=== PATIENT | female | born 1955 | race Caucasian/White ===

== ENCOUNTER → 2017-07-27 09:48 | Outpatient (CLI) | payer MEDICARE, MEDICAID, SELFPAY ==
--- NOTE | 2017-07-27 09:52 | ECHOCS_ITS ---
Reason For Study: MVP Procedure This was a 2D Doppler, Color Flow transthoracic echocardiogram. Exam performed in department. Left Ventricle Normal LV size. Left ventricular systolic function is normal. The estimated ejection fraction is 60 %. Transmitral diastolic flow velocities suggest mild (stage 1) diastolic dysfunction (reversed pattern). No regional wall motion abnormalities noted. Tricuspid Valve Normal tricuspid valve. Mild (1+) tricuspid valve insufficiency. Pulmonary artery systolic pressure is 22 mmHg. Aortic Valve Normal aortic valve. Trisinus/trileaflet aortic valve. Pulmonic Valve Normal pulmonic valve. Great Vessels Normal aortic root. The pulmonary artery is normal size. Normal inferior vena cava. Pericardium/Pleural No pericardial effusion. Medication Definity0.2ml given slow IV push to enhance endocardial definition. MMode/2D Measurements & Calculations LVIDd: 3.7 cm IVSd: 0.87 cm Ao root diam: 2.8 cm LVIDs: 2.7 cm LVPWd: 0.90 cm LA dimension: 3.9 cm RVDd: 3.6 cm FS: 28.9 % LAV(MOD-bp): 28.8 ml LA A4 area: 10.7 cm2 RA A4 area: 9.4 cm2 LAV(MOD-bp) Indexed: 15.5 ml/m2 LAV(MOD-sp2): 31.3 ml LAV(MOD-sp4): 22.6 ml Doppler Measurements & Calculations MV E max william: 53.7 cm/sec Lat Peak E' William: 6.0 cm/sec Med Peak E' William: 3.9 cm/sec MV A max william: 85.9 cm/sec E/E' lat: 8.9 E/E' med: 13.6 MV E/A: 0.62 Ao V2 max: 113.9 cm/sec LV V1 max: 97.3 cm/sec PA V2 max: 116.9 cm/sec Ao max P.2 mmHg LV V1 max P.8 mmHg Ao V2 mean: 88.9 cm/sec Ao mean P.4 mmHg Ao V2 VTI: 22.1 cm TR max william: 208.0 cm/sec TR max P.3 mmHg Interpretation Summary Normal LV size. Left ventricular systolic function is normal. The estimated ejection fraction is 60 %. Transmitral diastolic flow velocities suggest mild (stage 1) diastolic dysfunction (reversed pattern). Mild (1+) tricuspid valve insufficiency. Contrast injection was performed. Ordering Physician: Cheyenne Diggs Referring Physician: Cheyenne Diggs Performed By: Vannessa Bill, JOSÉ MIGUEL, RVT
== END ==
PROVIDERS: Family Provider Internal Medicine; PCP Internal Medicine; Visit Provider Internal Medicine
DX: I34.1 Nonrheumatic mitral (valve) prolapse (principal)
CPT/HCPCS: 93306; Q9957; A4216; C8929

== ENCOUNTER 2017-08-11 07:38 | Inpatient (IN) | payer MEDICARE, MEDICAID, SELFPAY ==
[2017-08-04 13:18] VITALS: BP 133/85; PULSE 67; RESP 18; TEMP 36.7; O2SAT 95; BMI 37.5
--- NOTE | 2017-08-05 10:30 | CASEMGMT ---
PRE-OP Joint Call: Attempted, 08/05/17 at 1031. Left VMM with request for return call. JIMMIE CohenN, RN-BC, CCM
--- NOTE | 2017-08-05 10:48 | CASEMGMT ---
PRE-OP Joint Call: FENG LEUNG received call back from Ms. Friedman. Ms. Friedman lives at [facility]. She has an elevator and no stairs. She states she has the following DME: FWW, Shower Chair, Hand Held Shower, Cane, and her bed is in the living room. Mrs. Friedman is disabled and lives alone. She would like to go to TCU for rehab prior to transitioning back to home. Ms. Friedman is scheduled for inpatient surgery on 08/11/17. FENG LEUNG explained MCR A/B criteria for SNF coverage, including the 3 mdn requirement. Ms. Friedman verbalized understanding. Ms. Friedman also has [employer] as a secondary insurance. This FENG LEUNG called and left a VMM with Anusha asking for Ms. Friedman to be added to the TCU list. Disposition Plan: TCU pending acceptance and bed availability. SHERRY Cohen, RN-BC, CCM
[2017-08-11] VITALS (10 sets, daily range): BP systolic 95–146; BP diastolic 56–93; PULSE 67–77; RESP 16–18; TEMP 35.8–36.6; O2SAT 92–98; BMI 37.5
[2017-08-11] MEDS: oxyCODONE HCl Cr 10 MG Tablet PO ×2 (08:26→21:29)
[2017-08-11] MEDS: Scopolamine 1mg/72hr Patch 1 PATCH TD (09:15)
--- NOTE | 2017-08-11 09:40 | BIKNEE_PTH ---
PATIENT: PERLITA ETIENNE LOC: [facility] U#:[id number] AGE/SX: 62/F ROOM: [facility]315 RE08/11/[address]: Brett Terrell DO : 1955 BED: 1 DIS: 08/13/2017 SPEC #: [id number] RECD: 08/12/17 08:18 STATUS: KASANDRA JACK #: [id number] WARREN: 08/11/17 09:[address]: Brett Terrell DEPT: SURGICAL PATHOLOGY RECD BY: Alaina Nevarez ENTERED: 08/12/17 09:29 SP TYPE: TOTAL KNEE OTHR DR: Dr. Cheyenne Diggs DO Tissues: Knee, NOS Procedures: Decalcification bone/plaque Surgery Specimen Level IV HEADER OPERATION: Total knee replacement bilateral PRE-OP DIAGNOSIS: Bilateral knee pain TISSUE SUBMITTED: Bone from bilateral knees MICROSCOPIC DIAGNOSIS Right and left total knee replacements: Changes consistent with severe degenerative joint disease. AM:eugene 08/17/17 MICROSCOPIC DESCRIPTION Slides are reviewed. GROSS DESCRIPTION Received is one container designated bone from bilateral knees. The specimen consists of multiple fragments of lara-yellow bone measuring in aggregate 15 x 13 x 3.5 cm. Also in the specimen container are multiple fragments of yellow-white soft tissue measuring in aggregate 9 x 7 x 3 cm. A number of bony fragments contain articular surfaces consistent with tibial plateau and femoral condyle and displaying prominent osteophyte formation and bone erosion. Gift Basket Packer sections are submitted in four cassettes as follows: 1 & 2 - soft tissue, 3 & 4 - bone after decalcification. / SJ:eugene 08/12/17 TC:5 CPT: 12285, 12110
--- NOTE | 2017-08-11 10:09 | RAD_ITS ---
STUDY: X-RAY - LEFT KNEE REASON FOR EXAM: Female, 62 years old. Postop evaluation TECHNIQUE: 2 view(s) of the knee. COMPARISON: None. FINDINGS: Patient is status post total knee arthroplasty evidence of hardware failure or loosening. No acute fracture or dislocation. Expected postoperative soft tissue changes. RAD/Knee 1 or 2 Views IMPRESSION: Total left knee arthroplasty without complications Electronically Signed: Dheeraj Beebe DO at 18:11 EDT Tel , Service support ,
[2017-08-11] MEDS: Cefazolin 2 GM in 0.9% Normal Saline 100 ML IV (10:38)
[2017-08-11] MEDS: Cefazolin 1 GM/50 ML BAG IV ×2 (12:34→20:54)
--- NOTE | 2017-08-11 15:24 | PCM.IMDPSTOP ---
Immediate Post-Op Note Date of Procedure: 08/11/17 Primary Surgeon/Physician: Brett Terrell DO filter tank tender helper: Bjorn Hopper filter tank tender helper: Reid Tucker - Provided assistance for the right total knee Pre-Operative Diagnosis: Bilateral osteoarthritis of the knees Post-Operative Diagnosis: Same as above Surgery/Procedure Performed:: 1) left total knee arthroplasty-[place] triathlon press-fit. 2) right total knee arthroplasty-Elizabeth triathlon press-fit femur-cemented tibia with open reduction internal fixation of iatrogenic tibial plateau fracture Description of Surgical Findings:: See dictation Estimated Blood Loss: 150 Specimen's removed: Bone cuts Type of Anesthesia:: General ASA Class: ASA2 Mod Systematic Disease - Admit VTE Documentation VTE Present on Admission: No VTE Mechan Device Prophylaxis: SCD's, Knee High ЕКАТЕРИНА Hose VTE Pharm Prophylaxis ordered?: Yes
--- NOTE | 2017-08-11 15:42 | OP.PCM_ITS ---
Report of Operation Date of Procedure: 08/11/17 Pre-Operative Diagnosis: Bilateral osteoarthritis of the knees Post-Operative Diagnosis: Same as above Surgery/Procedure Performed:: 1) left total knee arthroplasty-Elizabeth triathlon press-fit. 2) right total knee arthroplasty-[place] triathlon press-fit femur- cemented tibia with open reduction internal fixation of iatrogenic tibial plateau fracture Description of Surgical Findings:: 62-year-old female with bilateral osteoarthritis of the knees. Patient failed conservative measures to include NSAIDs active modifications physical therapy and injections. Having failed conservative measures patient elected for operative intervention to include bilateral total knee arthroplasty. Patient was met in the holding area where the bilateral lower extremities were marked and identified by the orthopedic surgeon. Patient was taken to the operating room in satisfactory condition with somewhat to place to identify patient operative procedure and limb. Patient initially received 2 g of Ancef for the left knee, she was then redosed with 1 g of Ancef for the right knee and also received 1 g of TXA. Patient nurse went a successful general anesthesia she was then prepped and draped in the usual fashion. Patient had a well-placed tourniquet to the bilateral lower extremities. She was then prepped and draped in the usual fashion with preparation to perform the left total knee initially and then transition after to the right total knee. Left lower extremity was elevated Esmarch used for exsanguination and tourniquet was increased to 250 mmHg for roughly 60 minutes. Patient had a standard midline incision made 2 fingerbreadths above the patella down to the tibial tubercle. She then underwent a standard medial parapatellar approach. There was a large return of an effusion and obvious tricompartmental arthrosis. Patient underwent a standard anterior and superior synovectomies. Standard anterior medial release was undertaken. We then placed our intramedullary cookie into the femur to perform our standard 8 mm distal femoral resection with 6? valgus cut. Standard cut was performed. We then sized to a size 2 femur. Standard cutting jig was placed using 3? of external rotation through the trans- epicondylar axis. Standard cuts were performed. We then turned our attention to the tibia. Extra medullary guide was used. 3? slope was provided in anticipation of performing a CR tibial plateau. We took 2 mm off the medial resection using standard technique. The leg was brought to full extension and the excess remnants of the menisci were removed. PCL was preserved. Posterior lateral and anterior medial geniculate vessels were cauterized. 9 mm spacer was introduced and we had excellent mechanical alignment and no extension gap abnormalities. Patient was then flexed at 30 and 90? we showed no flexion extension gaps and the patient remained ligamentously stable in all planes. At that point time we turned our attention to the patella. It measured roughly 22 mm in overall thickness. We took off 10. The patient sized to a 29 asymmetric patella. Standard drill holes were placed for a cemented patella. We then placed our trial femoral component and tibial tray. 9 mm spacer was introduced. Appropriate rotation for the tibial tray was set and then fixed. Component was then removed and keel punch was then placed to the to include the secondary punch for a press-fit component. The patient had excellent bone quality. At that point time cement was pared to the back table for the patella component. We then impacted a #2 tibial tray press-fit [place] triathlon, impacted #2 femoral component [place] triathlon press-fit and then cemented a 29 patella button to the patella with standard technique. We re-trialed with an 11 mm Gloria but felt was over constrained the knee. At that point time the wound was copiously irrigated and any excess debris was removed. We then placed a 9 CS Gloria using standard technique. Patient had excellent range of motion full extension. With no patella maltracking. At that point time the knee was then closed in a layer technique with #1 Vicryl in the knee at 30? of knee flexion to the distal two thirds and the knee was in full extension for the proximal one third of the medial parapatellar approach. We then yes used 2- 0 Vicryl running subicular Monocryl and Dermabond for the final closure. Joint was it down after roughly 60 minutes. I was scrubbed and available time during our procedure. At that point time why the final closure was undertaken we turned our attention to the right knee. Right knee was elevated Esmarch used for exsanguination and tourniquet was increased to 250 mmHg for roughly 2 hours. Patient had initial incision made 2 fingerbreadths above the patella down to the tibial tubercle in a standard medial parapatellar approach. Anterior and superior synovectomies were undertaken in a standard posterior medial release performed. At that point time intramedullary guide was placed with the distal femoral cut again of 8 mm distal femoral resection with 6? valgus cut. This was done using standard technique. The patient resized to a size 2 femur in the standard cutting blocks was performed. We then turned our attention to the tibia we took off 2 mm off the medial tibial plateau as this was the most worn area. This was done using standard technique. Leg brought in full extension and the remnant menisci resected. Posterior lateral anterolateral geniculate vessels were cauterized. PCL was preserved. Patient sized to an 11 mm Gloria with excellent mechanical alignment at 0 30 and 90? of motion. We had no flexion extension gaps appreciated. #2 femur was then placed and impacted a #2 tibial tray was then placed in an rotation established. Trial component removed and during the keel punch removal identified the patient had propagation of fracture through the peak anteriorly of the keel punch and then followed a fracture line posterior posterior medial and direct medial off the keel line. Upon identification of this fracture abnormality modification of technique would be needed. I elected to call Dr. Elmer Tucker with the [facility] who was coming to the OR at that time anyway for procedure to ask for assistance with treating the proximal tibia fracture and subsequent tibial preparation. At that point time the incision was extended distally. A partial medial release was undertaken to identify the fracture extension anteriorly. Provisional K wires were then used to hold the fracture lines in near anatomic position. We confirmed positioning with an AP and lateral C arm. At that point time we placed lag screws just below the subchondral bone away from the keel from anterior to posterior capture anterior fragment and posterior fragment from lateral to medial to further compress the anterior fracture line and subsequently from medial to lateral to capture the posterior fragment. All screws were 3.5 mm cortical screws except for the posterior screw which was a 4.0 cannulated screw partially threaded. We then placed a 6 hole T plate anteromedially to act as a buttress to the anterior wedge fracture line. We fixed distally with 2 3.5 mm cortical screws using standard AO technique. Upon completion of the fixation and stabilization of the fracture lines we turned our attention back to the tibial prep. The proximal tibia was then presented # 2 sizing jig was placed and the keel was then reintroduced. We then elected to use a revision type stem of roughly 50 mm in overall length prepared the tibial canal using standard technique. Trial component was seated with excellent mechanical alignment and stability and elected to proceed with cementing of the tibia and press fitting of the femur. Prior to cement preparation we turned our attention to the patella. The patella on the right measured roughly 20 mm in overall thickness. We took off 8 in the patella sized to a 29 asymmetric equivalent to the contralateral side. Standard drill holes were placed in anticipation of a cemented patella component. We then prepared our cement on the back table using standard technique. Cement was placed into the intramedullary canal and across the tibial plateau and the universal baseplate then introduced again with a 50 mm stem and allow the cement in place. Appropriate rotation was maintained. Femoral component was then press-fit after the wound had been copiously irrigated. 9 mm spacer was introduced to allow for cement pressurization and we then cemented the patella component as well. We subsequent removed excess cement as the cement cured maintaining pressure effect across the patella and the tibial tray. Upon curing of the cement trial component was removed excess cement was removed from the posterior aspect of the components both medial laterally and the joint examined. Trial component was replaced we checked our patella alignment we show no maltracking. At that point time we trialed up to 11 CS Gloria felt to be a better extension flexion gaps and mechanical stability. At that point time we had copious irrigated one additional time and place stage [place] triathlon 11 mm CS Gloria using standard technique. Patient had excellent range of motion. Good stability. We then injected the knee with 50 cc of periarticular joint cocktail using standard technique. We then been her began our closure with with #2 Vicryl to the distal two thirds of the incision and 30? knee flexion, proximal one third and full extension using standard technique. The remaining portion of the wound was closed with 2-0 Vicryl and running subicular Monocryl. We then used Dermabond as a water seal. Please note the tourniquet was let down at roughly 2 hours and the final cementing and implant placement took place without tourniquet. No drains, intraoperative iatrogenic tibial plateau fracture identified and treated using standard AO technique. Implants included the Elizabeth triathlon press-fit femur cemented universal baseplate #2 femur #2 tibial plateau 11 mm CS Gloria. Standard AO screws included multiple 3.5 mm cortical screws, 1 4 mm partially threaded cancellus screw and a 6 hole T plate. Patient will be admitted for for 24 hours of IV antibiotics appropriate IV and p.o. pain medication. DVT prophylaxis to include SCDs teds early aggressive range of motion in 325 p.o. twice daily aspirin with GI prophylaxis. Patient will be weightbearing as tolerated to the left lower extremity and partial weightbearing to the right lower extremity. I was scrubbed and available time during our procedure. Please note Dr. Tucker was available during the right total knee arthroplasty to aid with treatment of the proximal tibial plateau fracture. Any major issues please contact me. supervisor agricultural education: Bjorn Hopper supervisor agricultural education: Reid Tucker - Provided assistance for the right total knee Type of Anesthesia:: General Specimen's removed: Bone cuts Estimated Blood Loss (mL): 150 Grafts/Implants Used: Striker triathlon press-fit, AO screws and T plate - Complications Proximal tibia plateau fracture-identified and treated intraoperatively. - Admit VTE Documentation VTE Present on Admission: No VTE Mechan Device Prophylaxis: SCD's, Knee High ЕКАТЕРИНА Hose VTE Pharm Prophylaxis ordered?: Yes
--- NOTE | 2017-08-11 16:00 | RAD_ITS ---
STUDY: X-RAY - RIGHT KNEE REASON FOR EXAM: Female, 62 years old. Postop TECHNIQUE: 2 view(s) of the knee. COMPARISON: September 03, 2016 right knee x-ray FINDINGS: There is a right knee arthroplasty. There is a side plate and cortical screws transfixing the proximal medial tibia. There is postoperative change. There are cortical screws transfixing the proximal aspect of the tibia. RAD/Knee 1 or 2 Views IMPRESSION: Status post right knee arthroplasty. Electronically Signed: Darlene Bennett MD at 16:28 EDT Tel , Service support ,
[2017-08-11 17:04] LABS: Anion Gap 11 (5-15); BUN 13 mg/dL (7-18); BUN/Creat Ratio 17.8 RATIO (10-20); Calcium,Total 7.7 mg/dL (8.5-10.1); Chloride 108 mmol/L (98-107); Creatinine, Serum 0.73 mg/dL (0.55-1.02); EST Glomerular Filtration Rate 86 mL/min (>60); Est Glom Filt Rate - Afr Amer 104 mL/min (>60); Estimated Creatinine Clearance 59.52 ml/min; Glucose 123 mg/dL (74-106); Potassium 4.3 mmol/L (3.5-5.1); Sodium Level 142 mmol/L (136-145)
[2017-08-11] MEDS: oxyCODONE 5 MG Tablet PO (19:26)
[2017-08-11] MEDS: 0.9% NaCl Peripheral Flush Adult/Peds IV (19:41)
[2017-08-11] MEDS: Ondansetron 4 MG/2 ML Vial IV (19:41)
[2017-08-11] MEDS: clonazePAM 1 MG Tablet PO (21:28)
[2017-08-11] MEDS: Lactated Ringers 1,000 ML 75 ML IV (21:28)
[2017-08-11] MEDS: Senna/Docusate Sodium 1 Tablet 2 TABLET PO (21:29)
[2017-08-11] MEDS: Acetaminophen 500 MG Tablet 1000 MG PO (21:30)
[2017-08-11] MEDS: Loratadine 10 MG Tablet PO (23:23)
[2017-08-12] MEDS: oxyCODONE 5 MG Tablet PO (01:23)
[2017-08-12 03:54] VITALS: BP 135/86; PULSE 70; RESP 18; TEMP 36.6; O2SAT 99
[2017-08-12] MEDS: Cefazolin 1 GM/50 ML BAG IV (04:01)
[2017-08-12] MEDS: Acetaminophen 500 MG Tablet 1000 MG PO ×3 (05:21→21:28)
[2017-08-12 06:09] LABS: Anion Gap 8 (5-15); BUN 10 mg/dL (7-18); Calcium,Total 8.1 mg/dL (8.5-10.1); Chloride 106 mmol/L (98-107); Creatinine, Serum 0.77 mg/dL (0.55-1.02); EST Glomerular Filtration Rate 81 mL/min (>60); Est Glom Filt Rate - Afr Amer 98 mL/min (>60); Estimated Creatinine Clearance 56.43 ml/min; Glucose 134 mg/dL (74-106); Potassium 4.1 mmol/L (3.5-5.1); Sodium Level 138 mmol/L (136-145)
[2017-08-12 06:10] LABS: Hematocrit 41.7 % (37-47); Hemoglobin 13.9 g/dl (12.0-15.0); Mean Corp Hgb Conc 33.3 g/gl (32-36); Mean Corpuscular Hgb 31.2 pg (27.0-32.0); Mean Corpuscular Volume 93.5 fL (81-99); Mean Platelet Vol. 9.4 fl (6.2-12.0); Platelet Count 227 K/mm3 (150-450); RBC Distribution Width CV 13.7 % (11.6-14.6); RBC Distribution Width SD 46.6 fl (35.1-43.9); Red Blood Count 4.46 M/mm3 (4.2-5.4); White Blood Count 13.6 K/mm3 (4.4-11.0)
[2017-08-12 06:26] LABS: Scan Indicated on CBC? Y/N NO
--- NOTE | 2017-08-12 07:47 | PN.ORTHO_ITS ---
Subjective: Postop day 1 status post bilateral total knee arthroplasties. No issues overnight. Patient reported some difficulty with sleep sleeping which may have been related to her restless leg really states that her pain is controlled at this point time. Patient denies any other fevers chills nausea vomiting chest pain or shortness of breath. Patient reports frequent urination which may be related to fluid overload during the initial procedure but otherwise doing well at this time. Patient currently sitting upright and eating. Patient was informed of the right sided tibial plateau fracture during implant placement and now she will be protected weightbearing on that side. - Physical Exam General: Alert, Oriented x3, Cooperative, No apparent distress Musculoskeletal: - - Patient remains distally neurovascular intact. No calf pain. Negative Homans. SCDs teds in place. EHL anterior gastrocsoleus peroneals quads hamstrings appear to be 5 out of 5. Lab values remain stable after review. Radiographs reviewed show hardware otherwise well seated well- placed left into the right knees at this time. Vital Signs Temp Pulse Resp BP Pulse Ox 98 F 70 18 135/86 H 99 08/12/17 03:54 08/12/17 03:54 08/12/17 03:54 08/12/17 03:54 08/12/17 03:54 Oxygen Flow Rate (L/min) 2 Oxygen Delivery Method Nasal Cannula Weight: 199 lb Body Mass Index (BMI) 37.5 Intake and Output for Last 24 Hours 08/10/17 08/11/17 08/12/17 23:59 23:59 23:59 Intake Total 3410 / 3410 476 / 476 Output Total 600 / 600 300 / 300 Balance 2810 / 2810 176 / 176 Laboratory Tests Past 24 Hrs 08/11/17 08/12/17 08/12/17 16:42 05:32 05:32 WBC 13.6 H RBC 4.46 Hgb 13.9 Hct 41.7 MCV 93.5 MCH 31.2 MCHC 33.3 RDW 13.7 RDW Differential 46.6 H Plt Count 227 MPV 9.4 Sodium 142 138 Potassium 4.3 4.1 Chloride 108 H 106 Carbon Dioxide 23.0 24.0 Anion Gap 11 8 BUN 13 10 Creatinine 0.73 0.77 Estim Creat Clear Calc 59.52 56.43 Est GFR (MDRD) Af Amer 104 98 Est GFR (MDRD) Non-Af 86 81 BUN/Creatinine Ratio 17.8 13.0 Glucose 123 H 134 H Calcium 7.7 L 8.1 L Medical Necessity - Tobacco Use Smoking Status: Current every day smoker Assessment/Plan Assessment: After orthopedics status post bilateral total knee arthroplasties doing well. Plan: At this point time patient is weightbearing as tolerated to left lower extremity and touchdown weightbearing to the right. However the patient can work on range of motion exercises and has been encouraged to be working on getting the knees to 90? throughout her rehab plan. Patient will most likely be touchdown weightbearing for anywhere from 4-6 weeks. Continue to encourage calf pumps and sitting upright in chair for pulmonary toileting. Anticipate discharge to the transitional care unit tomorrow if the patient remained stable otherwise on Thursday based on availability and approval.
[2017-08-12 08:08] VITALS: BP 132/73; PULSE 63; RESP 18; TEMP 36.8; O2SAT 95
[2017-08-12 08:14] VITALS: RESP 18; O2SAT 95
[2017-08-12] MEDS: Aspirin 325 MG Tablet PO ×2 (08:44→18:06)
[2017-08-12] MEDS: traMADol 50 MG Tablet PO (08:45)
--- NOTE | 2017-08-12 10:26 | CASEMGMT ---
Social Work Note ALEKS met with pt to discuss discharge planning. Pt was originally on the list for TCU but per Hyacinth in inpatient rehab pt would qualify for inpatient rehab due to her bilateral total knee. ALEKS informed pt on inpatient rehab and asked if she would be interested in inpatient rehab at discharge. ALEKS explained to pt that therapy would be around 3 hours a day for pt but that pt's stay would be shorter at inpatient rehab than going to TCU. Pt was receptive to this and states understanding. Pt states that she would like go to inpatient rehab at discharge. Pt also had concerns about the nurses on [facility]. She states that she will call for the the nurses to come when she has to go to the bathroom but that they take a lot of time to get to her and sometimes they act snippy. ALEKS utilized active listening skills and listened to pt concerns and offered support to pt and offered to give the patient the patient advocate number. Pt denied taking number for patient advocate number. Pt denied additional needs or concerns at this time. ALEKS placed call to Anusha in TCU who is covering for Hyacinth this morning to inform her that patient is interested in inpatient rehab. Plan: Discharge to inpatient rehab pending acceptance Li Julian MACHINE ATTENDANT, STUDENT DEAN
[2017-08-12] MEDS: Furosemide 20 MG Tablet PO (10:54)
[2017-08-12] MEDS: Venlafaxine XR 37.5 MG Capsule PO (10:54)
[2017-08-12] MEDS: amLODIPine 5 MG Tablet PO (10:55)
[2017-08-12] MEDS: oxyCODONE HCl Cr 10 MG Tablet PO ×2 (10:56→21:28)
[2017-08-12] MEDS: Atenolol 50 MG Tablet PO (10:57)
[2017-08-12] MEDS: Senna/Docusate Sodium 1 Tablet 2 TABLET PO ×2 (10:57→21:30)
[2017-08-12] MEDS: Famotidine 20 MG Tablet 40 MG PO (10:57)
[2017-08-12] MEDS: Lisinopril 20 MG Tablet PO (10:58)
[2017-08-12] MEDS: Tamoxifen 10 MG Tablet 20 MG PO (10:59)
--- NOTE | 2017-08-12 12:11 | CASEMGMT ---
Social Work Note SW received call from Anusha in TCU stating that she will inform [facility] that pt is interested in inpatient rehab (RU). Plan: Inpatient rehab (RU) at discharge Li MARCOS, ELECTRIC ARC WELDER
[2017-08-12 13:49] VITALS: BP 139/83; PULSE 72; RESP 18; TEMP 36.4; O2SAT 95
--- NOTE | 2017-08-12 14:40 | CASEMGMT ---
Social Work Note ALEKS received call from [facility] stating that they are able to accept pt when pt is ready for discharge. Per Dr. Brett Terrell's progress note, he is thinking pt should be ready for discharge either tomorrow or Thursday. ALEKS informed Hyacinth of this. Hyacinth states that pt can come to inpatient rehab when discharge is ready. Plan: Inpatient rehab Li Julian SERVICENOW ADMINISTRATOR, ICT HELP DESK OFFICER
[2017-08-12 21:24] VITALS: BP 148/71; PULSE 65; RESP 16; TEMP 36.8; O2SAT 94
[2017-08-12] MEDS: clonazePAM 1 MG Tablet PO (21:28)
[2017-08-13 03:23] VITALS: BP 135/70; PULSE 69; RESP 16; TEMP 36.5; O2SAT 94
[2017-08-13] MEDS: Acetaminophen 500 MG Tablet 1000 MG PO ×2 (05:48→14:15)
--- NOTE | 2017-08-13 05:54 | PCM.DC.TKR ---
Discharge Activity: Return to Normal Activity, May not drive while taking narcotic pain medications., May Shower, Use Walker, - - Weightbearing as tolerated to the left lower extremity, touchdown weightbearing to right lower extremity. Range of motion has no restrictions to either extremity. May shower in (days): 1 Ice area for (Minutes): 20 Weight Bearing Status: - - Weightbearing as tolerated to left lower extremity, touchdown weightbearing to right lower extremity. Range of motion has no restrictions to either extremity. Call your doctor if your incision/area has: Continuous Slow Oozing, Sudden Increased Bleeding, Increased Pain/ Swelling, Increased Redness, Foul Smelling Discharge, Swelling at the incision site Call your doctor if you observe: Fever of 101 or Higher, Coldness, Increased Pain, Numbness or Tingling, Change in Color, Inability to urinate, Inability to have a bowel movement, Using more than one pad per hour, Shortness of breath, Dizziness, Fainting spells, Swelling in the ankles, Chest pain, Prolonged hiccoughing, Increased palpitations (irregular heartbeat), Calf discomfort, Uncontrolled pain Suture Line Care: Avoid Pulling/Pushing, Avoid Pinching/Bending Change Dressing in (Days):: 5 Remove Dressing in (days):: 5 Cleanse incision/area with: Soap & Water Additional Dressing/Incision Instructions:: Remove dressing in 5 days. If the patient shows signs of blister formation around the edges due to traction and swelling, the dressing can be removed and apply bacitracin or equivalent to the blister sites. Allergies/Adverse Reactions: Allergies celecoxib [From Celebrex] Allergy (Verified 08/04/17 13:05) Hives diphenhydramine [From Aleve PM] Allergy (Verified 08/04/17 13:05) Hives gabapentin [From Neurontin] Allergy (Verified 08/04/17 13:05) Other hyaluronic acid [From Euflexxa] Allergy (Verified 08/04/17 13:05) Hives lidocaine Allergy (Verified 08/04/17 13:05) Rash naproxen [From Aleve PM] Allergy (Verified 08/04/17 13:05) Hives pregabalin [From Lyrica] Allergy (Verified 08/04/17 13:05) Hives quetiapine [From Seroquel] Allergy (Verified 08/04/17 13:05) Other ropinirole [From Requip] Allergy (Verified 08/04/17 13:05) Other benzoyl peroxide Adverse Reaction (Verified 08/04/17 13:05) Rash citalopram Adverse Reaction (Verified 08/04/17 13:05) Other etanercept [From Enbrel] Adverse Reaction (Verified 08/04/17 13:05) Other hydrochlorothiazide Adverse Reaction (Verified 08/04/17 13:05) Other NSAIDS (Non-Steroidal Anti-Inflamma Adverse Reaction (Verified 08/04/17 13:05) Rash prednisone Adverse Reaction (Verified 08/04/17 13:05) Other ANTIDEPRESENTS Adverse Reaction (Uncoded 04/10/16 08:23) Other Medications to take at Discharge Atenolol [Tenormin (beta jamal)] 50 mg PO DAILY 02/13/13 Furosemide [Lasix] 20 mg PO DAILY 02/13/13 Lisinopril [Zestril] 20 mg PO DAILY 02/13/13 Cholecalciferol (VIT D3) [Vitamin D3] 3,000 unit PO DAILY 02/10/15 Loratadine [Claritin] 10 mg PO DAILY PRN PRN 02/10/15 Sennosides/Docusate Sodium [Senna Plus Tablet] 3 each PO QHS 02/10/15 Clonazepam [Klonopin] 1 mg PO QHS 04/10/16 Calcipotriene [Dovonex] 120 gm TP DAILY 08/04/17 Tamoxifen Citrate 20 mg PO DAILY 08/04/17 Venlafaxine HCl [Effexor] 37.5 mg PO DAILY 08/04/17 Aspirin E.C. [Ecotrin] 325 mg PO BID #30 tab 08/13/17 Docusate Sodium [Colace] 100 mg PO BID PRN PRN #10 cap 08/13/17 Famotidine [Pepcid] 40 mg PO DAILY #30 tab 08/13/17 Oxycodone HCl/Acetaminophen [Percocet 5/325] 1 - 2 tab PO Q4H PRN PRN #60 tab 08/13/17 proMETHazine tablet [Phenergan] 25 mg PO Q4H PRN PRN #10 tab 08/13/17 The following prescriptions were given: Oxycodone HCl/Acetaminophen [Percocet 5/325] 1 - 2 tab PO Q4H PRN PRN #60 tab PRN Reason: Pain proMETHazine tablet [Phenergan] 25 mg PO Q4H PRN PRN #10 tab PRN Reason: Nausea Docusate Sodium [Colace] 100 mg PO BID PRN PRN #10 cap PRN Reason: Constipation Famotidine [Pepcid] 40 mg PO DAILY #30 tab Aspirin E.C. [Ecotrin] 325 mg PO BID #30 tab Primary Care Physician: Cheyenne Diggs DO [Primary Care Provider] - Please Follow Up With: Brett Terrell DO When: Call [facility] for an appointment for 2 weeks Proposed Discharge Date: 08/13/17
[2017-08-13 06:43] LABS: Hematocrit 40.8 % (37-47); Hemoglobin 13.3 g/dl (12.0-15.0); Mean Corp Hgb Conc 32.6 g/gl (32-36); Mean Corpuscular Hgb 30.5 pg (27.0-32.0); Mean Corpuscular Volume 93.6 fL (81-99); Mean Platelet Vol. 9.4 fl (6.2-12.0); Platelet Count 209 K/mm3 (150-450); RBC Distribution Width CV 13.6 % (11.6-14.6); RBC Distribution Width SD 46.8 fl (35.1-43.9); Red Blood Count 4.36 M/mm3 (4.2-5.4)
[2017-08-13 06:45] LABS: Scan Indicated on CBC? Y/N NO
[2017-08-13 06:54] LABS: Anion Gap 7 (5-15); BUN 12 mg/dL (7-18); BUN/Creat Ratio 18.4 RATIO (10-20); Calcium,Total 7.8 mg/dL (8.5-10.1); Chloride 104 mmol/L (98-107); Creatinine, Serum 0.65 mg/dL (0.55-1.02); EST Glomerular Filtration Rate 97 mL/min (>60); Est Glom Filt Rate - Afr Amer 118 mL/min (>60); Estimated Creatinine Clearance 66.85 ml/min; Glucose 113 mg/dL (74-106); Potassium 3.5 mmol/L (3.5-5.1); Sodium Level 138 mmol/L (136-145)
--- NOTE | 2017-08-13 07:31 | PCM.PN.ORT ---
Subjective: Postop day 2 status post bilateral total knee arthroplasties. No issues overnight. Patient said she slept through the night and actually feels very well today. Patient states she was up with PT and was sitting with a bent knee. Currently working on touchdown weightbearing to her right lower extremity but otherwise doing well. Patient informs me that she was evaluated for rehab placement at this point. Patient is pending discharge to our inpatient rehab facility with possible transition to the transitional care unit if needed. No other fevers chills nausea vomiting chest pain or shortness of breath. Pain is controlled p.o. pain medication. - Physical Exam General: Alert, Oriented x3, Cooperative, No apparent distress Musculoskeletal: - - Incisions clean dry and intact. No signs of redness or expanding hematoma. +2 pulses distally. No calf pain negative Homans. SCDs teds in place. Range of motion 0-70 at this early. Morning. Vital signs reviewed and remain stable. H&H stable Vital Signs Temp Pulse Resp BP Pulse Ox 97.7 F L 69 16 135/70 H 94 08/13/17 03:23 08/13/17 03:23 08/13/17 03:23 08/13/17 03:23 08/13/17 03:23 Oxygen Flow Rate (L/min) 2 Oxygen Delivery Method Nasal Cannula Weight: 199 lb 0.004 oz Body Mass Index (BMI) 37.5 Intake and Output for Last 24 Hours 08/11/17 08/12/17 08/13/17 23:59 23:59 23:59 Intake Total 3410 / 3410 776 / 776 700 / 700 Output Total 600 / 600 1050 / 1050 Balance 2810 / 2810 -274 / -274 700 / 700 Laboratory Tests Past 24 Hrs 08/13/17 08/13/17 05:56 05:56 WBC 10.0 RBC 4.36 Hgb 13.3 Hct 40.8 MCV 93.6 MCH 30.5 MCHC 32.6 RDW 13.6 RDW Differential 46.8 H Plt Count 209 MPV 9.4 Sodium 138 Potassium 3.5 Chloride 104 Carbon Dioxide 27.0 Anion Gap 7 BUN 12 Creatinine 0.65 Estim Creat Clear Calc 66.85 Est GFR (MDRD) Af Amer 118 Est GFR (MDRD) Non-Af 97 BUN/Creatinine Ratio 18.4 Glucose 113 H Calcium 7.8 L Medical Necessity - Tobacco Use Smoking Status: Current every day smoker Assessment/Plan Assessment: After orthopedics status post bilateral total knee arthroplasties doing well. Plan: This point time we will discharge the patient to inpatient rehab. Patient is weightbearing as tolerated to the left lower extremity and touchdown weightbearing to the right secondary to intraoperative tibial plateau fracture that was addressed with open reduction internal fixation. Patient is done well at this point in time. I will continue to follow the patient on the floor as long she is on inpatient rehab and/or transitional care unit. Medications are on the chart. Any issues please contact me. Patient may shower at this time. Do not submerge wound.
--- NOTE | 2017-08-13 07:33 | PCM.DC.BLA ---
Discharge Summary Date of Admission: 08/11/17 Date of Discharge: 08/13/17 Summary: 62-year-old female who was admitted to the floor status post bilateral total knee arthroplasties on date of admission. Patient had an intraoperative fracture to the right tibial plateau which was addressed with open reduction internal fixation and then completion of the total knee arthroplasty. Patient was made weightbearing as tolerated to the left lower extremity and touchdown weightbearing to the right lower extremity with no restrictions to range of motion. Patient at this point time as tolerated regular diet, has been ambulatory physical therapy and evaluated for inpatient rehab and will be discharged at this time. Patient has no incidence of fevers chills nausea vomiting chest pain or shortness of breath. Pain is controlled p.o. pain medication. Patient denies any calf pain. Vital signs and H&H have remained stable. Silverlon dressing in place. Assessment: Status post bilateral total knee arthroplasties-intraoperative fracture to the right lower extremity which was treated with open reduction internal fixation and completion of the arthroplasty as scheduled. Plan: Patient be discharged to inpatient rehab with possible transition to the transitional care unit if needed. Patient will continue with DVT prophylaxis to include SCDs teds and 325 p.o. twice daily of aspirin with GI prophylaxis. Patient may shower at this time. Do not submerge wound. Dressing will stay on for a total of 7 days from date of operation. If the patient were to develop blister formation around the edges of the Silverlon dressing, than the Silverlon dressing can be removed. Simple application of bacitracin or triple ointment to the blister sites until healed is appropriate. Continue to work on aggressive range of motion. Any major issues please contact me. I will continue to follow the patient on the floor as long as she is in the hospital either in the inpatient rehab or the transitional care unit.
[2017-08-13] MEDS: oxyCODONE 5 MG Tablet PO ×2 (08:51→13:37)
[2017-08-13 08:52] VITALS: BP 135/74; PULSE 78; RESP 18; TEMP 36.5; O2SAT 92
[2017-08-13] MEDS: Aspirin 325 MG Tablet PO (08:58)
[2017-08-13] MEDS: Senna/Docusate Sodium 1 Tablet 2 TABLET PO (09:00)
[2017-08-13] MEDS: Lisinopril 20 MG Tablet PO (09:00)
[2017-08-13] MEDS: Venlafaxine XR 37.5 MG Capsule PO (09:00)
[2017-08-13] MEDS: Famotidine 20 MG Tablet 40 MG PO (09:00)
[2017-08-13] MEDS: Atenolol 50 MG Tablet PO (09:00)
[2017-08-13] MEDS: Furosemide 20 MG Tablet PO (09:00)
[2017-08-13] MEDS: Tamoxifen 10 MG Tablet 20 MG PO (09:01)
[2017-08-13] MEDS: oxyCODONE HCl Cr 10 MG Tablet PO (10:26)
--- NOTE | 2017-08-13 12:11 | CASEMGMT ---
Social Work Note Per FENG Thompson pt has some concerns about going to inpatient rehab. SW met with pt to discuss these concerns. Pt states that she feels that the inpatient rehab may be too much therapy for pt and pt feels she might not able to do the amount of therapy that they want her to do. SW utilized active listening skills and listened to pt's concerns and offered feedback. SW explained to pt that the inpatient rehab will follow along with the pt and work with the pt to meet her where her needs are at. SW informed pt that the therapy is not all at once and that the inpatient rehab will progress along with the pt as she becomes stronger. SW informed pt that the inpatient rehab will provide her with the best care that she needs and will work to decrease the pain that she has in her knees. Pt was receptive to this and willing to give the inpatient rehab a try. Pt will discharge to inpatient rehab today. SW informed FENG Thompson of this and that pt is able to discharge when ready. Plan: Inpatient rehab unit today [facility] SALES ORDER CLERK, VINYL WELDER AND FABRICATOR
--- NOTE | 2017-08-13 12:28 | NURSING ---
called report to Rehab at this time.
[2017-08-13 13:44] VITALS: BP 102/75; PULSE 77; RESP 18; TEMP 36.5; O2SAT 92
--- NOTE | 2017-08-13 13:49 | NURSING ---
Went in pt's room to medicate her for pain since she had just finished with therapy. Assisted to BSC with therapy's help. Talking to pt about taking her over to inpatient rehab in wheelchair after she voids and she disagreed. She states she told social work she did not want to go to inpatient rehab but would like to go to TCU instead. Social work's notes reviewed stating pt agreed earlier this am to go to inpatient rehab. At this point Social work came to bedside and explained this morning's conversation. pt is agreeable to the amount of therapy at inpatient rehab but wishes to go to TCU instead. Social work to notify doctor and look for further options. Left patient comfortably in chair with call light.
--- NOTE | 2017-08-13 14:04 | CASEMGMT ---
Social Work Note ALEKS received call from FENG Thompson stating that pt wants to go to TCU and not inpatient rehab. ALEKS went to speak with pt. ALEKS explained inpatient rehab verse TCU and informed pt that going to TCU would depend on bed availability and this worker was unsure if they would have a bed. SW informed pt that this worker will call TCU to see about bed availability and let pt know. Pt was receptive to this. ALEKS placed call to Anusha in TCU and per Anusha she may or may not have a bed Thursday. LAEKS back in to talk to pt. ALEKS informed pt that TCU may or may not have a bed available Thursday but that the doctor is ready to discharge patient today. ALEKS states that at this point pt is looking at either inpatient rehab or SNF in the community. ALEKS explained TCU verse Inpatient Rehab and explained that the 3 hours for inpatient rehab will not be all at once and they will follow along with pt to determine pt's needs. ALEKS informed pt that inpatient rehab will listen to the pt and will take her concerns seriously and work with her the best that they can. ALEKS encouraged pt to try out inpatient rehab for a few days and if she doesn't like it a new case plan can be set up for pt. Pt was receptive to this and agreed to inpatient rehab. ALEKS placed call to Hyacinth and per Hyacinth she will come up to the floor and talk to pt as well about inpatient rehab. ALEKS updated FENG Thompson of this. Plan: Inpatient rehab today [facility] ORGANIC CHEMISTRY PROFESSOR, BANQUET CAPTAIN
--- NOTE | 2017-08-13 17:03 | CASEMGMT ---
Social Work Note Pt discharged to inpatient rehab unit today. SW placed call to Hyacinth to have her ask pt if she would like any family members or friends to be called to inform them that pt was discharged to inpatient rehab. Per, Hyacinth she will have someone ask pt this. Plan: Inpatient rehab [facility] PATIENT SERVICE REPRESENTATIVE, EQUIPMENT SPECIALIST
== END 2017-08-13 15:45 | DRG 462 ==
PROVIDERS: Specialist; Admitting Provider Orthopaedic Surgery; Family Provider Internal Medicine; PCP Internal Medicine; Visit Provider Orthopaedic Surgery
PROC: 0SRC0JZ Replacement of Right Knee Joint with Synthetic Substitute, Open Approach (ICD-10-PCS; CPT 27447; principal; 2017-08-11 09:15)
DX: M17.0 Bilateral primary osteoarthritis of knee (principal); S82.142A Displaced bicondylar fracture of left tibia, initial encounter for closed fracture; G25.81 Restless legs syndrome; I10 Essential (primary) hypertension; G47.30 Sleep apnea, unspecified; F17.200 Nicotine dependence, unspecified, uncomplicated; Z79.82 Long term (current) use of aspirin; Z85.3 Personal history of malignant neoplasm of breast
CPT/HCPCS: 36415; 73560; 76000; 80048; 85027; 87081; 88305; 88311; 97110; 97162; 97166; 97530; 97535; 97802; J7120; A4216; J2405

== ENCOUNTER 2017-08-13 15:50 | Inpatient (IN) | payer MEDICARE, MEDICAID, SELFPAY ==
[2017-08-13 16:24] VITALS: BP 141/72; PULSE 56; RESP 18; TEMP 36.4; O2SAT 93; BMI 38.9
--- NOTE | 2017-08-13 16:54 | PCM.PN.HOSP ---
Subjective: CC: status post bilateral total knee arthroplasties Objective: This is a 62-year-old female is admitted to the patient rehab after she underwent bilateral total knee arthroplasties . The Patient admitted to the inpatient rehab unit to undergo post acute care rehabilitation. We are seeing her for medical management. Vitals/I&O's: Vital Signs Temp Pulse Resp BP Pulse Ox 97.5 F L 56 L 18 141/72 H 93 08/13/17 16:24 08/13/17 16:24 08/13/17 16:24 08/13/17 16:24 08/13/17 16:24 Oxygen Delivery Method Room Air Weight: 93.4 kg Body Mass Index (BMI) 38.9 Current Medications Aspirin (Ecotrin) 325 mg PO BID EMMA Atenolol (Tenormin (Beta Lorraine)) 50 mg PO DAILY EMMA Bisacodyl (Dulcolax) 10 mg RECTAL .PRN X 1 PRN PRN Reason: Constipation Cholecalciferol (Vitamin D) 3,000 unit PO DAILY EMMA Clonazepam (Klonopin) 1 mg PO QHS EMMA Docusate Sodium (Colace) 100 mg PO BID PRN PRN PRN Reason: Constipation Furosemide (Lasix) 20 mg PO DAILY EMMA Lisinopril (Zestril) 20 mg PO DAILY EMMA Loratadine (Claritin) 10 mg PO DAILY PRN PRN PRN Reason: ALLERGIES Magnesium Hydroxide (Milk Of Magnesia) 30 ml PO .PRN X 1 PRN PRN Reason: Constipation Non-Formulary Medication (Calcipotriene [Dovonex]) 120 gm TP DAILY EMMA Non-Formulary Medication (Famotidine [Pepcid]) 40 mg PO DAILY EMMA Non-Formulary Medication (Oxycodone Hcl/Acetaminophen) 1 - 2 tab PO Q4H PRN PRN PRN Reason: PAIN Non-Formulary Medication (Tamoxifen Citrate [Tamoxifen Citrate]) 20 mg PO DAILY EMMA Non-Formulary Medication (Venlafaxine Hcl [Effexor]) 37.5 mg PO DAILY EMMA Promethazine HCl (Phenergan Tablet) 25 mg PO Q4H PRN PRN PRN Reason: NAUSEA Senna/Docusate Sodium (Senokot-S, Dinorah-Colace) tablet PO QHS [facility] Medical Necessity - Tobacco Use Smoking Status: Current every day smoker Assessment/Plan 1. status post bilateral total knee arthroplasties; PT/OT, pain control, DVT prophylaxis with mechanical and pharmacological modalities. 2. Essential hypertension; will continue on lisinopril and atenolol. 3. Depression; she is on Effexor. 4. Anxiety disorder; she is on as needed Klonopin. 5. DVT prophylaxis with SCDs and an anticoagulant is recommended.
--- NOTE | 2017-08-13 18:11 | NURSING ---
belongings taken to safe per pt request, belongings sheet placed on front of chart.
[2017-08-13] MEDS: Aspirin E.C. 325 MG Tablet PO (18:12)
[2017-08-13 20:22] VITALS: BP 141/79; PULSE 65; RESP 16; TEMP 36.4; O2SAT 93
[2017-08-13] MEDS: oxyCODONE 5 MG Tablet PO (21:06)
[2017-08-13] MEDS: clonazePAM 1 MG Tablet PO (21:07)
[2017-08-13] MEDS: Senna/Docusate Sodium 1 Tablet 3 TABLET PO (21:08)
[2017-08-14] MEDS: oxyCODONE 5 MG Tablet PO ×5 (02:05→18:58)
--- NOTE | 2017-08-14 02:08 | NURSING ---
Addendum entered by Sulema Phillips 08/14/17 07:03: Per previous shift report, Pt bladder scanned for over 700cc after toileting 150 output. At this time, Gifford was inserted d/t retention and per pt request, gifford was inserted. Original Note: bladder scanned pt d/t no urgency for urination. Bladder scan total 725cc in. Gifford placed with 16 Kyr[place] and leg stabilizer applied. Pt tolerated well.
[2017-08-14 07:35] VITALS: O2SAT 96
[2017-08-14 07:39] VITALS: BP 107/62; PULSE 91; RESP 18; TEMP 36.3; O2SAT 96
[2017-08-14] MEDS: Lisinopril 20 MG Tablet PO (07:40)
[2017-08-14] MEDS: Docusate Sodium 100 MG Capsule PO (07:40)
[2017-08-14] MEDS: Venlafaxine XR 37.5 MG Capsule PO (07:41)
[2017-08-14] MEDS: Furosemide 20 MG Tablet PO (07:41)
[2017-08-14] MEDS: Aspirin E.C. 325 MG Tablet PO ×2 (07:41→17:21)
[2017-08-14] MEDS: Tamoxifen 10 MG Tablet 20 MG PO (07:41)
[2017-08-14] MEDS: Atenolol 50 MG Tablet PO (07:41)
--- NOTE | 2017-08-14 08:48 | PCM.HP.COS ---
<Yeyo Carver - Last Filed: 08/14/17 11:12> History of Present Illness Patient interviewed and examined. Agree with nurse practitioner notes and plan. She is a 62-year-old female who has had ongoing knee pain and underwent an elective total total knee replacement performed by Dr. Terrell on 08/11/17. Her postoperative course was uncomplicated apparently she did have a right tibial fracture as well which was also treated with internal fixation at the time of her surgery. She is now admitted to the rehab unit with a goal of returning her to her previous level of functional independence. She has had some constipation and in the past with constipation she is also experienced urinary retention. She has seen Dr. Silva for this in the past. Her last bowel movement was the day of surgery. Her pain is controlled. She does have restless legs which she says is controlled with Klonopin. There is a question of obstructive sleep apnea and she is scheduled for an outpatient sleep study ordered by Dr. Diggs. Past Medical History Allergies celecoxib [From Celebrex] Allergy (Verified 08/04/17 13:05) Hives diphenhydramine [From Aleve PM] Allergy (Verified 08/04/17 13:05) Hives gabapentin [From Neurontin] Allergy (Verified 08/04/17 13:05) Other hyaluronic acid [From Euflexxa] Allergy (Verified 08/04/17 13:05) Hives lidocaine Allergy (Verified 08/04/17 13:05) Rash naproxen [From Aleve PM] Allergy (Verified 08/04/17 13:05) Hives pregabalin [From Lyrica] Allergy (Verified 08/04/17 13:05) Hives quetiapine [From Seroquel] Allergy (Verified 08/04/17 13:05) Other ropinirole [From Requip] Allergy (Verified 08/04/17 13:05) Other benzoyl peroxide Adverse Reaction (Verified 08/04/17 13:05) Rash citalopram Adverse Reaction (Verified 08/04/17 13:05) Other etanercept [From Enbrel] Adverse Reaction (Verified 08/04/17 13:05) Other hydrochlorothiazide Adverse Reaction (Verified 08/04/17 13:05) Other NSAIDS (Non-Steroidal Anti-Inflamma Adverse Reaction (Verified 08/04/17 13:05) Rash prednisone Adverse Reaction (Verified 08/04/17 13:05) Other ANTIDEPRESENTS Adverse Reaction (Uncoded 04/10/16 08:23) Other Home Medications: Ambulatory Orders Medication Instructions Recorded Atenolol [Tenormin (beta jamal)] 50 mg PO DAILY 02/13/13 Furosemide [Lasix] 20 mg PO DAILY 02/13/13 Lisinopril [Zestril] 20 mg PO DAILY 02/13/13 Cholecalciferol (VIT D3) [Vitamin 3,000 unit PO DAILY 02/10/15 D3] Loratadine [Claritin] 10 mg PO DAILY PRN PRN 02/10/15 Sennosides/Docusate Sodium [Senna 3 each PO QHS 02/10/15 Plus Tablet] Clonazepam [Klonopin] 1 mg PO QHS 04/10/16 Calcipotriene [Dovonex] 120 gm TP DAILY 08/04/17 Tamoxifen Citrate 20 mg PO DAILY 08/04/17 Venlafaxine HCl [Effexor] 37.5 mg PO DAILY 08/04/17 Aspirin E.C. [Ecotrin] 325 mg PO BID 08/13/17 Docusate Sodium [Colace] 100 mg PO BID PRN PRN #10 cap 08/13/17 Famotidine [Pepcid] 40 mg PO DAILY 08/13/17 Oxycodone HCl/Acetaminophen 1 - 2 tab PO Q4H PRN PRN #60 tab 08/13/17 [Percocet 5/325] proMETHazine tablet [Phenergan] 25 mg PO Q4H PRN PRN #10 tab 08/13/17 - Physical Exam Vital Signs Temp Pulse Resp BP Pulse Ox 36.3 C L 91 18 107/62 96 08/14/17 07:39 08/14/17 07:39 08/14/17 07:39 08/14/17 07:39 08/14/17 07:39 Oxygen Delivery Method Room Air Weight: 93.4 kg Body Mass Index (BMI) 38.9 Intake and Output for Last 24 Hours 08/12/17 08/13/17 08/14/17 23:59 23:59 23:59 Intake Total 360 / 360 440 / 440 Output Total 925 / 925 Balance 360 / 360 -485 / -485 <Ara Mireles - Last Filed: 08/14/17 16:55> History of Present Illness Date of Admission: 08/13/17 Chief Complaint: Bilateral Total knee replacement and Right tibial fracture The patient is a 62 year old Female, who was admitted to the rehab unit for rehabilitation after undergoing bilateral total knee arthroplasties, performed by Dr. Terrell on 08/11/17. During her surgery she did have a right tibial fracture that was repaired with an internal fixation at that time. Her postoperative course was uncomplicated. She has a pass medical history of Hypertension, HLD, RLS, and breast cancer. She is touch down weight bearing on the right and weight bearing as tolerated, on the left. She lives alone in a high rise apartment complex, that has individual and assisted living accommodations. She was previously completely functionally independent and is admitted to the rehab unit in order to restore her previous level of functional independence. Past Medical History Allergies celecoxib [From Celebrex] Allergy (Verified 08/04/17 13:05) Hives diphenhydramine [From Aleve PM] Allergy (Verified 08/04/17 13:05) Hives gabapentin [From Neurontin] Allergy (Verified 08/04/17 13:05) Other hyaluronic acid [From Euflexxa] Allergy (Verified 08/04/17 13:05) Hives lidocaine Allergy (Verified 08/04/17 13:05) Rash naproxen [From Aleve PM] Allergy (Verified 08/04/17 13:05) Hives pregabalin [From Lyrica] Allergy (Verified 08/04/17 13:05) Hives quetiapine [From Seroquel] Allergy (Verified 08/04/17 13:05) Other ropinirole [From Requip] Allergy (Verified 08/04/17 13:05) Other benzoyl peroxide Adverse Reaction (Verified 08/04/17 13:05) Rash citalopram Adverse Reaction (Verified 08/04/17 13:05) Other etanercept [From Enbrel] Adverse Reaction (Verified 08/04/17 13:05) Other hydrochlorothiazide Adverse Reaction (Verified 08/04/17 13:05) Other NSAIDS (Non-Steroidal Anti-Inflamma Adverse Reaction (Verified 08/04/17 13:05) Rash prednisone Adverse Reaction (Verified 08/04/17 13:05) Other ANTIDEPRESENTS Adverse Reaction (Uncoded 04/10/16 08:23) Other Surgical History: mastectomy Lives: Alone Smoking Status: Current every day smoker Tobacco Use: Cigarettes Alcohol: Occasional Drugs: None Review of Systems Constitutional: Denies: Chills, Fever, Weight Change HEENT: Denies: Head Aches, Sinus Congestion, Sinus Drainage Cardiovascular: Denies: Chest Pain, Palpitations Respiratory: Denies: Cough, Shortness of breath at rest, Sputum production Gastrointestinal: Denies: Abdominal Pain, Nausea, Vomiting Genitourinary: Denies: Dysuria Musculoskeletal: Denies: Joint Pain, Joint Tenderness Skin: Denies: Rash, Wounds Neurological: Denies: Numbness, Tingling, Focal weakness Psychiatric: Denies: Anxiety, Depression, Homicidal Ideations, Suicidal Ideations Hematologic/ Lymphatic: Denies: Easy Bruising, Easy Bleeding VTE Information - Inpt Only VTE Present on Admission: No VTE Mechan Device Prophylaxis: SCD's - left leg only, Knee High ЕКАТЕРИНА Hose VTE Pharm Prophylaxis ordered?: Yes - Physical Exam General: Alert, Oriented x3, Cooperative HEENT: Atraumatic, PERRLA, EOMI, Normocephalic Neck: Supple, No JVD, Negative Carotid Bruits Lungs: Clear to auscultation, Normal air movement Cardiovascular: Regular rate, No murmurs Abdomen: Bowel Sounds Present, Soft, Non Tender Extremities: No edema, Capillary Refill Less than 3 Seconds Skin: No rashes, No breakdown Musculoskeletal: No Tenderness to Palpation of Joints or Extremities Neurological: Cranial nerves II-XII grossly intact Psych/Mental Status: Normal Affect, Appropriate Vital Signs Temp Pulse Resp BP Pulse Ox 97.4 F L 91 18 107/62 96 08/14/17 07:39 08/14/17 07:39 08/14/17 07:39 08/14/17 07:39 08/14/17 07:39 Oxygen Delivery Method Room Air Weight: 93.4 kg Body Mass Index (BMI) 38.9 Intake and Output for Last 24 Hours 08/12/17 08/13/17 08/14/17 23:59 23:59 23:59 Intake Total 360 / 360 120 / 120 Output Total 925 / 925 Balance 360 / 360 -805 / -805 Assessment/Plan Debility status post bilateral total knee replacement surgery, and a Right tibial ORIF. Goal of rehab is adventism of prior level of functional independence. Plan: - Physical therapy for gait and balance - Occupational Therapy for ADLs - As needed analgesics - Bowel protocol - DVT prophylaxis: BID Aspirin therapy 325mg, per orthopedic surgeon, Екатерина Christy - HLD - continue home dose of statin - GERD - continue home dose of PPI - HTN - stable => continue home medications of lisinopril - B/L TKA, and Right tibial fx Incision site C/D/I, => healing nicely, steri strips are beginning to fall off, no redness or warmth noted around incision area. - Tobacco dependence counseled on cessation, unable to do a nicotine patch per Dr. Terrell's request, patient is doing well without one. - Obesity -> BMI is 38.9 => counseled on weight loss, and Caloric controlled - There is a question of possible obstructive sleep apnea and she is already scheduled for an outpatient sleep study
[2017-08-14] MEDS: Famotidine 20 MG Tablet 40 MG PO (09:27)
--- NOTE | 2017-08-14 11:11 | PCM.RU.PYE ---
Admission Information Status Changes from Prescreening?: No changes Identified Actual Problem List:: Pain, ALteration in Cmfrt, Bowel, Constipation, Mobility Impaired, Self Care Deficit, BP, Hypertension, Ineffect.D/C Plan r/t Psy Potential Problem List:: DVT, Bleeding, Infection, UTI, Aspiration, Falls, Skin Integrity, Depression Risk of Complications DVT: LMWH, ЕКАТЕРИНА Hose, Sequential Compression Device Bleeding: Monitor Lab Values, Nursing to Teach Precautions for anti-coagulation therapy., Wound, if applicable, to be assessed every shift., Stroke patients assessed for lethargy or change in status. Infection: Clinical Staff to Monitor for S/S of infection:, S/S of infection include fever, redness, warmth, etc. Urinary Tract Infection: Monitor for frequency, burning, discomfort, or incontinence., Nursing will obtain urine sample for urinalysis and C&S when ordered. Aspiration: Clinical staff will monitor for coughing, drooling, congestion., Speech will evaluate swallowing and dsyphasia., Nursing will monitor patient swallowing during meals. Falls: Patient will be evaluated for Fall Precautions, Patient will be placed on Fall Precautions as indicated per protocol. Skin Breakdown: Nursing will assess skin daily using assessment tool., Nursing will place on Skin Breakdown Precautions as indicated. Pain: Clinical staff will assess patient's pain level per protocol., Medications will be given, if needed, and the pain level reassessed., Other methods: Massage, distraction, decrease stimulus, etc. used PRN. Plan of Care Patient requires physician specializing in physical medicine and rehab oversight to provide close medical supervision of rehab issues including: Pain Management, Sleep Problems, Bowel and Bladder, Medical and co-morbidity Management, DVT prophylaxis, Rehabilitation Leadership, Coordination of treatment team Patient needs Physical Therapy: For a minimum of 1 hour, At least 5 out of 7 days Patient needs Physical Therapy to improve:: Mobility, Mobility, Mobility, Strengthening, Transfers, Stretching, ROM, Endurance, Stairs, Gait, Balance Patient needs Occupational Therapy: For a minimum of 1 hour, At least 5 out of 7 days Patient needs Occupational Therapy to improve ADL's incl.: Eating, Grooming, Bathing, Dressing, Toileting, Toilet transfers, Community Reintegration, Higher functioning activities, Household tasks, Adaptive Equipment, Splinting, Other activities as determined Patient requires 24/ Rehabilitation Nursing for: Pain Issues, Identifying and preventing risk factors, Monitoring and reporting current medical conditions, Assisting with ambulation, transfer, and all ADL's, Teaching patients about disease process and medications, Family teaching, Providing safe environment, Bowel and Bladder Issues, Skin integrity, Medication Management Patient needs Alodize Machine Operator/ Case Management for: Discharge Planning, Arranging Home Equipment or Services, Family Interventions Patient needs Dietary and Nutrition Services for: Adequate Nutrition, Nutritional Supplements, Nutritional Education Goals Patient will remain: free from falls, or injury at time of discharge. Patient will perform bed mobility at: MOD I level of assist. Patient will complete transfers from bed to chair at: MOD I level of assist. Patient will ambulate: 100 feet, with MOD I assist, with LRD Patient will complete upper body dressing at: MOD I level of assist. Patient will complete lower body dressing at: MOD I level of assist. Patient will complete toileting at: MOD I level of assist. Patient will perform bathing at: MOD I level of assist. Patient will complete grooming at: MOD I level of assist. Patient will complete home management skills at: MOD I level of assist. Patient will achieve: 12 stairs, at MOD I assist Patient will have pain level of: of 3 or less Patient's skin will: remain intact, free from infection. Patient will receive: adequate nutrition. Discharge Planning Pt Prognosis for Sig. Practical Improv. w/in Reasonable Time: Good Anticipated D/C Destination: Home with Outpt Therapy Was Preadmission Assessment Accurate?: Yes
[2017-08-14] MEDS: Polyethylene Glycol 3350 17 GM PACKET PO (14:45)
--- NOTE | 2017-08-14 16:10 | CASEMGMT ---
Social Work Presented information on advance directives. Per pt request, SW assisted in completing living will. Copy of HCPOA given to pt and she would like to speak with her daughter prior to filling out document. You have a choice booklet also given to pt. Copy of Living WIll placed on pt chart and original given to pt with instructions to give copies to PCP and dgt. Pt aware SW will assist with completing HC POA out while in the hospital. JIM Marina
[2017-08-14] MEDS: Bisacodyl 10 MG Suppository RECTAL (19:00)
[2017-08-14 19:34] VITALS: BP 121/76; PULSE 87; RESP 17; TEMP 36.4; O2SAT 95
[2017-08-14] MEDS: Senna/Docusate Sodium 1 Tablet 3 TABLET PO (19:51)
[2017-08-14] MEDS: clonazePAM 1 MG Tablet PO (19:51)
[2017-08-15] MEDS: oxyCODONE 5 MG Tablet PO ×6 (01:25→23:29)
[2017-08-15] MEDS: BACITRACIN 15 GM Tube 1 APPLIC TOPICAL ×2 (08:04→20:55)
[2017-08-15] MEDS: Aspirin E.C. 325 MG Tablet PO ×2 (08:05→16:35)
[2017-08-15] MEDS: Venlafaxine XR 37.5 MG Capsule PO (08:05)
[2017-08-15] MEDS: Polyethylene Glycol 3350 17 GM PACKET PO (08:05)
[2017-08-15] MEDS: Tamoxifen 10 MG Tablet 20 MG PO (08:05)
[2017-08-15] MEDS: Lisinopril 20 MG Tablet PO (08:17)
[2017-08-15] MEDS: Atenolol 50 MG Tablet PO (08:17)
[2017-08-15] MEDS: Famotidine 20 MG Tablet 40 MG PO (08:17)
[2017-08-15] MEDS: Furosemide 20 MG Tablet PO (08:17)
[2017-08-15 08:30] VITALS: O2SAT 93
[2017-08-15 08:39] VITALS: BP 119/70; PULSE 96; RESP 18; TEMP 36.6; O2SAT 94
[2017-08-15 20:34] VITALS: BP 132/68; PULSE 73; RESP 16; TEMP 36.6; O2SAT 93
[2017-08-15] MEDS: Senna/Docusate Sodium 1 Tablet 3 TABLET PO (20:55)
[2017-08-15] MEDS: clonazePAM 1 MG Tablet PO (20:55)
--- NOTE | 2017-08-15 22:51 | NURSING ---
PT STATES SHE IS UNABLE TO TOLERATE WEARING SCDS AND THAT SHE FEELS THEY WILL KEEP HER AWAKE ALL NIGHT. SCDS REMOVED PER REQUEST.
[2017-08-16] MEDS: oxyCODONE 5 MG Tablet PO ×5 (03:29→21:45)
[2017-08-16] MEDS: BACITRACIN 15 GM Tube 1 APPLIC TOPICAL ×2 (05:35→21:10)
[2017-08-16 07:39] VITALS: BP 129/70; PULSE 70; RESP 18; TEMP 36.8; O2SAT 96
[2017-08-16] MEDS: Aspirin E.C. 325 MG Tablet PO ×2 (07:49→16:52)
[2017-08-16] MEDS: Lisinopril 20 MG Tablet PO (07:49)
[2017-08-16] MEDS: Furosemide 20 MG Tablet PO (07:49)
[2017-08-16] MEDS: Atenolol 50 MG Tablet PO (07:49)
[2017-08-16] MEDS: Venlafaxine XR 37.5 MG Capsule PO (07:49)
[2017-08-16] MEDS: Famotidine 20 MG Tablet 40 MG PO (07:49)
[2017-08-16] MEDS: Polyethylene Glycol 3350 17 GM PACKET PO (07:50)
[2017-08-16] MEDS: Tamoxifen 10 MG Tablet 20 MG PO (07:50)
[2017-08-16] MEDS: Magnesium Hydroxide 30 ML UDC PO (12:08)
[2017-08-16] MEDS: fentaNYL 25 MCG Patch TRANSDERM. (15:36)
[2017-08-16 19:19] VITALS: BP 136/72; PULSE 74; RESP 18; TEMP 36.4; O2SAT 96
[2017-08-16] MEDS: Senna/Docusate Sodium 1 Tablet 3 TABLET PO (21:10)
[2017-08-16] MEDS: clonazePAM 1 MG Tablet PO (21:10)
[2017-08-17] MEDS: oxyCODONE 5 MG Tablet PO ×5 (02:39→19:11)
--- NOTE | 2017-08-17 02:40 | NURSING ---
PT C/O RESTLESS LEG TWITCHING TO R LEG DURING NIGHT.
[2017-08-17 06:03] LABS: Absolute Lymphocyte Count 1.35 X10^3/ul (0.83-4.51); Absolute Neutrophil Count 3.7 X10^3/uL (2.0-7.7); Basophil# 0.02 X10^3/uL; Basophil% 0.3 % (0-1); Eosinophil# 0.16 X10^3/uL; Eosinophils% 2.6 % (0-5); Hematocrit 34.5 % (37-47); Hemoglobin 11.5 g/dl (12.0-15.0); Lymphocyte # 1.35 X10^3/ul (4.0); Lymphocyte % 21.7 % (19-41); Mean Corp Hgb Conc 33.3 g/gl (32-36); Mean Corpuscular Hgb 31.5 pg (27.0-32.0); Mean Corpuscular Volume 94.5 fL (81-99); Mean Platelet Vol. 9.3 fl (6.2-12.0); Monocyte# 0.86 X10^3/uL; Monocyte% 13.8 % (0-10); Neutrophil # 3.73 X10^3/uL (2.7-7.7); Neutrophil % 60.2 % (47-70); Platelet Count 252 K/mm3 (150-450); RBC Distribution Width CV 13.3 % (11.6-14.6); Red Blood Count 3.65 M/mm3 (4.2-5.4); White Blood Count 6.2 K/mm3 (4.4-11.0)
[2017-08-17 06:11] LABS: ALB/GLOB Ratio 0.6 RATIO (0.9-2.4); AST(SGOT) 15 U/L (15-37); Alanine Aminotransfer ALT/SGPT 21 U/L (13-56); Albumin, Serum 2.1 g/dL (3.2-5.0); Alkaline Phosphatase 58 U/L (45-117); Anion Gap 7 (5-15); BUN 13 mg/dL (7-18); BUN/Creat Ratio 24.3 RATIO (10-20); Chloride 104 mmol/L (98-107); Creatinine, Serum 0.53 mg/dL (0.55-1.02); EST Glomerular Filtration Rate 123 mL/min (>60); Est Glom Filt Rate - Afr Amer 148 mL/min (>60); Estimated Creatinine Clearance 81.98 ml/min; Globulin 3.4 g/dL (2.2-4.2); Glucose 95 mg/dL (74-106); Potassium 4.3 mmol/L (3.5-5.1); Protein, Total 5.5 g/dL (6.4-8.2); Sodium Level 140 mmol/L (136-145)
[2017-08-17 06:20] LABS: POSITIVE COUNT NO; POSITIVE DIFFERENTIAL NO; POSITIVE MORPHOLOGY NO
[2017-08-17] MEDS: BACITRACIN 15 GM Tube 1 APPLIC TOPICAL ×2 (06:32→20:14)
[2017-08-17 07:02] VITALS: BP 128/77; PULSE 69; RESP 20; TEMP 36.6; O2SAT 93
[2017-08-17] MEDS: Venlafaxine XR 37.5 MG Capsule PO (07:55)
[2017-08-17] MEDS: Atenolol 50 MG Tablet PO (07:55)
[2017-08-17] MEDS: Polyethylene Glycol 3350 17 GM PACKET PO (07:55)
[2017-08-17] MEDS: Famotidine 20 MG Tablet 40 MG PO (07:56)
[2017-08-17] MEDS: Tamoxifen 10 MG Tablet 20 MG PO (07:56)
[2017-08-17] MEDS: Furosemide 20 MG Tablet PO (07:56)
[2017-08-17] MEDS: Aspirin E.C. 325 MG Tablet PO ×2 (07:58→16:44)
[2017-08-17] MEDS: Lisinopril 20 MG Tablet PO (07:58)
--- NOTE | 2017-08-17 09:27 | NURSING ---
patient refusing to wear teds and scds d/t rls. orders d/c. history of constipation and takes routine senekot and miralax at home, increase constipation senekot 2 tabs ordered for am in additiont ot he 3 tabs at hs she is currently on. gifford will be d/c today when patient has a bowel movement, new order for magnesium citrate 150 ml x1. duragesic patch increased to 50 mcg d/t increased pain during therapy.
--- NOTE | 2017-08-17 09:29 | NURSING ---
ben ordered d/t patient having muscle spasms to lower back with therapy.
[2017-08-17] MEDS: Senna/Docusate Sodium 1 Tablet 2 TABLET PO (09:33)
[2017-08-17] MEDS: Magnesium Citrate 300 ML 150 ML PO (09:53)
--- NOTE | 2017-08-17 09:54 | PCM.PN.NEU ---
Subjective: Staffed in team meeting. No family at bedside. Questions answered. With Physical therapy, She is moderate to max assist, with transfers, standing and pivoting. She is able to walk 5 - 15 feet using a walker with moderate assistance. With Occupational therapy, she is a one person assist with getting in /out of the shower and on and off the toilet. She is standby assist for her upper body, and min assist for lower body. With Nursing she is still very constipated, will add on Mag citrate 150ml and add an additional dose of Senokot in the morning. She also has a Avalos catheter for urinary retention 2/2 her constipation once that is resolved will remove her Avalos. Her pain is still not well controlled will increase her Fentanyl patch to 50mcq/24. Will re-team her again on Thursday of next week. - Physical Exam General: Alert, Oriented x3, Cooperative HEENT: Atraumatic, PERRLA, EOMI, Normocephalic Neck: Supple, No JVD, Negative Carotid Bruits Lungs: Clear to auscultation, Normal air movement Cardiovascular: Regular rate, No murmurs Abdomen: Bowel Sounds Present, Soft, Non Tender Extremities: No edema, Capillary Refill Less than 3 Seconds Skin: No rashes, No breakdown Musculoskeletal: No Tenderness to Palpation of Joints or Extremities Neurological: Cranial nerves II-XII grossly intact Psych/Mental Status: Normal Affect, Appropriate, Alert and oriented to time, place, person, mood and affect Vital Signs Temp Pulse Resp BP Pulse Ox 97.9 F 69 20 H 128/77 H 93 08/17/17 07:02 08/17/17 07:02 08/17/17 07:02 08/17/17 07:02 08/17/17 07:02 Oxygen Delivery Method Room Air Weight: 93.4 kg Body Mass Index (BMI) 38.9 Intake and Output for Last 24 Hours 08/15/17 08/16/17 08/17/17 23:59 23:59 23:59 Intake Total 1340 / 1340 240 / 240 240 / 240 Output Total 2150 / 2150 2100 / 2100 1550 / 1550 Balance -810 / -810 -1860 / -1860 -1310 / -1310 Laboratory Tests Past 24 Hrs 08/17/17 08/17/17 05:20 05:20 WBC 6.2 RBC 3.65 L Hgb 11.5 L Hct 34.5 L MCV 94.5 MCH 31.5 MCHC 33.3 RDW 13.3 RDW Differential 44.0 H Plt Count 252 MPV 9.3 Immature Gran % (Auto) 1.400 H Neut % (Auto) 60.2 Lymph % (Auto) 21.7 [place] % (Auto) 13.8 H Eos % (Auto) 2.6 Baso % (Auto) 0.3 Absolute Neuts (auto) 3.7 Absolute Lymphs (auto) 1.35 Total Counted Not Reportable Sodium 140 Potassium 4.3 Chloride 104 Carbon Dioxide 29.0 Anion Gap 7 BUN 13 Creatinine 0.53 L Estim Creat Clear Calc 81.98 Est GFR (MDRD) Af Amer 148 Est GFR (MDRD) Non-Af 123 BUN/Creatinine Ratio 24.3 H Glucose 95 Calcium 8.0 L Total Bilirubin 0.70 AST 15 ALT 21 Alkaline Phosphatase 58 Total Protein 5.5 L Albumin 2.1 L Globulin 3.4 Albumin/Globulin Ratio 0.6 L Active Medications Aspirin (Ecotrin) 325 mg PO BIDCM [facility] Last Admin: 08/17/17 07:58 Dose: 325 mg Atenolol (Tenormin (Beta Lorraine)) 50 mg PO DAILY [facility] Last Admin: 08/17/17 07:55 Dose: 50 mg Bacitracin (Bacitracin Ointment) 1 applic TOPICAL 0600,2200 [facility] PRN Reason: Protocol Last Admin: 08/17/17 06:32 Dose: 1 applicatio Bisacodyl (Dulcolax) 10 mg RECTAL .PRN X 1 PRN PRN Reason: Constipation Last Admin: 08/14/17 19:00 Dose: 10 mg Calcipotriene (Calcipotriene) 0 gm TP DAILY@0600 [facility] Last Admin: 08/17/17 06:31 Dose: 60 gm Cholecalciferol (Vitamin D) 3,000 unit PO DAILY [facility] Last Admin: 08/17/17 07:56 Dose: 3,000 unit Clonazepam (Klonopin) 1 mg PO QHS [facility] Last Admin: 08/16/17 21:10 Dose: 1 mg Docusate Sodium (Colace) 100 mg PO BID PRN PRN PRN Reason: Constipation Last Admin: 08/14/17 07:40 Dose: 100 mg Famotidine (Pepcid) 40 mg PO DAILY [facility] Last Admin: 08/17/17 07:56 Dose: 40 mg Fentanyl (Duragesic Patch) 50 mcg TRANSDERM. Q3D [facility] Last Admin: 08/17/17 09:33 Dose: 50 mcg Furosemide (Lasix) 20 mg PO DAILY [facility] Last Admin: 08/17/17 07:56 Dose: 20 mg Lisinopril (Zestril) 20 mg PO DAILY [facility] Last Admin: 08/17/17 07:58 Dose: 20 mg Loratadine (Claritin) 10 mg PO DAILY PRN PRN PRN Reason: ALLERGIES Magnesium Hydroxide (Milk Of Magnesia) 30 ml PO .PRN X 1 PRN PRN Reason: Constipation Last Admin: 08/16/17 12:08 Dose: 30 ml Oxycodone HCl (Oxyir) 5 - 10 mg PO Q4H PRN PRN PRN Reason: PAIN Last Admin: 08/17/17 06:49 Dose: 10 mg Polyethylene Glycol (Miralax) 17 gm PO DAILY [facility] Last Admin: 08/17/17 07:55 Dose: 17 gm Promethazine HCl (Phenergan Tablet) 25 mg PO Q4H PRN PRN PRN Reason: NAUSEA Senna/Docusate Sodium (Senokot-S, Dinorah-Colace) 3 tablet PO QHS [facility] Last Admin: 08/16/17 21:10 Dose: 3 tablet Senna/Docusate Sodium (Senokot-S, Dinorah-Colace) 2 tablet PO DAILY [facility] Last Admin: 08/17/17 09:33 Dose: 2 tablet Tamoxifen Citrate (Nolvadex) 20 mg PO DAILY [facility] Last Admin: 08/17/17 07:56 Dose: 20 mg Venlafaxine HCl (Effexor Xr) 37.5 mg PO DAILY [facility] Last Admin: 08/17/17 07:55 Dose: 37.5 mg Medical Necessity - Tobacco Use Smoking Status: Current every day smoker Tobacco Use: Cigarettes Assessment/Plan Debility status post bilateral total knee replacement surgery, and a Right tibial ORIF. Goal of rehab is uats[place] of prior level of functional independence. Plan: - Physical therapy for gait and balance - Occupational Therapy for ADLs - As needed analgesics - Bowel protocol - DVT prophylaxis: BID Aspirin therapy 325mg, per orthopedic surgeon, august d/c shania egan and SCD's 2/2 RLS - HLD - continue home dose of statin - GERD - continue home dose of PPI - HTN - stable => continue home medications of lisinopril - B/L TKA, and Right tibial fx Incision site C/D/I, => healing nicely, steri strips are beginning to fall off, no redness or warmth noted around incision area. - Tobacco dependence counseled on cessation, unable to do a nicotine patch per Dr. Terrell's request, patient is doing well without one. - Obesity -> BMI is 38.9 => counseled on weight loss, and Caloric controlled - There is a question of possible obstructive sleep apnea and she is already scheduled for an outpatient sleep study - Uncontrolled pain -> increase Fentanyl patch to 50mcq - Constipation -> Mag citrate 150ml, increase dose of Senokot to 2 pills in the morning and 3 pills at bedtime.
--- NOTE | 2017-08-17 10:05 | PN.NEURO_ITS ---
Subjective: Staffed in team meeting. No family at bedside. Questions answered. With Physical therapy, She is moderate to max assist, with transfers, standing and pivoting. She is able to walk 5 - 15 feet using a walker with moderate assistance. With Occupational therapy, she is a one person assist with getting in /out of the shower and on and off the toilet. She is standby assist for her upper body, and min assist for lower body. With Nursing she is still very constipated, will add on Mag citrate 150ml and add an additional dose of Senokot in the morning. She also has a Avalos catheter for urinary retention 2/2 her constipation once that is resolved will remove her Avalos. Her pain is still not well controlled will increase her Fentanyl patch to 50mcq/24. Will re-team her again on Thursday of next week. - Physical Exam General: Alert, Oriented x3, Cooperative HEENT: Atraumatic, PERRLA, EOMI, Normocephalic Neck: Supple, No JVD, Negative Carotid Bruits Lungs: Clear to auscultation, Normal air movement Cardiovascular: Regular rate, No murmurs Abdomen: Bowel Sounds Present, Soft, Non Tender Extremities: No edema, Capillary Refill Less than 3 Seconds Skin: No rashes, No breakdown Musculoskeletal: No Tenderness to Palpation of Joints or Extremities Neurological: Cranial nerves II-XII grossly intact Psych/Mental Status: Normal Affect, Appropriate, Alert and oriented to time, place, person, mood and affect Vital Signs Temp Pulse Resp BP Pulse Ox 97.9 F 69 20 H 128/77 H 93 08/17/17 07:02 08/17/17 07:02 08/17/17 07:02 08/17/17 07:02 08/17/17 07:02 Oxygen Delivery Method Room Air Weight: 93.4 kg Body Mass Index (BMI) 38.9 Intake and Output for Last 24 Hours 08/15/17 08/16/17 08/17/17 23:59 23:59 23:59 Intake Total 1340 / 1340 240 / 240 240 / 240 Output Total 2150 / 2150 2100 / 2100 1550 / 1550 Balance -810 / -810 -1860 / -1860 -1310 / -1310 Laboratory Tests Past 24 Hrs 08/17/17 08/17/17 05:20 05:20 WBC 6.2 RBC 3.65 L Hgb 11.5 L Hct 34.5 L MCV 94.5 MCH 31.5 MCHC 33.3 RDW 13.3 RDW Differential 44.0 H Plt Count 252 MPV 9.3 Immature Gran % (Auto) 1.400 H Neut % (Auto) 60.2 Lymph % (Auto) 21.7 [place] % (Auto) 13.8 H Eos % (Auto) 2.6 Baso % (Auto) 0.3 Absolute Neuts (auto) 3.7 Absolute Lymphs (auto) 1.35 Total Counted Not Reportable Sodium 140 Potassium 4.3 Chloride 104 Carbon Dioxide 29.0 Anion Gap 7 BUN 13 Creatinine 0.53 L Estim Creat Clear Calc 81.98 Est GFR (MDRD) Af Amer 148 Est GFR (MDRD) Non-Af 123 BUN/Creatinine Ratio 24.3 H Glucose 95 Calcium 8.0 L Total Bilirubin 0.70 AST 15 ALT 21 Alkaline Phosphatase 58 Total Protein 5.5 L Albumin 2.1 L Globulin 3.4 Albumin/Globulin Ratio 0.6 L Active Medications Aspirin (Ecotrin) 325 mg PO BIDCM [facility] Last Admin: 08/17/17 07:58 Dose: 325 mg Atenolol (Tenormin (Beta Lorraine)) 50 mg PO DAILY [facility] Last Admin: 08/17/17 07:55 Dose: 50 mg Bacitracin (Bacitracin Ointment) 1 applic TOPICAL 0600,2200 [facility] PRN Reason: Protocol Last Admin: 08/17/17 06:32 Dose: 1 applicatio Bisacodyl (Dulcolax) 10 mg RECTAL .PRN X 1 PRN PRN Reason: Constipation Last Admin: 08/14/17 19:00 Dose: 10 mg Calcipotriene (Calcipotriene) 0 gm TP DAILY@0600 [facility] Last Admin: 08/17/17 06:31 Dose: 60 gm Cholecalciferol (Vitamin D) 3,000 unit PO DAILY [facility] Last Admin: 08/17/17 07:56 Dose: 3,000 unit Clonazepam (Klonopin) 1 mg PO QHS [facility] Last Admin: 08/16/17 21:10 Dose: 1 mg Docusate Sodium (Colace) 100 mg PO BID PRN PRN PRN Reason: Constipation Last Admin: 08/14/17 07:40 Dose: 100 mg Famotidine (Pepcid) 40 mg PO DAILY [facility] Last Admin: 08/17/17 07:56 Dose: 40 mg Fentanyl (Duragesic Patch) 50 mcg TRANSDERM. Q3D [facility] Last Admin: 08/17/17 09:33 Dose: 50 mcg Furosemide (Lasix) 20 mg PO DAILY [facility] Last Admin: 08/17/17 07:56 Dose: 20 mg Lisinopril (Zestril) 20 mg PO DAILY [facility] Last Admin: 08/17/17 07:58 Dose: 20 mg Loratadine (Claritin) 10 mg PO DAILY PRN PRN PRN Reason: ALLERGIES Magnesium Hydroxide (Milk Of Magnesia) 30 ml PO .PRN X 1 PRN PRN Reason: Constipation Last Admin: 08/16/17 12:08 Dose: 30 ml Oxycodone HCl (Oxyir) 5 - 10 mg PO Q4H PRN PRN PRN Reason: PAIN Last Admin: 08/17/17 06:49 Dose: 10 mg Polyethylene Glycol (Miralax) 17 gm PO DAILY [facility] Last Admin: 08/17/17 07:55 Dose: 17 gm Promethazine HCl (Phenergan Tablet) 25 mg PO Q4H PRN PRN PRN Reason: NAUSEA Senna/Docusate Sodium (Senokot-S, Dinorah-Colace) 3 tablet PO QHS [facility] Last Admin: 08/16/17 21:10 Dose: 3 tablet Senna/Docusate Sodium (Senokot-S, Dinorah-Colace) 2 tablet PO DAILY [facility] Last Admin: 08/17/17 09:33 Dose: 2 tablet Tamoxifen Citrate (Nolvadex) 20 mg PO DAILY [facility] Last Admin: 08/17/17 07:56 Dose: 20 mg Venlafaxine HCl (Effexor Xr) 37.5 mg PO DAILY [facility] Last Admin: 08/17/17 07:55 Dose: 37.5 mg Medical Necessity - Tobacco Use Smoking Status: Current every day smoker Tobacco Use: Cigarettes Assessment/Plan Debility status post bilateral total knee replacement surgery, and a Right tibial ORIF. Goal of rehab is anglican of prior level of functional independence. Plan: - Physical therapy for gait and balance - Occupational Therapy for ADLs - As needed analgesics - Bowel protocol - DVT prophylaxis: BID Aspirin therapy 325mg, per orthopedic surgeon, august d/c shania egan and SCD's 2/2 RLS - HLD - continue home dose of statin - GERD - continue home dose of PPI - HTN - stable => continue home medications of lisinopril - B/L TKA, and Right tibial fx Incision site C/D/I, => healing nicely, steri strips are beginning to fall off, no redness or warmth noted around incision area. - Tobacco dependence counseled on cessation, unable to do a nicotine patch per Dr. Terrell's request, patient is doing well without one. - Obesity -> BMI is 38.9 => counseled on weight loss, and Caloric controlled - There is a question of possible obstructive sleep apnea and she is already scheduled for an outpatient sleep study - Uncontrolled pain -> increase Fentanyl patch to 50mcq - Constipation -> Mag citrate 150ml, increase dose of Senokot to 2 pills in the morning and 3 pills at bedtime.
--- NOTE | 2017-08-17 11:14 | CASEMGMT ---
Team meeting held. Patient present, no support person present. Patient plans to return to [facility] at time of discharge. Patient approved 14 Medicare days with a discharge on or by 08/27/17. Patient plans to continue with further care and treatment on the Inpatient Rehab Unit. Planning to re-team patient next Thursday. Telephone call to patient daughterGloria to communicate team information, voicemail left. Support given. Will continue to follow. Anne FERNANDEZ, AUTO FLEET MANAGER
--- NOTE | 2017-08-17 14:03 | NURSING ---
magnesium citrate effective, patient had 3 lg soft bowel movements.
--- NOTE | 2017-08-17 15:24 | NURSING ---
gifford d/c at this time.
--- NOTE | 2017-08-17 16:17 | PCM.PN.HOSP ---
Subjective: Patient was seen and examined. No acute events overnight except for uncontrolled pain with changes made to her medications. She also had multiple bowel movements or changes made to her bowel regimen. Denies any dizziness or chest pain no fever or chills. Vitals were reviewed and were stable. Vitals/I&O's: Vital Signs Temp Pulse Resp BP Pulse Ox 97.9 F 69 20 H 128/77 H 93 08/17/17 07:02 08/17/17 07:02 08/17/17 07:02 08/17/17 07:02 08/17/17 07:02 Oxygen Delivery Method Room Air Weight: 93.4 kg Body Mass Index (BMI) 38.9 Intake and Output for Last 24 Hours 08/15/17 08/16/17 08/17/17 23:59 23:59 23:59 Intake Total 1340 / 1340 240 / 240 480 / 480 Output Total 2150 / 2150 2100 / 2100 2300 / 2300 Balance -810 / -810 -1860 / -1860 -1820 / -1820 General: Alert, Oriented x3, Cooperative, No apparent distress HEENT: Atraumatic, PERRLA, EOMI, Normocephalic Oral: Moist Mucosa Neck: Supple Lungs: Clear to auscultation, Normal air movement Cardiovascular: Regular rate, Regular Rhythm, Normal S1, Normal S2, No murmurs Abdomen: Bowel Sounds Present, Soft, Non Tender, Non-Distended Extremities: No edema, - - Cooling mat over both knees, trace bilateral edema Skin: No rashes Musculoskeletal: No Tenderness to Palpation of Joints or Extremities Lymphatic: No Cervical, Supraclavicular, or Inguinal Adenopathy Neurological: Cranial nerves II-XII grossly intact Psych/Mental Status: Normal Affect, Appropriate Laboratory Results 08/17/17 05:20: WBC 6.2, RBC 3.65 L, Hgb 11.5 L, Hct 34.5 L, MCV 94.5, MCH 31.5, MCHC 33.3, RDW 13.3, RDW Differential 44.0 H, Plt Count 252, MPV 9.3, Immature Gran % (Auto) 1.400 H, Neut % (Auto) 60.2, Lymph % (Auto) 21.7, [place] % (Auto) 13.8 H, Eos % (Auto) 2.6, Baso % (Auto) 0.3, Absolute Neuts (auto) 3.7, Absolute Lymphs (auto) 1.35, Total Counted Not Reportable 08/17/17 05:20: Sodium 140, Potassium 4.3, Chloride 104, Carbon Dioxide 29.0, Anion Gap 7, BUN 13, Creatinine 0.53 L, Estim Creat Clear Calc 81.98, Est GFR (MDRD) Af Amer 148, Est GFR (MDRD) Non-Af 123, BUN/Creatinine Ratio 24.3 H, Glucose 95, Calcium 8.0 L, Total Bilirubin 0.70, AST 15, ALT 21, Alkaline Phosphatase 58, Total Protein 5.5 L, Albumin 2.1 L, Globulin 3.4, Albumin/Globulin Ratio 0.6 L Current Medications Aspirin (Ecotrin) 325 mg PO BIDCM [facility] Last Admin: 08/17/17 07:58 Dose: 325 mg Atenolol (Tenormin (Beta Lorraine)) 50 mg PO DAILY [facility] Last Admin: 08/17/17 07:55 Dose: 50 mg Bacitracin (Bacitracin Ointment) 1 applic TOPICAL 0600,2200 [facility] PRN Reason: Protocol Last Admin: 08/17/17 06:32 Dose: 1 applicatio Bisacodyl (Dulcolax) 10 mg RECTAL .PRN X 1 PRN PRN Reason: Constipation Last Admin: 08/14/17 19:00 Dose: 10 mg Calcipotriene (Calcipotriene) 0 gm TP DAILY@0600 [facility] Last Admin: 08/17/17 06:31 Dose: 60 gm Cholecalciferol (Vitamin D) 3,000 unit PO DAILY [facility] Last Admin: 08/17/17 07:56 Dose: 3,000 unit Clonazepam (Klonopin) 1 mg PO QHS [facility] Last Admin: 08/16/17 21:10 Dose: 1 mg Docusate Sodium (Colace) 100 mg PO BID PRN PRN PRN Reason: Constipation Last Admin: 08/14/17 07:40 Dose: 100 mg Famotidine (Pepcid) 40 mg PO DAILY [facility] Last Admin: 08/17/17 07:56 Dose: 40 mg Fentanyl (Duragesic Patch) 50 mcg TRANSDERM. Q3D [facility] Last Admin: 08/17/17 09:33 Dose: 50 mcg Furosemide (Lasix) 20 mg PO DAILY [facility] Last Admin: 08/17/17 07:56 Dose: 20 mg Lisinopril (Zestril) 20 mg PO DAILY [facility] Last Admin: 08/17/17 07:58 Dose: 20 mg Loratadine (Claritin) 10 mg PO DAILY PRN PRN PRN Reason: ALLERGIES Magnesium Hydroxide (Milk Of Magnesia) 30 ml PO .PRN X 1 PRN PRN Reason: Constipation Last Admin: 08/16/17 12:08 Dose: 30 ml Oxycodone HCl (Oxyir) 5 - 10 mg PO Q4H PRN PRN PRN Reason: PAIN Last Admin: 08/17/17 15:08 Dose: 10 mg Polyethylene Glycol (Miralax) 17 gm PO DAILY [facility] Last Admin: 08/17/17 07:55 Dose: 17 gm Promethazine HCl (Phenergan Tablet) 25 mg PO Q4H PRN PRN PRN Reason: NAUSEA Senna/Docusate Sodium (Senokot-S, Dinorah-Colace) 3 tablet PO QHS [facility] Last Admin: 08/16/17 21:10 Dose: 3 tablet Senna/Docusate Sodium (Senokot-S, Dinorah-Colace) 2 tablet PO DAILY [facility] Last Admin: 08/17/17 09:33 Dose: 2 tablet Tamoxifen Citrate (Nolvadex) 20 mg PO DAILY [facility] Last Admin: 08/17/17 07:56 Dose: 20 mg Venlafaxine HCl (Effexor Xr) 37.5 mg PO DAILY [facility] Last Admin: 08/17/17 07:55 Dose: 37.5 mg Medical Necessity - Tobacco Use Smoking Status: Current every day smoker Tobacco Use: Cigarettes Assessment/Plan 1. status post bilateral total knee arthroplasties, therapy is going well, pain uncontrolled. 2. Essential hypertension, controlled, on lisinopril and atenolol. 3. Depression, on Effexor. 4. Anxiety disorder, on prn Klonopin. 5. DVT prophylaxis - SCDs, aspirin BID Code Visit Inpatient E&M: 11829 Subs Hosp L2
--- NOTE | 2017-08-17 17:57 | NURSING ---
patient voided 300 cc and PVR 253 cc. denies discomfort or need to void.
[2017-08-17 19:58] VITALS: BP 140/98; PULSE 81; RESP 18; TEMP 36.6; O2SAT 94
[2017-08-17] MEDS: Senna/Docusate Sodium 1 Tablet 3 TABLET PO (20:16)
[2017-08-17] MEDS: clonazePAM 1 MG Tablet PO (21:27)
[2017-08-18] MEDS: oxyCODONE 5 MG Tablet PO ×5 (00:12→17:42)
--- NOTE | 2017-08-18 05:07 | NURSING ---
pt c/o pain at 5/10 in bilat/knees. Oxyir given x2 tabs for pain.
[2017-08-18] MEDS: BACITRACIN 15 GM Tube 1 APPLIC TOPICAL ×2 (05:10→21:40)
[2017-08-18 07:47] VITALS: BP 143/85; PULSE 83; RESP 18; TEMP 36.8; O2SAT 94
[2017-08-18] MEDS: Furosemide 20 MG Tablet PO (07:50)
[2017-08-18] MEDS: Atenolol 50 MG Tablet PO (07:50)
[2017-08-18] MEDS: Famotidine 20 MG Tablet 40 MG PO (07:50)
[2017-08-18] MEDS: Senna/Docusate Sodium 1 Tablet 2 TABLET PO (07:50)
[2017-08-18] MEDS: Venlafaxine XR 37.5 MG Capsule PO (07:50)
[2017-08-18] MEDS: Lisinopril 20 MG Tablet PO (07:50)
[2017-08-18] MEDS: Aspirin E.C. 325 MG Tablet PO ×2 (07:50→16:57)
[2017-08-18] MEDS: Tamoxifen 10 MG Tablet 20 MG PO (07:51)
--- NOTE | 2017-08-18 11:34 | PN.NEURO_ITS ---
Subjective: Patient seen and examined. No new complaints.Tolerating therapy. Denies any shortness of breath or chest. No issues with GI/. Pain well controlled on current medications. - Physical Exam General: Alert, Oriented x3, Cooperative HEENT: Atraumatic, PERRLA, EOMI, Normocephalic Neck: Supple, No JVD, Negative Carotid Bruits Lungs: Clear to auscultation, Normal air movement Cardiovascular: Regular rate, No murmurs Abdomen: Bowel Sounds Present, Soft, Non Tender Extremities: No edema, Capillary Refill Less than 3 Seconds Skin: No rashes, No breakdown Musculoskeletal: No Tenderness to Palpation of Joints or Extremities Neurological: Cranial nerves II-XII grossly intact Psych/Mental Status: Normal Affect, Appropriate, Alert and oriented to time, place, person, mood and affect Vital Signs Temp Pulse Resp BP Pulse Ox 98.2 F 83 18 143/85 H 94 08/18/17 07:47 08/18/17 07:47 08/18/17 07:47 08/18/17 07:47 08/18/17 07:47 Oxygen Delivery Method Room Air Weight: 93.4 kg Body Mass Index (BMI) 38.9 Intake and Output for Last 24 Hours 08/16/17 08/17/17 08/18/17 23:59 23:59 23:59 Intake Total 240 / 240 960 / 960 240 / 240 Output Total 2100 / 2100 3000 / 3000 Balance -1860 / -1860 -2040 / -2040 240 / 240 Active Medications Aspirin (Ecotrin) 325 mg PO BIDCM [facility] Last Admin: 08/18/17 07:50 Dose: 325 mg Atenolol (Tenormin (Beta Lorraine)) 50 mg PO DAILY [facility] Last Admin: 08/18/17 07:50 Dose: 50 mg Bacitracin (Bacitracin Ointment) 1 applic TOPICAL 0600,2200 [facility] PRN Reason: Protocol Last Admin: 08/18/17 05:10 Dose: 1 applicatio Bisacodyl (Dulcolax) 10 mg RECTAL .PRN X 1 PRN PRN Reason: Constipation Last Admin: 08/14/17 19:00 Dose: 10 mg Calcipotriene (Calcipotriene) 0 gm TP DAILY@0600 [facility] Last Admin: 08/18/17 06:44 Dose: 60 gm Cholecalciferol (Vitamin D) 3,000 unit PO DAILY [facility] Last Admin: 08/18/17 07:50 Dose: 3,000 unit Clonazepam (Klonopin) 1 mg PO QHS [facility] Last Admin: 08/17/17 21:27 Dose: 1 mg Docusate Sodium (Colace) 100 mg PO BID PRN PRN PRN Reason: Constipation Last Admin: 08/14/17 07:40 Dose: 100 mg Famotidine (Pepcid) 40 mg PO DAILY [facility] Last Admin: 08/18/17 07:50 Dose: 40 mg Fentanyl (Duragesic Patch) 50 mcg TRANSDERM. Q3D [facility] Last Admin: 08/17/17 09:33 Dose: 50 mcg Furosemide (Lasix) 20 mg PO DAILY [facility] Last Admin: 08/18/17 07:50 Dose: 20 mg Lisinopril (Zestril) 20 mg PO DAILY [facility] Last Admin: 08/18/17 07:50 Dose: 20 mg Loratadine (Claritin) 10 mg PO DAILY PRN PRN PRN Reason: ALLERGIES Magnesium Hydroxide (Milk Of Magnesia) 30 ml PO .PRN X 1 PRN PRN Reason: Constipation Last Admin: 08/16/17 12:08 Dose: 30 ml Oxycodone HCl (Oxyir) 5 - 10 mg PO Q4H PRN PRN PRN Reason: PAIN Last Admin: 08/18/17 09:15 Dose: 10 mg Polyethylene Glycol (Miralax) 17 gm PO DAILY [facility] Last Admin: 08/18/17 08:47 Dose: Not Given Promethazine HCl (Phenergan Tablet) 25 mg PO Q4H PRN PRN PRN Reason: NAUSEA Senna/Docusate Sodium (Senokot-S, Dinorah-Colace) 3 tablet PO QHS [facility] Last Admin: 08/17/17 20:16 Dose: 3 tablet Senna/Docusate Sodium (Senokot-S, Dinorah-Colace) 2 tablet PO DAILY [facility] Last Admin: 08/18/17 07:50 Dose: 2 tablet Tamoxifen Citrate (Nolvadex) 20 mg PO DAILY [facility] Last Admin: 08/18/17 07:51 Dose: 20 mg Venlafaxine HCl (Effexor Xr) 37.5 mg PO DAILY [facility] Last Admin: 08/18/17 07:50 Dose: 37.5 mg Medical Necessity - Tobacco Use Smoking Status: Current every day smoker Tobacco Use: Cigarettes Assessment/Plan Debility status post bilateral total knee replacement surgery, and a Right tibial ORIF. Goal of rehab is latter-day of prior level of functional independence. Plan: - Physical therapy for gait and balance - Occupational Therapy for ADLs - As needed analgesics - Bowel protocol - DVT prophylaxis: BID Aspirin therapy 325mg, per orthopedic surgeon, august d/c shania egan and SCD's 2/2 RLS - HLD - continue home dose of statin - GERD - continue home dose of PPI - HTN - stable => continue home medications of lisinopril - B/L TKA, and Right tibial fx Incision site C/D/I, => healing nicely, steri strips are beginning to fall off, no redness or warmth noted around incision area. - Tobacco dependence counseled on cessation, unable to do a nicotine patch per Dr. Terrell's request, patient is doing well without one. - Obesity -> BMI is 38.9 => counseled on weight loss, and Caloric controlled - There is a question of possible obstructive sleep apnea and she is already scheduled for an outpatient sleep study - Uncontrolled pain -> increase Fentanyl patch to 50mcq - Constipation -> Mag citrate 150ml, increase dose of Senokot to 2 pills in the morning and 3 pills at bedtime.
[2017-08-18 20:10] VITALS: BP 144/80; PULSE 63; RESP 18; TEMP 36.5; O2SAT 93
[2017-08-18] MEDS: clonazePAM 1 MG Tablet PO (21:40)
[2017-08-18] MEDS: Senna/Docusate Sodium 1 Tablet 3 TABLET PO (21:41)
[2017-08-18 22:00] VITALS: PULSE 63
[2017-08-19] MEDS: oxyCODONE 5 MG Tablet PO ×5 (03:56→21:26)
[2017-08-19] MEDS: BACITRACIN 15 GM Tube 1 APPLIC TOPICAL ×2 (06:07→21:27)
[2017-08-19 07:37] VITALS: BP 136/79; PULSE 74; RESP 16; TEMP 36.6; O2SAT 97
[2017-08-19] MEDS: Famotidine 20 MG Tablet 40 MG PO (07:38)
[2017-08-19] MEDS: Aspirin E.C. 325 MG Tablet PO ×2 (07:38→16:16)
[2017-08-19] MEDS: Polyethylene Glycol 3350 17 GM PACKET PO (07:38)
[2017-08-19] MEDS: Lisinopril 20 MG Tablet PO (07:39)
[2017-08-19] MEDS: Venlafaxine XR 37.5 MG Capsule PO (07:39)
[2017-08-19] MEDS: Tamoxifen 10 MG Tablet 20 MG PO (07:39)
[2017-08-19] MEDS: Furosemide 20 MG Tablet PO (07:39)
[2017-08-19] MEDS: Senna/Docusate Sodium 1 Tablet 2 TABLET PO (07:39)
[2017-08-19] MEDS: Atenolol 50 MG Tablet PO (07:42)
--- NOTE | 2017-08-19 09:46 | PCM.PN.HOSP ---
Subjective: Patient was seen and examined. States the pain is 4 out of 10. Undergoing therapy very well. No other acute events according to nurses. Denies any nausea or vomiting or diarrhea or fever or chills or shortness of breath.. Objective: Physical exam: General: Alert, Oriented x3, Cooperative, No apparent distress HEENT: Atraumatic, PERRLA, EOMI, Normocephalic Oral: Moist Mucosa Neck: Supple Lungs: Clear to auscultation, Normal air movement Cardiovascular: Regular rate, Regular Rhythm, Normal S1, Normal S2, No murmurs Abdomen: Bowel Sounds Present, Soft, Non Tender, Non-Distended Extremities: Bialateral +1-+2 pedal edema, incisions over both knees are clean and dry. Skin: No rashes Musculoskeletal: No Tenderness to Palpation of Joints or Extremities Lymphatic: No Cervical, Supraclavicular, or Inguinal Adenopathy Neurological: Cranial nerves II-XII grossly intact Psych/Mental Status: Normal Affect, Appropriate Vitals/I&O's: Vital Signs Temp Pulse Resp BP Pulse Ox 98 F 74 16 136/79 H 97 08/19/17 07:37 08/19/17 07:37 08/19/17 07:37 08/19/17 07:37 08/19/17 07:37 Oxygen Delivery Method Room Air Weight: 92.4 kg Body Mass Index (BMI) 38.9 Intake and Output for Last 24 Hours 08/17/17 08/18/17 08/19/17 23:59 23:59 23:59 Intake Total 1200 / 1200 480 / 480 320 / 320 Output Total 3000 / 3000 Balance -1800 / -1800 480 / 480 320 / 320 Current Medications Aspirin (Ecotrin) 325 mg PO BIDCM [facility] Last Admin: 08/19/17 07:38 Dose: 325 mg Atenolol (Tenormin (Beta Lorraine)) 50 mg PO DAILY [facility] Last Admin: 08/19/17 07:42 Dose: 50 mg Bacitracin (Bacitracin Ointment) 1 applic TOPICAL 0600,2200 [facility] PRN Reason: Protocol Last Admin: 08/19/17 06:07 Dose: 1 applicatio Bisacodyl (Dulcolax) 10 mg RECTAL .PRN X 1 PRN PRN Reason: Constipation Last Admin: 08/14/17 19:00 Dose: 10 mg Calcipotriene (Calcipotriene) 0 gm TP DAILY@0600 [facility] Last Admin: 08/19/17 06:07 Dose: Not Given Cholecalciferol (Vitamin D) 3,000 unit PO DAILY [facility] Last Admin: 08/19/17 07:39 Dose: 3,000 unit Clonazepam (Klonopin) 1 mg PO QHS [facility] Last Admin: 08/18/17 21:40 Dose: 1 mg Docusate Sodium (Colace) 100 mg PO BID PRN PRN PRN Reason: Constipation Last Admin: 08/14/17 07:40 Dose: 100 mg Famotidine (Pepcid) 40 mg PO DAILY [facility] Last Admin: 08/19/17 07:38 Dose: 40 mg Fentanyl (Duragesic Patch) 50 mcg TRANSDERM. Q3D [facility] Last Admin: 08/17/17 09:33 Dose: 50 mcg Furosemide (Lasix) 20 mg PO DAILY [facility] Last Admin: 08/19/17 07:39 Dose: 20 mg Lisinopril (Zestril) 20 mg PO DAILY [facility] Last Admin: 08/19/17 07:39 Dose: 20 mg Loratadine (Claritin) 10 mg PO DAILY PRN PRN PRN Reason: ALLERGIES Magnesium Hydroxide (Milk Of Magnesia) 30 ml PO .PRN X 1 PRN PRN Reason: Constipation Last Admin: 08/16/17 12:08 Dose: 30 ml Oxycodone HCl (Oxyir) 5 - 10 mg PO Q4H PRN PRN PRN Reason: PAIN Last Admin: 08/19/17 08:04 Dose: 10 mg Polyethylene Glycol (Miralax) 17 gm PO DAILY [facility] Last Admin: 08/19/17 07:38 Dose: 17 gm Promethazine HCl (Phenergan Tablet) 25 mg PO Q4H PRN PRN PRN Reason: NAUSEA Senna/Docusate Sodium (Senokot-S, Dinorah-Colace) 3 tablet PO QHS [facility] Last Admin: 08/18/17 21:41 Dose: 3 tablet Senna/Docusate Sodium (Senokot-S, Dinorah-Colace) 2 tablet PO DAILY [facility] Last Admin: 08/19/17 07:39 Dose: 2 tablet Tamoxifen Citrate (Nolvadex) 20 mg PO DAILY [facility] Last Admin: 08/19/17 07:39 Dose: 20 mg Venlafaxine HCl (Effexor Xr) 37.5 mg PO DAILY [facility] Last Admin: 08/19/17 07:39 Dose: 37.5 mg Medical Necessity - Tobacco Use Smoking Status: Current every day smoker Tobacco Use: Cigarettes Assessment/Plan 1. status post bilateral total knee arthroplasties, therapy is going well, pain uncontrolled. 2. Essential hypertension, controlled, on lisinopril and atenolol. 3. Depression, on Effexor. 4. Anxiety disorder, on prn Klonopin. 5. DVT prophylaxis - SCDs, aspirin BID Code Visit Inpatient E&M: 46511 Subs Hosp L2
--- NOTE | 2017-08-19 16:22 | PCM.PN.NEU ---
Subjective: Patient seen and examined. Increase in pain during the night and most of the morning, pain patch was increased on Thursday, will add Tylenol 650mg Q6 for break thru pain in additional to her Oxy IR. Tolerating therapy. Denies any shortness of breath or chest. No issues with GI/. - Physical Exam General: Alert, Oriented x3, Cooperative HEENT: Atraumatic, PERRLA, EOMI, Normocephalic Neck: Supple, No JVD, Negative Carotid Bruits Lungs: Clear to auscultation, Normal air movement Cardiovascular: Regular rate, No murmurs Abdomen: Bowel Sounds Present, Soft, Non Tender Extremities: No edema, Capillary Refill Less than 3 Seconds Skin: No rashes, No breakdown Musculoskeletal: No Tenderness to Palpation of Joints or Extremities Neurological: Cranial nerves II-XII grossly intact Psych/Mental Status: Normal Affect, Appropriate, Alert and oriented to time, place, person, mood and affect Vital Signs Temp Pulse Resp BP Pulse Ox 98 F 74 16 136/79 H 97 08/19/17 07:37 08/19/17 07:37 08/19/17 07:37 08/19/17 07:37 08/19/17 07:37 Oxygen Delivery Method Room Air Weight: 92.4 kg Body Mass Index (BMI) 38.9 Intake and Output for Last 24 Hours 08/17/17 08/18/17 08/19/17 23:59 23:59 23:59 Intake Total 1200 / 1200 480 / 480 580 / 580 Output Total 3000 / 3000 Balance -1800 / -1800 480 / 480 580 / 580 Active Medications Acetaminophen (Tylenol) 650 mg PO Q6H PRN PRN PRN Reason: BREAKTHROUGH PAIN (>4/10) Aspirin (Ecotrin) 325 mg PO BIDCM [facility] Last Admin: 08/19/17 16:16 Dose: 325 mg Atenolol (Tenormin (Beta Lorraine)) 50 mg PO DAILY [facility] Last Admin: 08/19/17 07:42 Dose: 50 mg Bacitracin (Bacitracin Ointment) 1 applic TOPICAL 0600,2200 [facility] PRN Reason: Protocol Last Admin: 08/19/17 06:07 Dose: 1 applicatio Bisacodyl (Dulcolax) 10 mg RECTAL .PRN X 1 PRN PRN Reason: Constipation Last Admin: 08/14/17 19:00 Dose: 10 mg Calcipotriene (Calcipotriene) 0 gm TP DAILY@0600 [facility] Last Admin: 08/19/17 06:07 Dose: Not Given Cholecalciferol (Vitamin D) 3,000 unit PO DAILY [facility] Last Admin: 08/19/17 07:39 Dose: 3,000 unit Clonazepam (Klonopin) 1 mg PO QHS [facility] Last Admin: 08/18/17 21:40 Dose: 1 mg Docusate Sodium (Colace) 100 mg PO BID PRN PRN PRN Reason: Constipation Last Admin: 08/14/17 07:40 Dose: 100 mg Famotidine (Pepcid) 40 mg PO DAILY [facility] Last Admin: 08/19/17 07:38 Dose: 40 mg Fentanyl (Duragesic Patch) 50 mcg TRANSDERM. Q3D [facility] Last Admin: 08/17/17 09:33 Dose: 50 mcg Furosemide (Lasix) 20 mg PO DAILY [facility] Last Admin: 08/19/17 07:39 Dose: 20 mg Lisinopril (Zestril) 20 mg PO DAILY [facility] Last Admin: 08/19/17 07:39 Dose: 20 mg Loratadine (Claritin) 10 mg PO DAILY PRN PRN PRN Reason: ALLERGIES Magnesium Hydroxide (Milk Of Magnesia) 30 ml PO .PRN X 1 PRN PRN Reason: Constipation Last Admin: 08/16/17 12:08 Dose: 30 ml Oxycodone HCl (Oxyir) 5 - 10 mg PO Q4H PRN PRN PRN Reason: PAIN Last Admin: 08/19/17 16:16 Dose: 10 mg Polyethylene Glycol (Miralax) 17 gm PO DAILY [facility] Last Admin: 08/19/17 07:38 Dose: 17 gm Promethazine HCl (Phenergan Tablet) 25 mg PO Q4H PRN PRN PRN Reason: NAUSEA Senna/Docusate Sodium (Senokot-S, Dinorah-Colace) 3 tablet PO QHS [facility] Last Admin: 08/18/17 21:41 Dose: 3 tablet Senna/Docusate Sodium (Senokot-S, Dinorah-Colace) 2 tablet PO DAILY [facility] Last Admin: 08/19/17 07:39 Dose: 2 tablet Tamoxifen Citrate (Nolvadex) 20 mg PO DAILY [facility] Last Admin: 08/19/17 07:39 Dose: 20 mg Venlafaxine HCl (Effexor Xr) 37.5 mg PO DAILY [facility] Last Admin: 08/19/17 07:39 Dose: 37.5 mg Medical Necessity - Tobacco Use Smoking Status: Current every day smoker Tobacco Use: Cigarettes Assessment/Plan Debility status post bilateral total knee replacement surgery, and a Right tibial ORIF. Goal of rehab is zoroastrian of prior level of functional independence. Plan: - Physical therapy for gait and balance - Occupational Therapy for ADLs - As needed analgesics - Bowel protocol - DVT prophylaxis: BID Aspirin therapy 325mg, per orthopedic surgeon, august d/c shania egan and SCD's / RLS - HLD - continue home dose of statin - GERD - continue home dose of PPI - HTN - stable => continue home medications of lisinopril - B/L TKA, and Right tibial fx Incision site C/D/I, => healing nicely, steri strips are beginning to fall off, no redness or warmth noted around incision area. - Tobacco dependence counseled on cessation, unable to do a nicotine patch per Dr. Terrell's request, patient is doing well without one. - Obesity -> BMI is 38.9 => counseled on weight loss, and Caloric controlled - There is a question of possible obstructive sleep apnea and she is already scheduled for an outpatient sleep study - Uncontrolled pain -> increase Fentanyl patch to 50mcq => today added on Tylenol 650mg Q6, PRN - Constipation -> Mag citrate 150ml, increase dose of Senokot to 2 pills in the morning and 3 pills at bedtime. => Constipations resolved
--- NOTE | 2017-08-19 16:43 | CHAPLAIN ---
Type of Pastoral Visit _x__ Initial Visit ___ Follow-up Visit ___ On-call Visit ___ General Patient Visit ___ Spiritual Assessment ___ Family Conference ___ Bereavement ___ Rapid Response ___ Code Blue ___ Other (describe below) Pastoral Care Referral From _x__ Patient ___ Family ___ Nurse ___ Physician ___ Spiral Weaver ___ Biomedical Equipment Technician ___ Other (describe below) Sacrament/Intervention _x__ Active listening ___ Anointing ___ Presybeterian ___ Bereavement ___ Communion ___ Mckenna exploration ___ _x__ Life review _x__ Prayer ___ Reconciliation ___ Sacrament of Sick ___ Supportive presence ___ Wedding ___ Other (describe below) Pastoral Comments
[2017-08-19 19:12] VITALS: BP 127/66; PULSE 73; RESP 16; TEMP 36.7; O2SAT 95
[2017-08-19] MEDS: Acetaminophen 325 MG Tablet 650 MG PO (19:16)
[2017-08-19] MEDS: clonazePAM 1 MG Tablet PO (21:27)
[2017-08-20] MEDS: oxyCODONE 5 MG Tablet PO ×5 (02:14→21:07)
[2017-08-20] MEDS: Acetaminophen 325 MG Tablet 650 MG PO (04:28)
[2017-08-20] MEDS: BACITRACIN 15 GM Tube 1 APPLIC TOPICAL ×2 (04:59→21:05)
[2017-08-20 08:16] VITALS: BP 128/68; PULSE 73; RESP 16; TEMP 36.4; O2SAT 95
[2017-08-20] MEDS: Polyethylene Glycol 3350 17 GM PACKET PO (10:09)
[2017-08-20] MEDS: Famotidine 20 MG Tablet 40 MG PO (10:10)
[2017-08-20] MEDS: Furosemide 20 MG Tablet PO (10:10)
[2017-08-20] MEDS: Lisinopril 20 MG Tablet PO (10:10)
[2017-08-20] MEDS: Venlafaxine XR 37.5 MG Capsule PO (10:10)
[2017-08-20] MEDS: Tamoxifen 10 MG Tablet 20 MG PO (10:10)
[2017-08-20] MEDS: Aspirin E.C. 325 MG Tablet PO ×2 (10:10→16:25)
[2017-08-20] MEDS: Senna/Docusate Sodium 1 Tablet 2 TABLET PO (10:11)
[2017-08-20] MEDS: Atenolol 50 MG Tablet PO (10:11)
--- NOTE | 2017-08-20 10:35 | PCM.PN.NEU ---
Subjective: Patient seen and examined during Physical therapy session. No new complaints, Tolerating therapy. Denies any shortness of breath, pain in her calf or chest pains. Incision site is C/D/I well approximated and healing nicely. She does have a blister site medial to the incision site from the drape used during surgery, placing Xenform over the blister and covering with abdominal pad change BID. No issues with GI/. - Physical Exam General: Alert, Oriented x3, Cooperative HEENT: Atraumatic, PERRLA, EOMI, Normocephalic Neck: Supple, No JVD, Negative Carotid Bruits Lungs: Clear to auscultation, Normal air movement Cardiovascular: Regular rate, No murmurs Abdomen: Bowel Sounds Present, Soft, Non Tender Extremities: No edema, Capillary Refill Less than 3 Seconds Skin: No rashes, No breakdown Musculoskeletal: No Tenderness to Palpation of Joints or Extremities Neurological: Cranial nerves II-XII grossly intact Psych/Mental Status: Normal Affect, Appropriate, Alert and oriented to time, place, person, mood and affect Vital Signs Temp Pulse Resp BP Pulse Ox 97.6 F L 73 16 128/68 H 95 08/20/17 08:16 08/20/17 08:16 08/20/17 08:16 08/20/17 08:16 08/20/17 08:16 Oxygen Delivery Method Room Air Weight: 92.4 kg Body Mass Index (BMI) 38.9 Intake and Output for Last 24 Hours 08/18/17 08/19/17 08/20/17 23:59 23:59 23:59 Intake Total 480 / 480 820 / 820 320 / 320 Balance 480 / 480 820 / 820 320 / 320 Active Medications Acetaminophen (Tylenol) 650 mg PO Q6H PRN PRN PRN Reason: BREAKTHROUGH PAIN (>4/10) Last Admin: 08/20/17 04:28 Dose: 650 mg Aspirin (Ecotrin) 325 mg PO BIDCM [facility] Last Admin: 08/20/17 10:10 Dose: 325 mg Atenolol (Tenormin (Beta Lorraine)) 50 mg PO DAILY [facility] Last Admin: 08/20/17 10:11 Dose: 50 mg Bacitracin (Bacitracin Ointment) 1 applic TOPICAL 0600,2200 [facility] PRN Reason: Protocol Last Admin: 08/20/17 04:59 Dose: 1 applicatio Bisacodyl (Dulcolax) 10 mg RECTAL .PRN X 1 PRN PRN Reason: Constipation Last Admin: 08/14/17 19:00 Dose: 10 mg Calcipotriene (Calcipotriene) 0 gm TP DAILY@0600 [facility] Last Admin: 08/20/17 05:00 Dose: 60 gm Cholecalciferol (Vitamin D) 3,000 unit PO DAILY [facility] Last Admin: 08/20/17 10:11 Dose: 3,000 unit Clonazepam (Klonopin) 1 mg PO QHS [facility] Last Admin: 08/19/17 21:27 Dose: 1 mg Docusate Sodium (Colace) 100 mg PO BID PRN PRN PRN Reason: Constipation Last Admin: 08/14/17 07:40 Dose: 100 mg Famotidine (Pepcid) 40 mg PO DAILY [facility] Last Admin: 08/20/17 10:10 Dose: 40 mg Fentanyl (Duragesic Patch) 50 mcg TRANSDERM. Q3D [facility] Last Admin: 08/20/17 10:13 Dose: 50 mcg Furosemide (Lasix) 20 mg PO DAILY [facility] Last Admin: 08/20/17 10:10 Dose: 20 mg Lisinopril (Zestril) 20 mg PO DAILY [facility] Last Admin: 08/20/17 10:10 Dose: 20 mg Loratadine (Claritin) 10 mg PO DAILY PRN PRN PRN Reason: ALLERGIES Magnesium Hydroxide (Milk Of Magnesia) 30 ml PO .PRN X 1 PRN PRN Reason: Constipation Last Admin: 08/16/17 12:08 Dose: 30 ml Oxycodone HCl (Oxyir) 5 - 10 mg PO Q4H PRN PRN PRN Reason: PAIN Last Admin: 08/20/17 07:26 Dose: 10 mg Polyethylene Glycol (Miralax) 17 gm PO DAILY [facility] Last Admin: 08/20/17 10:09 Dose: 17 gm Promethazine HCl (Phenergan Tablet) 25 mg PO Q4H PRN PRN PRN Reason: NAUSEA Senna/Docusate Sodium (Senokot-S, Dinorah-Colace) 3 tablet PO QHS [facility] Last Admin: 08/19/17 21:27 Dose: Not Given Senna/Docusate Sodium (Senokot-S, Dinorah-Colace) 2 tablet PO DAILY [facility] Last Admin: 08/20/17 10:11 Dose: 2 tablet Tamoxifen Citrate (Nolvadex) 20 mg PO DAILY [facility] Last Admin: 08/20/17 10:10 Dose: 20 mg Venlafaxine HCl (Effexor Xr) 37.5 mg PO DAILY [facility] Last Admin: 08/20/17 10:10 Dose: 37.5 mg Medical Necessity - Tobacco Use Smoking Status: Current every day smoker Tobacco Use: Cigarettes Assessment/Plan Debility status post bilateral total knee replacement surgery, and a Right tibial ORIF. Goal of rehab is faith of prior level of functional independence. Plan: - Physical therapy for gait and balance - Occupational Therapy for ADLs - As needed analgesics - Bowel protocol - DVT prophylaxis: BID Aspirin therapy 325mg, per orthopedic surgeon, august d/c shania egan and SCD's 2/2 RLS - HLD - continue home dose of statin - GERD - continue home dose of PPI - HTN - stable => continue home medications of lisinopril - B/L TKA, and Right tibial fx Incision site C/D/I, => healing nicely, steri strips are beginning to fall off, no redness or warmth noted around incision area. - Tobacco dependence counseled on cessation, unable to do a nicotine patch per Dr. Terrell's request, patient is doing well without one. - Obesity -> BMI is 38.9 => counseled on weight loss, and Caloric controlled - There is a question of possible obstructive sleep apnea and she is already scheduled for an outpatient sleep study - Uncontrolled pain -> increase Fentanyl patch to 50mcq => today added on Tylenol 650mg Q6, PRN - Constipation -> Mag citrate 150ml, increase dose of Senokot to 2 pills in the morning and 3 pills at bedtime. => Constipations resolved - Blister site medial to the knee incision site place Xenform over area and cover with an Abd pad change dressing BID.
--- NOTE | 2017-08-20 10:42 | PN.NEURO_ITS ---
Subjective: Patient seen and examined during Physical therapy session. No new complaints, Tolerating therapy. Denies any shortness of breath, pain in her calf or chest pains. Incision site is C/D/I well approximated and healing nicely. She does have a blister site medial to the incision site from the drape used during surgery, placing Xenform over the blister and covering with abdominal pad change BID. No issues with GI/. - Physical Exam General: Alert, Oriented x3, Cooperative HEENT: Atraumatic, PERRLA, EOMI, Normocephalic Neck: Supple, No JVD, Negative Carotid Bruits Lungs: Clear to auscultation, Normal air movement Cardiovascular: Regular rate, No murmurs Abdomen: Bowel Sounds Present, Soft, Non Tender Extremities: No edema, Capillary Refill Less than 3 Seconds Skin: No rashes, No breakdown Musculoskeletal: No Tenderness to Palpation of Joints or Extremities Neurological: Cranial nerves II-XII grossly intact Psych/Mental Status: Normal Affect, Appropriate, Alert and oriented to time, place, person, mood and affect Vital Signs Temp Pulse Resp BP Pulse Ox 97.6 F L 73 16 128/68 H 95 08/20/17 08:16 08/20/17 08:16 08/20/17 08:16 08/20/17 08:16 08/20/17 08:16 Oxygen Delivery Method Room Air Weight: 92.4 kg Body Mass Index (BMI) 38.9 Intake and Output for Last 24 Hours 08/18/17 08/19/17 08/20/17 23:59 23:59 23:59 Intake Total 480 / 480 820 / 820 320 / 320 Balance 480 / 480 820 / 820 320 / 320 Active Medications Acetaminophen (Tylenol) 650 mg PO Q6H PRN PRN PRN Reason: BREAKTHROUGH PAIN (>4/10) Last Admin: 08/20/17 04:28 Dose: 650 mg Aspirin (Ecotrin) 325 mg PO BIDCM [facility] Last Admin: 08/20/17 10:10 Dose: 325 mg Atenolol (Tenormin (Beta Lorraine)) 50 mg PO DAILY [facility] Last Admin: 08/20/17 10:11 Dose: 50 mg Bacitracin (Bacitracin Ointment) 1 applic TOPICAL 0600,2200 [facility] PRN Reason: Protocol Last Admin: 08/20/17 04:59 Dose: 1 applicatio Bisacodyl (Dulcolax) 10 mg RECTAL .PRN X 1 PRN PRN Reason: Constipation Last Admin: 08/14/17 19:00 Dose: 10 mg Calcipotriene (Calcipotriene) 0 gm TP DAILY@0600 [facility] Last Admin: 08/20/17 05:00 Dose: 60 gm Cholecalciferol (Vitamin D) 3,000 unit PO DAILY [facility] Last Admin: 08/20/17 10:11 Dose: 3,000 unit Clonazepam (Klonopin) 1 mg PO QHS [facility] Last Admin: 08/19/17 21:27 Dose: 1 mg Docusate Sodium (Colace) 100 mg PO BID PRN PRN PRN Reason: Constipation Last Admin: 08/14/17 07:40 Dose: 100 mg Famotidine (Pepcid) 40 mg PO DAILY [facility] Last Admin: 08/20/17 10:10 Dose: 40 mg Fentanyl (Duragesic Patch) 50 mcg TRANSDERM. Q3D [facility] Last Admin: 08/20/17 10:13 Dose: 50 mcg Furosemide (Lasix) 20 mg PO DAILY [facility] Last Admin: 08/20/17 10:10 Dose: 20 mg Lisinopril (Zestril) 20 mg PO DAILY [facility] Last Admin: 08/20/17 10:10 Dose: 20 mg Loratadine (Claritin) 10 mg PO DAILY PRN PRN PRN Reason: ALLERGIES Magnesium Hydroxide (Milk Of Magnesia) 30 ml PO .PRN X 1 PRN PRN Reason: Constipation Last Admin: 08/16/17 12:08 Dose: 30 ml Oxycodone HCl (Oxyir) 5 - 10 mg PO Q4H PRN PRN PRN Reason: PAIN Last Admin: 08/20/17 07:26 Dose: 10 mg Polyethylene Glycol (Miralax) 17 gm PO DAILY [facility] Last Admin: 08/20/17 10:09 Dose: 17 gm Promethazine HCl (Phenergan Tablet) 25 mg PO Q4H PRN PRN PRN Reason: NAUSEA Senna/Docusate Sodium (Senokot-S, Dinorah-Colace) 3 tablet PO QHS [facility] Last Admin: 08/19/17 21:27 Dose: Not Given Senna/Docusate Sodium (Senokot-S, Dinorah-Colace) 2 tablet PO DAILY [facility] Last Admin: 08/20/17 10:11 Dose: 2 tablet Tamoxifen Citrate (Nolvadex) 20 mg PO DAILY [facility] Last Admin: 08/20/17 10:10 Dose: 20 mg Venlafaxine HCl (Effexor Xr) 37.5 mg PO DAILY [facility] Last Admin: 08/20/17 10:10 Dose: 37.5 mg Medical Necessity - Tobacco Use Smoking Status: Current every day smoker Tobacco Use: Cigarettes Assessment/Plan Debility status post bilateral total knee replacement surgery, and a Right tibial ORIF. Goal of rehab is taoist of prior level of functional independence. Plan: - Physical therapy for gait and balance - Occupational Therapy for ADLs - As needed analgesics - Bowel protocol - DVT prophylaxis: BID Aspirin therapy 325mg, per orthopedic surgeon, august d/c shania egan and SCD's 2/2 RLS - HLD - continue home dose of statin - GERD - continue home dose of PPI - HTN - stable => continue home medications of lisinopril - B/L TKA, and Right tibial fx Incision site C/D/I, => healing nicely, steri strips are beginning to fall off, no redness or warmth noted around incision area. - Tobacco dependence counseled on cessation, unable to do a nicotine patch per Dr. Terrell's request, patient is doing well without one. - Obesity -> BMI is 38.9 => counseled on weight loss, and Caloric controlled - There is a question of possible obstructive sleep apnea and she is already scheduled for an outpatient sleep study - Uncontrolled pain -> increase Fentanyl patch to 50mcq => today added on Tylenol 650mg Q6, PRN - Constipation -> Mag citrate 150ml, increase dose of Senokot to 2 pills in the morning and 3 pills at bedtime. => Constipations resolved - Blister site medial to the knee incision site place Xenform over area and cover with an Abd pad change dressing BID.
[2017-08-20] MEDS: clonazePAM 1 MG Tablet PO (21:06)
[2017-08-20] MEDS: Senna/Docusate Sodium 1 Tablet 3 TABLET PO (21:07)
[2017-08-20 22:00] VITALS: BP 139/51; PULSE 68; RESP 16; TEMP 36.8; O2SAT 93
--- NOTE | 2017-08-20 23:58 | NURSING ---
Reviewed and agree with LPNs handoff
[2017-08-21] MEDS: Acetaminophen 325 MG Tablet 650 MG PO ×2 (00:14→07:50)
[2017-08-21] MEDS: BACITRACIN 15 GM Tube 1 APPLIC TOPICAL ×2 (04:58→20:58)
[2017-08-21] MEDS: oxyCODONE 5 MG Tablet PO ×5 (04:59→22:47)
[2017-08-21] MEDS: Senna/Docusate Sodium 1 Tablet 2 TABLET PO (07:48)
[2017-08-21] MEDS: Lisinopril 20 MG Tablet PO (07:48)
[2017-08-21] MEDS: Polyethylene Glycol 3350 17 GM PACKET PO (07:48)
[2017-08-21] MEDS: Aspirin E.C. 325 MG Tablet PO ×2 (07:48→17:46)
[2017-08-21] MEDS: Famotidine 20 MG Tablet 40 MG PO (07:49)
[2017-08-21] MEDS: Furosemide 20 MG Tablet PO (07:49)
[2017-08-21] MEDS: Atenolol 50 MG Tablet PO (07:50)
[2017-08-21] MEDS: Tamoxifen 10 MG Tablet 20 MG PO (07:50)
[2017-08-21] MEDS: Venlafaxine XR 37.5 MG Capsule PO (07:52)
[2017-08-21 07:54] VITALS: BP 128/71; PULSE 77; RESP 18; TEMP 36.5; O2SAT 93
--- NOTE | 2017-08-21 11:59 | PN.NEURO_ITS ---
Addendum entered and electronically signed by Lynsey Brandon MD 16:38: I have personally examined the patient at bedside. Please see HAND TWISTER Ara Mireles's note as below for further complete details. I have discussed the management plan for the patient in detail with HAND TWISTER Ara Mireles and please see the plan as noted below, tolerating therapies well, GI/DVT prophylaxis, fall precautions. Further medical management per hospitalist recommendations. Original Note: Subjective: Patient seen and examined. Having increased muscle spasms in her thigh muscles and around her knees. Will restart her Tizanidine 2mg. She is tolerating therapy. Denies any shortness of breath or chest pains. No issues with GI/. - Physical Exam General: Alert, Oriented x3, Cooperative HEENT: Atraumatic, PERRLA, EOMI, Normocephalic Neck: Supple, No JVD, Negative Carotid Bruits Lungs: Clear to auscultation, Normal air movement Cardiovascular: Regular rate, No murmurs Abdomen: Bowel Sounds Present, Soft, Non Tender Extremities: No edema, Capillary Refill Less than 3 Seconds Skin: No rashes, No breakdown Musculoskeletal: No Tenderness to Palpation of Joints or Extremities Neurological: Cranial nerves II-XII grossly intact Psych/Mental Status: Normal Affect, Appropriate, Alert and oriented to time, place, person, mood and affect Vital Signs Temp Pulse Resp BP Pulse Ox 97.7 F L 77 18 128/71 H 93 08/21/17 07:54 08/21/17 07:54 08/21/17 07:54 08/21/17 07:54 08/21/17 07:54 Oxygen Delivery Method Room Air Weight: 92.4 kg Body Mass Index (BMI) 38.9 Intake and Output for Last 24 Hours 08/19/17 08/20/17 08/21/17 23:59 23:59 23:59 Intake Total 820 / 820 920 / 920 Balance 820 / 820 920 / 920 Active Medications Acetaminophen (Tylenol) 650 mg PO Q6H PRN PRN PRN Reason: BREAKTHROUGH PAIN (>4/10) Last Admin: 08/21/17 07:50 Dose: 650 mg Aspirin (Ecotrin) 325 mg PO BIDCM [facility] Last Admin: 08/21/17 07:48 Dose: 325 mg Atenolol (Tenormin (Beta Lorraine)) 50 mg PO DAILY [facility] Last Admin: 08/21/17 07:50 Dose: 50 mg Bacitracin (Bacitracin Ointment) 1 applic TOPICAL 0600,2200 [facility] PRN Reason: Protocol Last Admin: 08/21/17 04:58 Dose: 1 applicatio Bisacodyl (Dulcolax) 10 mg RECTAL .PRN X 1 PRN PRN Reason: Constipation Last Admin: 08/14/17 19:00 Dose: 10 mg Calcipotriene (Calcipotriene) 0 gm TP DAILY@0600 [facility] Last Admin: 08/21/17 04:57 Dose: 60 gm Cholecalciferol (Vitamin D) 3,000 unit PO DAILY [facility] Last Admin: 08/21/17 07:49 Dose: 3,000 unit Clonazepam (Klonopin) 1 mg PO QHS [facility] Last Admin: 08/20/17 21:06 Dose: 1 mg Docusate Sodium (Colace) 100 mg PO BID PRN PRN PRN Reason: Constipation Last Admin: 08/14/17 07:40 Dose: 100 mg Famotidine (Pepcid) 40 mg PO DAILY [facility] Last Admin: 08/21/17 07:49 Dose: 40 mg Fentanyl (Duragesic Patch) 50 mcg TRANSDERM. Q3D [facility] Last Admin: 08/20/17 10:13 Dose: 50 mcg Furosemide (Lasix) 20 mg PO DAILY [facility] Last Admin: 08/21/17 07:49 Dose: 20 mg Lisinopril (Zestril) 20 mg PO DAILY [facility] Last Admin: 08/21/17 07:48 Dose: 20 mg Loratadine (Claritin) 10 mg PO DAILY PRN PRN PRN Reason: ALLERGIES Magnesium Hydroxide (Milk Of Magnesia) 30 ml PO .PRN X 1 PRN PRN Reason: Constipation Last Admin: 08/16/17 12:08 Dose: 30 ml Oxycodone HCl (Oxyir) 5 - 10 mg PO Q4H PRN PRN PRN Reason: PAIN Last Admin: 08/21/17 09:45 Dose: 10 mg Polyethylene Glycol (Miralax) 17 gm PO DAILY [facility] Last Admin: 08/21/17 07:48 Dose: 17 gm Promethazine HCl (Phenergan Tablet) 25 mg PO Q4H PRN PRN PRN Reason: NAUSEA Senna/Docusate Sodium (Senokot-S, Dinorah-Colace) 3 tablet PO QHS [facility] Last Admin: 08/20/17 21:07 Dose: 3 tablet Senna/Docusate Sodium (Senokot-S, Dinorah-Colace) 2 tablet PO DAILY [facility] Last Admin: 08/21/17 07:48 Dose: 2 tablet Tamoxifen Citrate (Nolvadex) 20 mg PO DAILY [facility] Last Admin: 08/21/17 07:50 Dose: 20 mg Tizanidine HCl (Zanaflex) 2 mg PO DAILY [facility] Venlafaxine HCl (Effexor Xr) 37.5 mg PO DAILY [facility] Last Admin: 08/21/17 07:52 Dose: 37.5 mg Medical Necessity - Tobacco Use Smoking Status: Current every day smoker Tobacco Use: Cigarettes Assessment/Plan Debility status post bilateral total knee replacement surgery, and a Right tibial ORIF. Goal of rehab is episcopalian of prior level of functional independence. Plan: - Physical therapy for gait and balance - Occupational Therapy for ADLs - As needed analgesics - Bowel protocol - DVT prophylaxis: BID Aspirin therapy 325mg, per orthopedic surgeon, august d/c shania egan and SCD's 2/2 RLS - HLD - continue home dose of statin - GERD - continue home dose of PPI - HTN - stable => continue home medications of lisinopril - B/L TKA, and Right tibial fx Incision site C/D/I, => healing nicely, steri strips are beginning to fall off, no redness or warmth noted around incision area. - Tobacco dependence counseled on cessation, unable to do a nicotine patch per Dr. Terrell's request, patient is doing well without one. - Obesity -> BMI is 38.9 => counseled on weight loss, and Caloric controlled - There is a question of possible obstructive sleep apnea and she is already scheduled for an outpatient sleep study - Uncontrolled pain -> increase Fentanyl patch to 50mcq => today added on Tylenol 650mg Q6, PRN - Constipation -> Mag citrate 150ml, increase dose of Senokot to 2 pills in the morning and 3 pills at bedtime. => Constipations resolved - Blister site medial to the knee incision site place Xenform over area and cover with an Abd pad change dressing BID. - Re-started her home dose of Tizanidine 2mg daily for muscle spasms
--- NOTE | 2017-08-21 15:49 | PCM.PN.HOSP ---
Subjective: Patient was seen and examined. Denies chest pain, dizziness, palpitations. Therapy is going very well Objective: Physical exam: General: Alert, Oriented x3, Cooperative, No apparent distress HEENT: Atraumatic, PERRLA, EOMI, Normocephalic Oral: Moist Mucosa Neck: Supple Lungs: Clear to auscultation, Normal air movement Cardiovascular: Regular rate, Regular Rhythm, Normal S1, Normal S2, No murmurs Abdomen: Bowel Sounds Present, Soft, Non Tender, Non-Distended Extremities: Bialateral +1-+2 pedal edema, incisions over both knees are clean and dry. Skin: No rashes Musculoskeletal: No Tenderness to Palpation of Joints or Extremities Lymphatic: No Cervical, Supraclavicular, or Inguinal Adenopathy Neurological: Cranial nerves II-XII grossly intact Psych/Mental Status: Normal Affect, Appropriate Vitals/I&O's: Vital Signs Temp Pulse Resp BP Pulse Ox 97.7 F L 77 18 128/71 H 93 08/21/17 07:54 08/21/17 07:54 08/21/17 07:54 08/21/17 07:54 08/21/17 07:54 Oxygen Delivery Method Room Air Weight: 92.4 kg Body Mass Index (BMI) 38.9 Intake and Output for Last 24 Hours 08/19/17 08/20/17 08/21/17 23:59 23:59 23:59 Intake Total 820 / 820 920 / 920 240 / 240 Balance 820 / 820 920 / 920 240 / 240 Current Medications Acetaminophen (Tylenol) 650 mg PO Q6H PRN PRN PRN Reason: BREAKTHROUGH PAIN (>4/10) Last Admin: 08/21/17 07:50 Dose: 650 mg Aspirin (Ecotrin) 325 mg PO BIDCM [facility] Last Admin: 08/21/17 07:48 Dose: 325 mg Atenolol (Tenormin (Beta Lorraine)) 50 mg PO DAILY [facility] Last Admin: 08/21/17 07:50 Dose: 50 mg Bacitracin (Bacitracin Ointment) 1 applic TOPICAL 0600,2200 [facility] PRN Reason: Protocol Last Admin: 08/21/17 04:58 Dose: 1 applicatio Bisacodyl (Dulcolax) 10 mg RECTAL .PRN X 1 PRN PRN Reason: Constipation Last Admin: 08/14/17 19:00 Dose: 10 mg Calcipotriene (Calcipotriene) 0 gm TP DAILY@0600 [facility] Last Admin: 08/21/17 04:57 Dose: 60 gm Cholecalciferol (Vitamin D) 3,000 unit PO DAILY [facility] Last Admin: 08/21/17 07:49 Dose: 3,000 unit Clonazepam (Klonopin) 1 mg PO QHS [facility] Last Admin: 08/20/17 21:06 Dose: 1 mg Docusate Sodium (Colace) 100 mg PO BID PRN PRN PRN Reason: Constipation Last Admin: 08/14/17 07:40 Dose: 100 mg Famotidine (Pepcid) 40 mg PO DAILY [facility] Last Admin: 08/21/17 07:49 Dose: 40 mg Fentanyl (Duragesic Patch) 50 mcg TRANSDERM. Q3D [facility] Last Admin: 08/20/17 10:13 Dose: 50 mcg Furosemide (Lasix) 20 mg PO DAILY [facility] Last Admin: 08/21/17 07:49 Dose: 20 mg Lisinopril (Zestril) 20 mg PO DAILY [facility] Last Admin: 08/21/17 07:48 Dose: 20 mg Loratadine (Claritin) 10 mg PO DAILY PRN PRN PRN Reason: ALLERGIES Magnesium Hydroxide (Milk Of Magnesia) 30 ml PO .PRN X 1 PRN PRN Reason: Constipation Last Admin: 08/16/17 12:08 Dose: 30 ml Oxycodone HCl (Oxyir) 5 - 10 mg PO Q4H PRN PRN PRN Reason: PAIN Last Admin: 08/21/17 14:44 Dose: 10 mg Polyethylene Glycol (Miralax) 17 gm PO DAILY [facility] Last Admin: 08/21/17 07:48 Dose: 17 gm Promethazine HCl (Phenergan Tablet) 25 mg PO Q4H PRN PRN PRN Reason: NAUSEA Senna/Docusate Sodium (Senokot-S, Dinorah-Colace) 3 tablet PO QHS [facility] Last Admin: 08/20/17 21:07 Dose: 3 tablet Senna/Docusate Sodium (Senokot-S, Dinorah-Colace) 2 tablet PO DAILY [facility] Last Admin: 08/21/17 07:48 Dose: 2 tablet Tamoxifen Citrate (Nolvadex) 20 mg PO DAILY [facility] Last Admin: 08/21/17 07:50 Dose: 20 mg Tizanidine HCl (Zanaflex) 2 mg PO DAILY [facility] Venlafaxine HCl (Effexor Xr) 37.5 mg PO DAILY [facility] Last Admin: 08/21/17 07:52 Dose: 37.5 mg Medical Necessity - Tobacco Use Smoking Status: Current every day smoker Tobacco Use: Cigarettes Assessment/Plan 1. status post bilateral total knee arthroplasties, therapy is going well, pain uncontrolled, adjustment s made to pain regimen with addition of tizanidine. 2. Essential hypertension, controlled, on lisinopril and atenolol. 3. Depression, on Effexor. 4. Anxiety disorder, on prn Klonopin. 5. DVT prophylaxis - SCDs, aspirin BID Code Visit Inpatient E&M: 63925 Subs Hosp L2
[2017-08-21] MEDS: tiZANidine HCl 2 MG Tablet PO (17:46)
[2017-08-21] MEDS: Senna/Docusate Sodium 1 Tablet 3 TABLET PO (20:59)
[2017-08-21 22:00] VITALS: BP 102/56; PULSE 66; RESP 18; TEMP 36.6; O2SAT 93
[2017-08-21] MEDS: clonazePAM 1 MG Tablet PO (22:47)
--- NOTE | 2017-08-22 02:44 | NURSING ---
Reviewed and agree with LPNs fims and handoff
[2017-08-22] MEDS: oxyCODONE 5 MG Tablet PO ×5 (02:46→20:10)
[2017-08-22] MEDS: BACITRACIN 15 GM Tube 1 APPLIC TOPICAL (06:42)
[2017-08-22 08:34] VITALS: BP 108/67; PULSE 83; RESP 18; TEMP 36.5; O2SAT 92
[2017-08-22] MEDS: Polyethylene Glycol 3350 17 GM PACKET PO (09:00)
[2017-08-22] MEDS: Famotidine 20 MG Tablet 40 MG PO (09:00)
[2017-08-22] MEDS: Tamoxifen 10 MG Tablet 20 MG PO (09:01)
[2017-08-22] MEDS: Atenolol 50 MG Tablet PO (09:01)
[2017-08-22] MEDS: Senna/Docusate Sodium 1 Tablet 2 TABLET PO (09:01)
[2017-08-22] MEDS: Venlafaxine XR 37.5 MG Capsule PO (09:01)
[2017-08-22] MEDS: Lisinopril 20 MG Tablet PO (09:02)
[2017-08-22] MEDS: Furosemide 20 MG Tablet PO (09:02)
[2017-08-22] MEDS: Aspirin E.C. 325 MG Tablet PO ×2 (09:02→17:20)
[2017-08-22] MEDS: Acetaminophen 325 MG Tablet 650 MG PO ×2 (09:10→17:19)
--- NOTE | 2017-08-22 15:09 | PCM.PN.HOSP ---
Subjective: Patient with no acute events overnight per self and per nursing report. She notes remarkable improvement in restless leg symptoms and muscle spasms since restarting low-dose muscle relaxant in the evening. She notes having slept through the evening with out severe pain upon awakening. She notes that she is tolerating physical and occupational therapy. Per discussion with nursing staff she does have continued discomfort and does require [id number] as needed items but subjectively notes improvement. Patient denies fevers, chills, nausea, emesis, abdominal pain, chest pain or dyspnea. Objective: Physical Examination: General: awake, alert, oriented x 3 and cooperative, seated upright in bed in no apparent distress. Skin: normal color, turgor, no icterus, cyanosis, s/p BL TKR, dressings/icing in place BL. HEENT: AT/NC, EOMI, PERRLA, MMM. Lungs: CTA bilaterally, moderate effort, mild decrease BL bases, no rales, ronchi or wheezing. Heart: Regular rate and rhythm; no gallop, rub audible. Abdomen: soft, obese, NTTP, ND, normal BS. Extremities: no cyanosis, clubbing, s/p BL TKR. Neurological: patient awake, alert, oriented x 3; cognitive function intact; pupils equally reactive to light and accomodation; cranial nerves II-XII grossly normal, moving all 4 extremities although moderate limitation BL LE, s/p BL TKR, dressings/icing in place BL, no focal deficits, strength moderately globally decreased. Psychiatric: affect appears normal, no acute evidence of depressive or anxiety feelings. Vitals/I&O's: Vital Signs Temp Pulse Resp BP Pulse Ox 97.7 F L 83 18 108/67 92 08/22/17 08:34 08/22/17 08:34 08/22/17 08:34 08/22/17 08:34 08/22/17 08:34 Oxygen Delivery Method Room Air Weight: 203 lb 11.314 oz Body Mass Index (BMI) 38.9 Intake and Output for Last 24 Hours 08/20/17 08/21/17 08/22/17 23:59 23:59 23:59 Intake Total 920 / 920 600 / 600 480 / 480 Balance 920 / 920 600 / 600 480 / 480 Current Medications Acetaminophen (Tylenol) 650 mg PO Q6H PRN PRN PRN Reason: BREAKTHROUGH PAIN (>4/10) Last Admin: 08/22/17 09:10 Dose: 650 [facility] Last Admin: 08/22/17 09:02 Dose: 325 mg Atenolol (Tenormin (Beta Lorraine)) 50 mg PO DAILY [facility] Last Admin: 08/22/17 09:01 Dose: 50 mg Bacitracin (Bacitracin Ointment) 1 applic TOPICAL 0600,2200 [facility] PRN Reason: Protocol Last Admin: 08/22/17 06:42 Dose: 1 applicatio Bisacodyl (Dulcolax) 10 mg RECTAL .PRN X 1 PRN PRN Reason: Constipation Last Admin: 08/14/17 19:00 Dose: 10 mg Calcipotriene (Calcipotriene) 0 gm TP DAILY@0600 [facility] Last Admin: 08/22/17 06:43 Dose: 60 gm Cholecalciferol (Vitamin D) 3,000 unit PO DAILY [facility] Last Admin: 08/22/17 09:00 Dose: 3,000 unit Clonazepam (Klonopin) 1 mg PO QHS [facility] Last Admin: 08/21/17 22:47 Dose: 1 mg Docusate Sodium (Colace) 100 mg PO BID PRN PRN PRN Reason: Constipation Last Admin: 08/14/17 07:40 Dose: 100 mg Famotidine (Pepcid) 40 mg PO DAILY [facility] Last Admin: 08/22/17 09:00 Dose: 40 mg Fentanyl (Duragesic Patch) 50 mcg TRANSDERM. Q3D [facility] Last Admin: 08/20/17 10:13 Dose: 50 mcg Furosemide (Lasix) 20 mg PO DAILY [facility] Last Admin: 08/22/17 09:02 Dose: 20 mg Lisinopril (Zestril) 20 mg PO DAILY [facility] Last Admin: 08/22/17 09:02 Dose: 20 mg Loratadine (Claritin) 10 mg PO DAILY PRN PRN PRN Reason: ALLERGIES Magnesium Hydroxide (Milk Of Magnesia) 30 ml PO .PRN X 1 PRN PRN Reason: Constipation Last Admin: 08/16/17 12:08 Dose: 30 ml Oxycodone HCl (Oxyir) 5 - 10 mg PO Q4H PRN PRN PRN Reason: PAIN Last Admin: 08/22/17 10:50 Dose: 10 mg Polyethylene Glycol (Miralax) 17 gm PO DAILY [facility] Last Admin: 08/22/17 09:00 Dose: 17 gm Promethazine HCl (Phenergan Tablet) 25 mg PO Q4H PRN PRN PRN Reason: NAUSEA Senna/Docusate Sodium (Senokot-S, Dinorah-Colace) 3 tablet PO QHS [facility] Last Admin: 08/21/17 20:59 Dose: 3 tablet Senna/Docusate Sodium (Senokot-S, Dinorah-Colace) 2 tablet PO DAILY [facility] Last Admin: 08/22/17 09:01 Dose: 2 tablet Tamoxifen Citrate (Nolvadex) 20 mg PO DAILY [facility] Last Admin: 08/22/17 09:01 Dose: 20 mg Tizanidine HCl (Zanaflex) 2 mg PO DAILY@1600 [facility] Venlafaxine HCl (Effexor Xr) 37.5 mg PO DAILY [facility] Last Admin: 08/22/17 09:01 Dose: 37.5 mg Medical Necessity - Tobacco Use Smoking Status: Current every day smoker Tobacco Use: Cigarettes Assessment/Plan The patient is a 62 y/o F w/ PMHx: HTN, HLD, Anxiety and Depression, History of Breast CA in Remission, RLS, Obesity, GERD who presents to the [facility] on 08/13/17 s/p BL TKR per Dr. Terrell secondary to severe OA w/ incidentally noted right tibial fracture w/ R ORIF for further therapies. (1) Severe Osteoarthritis, s/p Elective BL LTKR and Incidentally noted R tibial fracture s/p R ORIF: Failed conservative therapies and treatments, OR 08/11/17 s/p BL TKR and performed additionally R ORIF at that time secondary to incidentally noted R tibial fracture, maintained on pain regimen, recent 08/21/17 re-addition of muscle relaxant, encourage dosing in the evening as assists w/ muscle spasms and also RLS symptoms allowing for better rest and less nighttime pain onset, continue bowel regimen, DVT Prophylaxis 325 mg BID per Orthopedic preference, continued PT/OT. (2) Urinary Retention: Resolved, did have post-operative urinary retention. If recurrent issue may be associated w/ narcotics, may consider addition of flomax if recurrent issue. (3) Hypertension: Continue home regimen including atenolol, lisinopril, Lasix, PRN hydralazine. (4) Tobacco Abuse: Encouraged cessation, inpatient consultation per RT, NR if desired. (5) Obesity: Weight loss and lifestyle changes encouraged. (6) History of Breast CA: Remission status, maintained on tamoxifen. (7) Anxiety and Depression: Maintain on home regimen of Effexor and Klonopin. (8) GERD: Famotidine. (9) RLS: Continue restarted muscle relaxant low dose in the evening as allergy to several agents including requip, assists in symptoms. (10) DVT Prophylaxis: SCDs/ЕКАТЕРИНА, ASA [address] Xander tolentino. Code Visit Inpatient E&M: 49472 Subs Hosp L2
--- NOTE | 2017-08-22 15:20 | PN_ITS ---
Subjective: Patient with no acute events overnight per self and per nursing report. She notes remarkable improvement in restless leg symptoms and muscle spasms since restarting low-dose muscle relaxant in the evening. She notes having slept through the evening with out severe pain upon awakening. She notes that she is tolerating physical and occupational therapy. Per discussion with nursing staff she does have continued discomfort and does require [id number] as needed items but subjectively notes improvement. Patient denies fevers, chills , nausea, emesis, abdominal pain, chest pain or dyspnea. Objective: Physical Examination: General: awake, alert, oriented x 3 and cooperative, seated upright in bed in no apparent distress. Skin: normal color, turgor, no icterus, cyanosis, s/p BL TKR, dressings/icing in place BL. HEENT: AT/NC, EOMI, PERRLA, MMM. Lungs: CTA bilaterally, moderate effort, mild decrease BL bases, no rales, ronchi or wheezing. Heart: Regular rate and rhythm; no gallop, rub audible. Abdomen: soft, obese, NTTP, ND, normal BS. Extremities: no cyanosis, clubbing, s/p BL TKR. Neurological: patient awake, alert, oriented x 3; cognitive function intact; pupils equally reactive to light and accomodation; cranial nerves II-XII grossly normal, moving all 4 extremities although moderate limitation BL LE, s/ p BL TKR, dressings/icing in place BL, no focal deficits, strength moderately globally decreased. Psychiatric: affect appears normal, no acute evidence of depressive or anxiety feelings. Vitals/I&O's: Vital Signs Temp Pulse Resp BP Pulse Ox 97.7 F L 83 18 108/67 92 08/22/17 08:34 08/22/17 08:34 08/22/17 08:34 08/22/17 08:34 08/22/17 08:34 Oxygen Delivery Method Room Air Weight: 203 lb 11.314 oz Body Mass Index (BMI) 38.9 Intake and Output for Last 24 Hours 08/20/17 08/21/17 08/22/17 23:59 23:59 23:59 Intake Total 920 / 920 600 / 600 480 / 480 Balance 920 / 920 600 / 600 480 / 480 Current Medications Acetaminophen (Tylenol) 650 mg PO Q6H PRN PRN PRN Reason: BREAKTHROUGH PAIN (>4/10) Last Admin: 08/22/17 09:10 Dose: 650 mg [facility]in (Ecotrin) [facility] Last Admin: 08/22/17 09:02 Dose: 325 mg Atenolol (Tenormin (Beta Lorraine)) 50 mg PO DAILY [facility] Last Admin: 08/22/17 09:01 Dose: 50 mg Bacitracin (Bacitracin Ointment) 1 applic TOPICAL 0600,2200 [facility] PRN Reason: Protocol Last Admin: 08/22/17 06:42 Dose: 1 applicatio Bisacodyl (Dulcolax) 10 mg RECTAL .PRN X 1 PRN PRN Reason: Constipation Last Admin: 08/14/17 19:00 Dose: 10 mg Calcipotriene (Calcipotriene) 0 gm TP DAILY@0600 [facility] Last Admin: 08/22/17 06:43 Dose: 60 gm Cholecalciferol (Vitamin D) 3,000 unit PO DAILY [facility] Last Admin: 08/22/17 09:00 Dose: 3,000 unit Clonazepam (Klonopin) 1 mg PO QHS [facility] Last Admin: 08/21/17 22:47 Dose: 1 mg Docusate Sodium (Colace) 100 mg PO BID PRN PRN PRN Reason: Constipation Last Admin: 08/14/17 07:40 Dose: 100 mg Famotidine (Pepcid) 40 mg PO DAILY [facility] Last Admin: 08/22/17 09:00 Dose: 40 mg Fentanyl (Duragesic Patch) 50 mcg TRANSDERM. Q3D [facility] Last Admin: 08/20/17 10:13 Dose: 50 mcg Furosemide (Lasix) 20 mg PO DAILY [facility] Last Admin: 08/22/17 09:02 Dose: 20 mg Lisinopril (Zestril) 20 mg PO DAILY [facility] Last Admin: 08/22/17 09:02 Dose: 20 mg Loratadine (Claritin) 10 mg PO DAILY PRN PRN PRN Reason: ALLERGIES Magnesium Hydroxide (Milk Of Magnesia) 30 ml PO .PRN X 1 PRN PRN Reason: Constipation Last Admin: 08/16/17 12:08 Dose: 30 ml Oxycodone HCl (Oxyir) 5 - 10 mg PO Q4H PRN PRN PRN Reason: PAIN Last Admin: 08/22/17 10:50 Dose: 10 mg Polyethylene Glycol (Miralax) 17 gm PO DAILY [facility] Last Admin: 08/22/17 09:00 Dose: 17 gm Promethazine HCl (Phenergan Tablet) 25 mg PO Q4H PRN PRN PRN Reason: NAUSEA Senna/Docusate Sodium (Senokot-S, Dinorah-Colace) 3 tablet PO QHS [facility] Last Admin: 08/21/17 20:59 Dose: 3 tablet Senna/Docusate Sodium (Senokot-S, Dinorah-Colace) 2 tablet PO DAILY [facility] Last Admin: 08/22/17 09:01 Dose: 2 tablet Tamoxifen Citrate (Nolvadex) 20 mg PO DAILY [facility] Last Admin: 08/22/17 09:01 Dose: 20 mg Tizanidine HCl (Zanaflex) 2 mg PO DAILY@1600 EMMA Venlafaxine HCl (Effexor Xr) 37.5 mg PO DAILY [facility] Last Admin: 08/22/17 09:01 Dose: 37.5 mg Medical Necessity - Tobacco Use Smoking Status: Current every day smoker Tobacco Use: Cigarettes Assessment/Plan The patient is a 62 y/o F w/ PMHx: HTN, HLD, Anxiety and Depression, History of Breast CA in Remission, RLS, Obesity, GERD who presents to the [facility] on 08/13/17 s/p BL TKR per Dr. Terrell secondary to severe OA w/ incidentally noted right tibial fracture w/ R ORIF for further therapies. (1) Severe Osteoarthritis, s/p Elective BL LTKR and Incidentally noted R tibial fracture s/p R ORIF: Failed conservative therapies and treatments, OR 08/11/17 s/ p BL TKR and performed additionally R ORIF at that time secondary to incidentally noted R tibial fracture, maintained on pain regimen, recent re-addition of muscle relaxant, encourage dosing in the evening as assists w / muscle spasms and also RLS symptoms allowing for better rest and less nighttime pain onset, continue bowel regimen, DVT Prophylaxis 325 mg BID per Orthopedic preference, continued PT/OT. (2) Urinary Retention: Resolved, did have post-operative urinary retention. If recurrent issue may be associated w/ narcotics, may consider addition of flomax if recurrent issue. (3) Hypertension: Continue home regimen including atenolol, lisinopril, Lasix, PRN hydralazine. (4) Tobacco Abuse: Encouraged cessation, inpatient consultation per RT, NR if desired. (5) Obesity: Weight loss and lifestyle changes encouraged. (6) History of Breast CA: Remission status, maintained on tamoxifen. (7) Anxiety and Depression: Maintain on home regimen of Effexor and Klonopin. (8) GERD: Famotidine. (9) RLS: Continue restarted muscle relaxant low dose in the evening as allergy to several agents including requip, assists in symptoms. (10) DVT Prophylaxis: SCDs/ЕКАТЕРИНА, ASA [address] Xander tolentino. Code Visit Inpatient E&M: 03846 Subs Hosp L2
[2017-08-22] MEDS: tiZANidine HCl 2 MG Tablet PO (17:20)
[2017-08-22 18:36] VITALS: BP 133/75; PULSE 72; RESP 18; TEMP 36.5; O2SAT 95
[2017-08-22 20:10] VITALS: PULSE 72; RESP 18; O2SAT 95
[2017-08-22] MEDS: Senna/Docusate Sodium 1 Tablet 3 TABLET PO (20:10)
[2017-08-22] MEDS: clonazePAM 1 MG Tablet PO (20:10)
[2017-08-23] MEDS: oxyCODONE 5 MG Tablet PO ×5 (01:35→21:55)
--- NOTE | 2017-08-23 03:18 | NURSING ---
Reviewed and agree with APPLICATIONS TRAINER documentation and FIMS charting.
[2017-08-23] MEDS: BACITRACIN 15 GM Tube 1 APPLIC TOPICAL ×2 (05:37→21:57)
[2017-08-23 07:31] VITALS: BP 159/69; PULSE 68; RESP 16; TEMP 36.8; O2SAT 93
[2017-08-23] MEDS: Tamoxifen 10 MG Tablet 20 MG PO (07:42)
[2017-08-23] MEDS: Venlafaxine XR 37.5 MG Capsule PO (07:43)
[2017-08-23] MEDS: Aspirin E.C. 325 MG Tablet PO ×2 (07:43→17:15)
[2017-08-23] MEDS: Lisinopril 20 MG Tablet PO (07:43)
[2017-08-23] MEDS: Senna/Docusate Sodium 1 Tablet 2 TABLET PO (07:43)
[2017-08-23] MEDS: Furosemide 20 MG Tablet PO (07:43)
[2017-08-23] MEDS: Atenolol 50 MG Tablet PO (07:44)
[2017-08-23] MEDS: Polyethylene Glycol 3350 17 GM PACKET PO (07:44)
[2017-08-23] MEDS: Famotidine 20 MG Tablet 40 MG PO (07:44)
[2017-08-23] MEDS: Acetaminophen 325 MG Tablet 650 MG PO (12:38)
[2017-08-23] MEDS: tiZANidine HCl 2 MG Tablet PO (17:15)
[2017-08-23] MEDS: Senna/Docusate Sodium 1 Tablet 3 TABLET PO (21:56)
[2017-08-23] MEDS: clonazePAM 1 MG Tablet PO (21:56)
[2017-08-23 22:00] VITALS: BP 142/73; PULSE 74; RESP 18; TEMP 36.9; O2SAT 96
[2017-08-24] MEDS: oxyCODONE 5 MG Tablet PO ×3 (02:24→16:56)
--- NOTE | 2017-08-24 02:44 | NURSING ---
Reviewed and agree with FITNESS CONSULTANT documentation and FIMS charting.
[2017-08-24 07:01] VITALS: BP 139/83; PULSE 64; RESP 18; TEMP 36.6; O2SAT 95
[2017-08-24] MEDS: Famotidine 20 MG Tablet 40 MG PO (07:29)
[2017-08-24] MEDS: Atenolol 50 MG Tablet PO (07:29)
[2017-08-24] MEDS: Venlafaxine XR 37.5 MG Capsule PO (07:29)
[2017-08-24] MEDS: Senna/Docusate Sodium 1 Tablet 2 TABLET PO (07:29)
[2017-08-24] MEDS: Polyethylene Glycol 3350 17 GM PACKET PO (07:29)
[2017-08-24] MEDS: Furosemide 20 MG Tablet PO (07:29)
[2017-08-24] MEDS: Aspirin E.C. 325 MG Tablet PO ×2 (07:29→16:56)
[2017-08-24] MEDS: Tamoxifen 10 MG Tablet 20 MG PO (07:29)
[2017-08-24] MEDS: Lisinopril 20 MG Tablet PO (07:30)
--- NOTE | 2017-08-24 07:57 | RAD_ITS ---
STUDY: X-RAY - LEFT KNEE REASON FOR EXAM: Female, 62 years old. Pain, history of replacement surgery TECHNIQUE: 3 view(s) of the knee. COMPARISON: 08/11/2017 FINDINGS: Patient is status post left knee replacement surgery. Components demonstrate anatomic alignment. No plain film evidence of hardware complication. Previously noted soft tissue swelling and subcutaneous emphysema has resolved. RAD/Knee 3 Views IMPRESSION: Replaced left knee joint demonstrates anatomic alignment. No plain film evidence of hardware complication. Previously noted soft tissue swelling and subcutaneous emphysema has resolved Electronically Signed: Hosea Riggs MD at 8:53 EDT , Service support ,
--- NOTE | 2017-08-24 08:26 | RAD_ITS ---
STUDY: X-RAY - RIGHT KNEE REASON FOR EXAM: Female, 62 years old. Postop follow-up TECHNIQUE: 3 view(s) of the knee. COMPARISON: 08/11/2017 FINDINGS: Stable appearance of a replaced right knee joint. Components demonstrate anatomic alignment. No plain film evidence of postoperative complication or hardware failure. Soft tissue swelling and subcutaneous emphysema have resolved. RAD/Knee 3 Views IMPRESSION: Replaced right knee joint demonstrates anatomic alignment. No plain film evidence of postoperative complication Electronically Signed: Hosea Riggs MD at 9:11 EDT , Service support ,
[2017-08-24] MEDS: Acetaminophen 325 MG Tablet 650 MG PO (08:45)
--- NOTE | 2017-08-24 09:46 | PN.NEURO_ITS ---
Subjective: Staffed in team meeting. No family at bedside. Questions answered. With Physical therapy, She is stand by assist for bed mobility, and transfers, standing and pivoting. She is able to walk 100 to 150 feet using a walker at stand by assist. Will continue to work on increasing her ROM and her strength. With Occupational therapy, she is stand by assist with getting in /out of the shower and on and off the toilet. She is standby assist for her upper body, and min assist to stand by for lower body. With Nursing no issues. Will start to decrease her pain medications in preparation for discharge home. She will be discharged on Saturday 08/26 with outpatient Physical therapy. - Physical Exam General: Alert, Oriented x3, Cooperative HEENT: Atraumatic, PERRLA, EOMI, Normocephalic Neck: Supple, No JVD, Negative Carotid Bruits Lungs: Clear to auscultation, Normal air movement Cardiovascular: Regular rate, No murmurs Abdomen: Bowel Sounds Present, Soft, Non Tender Extremities: No edema, Capillary Refill Less than 3 Seconds Skin: No rashes, No breakdown Musculoskeletal: No Tenderness to Palpation of Joints or Extremities Neurological: Cranial nerves II-XII grossly intact Psych/Mental Status: Normal Affect, Appropriate, Alert and oriented to time, place, person, mood and affect Vital Signs Temp Pulse Resp BP Pulse Ox 97.9 F 64 18 139/83 H 95 08/24/17 07:01 08/24/17 07:01 08/24/17 07:01 08/24/17 07:01 08/24/17 07:01 Oxygen Delivery Method Room Air Weight: 92.4 kg Body Mass Index (BMI) 38.9 Intake and Output for Last 24 Hours 08/22/17 08/23/17 08/24/17 23:59 23:59 23:59 Intake Total 480 / 480 480 / 480 260 / 260 Balance 480 / 480 480 / 480 260 / 260 Active Medications Acetaminophen (Tylenol) 1,000 mg PO Q8 COUNTS INCLUDE 234 BEDS AT THE [facility] Aspirin (Ecotrin) 325 mg PO BIDCM COUNTS INCLUDE 234 BEDS AT THE [facility] Last Admin: 08/24/17 07:29 Dose: 325 mg Atenolol (Tenormin (Beta Lorraine)) 50 mg PO DAILY COUNTS [facility]CLUDE 234 BEDS AT THE [facility] Last Admin: 08/24/17 07:29 Dose: 50 mg Bacitracin (Bacitracin Ointment) 1 applic TOPICAL 0600,2200 COUNTS [facility]CLUDE 234 BEDS AT THE [facility] PRN Reason: Protocol Last Admin: 08/24/17 06:06 Dose: Not Given Bisacodyl (Dulcolax) 10 mg RECTAL .PRN X 1 PRN PRN Reason: Constipation Last Admin: 08/14/17 19:00 Dose: 10 mg Calcipotriene (Calcipotriene) 0 gm TP DAILY@0600 COUNTS [facility]CLUDE 234 BEDS AT THE [facility] Last Admin: 08/24/17 06:06 Dose: Not Given Cholecalciferol (Vitamin D) 3,000 unit PO DAILY COUNTS [facility]CLUDE 234 BEDS AT THE [facility] Last Admin: 08/24/17 07:29 Dose: 3,000 unit Clonazepam (Klonopin) 1 mg PO QHS COUNTS INCLUDE 234 BEDS AT THE [facility] Last Admin: 08/23/17 21:56 Dose: 1 mg Docusate Sodium (Colace) 100 mg PO BID PRN PRN PRN Reason: Constipation Last Admin: 08/14/17 07:40 Dose: 100 mg Famotidine (Pepcid) 40 mg PO DAILY COUNTS INCLUDE 234 BEDS AT THE [facility] Last Admin: 08/24/17 07:29 Dose: 40 mg Fentanyl (Duragesic Patch) 50 mcg TRANSDERM. Q3D COUNTS INCLUDE 234 BEDS AT THE [facility] Last Admin: 08/23/17 07:42 Dose: 50 mcg Furosemide (Lasix) 20 mg PO DAILY COUNTS INCLUDE 234 BEDS AT THE [facility] Last Admin: 08/24/17 07:29 Dose: 20 mg Lisinopril (Zestril) 20 mg PO DAILY COUNTS INCLUDE 234 BEDS AT THE [facility] Last Admin: 08/24/17 07:30 Dose: 20 mg Loratadine (Claritin) 10 mg PO DAILY PRN PRN PRN Reason: ALLERGIES Magnesium Hydroxide (Milk Of Magnesia) 30 ml PO .PRN X 1 PRN PRN Reason: Constipation Last Admin: 08/16/17 12:08 Dose: 30 ml Oxycodone HCl (Oxyir) 5 mg PO Q6H PRN PRN PRN Reason: PAIN Polyethylene Glycol (Miralax) 17 gm PO DAILY COUNTS INCLUDE 234 BEDS AT THE [facility] Last Admin: 08/24/17 07:29 Dose: 17 gm Promethazine HCl (Phenergan Tablet) 25 mg PO Q4H PRN PRN PRN Reason: NAUSEA Senna/Docusate Sodium (Senokot-S, Dinorah-Colace) 3 tablet PO QHS COUNTS INCLUDE 234 BEDS AT THE [facility] Last Admin: 08/23/17 21:56 Dose: 3 tablet Senna/Docusate Sodium (Senokot-S, Dinorah-Colace) 2 tablet PO DAILY COUNTS INCLUDE 234 BEDS AT THE [facility] Last Admin: 08/24/17 07:29 Dose: 2 tablet Tamoxifen Citrate (Nolvadex) 20 mg PO DAILY COUNTS INCLUDE 234 BEDS AT THE [facility] Last Admin: 08/24/17 07:29 Dose: 20 mg Tizanidine HCl (Zanaflex) 2 mg PO DAILY@1800 COUNTS INCLUDE 234 BEDS AT THE [facility] Last Admin: 08/23/17 17:15 Dose: 2 mg Venlafaxine HCl (Effexor Xr) 37.5 mg PO DAILY COUNTS INCLUDE 234 BEDS AT THE [facility] Last Admin: 08/24/17 07:29 Dose: 37.5 mg Medical Necessity - Tobacco Use Smoking Status: Current every day smoker Tobacco Use: Cigarettes Assessment/Plan Debility status post bilateral total knee replacement surgery, and a Right tibial ORIF. Goal of rehab is voodoo of prior level of functional independence. Plan: - Physical therapy for gait and balance - Occupational Therapy for ADLs - As needed analgesics - Bowel protocol - DVT prophylaxis: BID Aspirin therapy 325mg, per orthopedic surgeon, august d/c shania egan and SCD's 2/2 RLS - HLD - continue home dose of statin - GERD - continue home dose of PPI - HTN - stable => continue home medications of lisinopril - B/L TKA, and Right tibial fx Incision site C/D/I, => healing nicely, steri strips are beginning to fall off, no redness or warmth noted around incision area. - Tobacco dependence counseled on cessation, unable to do a nicotine patch per Dr. Terrell's request, patient is doing well without one. - Obesity -> BMI is 38.9 => counseled on weight loss, and Caloric controlled - There is a question of possible obstructive sleep apnea and she is already scheduled for an outpatient sleep study - Uncontrolled pain -> increase Fentanyl patch to 50mcq => today added on Tylenol 650mg Q6, PRN - Constipation -> Mag citrate 150ml, increase dose of Senokot to 2 pills in the morning and 3 pills at bedtime. => Constipations resolved - Blister site medial to the knee incision site place Xenform over area and cover with an Abd pad change dressing BID. - Re-started her home dose of Tizanidine 2mg daily for muscle spasms - Discharge home on Saturday 08/26 with outpatient Physical therapy - Will continue touch down weight bearing status for an additional [address] Terrell.
[2017-08-24 10:30] LABS: Bedside Glucose 90 mg/dL (70-110)
[2017-08-24] MEDS: Acetaminophen 500 MG Tablet 1000 MG PO ×2 (13:00→21:46)
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
--- NOTE | 2017-08-24 16:13 | NURSING ---
dr zaidi here to see patient, will see patient as outpatient in 4 weeks.
--- NOTE | 2017-08-24 16:16 | PN.ORTHO_ITS ---
Subjective: 2 weeks status post bilateral total knee arthroplasties. Patient doing well at this time and states that she is going to be discharged home [facility]. Patient had done well with inpatient rehab at this time. No major issues or events. Patient did undergo open reduction internal fixation for an intraoperative proximal tibial plateau fracture at the time of implantation of her tibial tray. Patient at this point time has been touchdown weightbearing to partial weightbearing to that side. No issues at this point. - Physical Exam General: Alert, Oriented x3, Cooperative, No apparent distress Musculoskeletal: - - Incisions are clean dry and intact. No signs of erythema. Minimal effusion. No calf pain negative Homans. Range of motion on the right is 0-95. On the left 0-100. X-rays: Evaluated by myself with the patient -left total knee shows hardware otherwise well seated well-placed with no signs of any loosening. Patellas well centered. Right total knee shows a hardware otherwise to be well seated. We have no signs of very loosening or change mechanical alignment. Again patella well centered. Vital Signs Temp Pulse Resp BP Pulse Ox 97.9 F 64 18 139/83 H 95 08/24/17 07:01 08/24/17 07:01 08/24/17 07:01 08/24/17 07:01 08/24/17 07:01 Oxygen Delivery Method Room Air Weight: 203 lb 11.314 oz Body Mass Index (BMI) 38.9 Intake and Output for Last 24 Hours 08/22/17 08/23/17 08/24/17 23:59 23:59 23:59 Intake Total 480 / 480 480 / 480 260 / 260 Balance 480 / 480 480 / 480 260 / 260 POC Glucose 08/24/17 10:25 POC Glucose 90 Medical Necessity - Tobacco Use Smoking Status: Current every day smoker Tobacco Use: Cigarettes Assessment/Plan Assessment: Aftercare orthopedics status post right upper bilateral total knee arthroplasties-patient is doing well. Plan: At this point time patient will start [facility]. I encouraged the patient to continue to work on gaining full range of motion to the knees and work on gaining full extension. Patient will be continued touchdown to partial weightbearing to the right lower extremity for an additional 4 weeks. Patient will see me in 4 weeks at which point time will get repeat radiographs of the right knee only. Any major issues please contact me. Continue with appropriate DVT prophylaxis and pain control as needed.
[2017-08-24] MEDS: tiZANidine HCl 2 MG Tablet PO (16:56)
[2017-08-24 20:07] VITALS: BP 122/74; PULSE 75; RESP 16; TEMP 36.4; O2SAT 96
[2017-08-24] MEDS: clonazePAM 1 MG Tablet PO (21:46)
[2017-08-24] MEDS: Senna/Docusate Sodium 1 Tablet 3 TABLET PO (21:46)
--- NOTE | 2017-08-25 01:49 | NURSING ---
REviewed and agree with SANDFILL OPERATOR SURFACE Documentation and FIMS charting
[2017-08-25] MEDS: Acetaminophen 500 MG Tablet 1000 MG PO ×3 (05:22→22:10)
[2017-08-25] MEDS: Famotidine 20 MG Tablet 40 MG PO (07:52)
[2017-08-25] MEDS: Polyethylene Glycol 3350 17 GM PACKET PO (07:52)
[2017-08-25] MEDS: Furosemide 20 MG Tablet PO (07:53)
[2017-08-25] MEDS: Atenolol 50 MG Tablet PO (07:53)
[2017-08-25] MEDS: Venlafaxine XR 37.5 MG Capsule PO (07:53)
[2017-08-25] MEDS: Lisinopril 20 MG Tablet PO (07:53)
[2017-08-25] MEDS: Aspirin E.C. 325 MG Tablet PO ×2 (07:54→17:37)
[2017-08-25] MEDS: Senna/Docusate Sodium 1 Tablet 2 TABLET PO (07:54)
[2017-08-25] MEDS: oxyCODONE 5 MG Tablet PO ×3 (07:54→20:47)
[2017-08-25] MEDS: Tamoxifen 10 MG Tablet 20 MG PO (07:55)
[2017-08-25 07:58] VITALS: BP 151/78; PULSE 75; RESP 16; TEMP 36.6; O2SAT 96
[2017-08-25] MEDS: tiZANidine HCl 2 MG Tablet PO (17:37)
[2017-08-25 20:35] VITALS: BP 124/68; PULSE 71; RESP 16; TEMP 36.4; O2SAT 97
[2017-08-25] MEDS: clonazePAM 1 MG Tablet PO (22:11)
--- NOTE | 2017-08-26 01:03 | NURSING ---
REVIEWED AND AGREE WITH TOBACCO FEEDER CATCHER'S FIM AND HANDOFF CHARTING.
[2017-08-26] MEDS: oxyCODONE 5 MG Tablet PO ×2 (04:43→11:51)
[2017-08-26] MEDS: Acetaminophen 500 MG Tablet 1000 MG PO ×2 (06:18→13:23)
[2017-08-26 07:47] VITALS: BP 136/81; PULSE 81; RESP 18; TEMP 36.7; O2SAT 93
--- NOTE | 2017-08-26 09:03 | PCM.RU.DC ---
Rehab Discharge Summary DATE OF ADMISSION: 08/13/17 DATE OF DISCHARGE: 08/26/17 - Rehab Diagnosis Bilateral Total Knee Replacement Discharge Diet: No Restrictions Discharge Activity: May Not Drive - until cleared by Dr. Terrell, May not drive while taking narcotic pain medications., May Shower - Do not rub incision sites Pat dry when finished with shower, Use Walker, - - Do not soak in a Tub Bath until cleared by Dr. Terrlel Weight Bearing Status: Weight bearing as tolerated Call your doctor if your incision/area has: Increased Pain/ Swelling, Increased Redness, Foul Smelling Discharge, Swelling at the incision site Call your doctor if you observe: Fever of 101 or Higher, Coldness, Increased Pain, Numbness or Tingling, Change in Color, Inability to urinate, Inability to have a bowel movement, Using more than one pad per hour, Shortness of breath, Dizziness, Fainting spells, Swelling in the ankles, Chest pain, Prolonged hiccoughing, Increased palpitations (irregular heartbeat), Calf discomfort, Uncontrolled pain Cleanse incision/area with: Soap & Water - DO NOT RUB THE INCISION SITES PAT DRY Home Medications: Medications to take at Discharge Atenolol [Tenormin (beta jamal)] 50 mg PO DAILY 02/13/13 Furosemide [Lasix] 20 mg PO DAILY 02/13/13 Lisinopril [Zestril] 20 mg PO DAILY 02/13/13 Cholecalciferol (VIT D3) [Vitamin D3] 3,000 unit PO DAILY 02/10/15 Loratadine [Claritin] 10 mg PO DAILY PRN PRN 02/10/15 Clonazepam [Klonopin] 1 mg PO QHS 04/10/16 Calcipotriene [Dovonex] 120 gm TP DAILY 08/04/17 Tamoxifen Citrate 20 mg PO DAILY 08/04/17 Venlafaxine HCl [Effexor] 37.5 mg PO DAILY 08/04/17 Aspirin E.C. [Ecotrin] 325 mg PO BID 08/13/17 Docusate Sodium [Colace] 100 mg PO BID PRN PRN #10 cap 08/13/17 Famotidine [Pepcid] 40 mg PO DAILY 08/13/17 proMETHazine tablet [Phenergan tablet] 25 mg PO Q4H PRN PRN #10 tab 08/13/17 Acetaminophen [Tylenol] 1,000 mg PO Q8 tablet 08/25/17 Bacitracin Ointment 1 applic TOPICAL 0600,2200 tube 08/25/17 Oxycodone [Oxyir] 5 mg PO Q6H PRN PRN #42 tab 08/25/17 Polyethylene Glycol 3350 [Miralax] 17 gm PO DAILY #30 packet 08/25/17 Tizanidine HCl [Zanaflex] 2 mg PO DAILY@1800 tablet 08/25/17 Following Prescrptions Were Given to Patient: Oxycodone [Oxyir] 5 mg PO Q6H PRN PRN #42 tab PRN Reason: Pain Polyethylene Glycol 3350 [Miralax] 17 gm PO DAILY #30 packet Primary Care Physician: Cheyenne Diggs DO [Primary Care Provider] - Please Follow Up With: Dr. Diggs When: 09/10/17 @ 13:30 Please Follow Up With: Dr. Terrell When: 09/28/17 @ 08:45 Disposition: Home - With Outpatient Physical therapy Minutes spent on discharge:: 40 Patient Condition:: Good Rehab Course The patient is a 62 year old Female, who was admitted to the rehab unit for rehabilitation after undergoing bilateral total knee arthroplasties, performed by Dr. Terrell on 08/11/17. During her surgery she did have a right tibial fracture that was repaired with an internal fixation at that time. Her postoperative course was uncomplicated. She has a pass medical history of Hypertension, HLD, RLS, and breast cancer. She is touch down weight bearing on the right and weight bearing as tolerated, on the left. She lives alone in a high rise apartment complex, that has individual and assisted living accommodations. She was previously completely functionally independent and is admitted to the rehab unit in order to restore her previous level of functional independence. With Physical therapy, She is stand by assist for bed mobility, and transfers, standing and pivoting. She is able to walk 250 feet to 300 feet using a walker at stand by assist. She has been off the floor in the community, walking over various terrains, at stand by assist. Will continue to work on increasing her ROM and her strength. With Occupational therapy, she is stand by assist with getting in /out of the shower and on and off the toilet. She is standby assist for her upper body, and min assist to stand by for lower body. Patient was seen by Dr. Terrell on 08/24 she was instructed to continue touchdown to partial weightbearing to the right lower extremity for an additional 4 weeks. She will follow up with Dr. Terrell in 4 week at which point in time he will get repeat radiographs of the right knee. She will be discharged with outpatient Physical therapy orders and prescriptions for pain medication. Meaningful Use Info Meaningful Use Diagnoses (Choose all that apply): None applicable
[2017-08-26] MEDS: Venlafaxine XR 37.5 MG Capsule PO (09:11)
[2017-08-26] MEDS: Aspirin E.C. 325 MG Tablet PO (09:11)
[2017-08-26] MEDS: Lisinopril 20 MG Tablet PO (09:11)
[2017-08-26] MEDS: Furosemide 20 MG Tablet PO (09:11)
[2017-08-26] MEDS: Famotidine 20 MG Tablet 40 MG PO (09:11)
--- NOTE | 2017-08-26 09:11 | PCM.DC ---
- Discharge Diagnoses Reason(s) for Visit for Discharge Instructions: Bilateral Total Knee Replacement You will use the following diet at home:: Regular Your food should be the consistency of: Regular Your liquids should be the consistency of: Regular/Thin Discharge Activity: May Not Drive - until cleared by Dr. Terrell, May not drive while taking narcotic pain medications., May Shower - Do not rub incision sites Pat dry when finished with shower, Use Walker, - - Do not soak in a Tub Bath until cleared by Dr. Terrell Weight Bearing Status: Weight bearing as tolerated Call your doctor if your incision/area has: Increased Pain/ Swelling, Increased Redness, Foul Smelling Discharge, Swelling at the incision site Call your doctor if you observe: Fever of 101 or Higher, Coldness, Increased Pain, Numbness or Tingling, Change in Color, Inability to urinate, Inability to have a bowel movement, Using more than one pad per hour, Shortness of breath, Dizziness, Fainting spells, Swelling in the ankles, Chest pain, Prolonged hiccoughing, Increased palpitations (irregular heartbeat), Calf discomfort, Uncontrolled pain Cleanse incision/area with: Soap & Water - DO NOT RUB THE INCISION SITES PAT DRY Allergies/Adverse Reactions: Allergies celecoxib [From Celebrex] Allergy (Verified 08/04/17 13:05) Hives diphenhydramine [From Aleve PM] Allergy (Verified 08/04/17 13:05) Hives gabapentin [From Neurontin] Allergy (Verified 08/04/17 13:05) Other hyaluronic acid [From Euflexxa] Allergy (Verified 08/04/17 13:05) Hives lidocaine Allergy (Verified 08/04/17 13:05) Rash naproxen [From Aleve PM] Allergy (Verified 08/04/17 13:05) Hives pregabalin [From Lyrica] Allergy (Verified 08/04/17 13:05) Hives quetiapine [From Seroquel] Allergy (Verified 08/04/17 13:05) Other ropinirole [From Requip] Allergy (Verified 08/04/17 13:05) Other benzoyl peroxide Adverse Reaction (Verified 08/04/17 13:05) Rash citalopram Adverse Reaction (Verified 08/04/17 13:05) Other etanercept [From Enbrel] Adverse Reaction (Verified 08/04/17 13:05) Other hydrochlorothiazide Adverse Reaction (Verified 08/04/17 13:05) Other NSAIDS (Non-Steroidal Anti-Inflamma Adverse Reaction (Verified 08/04/17 13:05) Rash prednisone Adverse Reaction (Verified 08/04/17 13:05) Other ANTIDEPRESENTS Adverse Reaction (Uncoded 04/10/16 08:23) Other Medications to take at Discharge Atenolol [Tenormin (beta jamal)] 50 mg PO DAILY 02/13/13 Furosemide [Lasix] 20 mg PO DAILY 02/13/13 Lisinopril [Zestril] 20 mg PO DAILY 02/13/13 Cholecalciferol (VIT D3) [Vitamin D3] 3,000 unit PO DAILY 02/10/15 Loratadine [Claritin] 10 mg PO DAILY PRN PRN 02/10/15 Clonazepam [Klonopin] 1 mg PO QHS 04/10/16 Calcipotriene [Dovonex] 120 gm TP DAILY 08/04/17 Tamoxifen Citrate 20 mg PO DAILY 08/04/17 Venlafaxine HCl [Effexor] 37.5 mg PO DAILY 08/04/17 Aspirin E.C. [Ecotrin] 325 mg PO BID 08/13/17 Docusate Sodium [Colace] 100 mg PO BID PRN PRN #10 cap 08/13/17 Famotidine [Pepcid] 40 mg PO DAILY 08/13/17 proMETHazine tablet [Phenergan tablet] 25 mg PO Q4H PRN PRN #10 tab 08/13/17 Acetaminophen [Tylenol] 1,000 mg PO Q8 tablet 08/25/17 Bacitracin Ointment 1 applic TOPICAL 0600,2200 tube 08/25/17 Oxycodone [Oxyir] 5 mg PO Q6H PRN PRN #42 tab 08/25/17 Polyethylene Glycol 3350 [Miralax] 17 gm PO DAILY #30 packet 08/25/17 Tizanidine HCl [Zanaflex] 2 mg PO DAILY@1800 tablet 08/25/17 The following prescriptions were given: Oxycodone [Oxyir] 5 mg PO Q6H PRN PRN #42 tab PRN Reason: Pain Polyethylene Glycol 3350 [Miralax] 17 gm PO DAILY #30 packet Primary Care Physician: Cheyenne Diggs DO [Primary Care Provider] - Please Follow Up With: Dr. Diggs When: 09/10/17 @ 13:30 Please Follow Up With: Dr. Terrell When: 09/28/17 @ 08:45 Proposed Discharge Date: 08/26/17
[2017-08-26] MEDS: Tamoxifen 10 MG Tablet 20 MG PO (09:12)
[2017-08-26] MEDS: Atenolol 50 MG Tablet PO (09:12)
--- NOTE | 2017-08-26 10:27 | CASEMGMT ---
Social Work Telephone call to [facility], Jacqueline. 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 Patient agreeable to appointment time and date. Proposed discharge date: 08/26/17 PLAN: Discharge home alone with outpatient physical therapy. Anne FERNANDEZ, LIBRARIAN HEAD
[2017-08-26 14:22] VITALS: BP 136/81; PULSE 81; RESP 18; TEMP 36.7; O2SAT 93
--- NOTE | 2017-08-26 14:24 | NURSING ---
Patient given discharge instructions and verbalized understanding.
--- NOTE | 2017-08-26 19:18 | NURSING ---
RN Coty and this nurse wasted duragesic patch at this time at shift change after this nurse dc'd patch at 0930 this morning due to patient not going home with pain patch and order was to be dc'd and done so. Flushed in toilet.
== END 2017-08-26 14:27 | disposition home or self-care (01) | DRG 561 ==
PROVIDERS: Family Medicine; Nurse Practitioner Acute Care; Admitting Provider Psychiatry & Neurology Neurology; Family Provider Internal Medicine; PCP Internal Medicine; Visit Provider Internal Medicine
DX: Z47.1 Aftercare following joint replacement surgery (principal); Z96.653 Presence of artificial knee joint, bilateral; F32.9 Major depressive disorder, single episode, unspecified; F41.9 Anxiety disorder, unspecified; I10 Essential (primary) hypertension; S82.201D Unspecified fracture of shaft of right tibia, subsequent encounter for closed fracture with routine healing; X58.XXXD Exposure to other specified factors, subsequent encounter; G25.81 Restless legs syndrome; K59.00 Constipation, unspecified; R33.9 Retention of urine, unspecified; E78.5 Hyperlipidemia, unspecified; Z85.3 Personal history of malignant neoplasm of breast; F17.210 Nicotine dependence, cigarettes, uncomplicated; E66.9 Obesity, unspecified; Z68.38 Body mass index [BMI] 38.0-38.9, adult; Z71.3 Dietary counseling and surveillance; K21.9 Gastro-esophageal reflux disease without esophagitis; M62.838 Other muscle spasm
CPT/HCPCS: 36415; 73562; 80053; 82962; 85025; 97110; 97116; 97162; 97165; 97530; 97535

== ENCOUNTER → 2017-10-14 14:06 | Outpatient (CLI) | payer MEDICARE, MEDICAID, SELFPAY ==
--- NOTE | 2017-10-14 14:08 | RAD_ITS ---
STUDY: X-RAY - LEFT KNEE REASON FOR EXAM: Female, 62 years old. Status post total knee replacement. TECHNIQUE: 4 view(s) of the knee. COMPARISON: Comparison is made with prior study dated August 24, 2017. FINDINGS: Normal visualized distal femur. Normal visualized proximal tibia and fibula. Normal proximal tibiofibular articulation. The patient is status post total knee replacement. There is good alignment. Persistent soft tissue swelling and small joint effusion. RAD/Knee 4 or More Views IMPRESSION: Status post total knee replacement. There is good alignment. Persistent soft tissue swelling and small joint effusion. Electronically Signed: Philip Drummond MD at 14:57 EDT Tel [phone], Service support ,
--- NOTE | 2017-10-14 14:08 | RAD_ITS ---
STUDY: X-RAY - RIGHT KNEE REASON FOR EXAM: Female, 62 years old. Follow-up for total knee replacement. TECHNIQUE: 4 view(s) of the knee. COMPARISON: Comparison is made with prior study dated August 24, 2018. FINDINGS: Normal visualized distal femur. The patient is status post open reduction and internal fixation of the proximal tibia using screw and sideplate fixation device. Normal proximal tibiofibular articulation. The patient is status post total knee replacement. There is good alignment. Soft tissue swelling. RAD/Knee 4 or More Views IMPRESSION: Status post total knee replacement. There is good alignment. Soft tissue swelling. Electronically Signed: Philip Drummond MD at 14:58 EDT Tel [phone], Service support ,
== END ==
PROVIDERS: Family Provider Internal Medicine; PCP Internal Medicine; Visit Provider Orthopaedic Surgery
DX: M25.561 Pain in right knee (principal); M25.562 Pain in left knee
CPT/HCPCS: 73564

== ENCOUNTER 2017-10-16 14:00 | Outpatient (RCR) | payer MEDICARE, MEDICAID, SELFPAY ==
--- NOTE | 2017-09-14 08:13 | HP.PTEVAL ---
Patient's Visit Information PERLITA ETIENNE is a 62 year old F referred to Physical Therapy by Yeyo Carver MD with a diagnosis of B knee arthroplasty, R tibial plateau fracture. Date of Evaluation: 09/07/17 Physical Therapist: Neville Mccoy - Visit Plan Frequency: 2x /Week Duration: 6 Weeks Plan: Pt. is TTWBing on her RLE. Progress ROM, into musculature activation. Add in gait progressions improving as WBing restrictions improve. HS stretching. - Subjective Subjective: Pt. is here today for her initial evaluation with diagnosis of B knee replacement with R tibial fracture. DOS: 08/11/17. During implantation she did have a tibial plateau fracture. Pt. is doing well, continues to use her walker. Pt. is to maintain being TTWB on her R currently. Pt. denies N/T in either LE. Pt. did have a stay on [facility] at [facility] without issues. Pt. is now home and is able to complete all activities, but limited secondary to walker use. Pt. is hopeful to improve her mobility and ROM in order to get back to all recreational walking activities without limitations. - Pain R knee Pain Intensity (Out of 10): 3 Pain Intensity Range: 0, 4 L knee Pain Intensity (Out of 10): 2 Pain Intensity Range: 0, 4 - Objective POSTURE: PT. is able to stand with proper WBing on her RLE. PT. has proper stability with walker. PALPATION: Pt. has normal well healing incisions. Pt. has negatige ry's. Pt. has marked effusion in BLE, R worse than L, but non pitting. Pt. does have distal pitting edema. Pt. reports she is unable to wear compression stocking due to restless leg syndrome, but does attempt to ice and elevate frequently. NEUROLOGICAL: Pt. has normal sensation to light and sharp touch of bilateral LEs. Pt. has 2+ achilles DTR. Pt. is able to point heels and toes against pressure, TTWB on RLE. ROM: L knee- 0-2-100deg, R knee 0-5-95deg. Pt. has tight HS bilaterally. Normal hip ROM bilaterally. MMT: LLE- ankle 5/5 throughout; knee 4/5 throughout; hip- flexion 4/5, abd 4/5 ext 4/5. RLE- ankle 5/5 throughout; knee- ext 4/5, flexion 4/5; hip- flexion 4/5, abd 4/5, ext 4/5. Core strength- poor. GAIT: Pt. is able to ambulate with proper WBing on RLE with use of FWW. Pt. ambulated 115deg. REBECCA without LOB. Pt. reports fatigue as limiting factor with ambulation. STAIRS- not addressed due to patient declining. - Goals Goal 1:: Pt. to be I with HEP. Goal Time Frame: 4-6 Weeks Goal 2:: Pt. to have increased ROM of B knees to 0-0-120deg allowing for increased ability to complete all functional mobility. Goal Time Frame: 4-6 Weeks Goal 3:: Pt. to have increased BLE strength increased by 1/2 grade of all effected musculature allowing increased tolerance to all functional mobility. Goal Time Frame: 4-6 Weeks Goal 4:: Pt. to ambulate with least restrictive device unlimited distances with 0-2/10 pain. Goal Time Frame: 4-6 Weeks Goal 5:: Pt. to negotiate steps with 2 HR with reciprocal pattern with 0-2/10 pain allowing for increased ability to negotiate home. Goal Time Frame: 4-6 Weeks - Rehabilitation Potential Physical Therapy Diagnosis: Pt. has signs and symptoms consistent with B knee arthroplasty with R tibial plateau fracture. Pt. has hypomobility of bilateral knees, BLE weakness, gait difficulty, increased pain and decreased functional mobility. Pt. would benefit from PT to increase ROM, strength, gait progress as tolerated. Rehabilitation Potential: Excellent - Anticipated Interventions Patient/Client Instruction: Educate patient on: Condition, Plan of Care, Risk Factors, Benefits of Fitness Program For the Purpose of:: To foster healthy habits, To improve decision making, To facilitate caregiver knowledge, To improve self management, To prevent re-injury, To improve ability to perform tasks related to life management, To improve tolerance to ADL's Therapeutic Exercise to Include: Strength training, Power training, Endurance training, Balance training, Postural training, Flexibilty training, Gait and locomotor training, Passive ROM, Active ROM, Dynamic Lumbar Stabilization For the Purpose of:: To decrease pain, To increase ROM, To improve nutrient delivery to tissue, To increase oxygenation perfusion, To improve muscle performance and motor function, To improve ability to perform ADL's, To increase tolerance to activity/condition/position, To improve performance and independence with ADL's, To improve gait and locomotor functions, To improve health of tissue, To decrease soft tissue restriction, To increase flexibility/ROM, To improve endurance, To improve balance, To improve safety with gait Manual Therapy Techniques to Include: Mobilization, Passive ROM, Soft tissue mobilization For the Purpose of:: To decrease pain, To decrease swelling/inflammation, To increase ROM, To improve nutrient delivery to tissue Cryotherapy (ice pack, ice massage): Yes For the Purpose of:: To decrease pain, To decrease swelling/inflammation, To increase ROM Thank you for the opportunity to evaluate your patient. For Medicare and Medicare HMO plans, please review the plan of care and approve it. It will need to be FAXED BACK to us at [phone] for Medicare purposes. Please let me know if there are questions or concerns regarding this plan of care. Physician Signature: Date:
--- NOTE | 2018-02-02 11:22 | HP.PTDCNRP_ITS ---
HP - Discharge Summary (1) - Patient Information PERLITA ETIENNE was seen in my office for initial evaluation on 09/07/17. The following Plan of Care was established for this patient: Initial Frequency: 2x /Week Initial Duration: 6 Weeks - Anticipated Interventions Patient/Client Instruction: Educate patient on: Condition, Plan of Care, Risk Factors, Benefits of Fitness Program For the Purpose of:: To foster healthy habits, To improve decision making, To facilitate caregiver knowledge, To improve self management, To prevent re- injury, To improve ability to perform tasks related to life management, To improve tolerance to ADL's Therapeutic Exercise to Include: Strength training, Power training, Endurance training, Balance training, Postural training, Flexibilty training, Gait and lo comotor training, Passive ROM, Active ROM, Dynamic Lumbar Stabilization For the Purpose of:: To decrease pain, To increase ROM, To improve nutrient delivery to tissue, To increase oxygenation perfusion, To improve muscle performance and motor function, To improve ability to perform ADL's, To increase tolerance to activity/condition/position, To improve performance and inde pendence with ADL's, To improve gait and locomotor functions, To improve health of tissue, To decrease soft tissue restriction, To increase flexibility/ROM, To improve endurance, To improve balance, To improve safety with gait Manual Therapy Techniques to Include: Mobilization, Passive ROM, Soft tissue mobilization For the Purpose of:: To decrease pain, To decrease swelling/inflammation, To increase ROM, To improve nutrient delivery to tissue Cryotherapy (ice pack, ice massage): Yes For the Purpose of:: To decrease pain, To decrease swelling/inflammation, To increase ROM This patient was last seen in our office 10/16/17. Pertinent comments regarding their Physical therapy will appear below: Pt. was seen for her PT after B total knee arthorplasty. Pt. at her last visit reports having too much pain to complete PT, and desired to complete PT on her own. Pt. has not been seen in ~5 months and will be DC from PT at this point in time. At this point I will be discontinuing this patient from physical therapy. I would be happy to see this patient again in the future if found appropriate by the physician. Thank you! Neville Mccoy
== END 2017-10-16 19:00 | disposition home or self-care (01) ==
LOC: PT 14:00
PROVIDERS: Family Provider Internal Medicine; PCP Internal Medicine; Visit Provider Psychiatry & Neurology Neurology
DX: Z96.653 Presence of artificial knee joint, bilateral (principal); S82.201D Unspecified fracture of shaft of right tibia, subsequent encounter for closed fracture with routine healing
CPT/HCPCS: 97110; 97162

== ENCOUNTER 2017-10-21 20:02 | Emergency (ER) | payer MEDICARE, MEDICAID, SELFPAY ==
[2017-10-21 20:03] VITALS: BP 170/101; PULSE 96; RESP 20; TEMP 36.7; O2SAT 96; BMI 36.6
[2017-10-21 20:48] LABS: Absolute Lymphocyte Count 0.95 X10^3/ul (0.83-4.51); Absolute Neutrophil Count 4.8 X10^3/uL (2.0-7.7); Basophil# 0.02 X10^3/uL; Basophil% 0.3 % (0-1); Eosinophil# 0.09 X10^3/uL; Eosinophils% 1.4 % (0-5); Hematocrit 41.4 % (37-47); Hemoglobin 13.6 g/dl (12.0-15.0); Lymphocyte # 0.95 X10^3/ul (4.0); Lymphocyte % 14.9 % (19-41); Mean Corp Hgb Conc 32.9 g/gl (32-36); Mean Corpuscular Hgb 29.5 pg (27.0-32.0); Mean Corpuscular Volume 89.8 fL (81-99); Mean Platelet Vol. 8.9 fl (6.2-12.0); Monocyte# 0.54 X10^3/uL; Monocyte% 8.5 % (0-10); Neutrophil # 4.77 X10^3/uL (2.7-7.7); Neutrophil % 74.9 % (47-70); Platelet Count 269 K/mm3 (150-450); RBC Distribution Width CV 13.9 % (11.6-14.6); RBC Distribution Width SD 45.9 fl (35.1-43.9); Red Blood Count 4.61 M/mm3 (4.2-5.4); White Blood Count 6.4 K/mm3 (4.4-11.0)
[2017-10-21 20:49] LABS: POSITIVE COUNT NO; POSITIVE DIFFERENTIAL NO; POSITIVE MORPHOLOGY NO
[2017-10-21 20:49] LABS: Mucous, Urine 0 SEEN /hpf (<or=2+)
[2017-10-21] MEDS: Acetaminophen 325 MG Tablet 650 MG PO (20:50)
[2017-10-21 20:51] LABS: AST(SGOT) 13 U/L (15-37); Alanine Aminotransfer ALT/SGPT 20 U/L (13-56); Albumin, Serum 3.5 g/dL (3.2-5.0); Alkaline Phosphatase 88 U/L (45-117); Anion Gap 9 (5-15); BUN 12 mg/dL (7-18); BUN/Creat Ratio 18.1 RATIO (10-20); Calcium,Total 8.7 mg/dL (8.5-10.1); Chloride 106 mmol/L (98-107); Creatinine, Serum 0.66 mg/dL (0.55-1.02); EST Glomerular Filtration Rate 96 mL/min (>60); Est Glom Filt Rate - Afr Amer 116 mL/min (>60); Globulin 3.4 g/dL (2.2-4.2); Glucose 85 mg/dL (74-106); Potassium 3.4 mmol/L (3.5-5.1); Protein, Total 6.9 g/dL (6.4-8.2); Sodium Level 141 mmol/L (136-145)
[2017-10-21 20:52] VITALS: BP 148/85
[2017-10-21 20:54] LABS: Color, Urine Yellow (Yellow); Glucose, Dipstick Normal (Normal); Ketone-Dipstick Negative (Negative); Leukocyte Esterase-Dipstick Negative /ul (Negative); Nitrite-Dipstick Negative (Negative); Occult Blood-Urine 50 /ul (Negative); Protein-Dipstick Negative (Negative); Specific Gravity, Urine 1.015 (1.002-1.030); Urine Bilirubin Dipstick Negative (Negative); Urine Clarity Cloudy (Clear); Urine Urobilinogen Normal (Normal)
[2017-10-21 21:01] LABS: Hyaline Cast 0-5 SEEN /lpf (0-5); Squamous Epithelial Cells - UA 0-5 SEEN /hpf (5-10); Transitional Epithelial - Ur 0 SEEN /hpf (0-5)
[2017-10-21 21:02] LABS: Bacteria 1+ /hpf (None Seen); Red Blood Cells-Urine 0-5 SEEN /hpf (0-5); White Blood Cells 0-5 SEEN /hpf (0-5)
--- NOTE | 2017-10-21 21:25 | ED.DCSUM_ITS ---
- ER Visit Summary Date of Service: 10/21/17 Chief Complaint: Bilateral leg and feet pain status post total knee arthroplasty July [address] Terrell. She also had a fracture of her femur. History of Present Illness: The patient is a 62 F patient states she is been elevating her feet. When asked to clarify what she means by elevation it was determined that she is not elevating her legs. She is sitting a lot. She denies any chest pain, palpitations, dyspnea, dyspnea on exertion. She denies orthopnea or PND. She has no history of congestive heart failure. She denies any paresthesia, anesthesia or motor weakness. She denies any burning in her feet. Physical Examination: Vital signs are remarkable for an elevated blood pressure 148/85. Lower extremity exam is remarkable for 3-4+ pitting edema of both right left leg and feet. Unable to palpate pulses because of the amount of swelling. The skin is discolored and slightly erythematous. There is no induration, warmth, lymphangitis or popliteal/inguinal lymphadenopathy. The redness decreases in intensity with elevation. Test Results: UA is remarkable for bacteria without pyuria. Dip was negative for leukoesterase and nitrates. However, she reports going frequently and having incontinence which is abnormal for her. We will treat with a 3 day course of Macrobid. CBC is unremarkable. Electro panels unremarkable and specifically BUN and creatinine. Albumin is normal. Emergency Department Course and Treatment: To evaluate patient's frequency a UA was obtained. To evaluate her lymphedema urine was obtained to assess for proteinuria CMP to evaluate BUN and creatinine and albumin. Treatment Plan: 3 day course of Macrobid and elevation Disposition: Discharged to home Impression: 1. Bilateral leg edema, dependent 2. Bacteria This note was generated with [employer] dictation software. It may contain incorrect words, spelling, and punctuation that were not noted in review of the chart prior to signing ED Disposition - Plan for ED Patient: Disposition: Home or Assisted Living Chief Complaint: Lower Extremity Injury Instructions: ED UTI Cystitis Female, ED Lymphedema Prescriptions: Nitrofurantoin Macrocrystals [Macrobid] 100 mg PO Q12 #6 cap Referrals: Cheyenne Diggs DO [Primary Care Provider] - Additional Instructions: Take antibiotic until gone. Must elevate toes above nose to help decrease swelling otherwise may need a referral to wound clinic/lymphedema clinic.
[2017-10-21 21:42] VITALS: BP 148/79; PULSE 76; RESP 18
[2017-10-21] MEDS: Nitrofurantoin Macrocrystals 100 MG Capsule PO (21:44)
== END 2017-10-21 21:47 | disposition home or self-care (01) ==
PROVIDERS: Emergency Provider Emergency Medicine; Family Provider Internal Medicine; PCP Internal Medicine
DX: R60.0 Localized edema (principal); R35.0 Frequency of micturition; I10 Essential (primary) hypertension; Z72.0 Tobacco use; Z96.659 Presence of unspecified artificial knee joint
CPT/HCPCS: 80053; 81001; 85025; 99283

== ENCOUNTER → 2017-12-24 13:10 | Outpatient (CLI) | payer MEDICARE, MEDICAID, SELFPAY | PROVIDERS: Family Provider Internal Medicine; PCP Internal Medicine; Visit Provider Physician Assistant | DX: M25.561 Pain in right knee (principal); M25.562 Pain in left knee | CPT/HCPCS: 73564 ==

== ENCOUNTER → 2018-05-11 12:50 | Outpatient (CLI) | payer MEDICARE, SELFPAY ==
--- NOTE | 2018-05-11 12:56 | US_ITS ---
STUDY: THYROID ULTRASOUND REASON FOR EXAM: Female, 63 years old. GOITER NODULES TECHNIQUE: Ultrasound evaluation of the thyroid was performed with real-time and static funk-scale imaging. COMPARISON: June 13, 2015 FINDINGS: RIGHT LOBE: The right lobe of the thyroid gland measures 5.5 x 2 x 2.1 cm. There is a homogeneous echotexture. 3 nodules, one measuring 0.4 x 0.4 x 0.3 in the midpole and the other measuring 0.3 x 0.3 x 0.2 in the lower pole and another measuring 0.3 x 0.3 x 0.2 in the lateral midpole LEFT LOBE: The left lobe of the thyroid gland measures 4.9 x 1.4 x 2 cm. There is a homogeneous echotexture. There is a nodule measuring 0.4 x 0.4 x 0.3 in the lower pole. 2 hypoechoic nodules are seen in the midpole age measuring approximately 0.3 cm in diameter and a third lesion is seen in the anterior mid to upper pole measuring approximately 0.4 x 0.3 x 0.2 cm. ISTHMUS: The isthmus measures 3 mm . The regional lymph nodes are normal. US/Thyroid IMPRESSION: Thyroid measurements as described. There are multiple small thyroid nodules likely to be benign. No worrisome interval change. Electronically Signed: Becka Still MD at 9:41 EST , Service support ,
--- NOTE | 2018-05-11 13:50 | BD_ITS ---
STUDY: DUAL ENERGY X-RAY ABSORPTIOMETRY / DXA REASON FOR EXAM: Female, 63 years old. Early menopause. Loss of height. TECHNIQUE: Bone Mineral Density (BMD) measurements of lumbar spine and bilateral hips were obtained. COMPARISON: Comparison is made with prior study dated January 07, 2001. FINDINGS: Lumbar Spine (L1-L4): g/cm2 (1.179) / T-score (0.0) / Z-score (1.5) Findings are suggestive of normal bone density with a low fracture risk. Left Femur Total: g/cm2 (1.171) / T-score (1.3) / Z-score (2.4) Left Femoral Neck: g/cm2 (1.051) / T-score (0.1) / Z-score (1.5) Right Femur Total: g/cm2 (1.167) / T-score (1.3) / Z-score (2.4) Right Femoral Neck: g/cm2 (1.112) / T-score (0.5) / Z-score (2.0) The T-Scores on the most recent prior examination were: Lumbar Spine (L1-L4): There has been worsening of bone density since the previous examination. Left Femur Total: which represents a worsening of 13.9%. BD/Dexa Bone Density Study IMPRESSION: The patient is considered normal as outlined below according to World Moises Organization (WHO) criteria with a low fracture risk. There has been worsening of bone density since the previous examination. Reference Information: The T-score is the number of standard deviations above or below the standard which is normal for young adults at their peak bone mineral density. The World Health Organization (WHO) interprets the T-scores as follows: Above -1 Normal bone density Between -1 and -2.5 Osteopenia Equal to / or below -2.5 Osteoporosis As a practical clinical guideline, osteopenia may be graded as follows: Mild -1 through -1.5 Moderate -1.6 through -2.0 Severe -2.1 through -2.4 The Z-score is the number of standard deviations above or below age-matched controls. A Z-score of less than -1.5 would be considered abnormal. References: 1. NIH Osteoporosis and Related Bone Diseases http://www.osteo.org 2. International Society for Clinical Densitometry http://www.iscd.org 3. National Osteoporosis Foundation http://www.nof.org Electronically Signed: Philip Drummond MD at 11:01 EST Tel [phone], Service support ,
== END ==
PROVIDERS: Family Provider Internal Medicine; PCP Internal Medicine; Referring Provider Internal Medicine; Visit Provider Internal Medicine
DX: Z78.0 Asymptomatic menopausal state (principal); E04.9 Nontoxic goiter, unspecified
CPT/HCPCS: 76536; 77080

== ENCOUNTER → 2018-09-17 20:00 | Outpatient (CLI) | payer MEDICARE, SELFPAY ==
[2018-06-06 09:56] VITALS: BMI 37.5
== END ==
PROVIDERS: Family Provider Internal Medicine; PCP Internal Medicine
DX: G47.33 Obstructive sleep apnea (adult) (pediatric) (principal)
CPT/HCPCS: 95810

== ENCOUNTER 2019-10-02 18:54 | Emergency (ER) | payer MEDICARE, MEDICAID, SELFPAY ==
[2018-06-06 09:56] VITALS: BMI 37.5
[2019-10-02 18:56] VITALS: BP 158/84; PULSE 101; RESP 18; TEMP 36.9; O2SAT 97; BMI 38.0
--- NOTE | 2019-10-02 19:07 | CT_ITS ---
STUDY: CT ABDOMEN AND PELVIS WITHOUT CONTRAST REASON FOR EXAM: Female, 64 years old. Low abdomen and pelvic pain since this am. HTN-rx controlled. Hx of lt breast cancer 2016-treated with radiation and Tamoxifen RADIATION DOSAGE (If Supplied By Facility): CTDIvol = ( 19.78 ) mGy, DLP = ( 983.46 ) mGycm TECHNIQUE: Transaxial images were obtained from the dome of the diaphragm to the symphysis pubis without oral contrast, and without intravenous contrast. Sagittal and coronal images were reconstructed. Individualized dose optimization techniques were used for this CT. COMPARISON: None. FINDINGS: The study is technically limited, being performed without oral and intravenous contrast. There is a noncalcified 3 mm nodule of the left lower lobe image 22 series 2. There are minimal streaky fibrotic or atelectatic changes of the lung bases. The visualized portions of the heart are within normal limits. There is geographic hepatic steatosis. Normal gallbladder and extrahepatic biliary system. Normal spleen. Normal pancreas. Normal bilateral adrenal glands. Normal right kidney. Normal left kidney. There is a small hiatal hernia. Normal small intestine. There is colonic diverticulosis primarily involving the sigmoid. Perisigmoid fatty stranding is present. The appendix is visualized and appears normal. There are calcified plaques of the abdominal aorta. Normal inferior vena cava. Normal retroperitoneum. Normal urinary bladder. There is a uterine calcification consistent with a pedunculated degenerative fibroid. Normal abdominal wall. There are diffuse degenerative changes of the visualized thoracolumbar spine. CT/Abdomen/Pelvis without Cont IMPRESSION: 1. Colonic diverticulosis predominantly involving the sigmoid. Perisigmoidal fatty stranding is noted consistent with diverticulitis. There is no evidence of extraluminal gas or abnormal fluid collection in the region. 2. Geographic hepatic steatosis. 3. Small hiatal hernia. 4. Calcified pedunculated uterine fibroid. Electronically Signed: Kelby Cavanaugh MD at 20:14 EDT , Service support ,
[2019-10-02] MEDS: 0.9% Normal Saline 1,000 ML 125 ML IV (19:33)
[2019-10-02 19:42] LABS: Bacteria 0 SEEN /hpf (None Seen); Mucous, Urine 0 SEEN /hpf (<or=2+)
[2019-10-02 19:48] LABS: Absolute Neutrophil Count 7.4 X10^3/uL (2.0-7.7); Basophil# 0.05 X10^3/uL; Basophil% 0.5 % (0-1); Eosinophil# 0.09 X10^3/uL; Eosinophils% 0.9 % (0-5); Hematocrit 44.1 % (37-47); Hemoglobin 14.7 g/dL (12.0-15.0); Lymphocyte % 17.6 % (19-41); Mean Corp Hgb Conc 33.3 g/dL (32-36); Mean Corpuscular Hgb 30.1 pg (27.0-32.0); Mean Corpuscular Volume 90.4 fL (81-99); Mean Platelet Vol. 9.7 fl (6.2-12.0); Monocyte# 0.86 X10^3/uL; Monocyte% 8.4 % (0-10); NRBC Flagged by Analyzer 0 % (0-5); Neutrophil # 7.39 X10^3/uL (2.7-7.7); Neutrophil % 72.3 % (47-70); Platelet Count 232 K/mm3 (150-450); RBC Distribution Width SD 43.1 fl (35.1-43.9); Red Blood Count 4.88 M/mm3 (4.2-5.4); White Blood Count 10.2 K/mm3 (4.4-11.0)
--- NOTE | 2019-10-02 19:49 | ED.VISSUMM ---
- ER Visit Summary Date of Service: 10/02/19 Chief Complaint: [Abdominal pain] History of Present Illness: The patient is a 64 F [presents to the emergency department with complaint of abdominal pain that started this morning when she woke up. Patient states that in the past when she has had pain like this it was related to a UTI because she normally does not get the dysuria associated with UTIs. She denies any fever. She said no nausea or vomiting. She denies any diarrhea. She denies any blood in her stool or black tarry stools. She denies dysuria, urgency, or frequency. Patient has not had any abdominal surgeries.] Physical Examination: [HEENT-PERRLA, EOMI. Cranial nerves II through XII grossly intact. TMs clear. Mucous membranes moist. No adenopathy. Cardiovascular-regular rate and rhythm without murmur or ectopy Lungs-clear to auscultation, chest wall stable without crepitus or subcu emphysema Abdomen-normoactive bowel sounds, soft. Patient has diffuse tenderness over the right lower quadrant as well as suprapubic area and left lower quadrant. She has mild guarding. There is no rebound, rigidity, or cranial signs. No masses palpated. Extremities-intact ?4, normal range of motion, normal pulses, atraumatic] Test Results: [CBC with differential obtained showing a 10.2, hemoglobin 14.7, hematocrit 44, placed 232. Chemistries unremarkable. LFTs were normal. Urinalysis unremarkable. CT flank showed acute diverticulitis of the sigmoid colon. No evidence of perforation or abscess.] Emergency Department Course and Treatment: [Patient did not anything for pain initially as she needed to drive and she is allergic to NSAIDs. She was given Cipro and Flagyl p.o.] Treatment Plan: [She will be treated with Cipro and Flagyl. Patient will be given a prescription for [place] for pain. She is advised to follow-up with primary care physician or her surgeon Dr. Christos Lockhart or Dr. Aggie Orr who last performed her colonoscopy 6 months ago.] Patient advised to return if worsening pain, fever, bloody stools, or condition should worsen anyway. Disposition: [Discharged home in stable condition] Impression: [Abdominal pain Acute diverticulitis] This note was generated with [employer] software. It may contain incorrect words, spelling, and punctuation that were not noted in review of the chart prior to signing ED Disposition - Plan for ED Patient: Referrals: Cheyenne Diggs DO [Primary Care Provider] -
[2019-10-02 20:02] LABS: Color, Urine Yellow (Yellow); Glucose, Dipstick Normal (Normal); Ketone-Dipstick Negative (Negative); Leukocyte Esterase-Dipstick 25 /ul (Negative); Nitrite-Dipstick Negative (Negative); Occult Blood-Urine 50 /ul (Negative); Protein-Dipstick Negative (Negative); Urine Bilirubin Dipstick Negative (Negative); Urine Clarity Cloudy (Clear); Urine Urobilinogen Normal (Normal)
[2019-10-02 20:04] LABS: AST(SGOT) 28 U/L (15-37); Alanine Aminotransfer ALT/SGPT 35 U/L (13-56); Albumin, Serum 3.5 g/dL (3.2-5.0); Alkaline Phosphatase 66 U/L (45-117); Anion Gap 9 (5-15); BUN 13 mg/dL (7-18); BUN/Creat Ratio 19.4 RATIO (10-20); Calcium,Total 8.7 mg/dL (8.5-10.1); Chloride 106 mmol/L (98-107); Creatinine, Serum 0.67 mg/dL (0.55-1.02); EST Glomerular Filtration Rate 94 mL/min (>60); Est Glom Filt Rate - Afr Amer 114 mL/min (>60); Estimated Creatinine Clearance 63.17 ml/min; Globulin 3.4 g/dL (2.2-4.2); Glucose 102 mg/dL (74-106); Potassium 3.7 mmol/L (3.5-5.1); Protein, Total 6.9 g/dL (6.4-8.2); Sodium Level 140 mmol/L (136-145)
[2019-10-02 20:09] LABS: Red Blood Cells-Urine 0-5 SEEN /hpf (0-5); Squamous Epithelial Cells - UA 5-10 SEEN /hpf (5-10)
[2019-10-02 20:10] LABS: White Blood Cells 5-10 SEEN /hpf (0-5); Yeast-Urine RARE /hpf (None Seen)
--- NOTE | 2019-10-02 20:24 | ED.DEP ---
ED Disposition - Plan for ED Patient: Instructions: ED Diverticulitis Prescriptions: Ciprofloxacin [Cipro] 500 mg PO BID #14 tab Prescription Printed metroNIDAZOLE [Flagyl] 500 mg PO Q8H #21 tab Prescription Printed Hydrocodone Bitart/Apap 5-325 [Alburtis 5MG-325MG] 1 tab PO Q4H PRN PRN 2 Days #10 tab PRN Reason: Pain Prescription Printed Referrals: Cheyenne Diggs DO [Primary Care Provider] - Aggie Orr MD [STAFF PHYSICIAN] - 3-5 Days
[2019-10-02 20:34] VITALS: BP 166/91; PULSE 88; O2SAT 97
[2019-10-02] MEDS: metroNIDAZOLE 500 MG Tablet PO (20:34)
[2019-10-02] MEDS: Ciprofloxacin 500 MG Tablet PO (20:34)
== END 2019-10-02 20:40 | disposition home or self-care (01) ==
LOC: ED 20:08
PROVIDERS: Emergency Provider Emergency Medicine; PCP Internal Medicine
DX: K57.32 Diverticulitis of large intestine without perforation or abscess without bleeding (principal); I10 Essential (primary) hypertension; Z72.0 Tobacco use; Z79.899 Other long term (current) drug therapy
CPT/HCPCS: 74176; 80053; 81001; 85025; 96360; 99284; A4216

== ENCOUNTER 2020-03-16 07:38 | Emergency (ER) | payer MEDICARE, MEDICAID, SELFPAY ==
[2020-03-16 07:40] VITALS: BP 158/124; PULSE 91; RESP 17; TEMP 36.1; O2SAT 95; BMI 40.6
--- NOTE | 2020-03-16 07:47 | ED.RN ---
Per Dr. Lynn isolation is not required.
--- NOTE | 2020-03-16 08:00 | ED.DCSUM_ITS ---
History of Present Illness Chief Complaint: General Illness Informant: Patient Narrative: 65-year-old female presents to the emergency department with a variety of constitutional complaints. She tells me that she recently went to see her neurologist and saw the nurse practitioner. She is typically prescribed Klonopin for restless leg syndrome. They did a urine drug screen and stated that her benzodiazepines were not in her system. Therefore they put her on a tapering program and were going to switch her medications. She began the tapering dose from 1.5 mg on Thursday. Since then she has been experiencing anxiety headache nausea body aches hypertension chills and generally feeling po patricia. She states she sent them a message states she was not to take her new medication (Neupro). She has not heard back. She is concerned about what she is going to do for her restless leg and her Klonopin. She would like me to talk with her primary care doctor to see if they would prescribe it for her. Past Medical History - Allergies and Home Meds Allergies/Adverse Reactions: Allergies celecoxib [From Celebrex] Allergy (Verified 03/16/20 07:39) Hives diphenhydramine [From Aleve PM] Allergy (Verified 03/16/20 07:39) Hives gabapentin [From Neurontin] Allergy (Verified 03/16/20 07:39) Other hyaluronic acid [From Euflexxa] Allergy (Verified 03/16/20 07:39) Hives lidocaine Allergy (Verified 03/16/20 07:39) Rash naproxen [From Aleve PM] Allergy (Verified 03/16/20 07:39) Hives pregabalin [From Lyrica] Allergy (Verified 03/16/20 07:39) Hives quetiapine [From Seroquel] Allergy (Verified 03/16/20 07:39) Other ropinirole [From Requip] Allergy (Verified 03/16/20 07:39) Other benzoyl peroxide Adverse Reaction (Verified 03/16/20 07:39) Rash citalopram Adverse Reaction (Verified 03/16/20 07:39) Other etanercept [From Enbrel] Adverse Reaction (Verified 03/16/20 07:39) Other hydrochlorothiazide Adverse Reaction (Verified 03/16/20 07:39) Other NSAIDS (Non-Steroidal Anti-Inflamma Adverse Reaction (Verified 03/16/20 07:39) Rash prednisone Adverse Reaction (Verified 03/16/20 07:39) Other ANTIDEPRESENTS Adverse Reaction (Uncoded 03/16/20 07:39) Other Primary Care Physician: Cheyenne Diggs DO [Primary Care Provider] - (call to arrange follow up) Surgical History: mastectomy Smoking Status: Never smoker Review of Systems General: Reports: Chills, Malaise. Denies: Fever, Sweats Eyes: Denies: Visual changes - bilaterally, Diplopia ENT: Denies: Rhinorrhea, Sore throat Cardiovascular: Denies: Chest pain, Palpitations Respiratory: Denies: Dyspnea, Cough, Dyspnea on exertion Gastrointestinal: Reports: Nausea. Denies: Abdominal pain, Vomiting, Diarrhea, Melena, Hematochezia Genitourinary: Denies: Dysuria, Hematuria, Frequency Musculoskeletal: Reports: Myalgias. Denies: Back pain, Extremity Pain Skin: Denies: Rash, Wounds Neurological: Reports: Headache. Denies: Weakness, Numbness Psych: Reports: Anxiety. Denies: Suicidal thoughts, Suicidal ideations Physical Exam Vital Signs/Narrative: Vital Signs Temp Pulse Resp BP Pulse Ox 03/16/20 07:40 97.0 F L 91 17 158/124 H 95 Inital Vital Signs reviewed: Yes General: Well nourished, Well developed, Obese, No Acute Distress, - - And appears fidgety and scratching her skin. Head: Normocephalic, Atraumatic Eyes: Perrl, EOMI ENT: Moist mucous membranes, No rhinorrhea Neck: Supple, Nontender Cardiovascular: Regular rate, Regular rhythm, No murmurs Respiratory: No distress, CTA bilaterally, Chest nontender Abdomen: Soft, Nontender, Nondistended, Normal bowel sounds Back: Nontender, Normal Inspection Extremities: Nontender, No edema Skin: Normal color, No rash Neurological: Alert, Oriented x3, Cranial nerves II-XII grossly intact, Normal Strength, Normal Sensation Psychological: Normal affect, Normal Mood Diagnostic/Tx/Re-eval - Medical Decision Making I believe the patient is most likely having some benzodiazepine withdrawal. I reached out to Dr. Diggs and spoke with her medical insurance clerk. They will discuss with her and reach out to the patient later today. In the interim we will give her a regular dose of her Klonopin. Patient is comfortable with this plan. ED Disposition - Plan for ED Patient: Disposition: Home or Assisted Living Diagnosis: Benzodiazepine withdrawal Instructions: ED Withdrawal Benzodiazepine Referrals: Cheyenne Diggs DO [Primary Care Provider] - (Dr. Diggs's office will reach out to you today.)
[2020-03-16 08:05] VITALS: BP 142/83
[2020-03-16] MEDS: clonazePAM 1 MG Tablet 1.5 MG PO (08:46)
[2020-03-16 08:48] VITALS: BP 142/83; RESP 17; O2SAT 99
== END 2020-03-16 08:51 | disposition home or self-care (01) ==
PROVIDERS: Emergency Provider Emergency Medicine; PCP Internal Medicine
DX: F13.239 Sedative, hypnotic or anxiolytic dependence with withdrawal, unspecified (principal); E66.9 Obesity, unspecified; I10 Essential (primary) hypertension
CPT/HCPCS: 99282

== ENCOUNTER 2020-03-16 22:52 | Emergency (ER) | payer MEDICARE, MEDICAID, SELFPAY ==
--- NOTE | 2020-03-16 01:00 | RAD_ITS ---
STUDY: X-RAY CHEST REASON FOR EXAM: Female, 65 years old. HYPERTENSION TECHNIQUE: Single AP portable view of the chest. COMPARISON: February 10, 2015 chest x-ray FINDINGS: The lungs are clear and expanded. There is no demonstrated pleural abnormality. There is mild cardiac enlargement. Normal mediastinum and gerald. Normal visualized pulmonary arteries. Normal visualized aortic arch and descending thoracic aorta. There are diffuse degenerative changes of the visualized thoracic spine. Normal visualized ribs, clavicles, and shoulders. Postoperative changes overlying the left chest/breast. RAD/Chest 1 View (Portable) IMPRESSION: Degenerative changes, as described above. No demonstrated acute cardiopulmonary process. Electronically Signed: Darlene Bennett MD at 1:14 EST Tel , Service support ,
[2020-03-16 07:40] VITALS: BMI 40.6
[2020-03-16 22:54] VITALS: BP 160/113; PULSE 101; RESP 18; TEMP 36.4; O2SAT 95; BMI 40.6
--- NOTE | 2020-03-16 23:08 | EKG12_ITS ---
Test Reason : HYPERTENSION Blood Pressure : / mmHG Vent. Rate : 095 BPM Atrial Rate : 095 BPM P-R Int : 150 ms QRS Dur : 082 ms QT Int : 370 ms P-R-T Axes : 026 007 008 degrees QTc Int : 464 ms Normal sinus rhythm Possible Inferior infarct , age undetermined Abnormal ECG Confirmed by PENNY HEREDIA, TATIANA ([id number]), editor in chief newspaper MARYCHUY TATE ([id number]) on 03/19/2020 9:51:27 AM Referred By: AMBROSIO Confirmed By:TATIANA FRANCIS MD
--- NOTE | 2020-03-16 23:08 | ED.VIS.GEN ---
History of Present Illness Chief Complaint: Hypertension Informant: Patient Narrative: Patient presents with headache and elevated blood pressure. She states that she has a history of blood pressure but her blood pressure is higher than usual. She does not have dizziness. She does not have cough or shortness of breath. She has no nausea or vomiting. She is walking with a stable gait. Patient denies chest pain or palpitations. Past Medical History - Allergies and Home Meds Allergies/Adverse Reactions: Allergies celecoxib [From Celebrex] Allergy (Verified 03/16/20 07:39) Hives diphenhydramine [From Aleve PM] Allergy (Verified 03/16/20 07:39) Hives gabapentin [From Neurontin] Allergy (Verified 03/16/20 07:39) Other hyaluronic acid [From Euflexxa] Allergy (Verified 03/16/20 07:39) Hives lidocaine Allergy (Verified 03/16/20 22:56) Rash naproxen [From Aleve PM] Allergy (Verified 03/16/20 22:56) Hives pregabalin [From Lyrica] Allergy (Verified 03/16/20 22:56) Hives quetiapine [From Seroquel] Allergy (Verified 03/16/20 22:56) Other ropinirole [From Requip] Allergy (Verified 03/16/20 22:56) Other benzoyl peroxide Adverse Reaction (Verified 03/16/20 22:56) Rash citalopram Adverse Reaction (Verified 03/16/20 22:56) Other etanercept [From Enbrel] Adverse Reaction (Verified 03/16/20 22:56) Other hydrochlorothiazide Adverse Reaction (Verified 03/16/20 22:56) Other NSAIDS (Non-Steroidal Anti-Inflamma Adverse Reaction (Verified 03/16/20 22:56) Rash prednisone Adverse Reaction (Verified 03/16/20 22:56) Other ANTIDEPRESENTS Adverse Reaction (Uncoded 03/16/20 22:56) Other Primary Care Physician: Cheyenne Diggs DO [Primary Care Provider] - Prior records reviewed: Yes Past Medical History: - - Hypertension, insomnia, restless leg syndrome Surgical History: noncontributory, mastectomy Lives: Alone Smoking Status: Former smoker Alcohol: None Drugs: None Review of Systems General: Denies: Chills, Fever, Sweats Eyes: Denies: Visual changes - bilaterally, Diplopia ENT: Denies: Rhinorrhea, Sore throat Cardiovascular: Denies: Chest pain, Palpitations Respiratory: Denies: Dyspnea, Cough, Dyspnea on exertion Gastrointestinal: Denies: Abdominal pain, Nausea, Vomiting, Diarrhea, Melena, Hematochezia Genitourinary: Denies: Dysuria, Hematuria, Frequency Musculoskeletal: Denies: Back pain, Extremity Pain Skin: Denies: Rash, Wounds Neurological: Reports: Headache. Denies: Parasthesia, Numbness Psych: Denies: Depression, Anxiety, Suicidal thoughts, Suicidal ideations, -, - Physical Exam Vital Signs/Narrative: Vital Signs Temp Pulse Resp BP Pulse Ox 03/16/20 22:54 97.6 F L 101 H 18 160/113 H 95 Inital Vital Signs reviewed: Yes General: Well nourished, No Acute Distress Head: Normocephalic, Atraumatic Eyes: Perrl, EOMI. Negative for: Pale conjunctiva ENT: Moist mucous membranes, No rhinorrhea Cardiovascular: Regular rate, Regular rhythm Respiratory: No distress, CTA bilaterally Abdomen: Soft, Nontender Extremities: Nontender, No edema Skin: Normal color, No rash. Negative for: Cyanosis, Diaphoresis Neurological: Alert, Oriented x3 Psychological: Normal affect, Normal Mood Diagnostic/Tx/Re-eval Clinical Impression(s) from Imaging Studies Chest X-Ray 03/16/20 01:00 IMPRESSION: Degenerative changes, as described above. No demonstrated acute cardiopulmonary process. Electronically Signed: Darlene Bennett MD at 1:14 EST Tel , Service support , Brain CT 03/17/20 23:08 IMPRESSION: Atrophy no evidence of acute hemorrhage infarct or edema. Electronically Signed: Darlene Bennett MD at 1:12 EST Tel , Service support , Laboratory Data 03/16/20 03/16/20 23:49 23:49 WBC 3.6 L RBC 5.22 Hgb 15.7 H Hct 47.2 H MCV 90.4 MCH 30.1 MCHC 33.3 RDW Std Deviation 44.3 H RDW Coeff of Geeta 13.2 Plt Count 194 MPV 9.3 Immature Gran % (Auto) 0.500 Neut % (Auto) 49.6 Lymph % (Auto) 25.5 [place] % (Auto) 22.5 H Eos % (Auto) 1.1 Baso % (Auto) 0.8 Absolute Neuts (auto) 1.8 L Absolute Lymphs (auto) 0.93 Nucleated RBC % 0 Sodium 139 Potassium 3.7 Chloride 108 H Carbon Dioxide 25.0 Anion Gap 6 BUN 13 Creatinine 0.74 Estim Creat Clear Calc 41.76 Est GFR (MDRD) Af Amer 101 Est GFR (MDRD) Non-Af 84 BUN/Creatinine Ratio 17.6 Glucose 115 H Calcium 8.8 Total Bilirubin 0.50 AST 76 H ALT 83 H Alkaline Phosphatase 73 Troponin I < 0.015 Total Protein 7.3 Albumin 3.7 Globulin 3.6 Albumin/Globulin Ratio 1.0 - Rhythm Strip Rhythm Strip: Sinus Rhythm Rate: 95 - EKG Initial EKG Interpretation: Sinus Rhythm, No Acute Injury Pattern - Medical Decision Making Patient presents with headache and hypertension. She states is making her feel awful. I did check lab work and her troponin is negative. Her lab work shows that she is leukopenic and lymphopenic. I walked back to her room to see how her blood pressure was after being medicated with labetalol and she was just coming back from [place] and states she felt like she was having body aches and feels like she was hit by a [place] truck. Given this and her lab work I did have concern for Covid?19 therefore I did test her. Her vital signs are stable at this point. She is not hypoxic or tachypneic. I rechecked her temperature and it was 99.7. Patient had her prescriptions filled in the hospital so that she can quarantine. I wrote her for Tylenol, ibuprofen, Zofran. I spoke with Dr. Licea to ensure close follow-up. Since they were trying to taper her Klonopin she recommended just leaving it be for now as tapering could cause her to have withdrawal symptoms. I did discuss with her that she removed the Neupro patches off of herself because that also causes hypertension. She is to keep a diary at home. She states that she will order a home pulse ox to monitor. Worsening symptoms of Covid?19 as well as elevated blood pressure were discussed at length with her. She felt comfortable being discharged home to quarantine. She is given strict return precautions. Patient is discharged home in stable condition. Impression: 1. Hypertension established [id number] 2. Viral syndrome ED Disposition - Plan for ED Patient: Disposition: Home or Assisted Living Instructions: ED High Blood Pressure Established Out of Control, ED Viral Syndrome Prescriptions: Ibuprofen 600 mg PO Q8H PRN #30 tab PRN Reason: pain or fever Prescription Printed Acetaminophen [Tylenol Extra Strength] 500 mg PO Q8H PRN PRN #30 tab PRN Reason: pain or fever Prescription Printed Acetaminophen [Tylenol 8 Hour] 650 mg PO Q8H PRN PRN #30 tablet.er PRN Reason: pain or fever Transmission Status: Received by [facility] [place] - [id number] Acetaminophen [Tylenol 8 Hour] 650 mg PO Q8H PRN PRN #30 tablet.er PRN Reason: pain or fever Prescription Printed Ondansetron [Zofran Odt] 4 mg PO Q8H PRN PRN #14 tab PRN Reason: Nausea Prescription Printed Referrals: Cheyenne Diggs DO [Primary Care Provider] - Additional Instructions: Dr. Licea says that if your blood pressure goes over 170 systolic or over 100 diastolic you should take a second dose of lisinopril 20 mg She also wants you to monitor your blood pressure and your pulse ox.
[2020-03-16] MEDS: Labetalol (Prefilled) 20 MG/4 ML IV (23:54)
[2020-03-16 23:55] VITALS: BP 166/110; PULSE 98; RESP 11; O2SAT 96
[2020-03-16 23:55] LABS: Absolute Lymphocyte Count 0.93 X10^3/uL (0.83-4.51); Absolute Neutrophil Count 1.8 X10^3/uL (2.0-7.7); Basophil# 0.03 X10^3/uL; Basophil% 0.8 % (0-1); Eosinophil# 0.04 X10^3/uL; Eosinophils% 1.1 % (0-5); Hematocrit 47.2 % (37-47); Hemoglobin 15.7 g/dL (12.0-15.0); Lymphocyte # 0.93 X10^3/ul (4.0); Lymphocyte % 25.5 % (19-41); Mean Corp Hgb Conc 33.3 g/dL (32-36); Mean Corpuscular Hgb 30.1 pg (27.0-32.0); Mean Corpuscular Volume 90.4 fL (81-99); Mean Platelet Vol. 9.3 fl (6.2-12.0); Monocyte# 0.82 X10^3/uL; Monocyte% 22.5 % (0-10); NRBC Flagged by Analyzer 0 % (0-5); Neutrophil % 49.6 % (47-70); Platelet Count 194 K/mm3 (150-450); RBC Distribution Width CV 13.2 % (11.6-14.6); RBC Distribution Width SD 44.3 fl (35.1-43.9); Red Blood Count 5.22 M/mm3 (4.2-5.4); White Blood Count 3.6 K/mm3 (4.4-11.0)
[2020-03-17 00:14] LABS: AST(SGOT) 76 U/L (15-37); Alanine Aminotransfer ALT/SGPT 83 U/L (13-56); Albumin, Serum 3.7 g/dL (3.2-5.0); Alkaline Phosphatase 73 U/L (45-117); Anion Gap 6 (5-15); BUN 13 mg/dL (7-18); BUN/Creat Ratio 17.6 RATIO (10-20); Calcium,Total 8.8 mg/dL (8.5-10.1); Chloride 108 mmol/L (98-107); Creatinine, Serum 0.74 mg/dL (0.55-1.02); EST Glomerular Filtration Rate 84 mL/min (>60); Est Glom Filt Rate - Afr Amer 101 mL/min (>60); Estimated Creatinine Clearance 41.76 ml/min; Globulin 3.6 g/dL (2.2-4.2); Glucose 115 mg/dL (74-106); Potassium 3.7 mmol/L (3.5-5.1); Protein, Total 7.3 g/dL (6.4-8.2); Sodium Level 139 mmol/L (136-145)
[2020-03-17 00:35] VITALS: BP 149/100; PULSE 103; RESP 19; O2SAT 94
[2020-03-17 02:34] VITALS: BP 142/96; PULSE 102; RESP 21; O2SAT 94
[2020-03-17 12:31] LABS: Probe Check PASS; Specimen Processing Control PASS
--- NOTE | 2020-03-17 23:08 | CT_ITS ---
STUDY: CT BRAIN WITHOUT CONTRAST REASON FOR EXAM: Female, 65 years old. ELEVATED BP, C/O MARTINEZ, HX HTN, HEP A, BREAST CA RADIATION DOSAGE (If Supplied By Facility): CTDIvol = ( 44.99 ) mGy, DLP = ( 796.11 ) mGycm TECHNIQUE: Transaxial CT imaging of the brain was performed without administration of intravenous contrast material. Individualized dose optimization techniques were used for this CT. COMPARISON: September 28, 2010 CT head FINDINGS: Normal soft tissue structures. Normal calvarium. There is mild cerebral atrophy with widening of the extra-axial spaces and ventricular dilatation. Normal white matter tracts of the cerebral hemispheres. Normal basal ganglia and thalami. Normal brainstem. Normal cerebellum. There is no intracranial hemorrhage. There are no findings of an acute ischemic infarction. Normal visualized paranasal sinuses. There are degenerative mastoid air cells. There are bilateral nasal kassy bullosa. CT/Brain/Head without Contrast IMPRESSION: Atrophy no evidence of acute hemorrhage infarct or edema. Electronically Signed: Darlene Bennett MD at 1:12 EST Tel , Service support ,
== END 2020-03-17 02:35 | disposition home or self-care (01) ==
PROVIDERS: Emergency Provider Student in an Organized Health Care Education/Training Program; PCP Internal Medicine
DX: I10 Essential (primary) hypertension (principal); B34.9 Viral infection, unspecified; Z87.891 Personal history of nicotine dependence; F13.239 Sedative, hypnotic or anxiolytic dependence with withdrawal, unspecified; E66.9 Obesity, unspecified
CPT/HCPCS: 70450; 71045; 80053; 84484; 85025; 87635; 93005; 96374; 99282; 99283; J7030; A4216; U0002; U0003

== ENCOUNTER 2020-07-05 08:33 | Outpatient (RCR) | payer MEDICARE, SELFPAY ==
[2020-07-05] MEDS: COVID-19 VACC, MRNA(PFIZER)/PF 30 MCG/0.3 ML SYRINGE IM (12:57)
[2020-07-26] MEDS: COVID-19 VACC, MRNA(PFIZER)/PF 30 MCG/0.3 ML SYRINGE IM (12:53)
== END 2020-10-02 23:59 ==
LOC: IMMUN 08:33
PROVIDERS: PCP Internal Medicine; Visit Provider Family Medicine
DX: Z23 Encounter for immunization (principal)
CPT/HCPCS: 0001A; 0002A; 91300

== ENCOUNTER → 2020-07-31 12:51 | Outpatient (CLI) | payer MEDICARE, MEDICAID, SELFPAY ==
[2020-07-23 12:49] VITALS: BMI 40.6
--- NOTE | 2020-07-31 12:54 | CT_ITS ---
STUDY: LOW DOSE CT LUNG CANCER SCREENING REASON FOR EXAM: Female, 65 years old. Smoker and gt; 30 pack years quit 2017 RADIATION DOSAGE (If Supplied By Facility): CTDIvol = ( 2.39 ) mGy, DLP = ( 72.06 ) mGycm TECHNIQUE: No contrast was administered. Low dose technique was utilized (average mAS-38 and kVp 120). 1.25 mm axial source images with a slice interval of 1.25-mm were reconstructed in lung windows. 2.5 mm axial source images with a slice interval of 2.5-mm were reconstructed in lung windows. 5.0 mm axial source images with a slice interval of 5.0-mm were reconstructed in soft tissue windows. Nodule measured using lung windows on PACS and/or independent workstation with automated measurement of minimum and maximum diameter. Nodule measurement reported as average diameter rounded to the nearest whole number. Growth is defined as an increase ins size of greater than 1.5 mm. COMPARISON: Previous plain films NODULES: Lung windows show the lungs to be normally expanded. Chronic interstitial changes noted in both lung murray with bibasilar atelectasis. There is no organized infiltrate, suspicious noncalcified mass or nodule. There is likely chronic elevation of right hemidiaphragm. There are scattered subcentimeter in short axis dimension axillary and mediastinal lymph nodes. Thyroid gland is normal. Peripheral calcifications noted in the thoracic aorta without aneurysm. Bony structures show degenerative change CT/Low Dose CT Lung Screening IMPRESSION: Lung-RADS category 2 - Continue annual screening with LDCT in 12 months. IMPORTANT NOTES FOR USE: ACR Lung-RADS Version 1.1 Assessment Categories Release Date: 2018 Category: Coded 0-4 bases on nodule(s) with highest degree of suspicion. Negative screen is defined as categories 1 and 2; a positive screen is defined as categories 3 and 4. Category 3 and 4A nodules that are unchanged on interval CT should be coded as category 2, and individuals returned to screening in 12 months. Category 4X: Category 3 or 4 nodules with additional imaging findings that increase the suspicion of lung cancer, such as spiculation, GGN that doubles in size in 1 year, enlarged lymph notes, etc. Category Modifiers: S (significant finding unrelated to lung cancer) Electronically Signed: Hosea Riggs MD at 13:28 EDT , Service support ,
== END ==
PROVIDERS: PCP Internal Medicine; Referring Provider Nurse Practitioner Acute Care; Visit Provider Nurse Practitioner Acute Care
DX: F17.210 Nicotine dependence, cigarettes, uncomplicated (principal); Z12.2 Encounter for screening for malignant neoplasm of respiratory organs
CPT/HCPCS: 71271

== ENCOUNTER → 2020-10-18 13:54 | Outpatient (CLI) | payer MEDICARE, MEDICAID, SELFPAY ==
[2020-08-13 13:07] VITALS: BMI 40.6
--- NOTE | 2020-10-18 14:00 | BD_ITS ---
STUDY: DUAL ENERGY X-RAY ABSORPTIOMETRY / DXA REASON FOR EXAM: Female, 65 years old. [id number]. Patient is postmenopausal. Loss of height. TECHNIQUE: Bone Mineral Density (BMD) measurements of lumbar spine and bilateral hips were obtained. COMPARISON: Comparison is made with prior examination dated 05/11/2018. FINDINGS: Lumbar Spine (L1-L4): g/cm2 (1.101) / T-score (-0.5) / Z-score (1.1) Findings are suggestive of normal bone density with a low fracture risk. Left Femur Total: g/cm2 (1.229) / T-score (1.8) / Z-score (3.0) Left Femoral Neck: g/cm2 (1.044) / T-score (0.0) / Z-score (1.6) Right Femur Total: g/cm2 (1.217) / T-score (1.7) / Z-score (2.9) Right Femoral Neck: g/cm2 (1.019) / T-score (-0.1) / Z-score (1.4) The T-Scores on the most recent prior examination were: Lumbar Spine (L1-L4): There has been worsening of bone density since the previous examination. Left Femur Total: which represents an improvement of 5%. Right Femur Total: which represents an improvement of 4.3%. BD/Dexa Bone Density Study IMPRESSION: The patient is considered normal as outlined below according to World Moises Organization (WHO) criteria with a low fracture risk. There has been improvement of bone density since the previous examination. Reference Information: The T-score is the number of standard deviations above or below the standard which is normal for young adults at their peak bone mineral density. The World Health Organization (WHO) interprets the T-scores as follows: Above -1 Normal bone density Between -1 and -2.5 Osteopenia Equal to / or below -2.5 Osteoporosis As a practical clinical guideline, osteopenia may be graded as follows: Mild -1 through -1.5 Moderate -1.6 through -2.0 Severe -2.1 through -2.4 The Z-score is the number of standard deviations above or below age-matched controls. A Z-score of less than -1.5 would be considered abnormal. References: 1. NIH Osteoporosis and Related Bone Diseases www osteo.org 2. International Society for Clinical Densitometry www iscd.org 3. National Osteoporosis Foundation www nof.org Electronically Signed: Philip Drummond MD at 8:20 EDT , Service support ,
== END ==
PROVIDERS: PCP Internal Medicine; Visit Provider Internal Medicine
DX: Z78.0 Asymptomatic menopausal state (principal)
CPT/HCPCS: 77080

== ENCOUNTER 2021-02-07 05:20 | Emergency (ER) | payer MEDICARE, MEDICAID, SELFPAY ==
[2021-02-07 05:21] VITALS: BP 177/96; PULSE 95; RESP 18; TEMP 36.8; BMI 40.6
[2021-02-07 05:30] VITALS: BP 142/80
[2021-02-07 05:44] VITALS: BP 150/74
[2021-02-07 05:45] VITALS: BP 129/70
--- NOTE | 2021-02-07 05:51 | EKG12_ITS ---
Test Reason : HYPERTENSION Blood Pressure : / mmHG Vent. Rate : 083 BPM Atrial Rate : 083 BPM P-R Int : 128 ms QRS Dur : 076 ms QT Int : 410 ms P-R-T Axes : 022 004 002 degrees QTc Int : 481 ms Normal sinus rhythm Inferior infarct , age undetermined Abnormal ECG Confirmed by PENNY HEREDIA, TATIANA ([id number]), film editor supervisor MARYCHUY TATE ([id number]) on 02/12/2021 6:43:54 AM Referred By: JOE Confirmed By:TATIANA FRANCIS MD
--- NOTE | 2021-02-07 06:00 | RAD_ITS ---
STUDY: X-RAY CHEST REASON FOR EXAM: Female, 66 years old. Hypertension TECHNIQUE: Single AP portable view of the chest. COMPARISON: March 17, 2020 chest x-ray FINDINGS: The lungs are clear and expanded. There is no demonstrated pleural abnormality. There is mild cardiac enlargement. Normal mediastinum and gerald. Normal visualized pulmonary arteries. Normal visualized aortic arch and descending thoracic aorta. Postoperative change overlying the left chest or breast tissue. There are diffuse degenerative changes of the visualized thoracic spine. Normal visualized ribs, clavicles, and shoulders. There is no demonstrated abnormality of the visualized soft tissue structures of the upper abdomen. RAD/Chest 1 View (Portable) IMPRESSION: Mild cardiomegaly. Degenerative change of the thoracic spine. Electronically Signed: Darlene Bennett MD at 6:31 EDT Tel , Service support ,
[2021-02-07 06:04] LABS: Absolute Lymphocyte Count 1.79 X10^3/uL (0.83-4.51); Absolute Neutrophil Count 2.9 X10^3/uL (2.0-7.7); Basophil# 0.04 X10^3/uL; Basophil% 0.7 % (0-1); Eosinophil# 0.13 X10^3/uL; Eosinophils% 2.4 % (0-5); Hematocrit 40.8 % (37-47); Hemoglobin 13.8 g/dL (12.0-15.0); Lymphocyte # 1.79 X10^3/ul (0.83-4.51); Lymphocyte % 33.2 % (19-41); Mean Corp Hgb Conc 33.8 g/dL (32-36); Mean Corpuscular Hgb 30.4 pg (27.0-32.0); Mean Corpuscular Volume 89.9 fL (81-99); Mean Platelet Vol. 9.5 fl (6.2-12.0); Monocyte# 0.54 X10^3/uL; NRBC Flagged by Analyzer 0 % (0-5); Neutrophil # 2.86 X10^3/uL (2.7-7.7); Neutrophil % 53.1 % (47-70); Platelet Count 207 K/mm3 (150-450); RBC Distribution Width CV 13.3 % (11.6-14.6); Red Blood Count 4.54 M/mm3 (4.2-5.4); White Blood Count 5.4 K/mm3 (4.4-11.0)
[2021-02-07 06:15] VITALS: BP 130/75
[2021-02-07 06:20] LABS: Anion Gap 10 (5-15); BUN 14 mg/dL (7-18); BUN/Creat Ratio 20.9 RATIO (10-20); Calcium,Total 8.8 mg/dL (8.5-10.1); Chloride 109 mmol/L (98-107); Creatinine, Serum 0.67 mg/dL (0.55-1.02); EST Glomerular Filtration Rate 93 mL/min (>60); Est Glom Filt Rate - Afr Amer 113 mL/min (>60); Estimated Creatinine Clearance 41.19 ml/min; Glucose 114 mg/dL (74-106); Potassium 3.7 mmol/L (3.5-5.1); Sodium Level 142 mmol/L (136-145); Troponin-I HS 11 pg/mL (3.0-54.0)
--- NOTE | 2021-02-07 06:21 | EDS_ITS ---
HPI History of Present Illness Chief Complaint: Hypertension Informant: patient Narrative Narrative: 66-year-old female states that she was not feeling well yesterday and attributed to elevated blood pressure. This morning her symptoms of headache seem to be worse so she checked her blood pressure on her wrist cuff and it was elevated so she came to the emergency room. Patient states that she takes multiple medications for her hypertension. She has an appointment on Thursday to have blood drawn her doctor's office was going to have them check her blood pressure. No chest pain no shortness of breath. She notes that she is having anxiety. [facility] Medical History Depression Diverticulitis Hypertension LUCIA (obstructive sleep apnea) Rheumatoid arthritis Thyroid disorder Home Medications atenolol 50 mg PO DAILY 02/13/13 [History Last Taken 08/11/17] furosemide 20 mg PO DAILY 02/13/13 [History Last Taken 06/02/13] lisinopril 20 mg PO DAILY 02/13/13 [History Last Taken 04/14/16 07:00] cholecalciferol (vitamin D3) 3,000 unit PO DAILY 02/10/15 [History Last Taken Unknown] tamoxifen 20 mg PO QHS 08/04/17 [History Last Taken Unknown] venlafaxine 37.5 mg PO DAILY 08/04/17 [History Last Taken Unknown] acetaminophen 500 mg PO Q8H PRN PRN #30 tab 03/17/20 [Rx Last Taken Unknown] acetaminophen 650 mg PO Q8H PRN PRN #30 tablet.er 03/17/20 [Rx Last Taken Unknown] acetaminophen 650 mg PO Q8H PRN PRN #30 tablet.er 03/17/20 [Rx Last Taken Unknown] ibuprofen 600 mg PO Q8H PRN #30 tab 03/17/20 [Rx Last Taken Unknown] ondansetron 4 mg PO Q8H PRN PRN #14 tab 03/17/20 [Rx Last Taken Unknown] tizanidine 2 mg PO QHS 03/17/20 [History Last Taken Unknown] aspirin 25 mg-dipyridamole 200 mg capsule,ext.release 12 hr multiphase 1 cap PO QHS 07/16/20 [History Last Taken Unknown] Allergy/AdvReac Type Severity Reaction Status Date / Time celecoxib [From Celebrex] Allergy Hives Verified 08/13/20 13:08 diphenhydramine Allergy Hives Verified 08/13/20 13:08 [From Aleve PM] gabapentin [From Neurontin] Allergy Other Verified 08/13/20 13:08 hyaluronic acid Allergy Hives Verified 08/13/20 13:08 [From Euflexxa] lidocaine Allergy Rash Verified 08/13/20 13:08 naproxen [From Aleve PM] Allergy Hives Verified 08/13/20 13:08 pregabalin [From Lyrica] Allergy Hives Verified 08/13/20 13:08 quetiapine [From Seroquel] Allergy Other Verified 08/13/20 13:08 ropinirole [From Requip] Allergy Other Verified 08/13/20 13:08 benzoyl peroxide AdvReac Rash Verified 08/13/20 13:08 citalopram AdvReac Other Verified 08/13/20 13:08 etanercept [From Enbrel] AdvReac Other Verified 08/13/20 13:08 hydrochlorothiazide AdvReac Other Verified 08/13/20 13:08 NSAIDS (Non-Steroidal AdvReac Rash Verified 08/13/20 13:08 Anti-Inflamma prednisone AdvReac Other Verified 08/13/20 13:08 rotigotine [From Neupro] AdvReac Other Verified 02/07/21 05:25 ANTIDEPRESENTS AdvReac Other Uncoded 08/13/20 13:08 Family History Mother Heart disease Hypertension Diabetes Sister Heart disease Father Hypertension Surgical History h/o breast cancer History of bilateral knee replacement History of elbow replacement History of lumpectomy Social History Smoking Status: Former smoker quit date: 04/27/17 Tobacco: How many years used: 44 alcohol intake: current alcohol intake frequency: holidays/special occasions only Alcohol type: beer ROS ROS ED Constitutional Constitutional ED: Denies chills or weight loss Eyes Eyes: Denies change in vision or diplopia ENT ENT ED: Denies ear pain, rhinorrhea or sore throat Cardiovascular Cardiovascular: Denies chest pain, orthopnea, palpitations or racing heartbeat Respiratory/Chest Respiratory/Chest: Denies cough, dyspnea or orthopnea Gastrointestinal Gastrointestinal: Denies abdominal pain, diarrhea, nausea or vomiting Genitourinary Genitourinary ED: Denies dysuria, hematuria or urinary frequency Musculoskeletal Musculoskeletal: Denies arthralgias or myalgias Integumentary Denies abscess or rash Neurologic Neurologic: Reports headache(s); Denies weakness Psychiatric Psychiatric: Denies anxiety, depression, suicidal ideation or suicidal thoughts Endocrine Endocrinology: Denies polydipsia, polyphagia or polyuria Allergic/Immunologic Allergic/Immunologic ED: Denies mouth swelling, tongue swelling or urticaria EXAM Physical Exam Const Vital Signs: 02/07/21 05:21 02/07/21 05:30 02/07/21 05:44 Temperature 98.2 F Temperature Source Oral Pulse Rate 95 Respiratory Rate 18 Blood Pressure 177/96 H 142/80 H 150/74 H Blood Pressure Mean 123 100 99 Positive well nourished and well developed General Appearance ED: well developed HEENT Reports normocephalic, head/scalp atraumatic and moist mucous membranes Eyes PERRL and EOMs intact bilaterally Neck no lymphadenopathy, supple and no JVD Resp normal respiratory effort and clear to auscultation bilaterally Cardio regular rate, regular rhythm and no murmurs GI normal to inspection, nondistended, normoactive bowel sounds and non-tender Palpation: soft Back/Spine no CVA tenderness and normal ROM Extremity normal to inspection General Extremety ED: Negative for edema General Extremity: Negative for edema Neuro oriented x3 and CN's II-XII intact bilaterally Sensorium / Orientation: alert Motor Exam: strength 5/5 throughout Psych mental status grossly normal Mood & Affect: Negative for depressed or tearful Skin no rashes or lesions noted and no wounds MDM MDM MDM Narrative Medical decision making narrative: My interpretation of the chest x-ray is no acute process. Patient has had no events on the monitor. White count 5.4 with a hemoglobin of 13.8. Creatinine 0.67 troponin high-sensitivity 11. Blood glucose 114. Without given her any medications her blood pressure is down to 130/75. I encouraged the patient to get a good cough and record the readings several times per day and take them to her doctor to see if they should alter her med ications. At this point I do not see an emergent reason to change her medications. Lab Data Attestation: I reviewed the patient's lab results. Labs: Laboratory Results - last 24 hr 02/07/21 02/07/21 05:42 05:42 WBC 5.4 RBC 4.54 Hgb 13.8 Hct 40.8 MCV 89.9 MCH 30.4 MCHC 33.8 RDW Std Deviation 44.0 H RDW Coeff of Geeta 13.3 Plt Count 207 MPV 9.5 Immature Gran % (Auto) 0.600 Neut % (Auto) 53.1 Lymph % (Auto) 33.2 Garza % (Auto) 10.0 Eos % (Auto) 2.4 Baso % (Auto) 0.7 Absolute Neuts (auto) 2.9 Absolute Lymphs (auto) 1.79 Nucleated RBC % 0 Sodium 142 Potassium 3.7 Chloride 109 H Carbon Dioxide 23.0 Anion Gap 10 BUN 14 Creatinine 0.67 Estim Creat Clear Calc 41.19 Est GFR (MDRD) Af Amer 113 Est GFR (MDRD) Non-Af 93 BUN/Creatinine Ratio 20.9 H Glucose 114 H Calcium 8.8 Troponin I High Sens 11 EKG Initial EKG: Attestation: I personally reviewed and interpreted this EKG as follows: Comments: EKG demonstrates a normal sinus rhythm with a ventricular rate of 83 bpm. Discharge Plan Triage Chief Complaint: Hypertension ED Provider: Hema Lynn Dx/Rx/DC Orders Clinical Impression: Hypertensive urgency Instructions: ED High Blood Pressure Hypertension Prescriptions: No Action aspirin-dipyridamole 25-200 mg capsule, ER multiphase 12 hr 1 cap PO QHS RF: 0 atenolol 50 MG tablet 50 mg PO DAILY RF: 0 furosemide 20 MG tablet 20 mg PO DAILY RF: 0 lisinopril 10 MG tablet 20 mg PO DAILY RF: 0 cholecalciferol (vitamin D3) 1,000 UNIT tablet 3,000 unit PO DAILY RF: 0 venlafaxine 37.5 MG tablet 37.5 mg PO DAILY RF: 0 tamoxifen 20 MG tablet 20 mg PO QHS RF: 0 tizanidine 2 MG tablet 2 mg PO QHS RF: 0 acetaminophen 650 MG tablet extended release 650 mg PO Q8H PRN PRN (Reason: pain or fever) Qty: 30 RF: 0 ondansetron 4 MG tablet 4 mg PO Q8H PRN PRN (Reason: Nausea) Qty: 14 RF: 0 acetaminophen 650 MG tablet extended release 650 mg PO Q8H PRN PRN (Reason: pain or fever) Qty: 30 RF: 0 ibuprofen 600 MG tablet 600 mg PO Q8H PRN (Reason: pain or fever) Qty: 30 RF: 0 acetaminophen 500 MG tablet 500 mg PO Q8H PRN PRN (Reason: pain or fever) Qty: 30 RF: 0 Primary Care Provider: Cheyenne Diggs Referrals: Cheyenne Diggs DO [Primary Care Provider] - 1 Week Activity Restrictions/Additional Instructions: Please schedule appointment to see your doctor in 1 week. While waiting for your appointment please obtain a good blood pressure cuff and record your blood pressure readings sitting in the same place using the same arm several times a day and record them. Disposition Disposition: Home, Self Care
--- NOTE | 2021-02-07 06:36 | ED.RN ---
Patient requested something for anxiety. The physician asked if she was driving before ordering. The patient verified she was driving and would just deal with it. I told her I would request a x for home to help her. The physician agreed.
[2021-02-07 06:39] LABS: Bacteria 0 SEEN /hpf (None Seen); Color, Urine Yellow (Yellow); Glucose, Dipstick Normal (Normal); Ketone-Dipstick Negative (Negative); Leukocyte Esterase-Dipstick Negative /ul (Negative); Mucous, Urine 0 SEEN /hpf (<or=2+); Nitrite-Dipstick Negative (Negative); Occult Blood-Urine 50 /ul (Negative); Protein-Dipstick Negative (Negative); Red Blood Cells-Urine 0 SEEN /hpf (0-5); Urine Bilirubin Dipstick Negative (Negative); Urine Clarity Clear (Clear); Urine Urobilinogen Normal (Normal); White Blood Cells 0 SEEN /hpf (0-5)
[2021-02-07 06:45] LABS: Squamous Epithelial Cells - UA 0-5 SEEN /hpf (5-10)
[2021-02-07 07:08] VITALS: BP 141/79
== END 2021-02-07 07:16 | disposition home or self-care (01) ==
PROVIDERS: Emergency Provider Emergency Medicine; PCP Internal Medicine
DX: I16.0 Hypertensive urgency (principal); F32.A Depression, unspecified; M06.9 Rheumatoid arthritis, unspecified; Z79.899 Other long term (current) drug therapy; Z87.891 Personal history of nicotine dependence
CPT/HCPCS: 71045; 80048; 81001; 84484; 85025; 93005; 99284; A4216

== ENCOUNTER 2021-06-25 20:55 | Emergency (ER) | payer MEDICARE, MEDICAID, SELFPAY ==
[2021-06-25 20:55] VITALS: BP 142/114; PULSE 103; RESP 16; TEMP 36.2; O2SAT 97; BMI 41.5
--- NOTE | 2021-06-25 21:05 | CT_ITS ---
STUDY: CT ABDOMEN AND PELVIS WITH CONTRAST REASON FOR EXAM: Female, 66 years old. Abdominal pain. Lower abdominal pain beginning this morning. History of prolapsed uterus and urinary retention. History of hypertension and breast cancer RADIATION DOSAGE (If Supplied By Facility): CTDIvol = ( 17.04 ) mGy, DLP = ( 1203.61 ) mGycm TECHNIQUE: Transaxial images were obtained from the dome of the diaphragm to the symphysis pubis with oral contrast. IV 100mL Isovue-370 was administered. Sagittal and coronal images were reconstructed. Individualized dose optimization techniques were used for this CT. COMPARISON: 11/01/2019. FINDINGS: The visualized lung bases are unremarkable. The visualized portions of the heart are within normal limits. The liver is enlarged and demonstrates geographic fatty infiltration. There is no focal mass. Normal gallbladder and extrahepatic biliary system. Normal spleen. Normal pancreas. Normal bilateral adrenal glands. Normal right kidney. Normal left kidney. Normal bilateral ureters. Small hiatal hernia. Normal small intestine. Descending and sigmoid diverticulosis. There is evidence of stranding about the junction of the descending and sigmoid colon with thickening of the lateral conal and anterior pararenal fascial planes consistent with diverticulitis. There is no perforation or abscess. Proximal colon is unremarkable. The appendix is visualized and appears normal. There is diffuse atherosclerotic calcification of the abdominal aorta, without a demonstrated aneurysm. Normal inferior vena cava. Normal retroperitoneum. Normal urinary bladder. Normal uterus and adnexa. No pelvic lymphadenopathy. No free air or free fluid is seen within the peritoneal cavity Normal abdominal wall. There are diffuse degenerative changes of the visualized lumbar spine. CT/Abdomen/Pelvis WITH Contrast IMPRESSION: 1. Left colonic diverticulitis without perforation or abscess. The sigmoid diverticulitis seen on the previous study has resolved. 2. Enlarged fatty infiltrated liver unchanged from the prior study. 3. Small hiatal hernia. 4. No other major interval change. Electronically Signed: Jeison Resendiz DO at 23:04 EST Reading Location ID and State: [facility] / [place] Tel [phone], Service support ,
--- NOTE | 2021-06-25 21:06 | EX.ED.DYSGE1 ---
HPI History of Present Illness Chief Complaint: Abd Pain Informant: patient Onset/Context/Timing Onset: Today Context: Gradual Onset Current Severity: Moderate Maximum Severity: Moderate Narrative Narrative: Patient presents secondary to lower abdominal pain. Pain started this morning has been progressively worsening throughout the day. She denies urinary symptoms or change in bowel habits. She denies fever or chills. It does feel somewhat similar to prior diverticulitis flares. She also does report increased acid reflux today. [facility] Medical History Depression Diverticulitis Hypertension LUCIA (obstructive sleep apnea) Rheumatoid arthritis Thyroid disorder Home Medications atenolol 50 mg PO DAILY 02/13/13 [History Last Taken 08/11/17] furosemide 20 mg PO DAILY 02/13/13 [History Last Taken 06/02/13] lisinopril 20 mg PO DAILY 02/13/13 [History Last Taken 04/14/16 07:00] cholecalciferol (vitamin D3) 3,000 unit PO DAILY 02/10/15 [History Last Taken Unknown] tamoxifen 20 mg PO QHS 08/04/17 [History Last Taken Unknown] venlafaxine 37.5 mg PO DAILY 08/04/17 [History Last Taken Unknown] acetaminophen 500 mg PO Q8H PRN PRN #30 tab 03/17/20 [Rx Last Taken Unknown] acetaminophen 650 mg PO Q8H PRN PRN #30 tablet.er 03/17/20 [Rx Last Taken Unknown] acetaminophen 650 mg PO Q8H PRN PRN #30 tablet.er 03/17/20 [Rx Last Taken Unknown] ibuprofen 600 mg PO Q8H PRN #30 tab 03/17/20 [Rx Last Taken Unknown] ondansetron 4 mg PO Q8H PRN PRN #14 tab 03/17/20 [Rx Last Taken Unknown] tizanidine 2 mg PO QHS 03/17/20 [History Last Taken Unknown] aspirin 25 mg-dipyridamole 200 mg capsule,ext.release 12 hr multiphase 1 cap PO QHS 07/16/20 [History Last Taken Unknown] alprazolam [Xanax] 0.5 mg PO TID PRN #10 tab 02/07/21 [Rx Last Taken Unknown] ciprofloxacin HCl [Cipro] 500 mg PO BID #20 tab 06/25/21 [Rx Last Taken Unknown] hydrocodone-acetaminophen 1 tab PO Q6H PRN 3 Days #10 tab 06/25/21 [Rx Last Taken Unknown] metronidazole 500 mg PO Q8H 10 Days #30 tab 06/25/21 [Rx Last Taken Unknown] Allergy/AdvReac Type Severity Reaction Status Date / Time celecoxib [From Celebrex] Allergy Hives Verified 06/25/21 20:57 diphenhydramine Allergy Hives Verified 06/25/21 20:57 [From Aleve PM] gabapentin [From Neurontin] Allergy Other Verified 06/25/21 20:57 hyaluronic acid Allergy Hives Verified 06/25/21 20:57 [From Euflexxa] lidocaine Allergy Rash Verified 06/25/21 20:57 naproxen [From Aleve PM] Allergy Hives Verified 06/25/21 20:57 pregabalin [From Lyrica] Allergy Hives Verified 06/25/21 20:57 quetiapine [From Seroquel] Allergy Other Verified 06/25/21 20:57 ropinirole [From Requip] Allergy Other Verified 06/25/21 20:57 benzoyl peroxide AdvReac Rash Verified 06/25/21 20:57 citalopram AdvReac Other Verified 06/25/21 20:57 etanercept [From Enbrel] AdvReac Other Verified 06/25/21 20:57 hydrochlorothiazide AdvReac Other Verified 06/25/21 20:57 NSAIDS (Non-Steroidal AdvReac Rash Verified 06/25/21 20:57 Anti-Inflamma prednisone AdvReac Other Verified 06/25/21 20:57 rotigotine [From Neupro] AdvReac Other Verified 06/25/21 20:57 ANTIDEPRESENTS AdvReac Other Uncoded 06/25/21 20:57 Family History Mother Heart disease Hypertension Diabetes Sister Heart disease Father Hypertension Surgical History h/o breast cancer History of bilateral knee replacement History of elbow replacement History of lumpectomy Social History Smoking Status: Former smoker quit date: 04/27/17 Tobacco: How many years used: 44 alcohol intake: current alcohol intake frequency: holidays/special occasions only Alcohol type: beer ROS ROS ED Constitutional Constitutional ED: Denies chills or fever(s) Eyes Eyes: Denies blurry vision ENT ENT ED: Denies ear pain or rhinorrhea Cardiovascular Cardiovascular: Denies chest pain or palpitations Respiratory/Chest Respiratory/Chest: Denies cough or dyspnea Gastrointestinal Gastrointestinal: Reports abdominal pain; Denies constipation, diarrhea or vomiting Genitourinary Genitourinary ED: Denies dysuria or hematuria Musculoskeletal Musculoskeletal: Denies back pain or neck pain Integumentary Denies rash Neurologic Neurologic: Denies headache(s) Endocrine Endocrinology: Denies polydipsia or polyuria Allergic/Immunologic Allergic/Immunologic ED: Denies urticaria EXAM Physical Exam Const Vital Signs: 06/25/21 20:55 06/25/21 21:07 06/25/21 21:35 Temperature 97.2 F L Temperature Source Temporal Pulse Rate 103 H 94 88 Respiratory Rate 16 25 H 19 H Blood Pressure 142/114 H 175/96 H 186/94 H Blood Pressure Mean 123 122 124 Pulse Ox 97 95 95 Oxygen Delivery Method Room Air Room Air Room Air 06/25/21 23:01 Temperature Temperature Source Pulse Rate 94 Respiratory Rate 20 H Blood Pressure 171/101 H Blood Pressure Mean 124 Pulse Ox 96 Oxygen Delivery Method Room Air Positive well nourished and well developed General Appearance ED: well developed HEENT Reports moist mucous membranes Eyes PERRL Neck supple Chest Wall inspection of chest normal and palpation of chest normal Resp normal respiratory effort and clear to auscultation bilaterally Cardio regular rate and regular rhythm GI Auscultation: hypoactive bowel sounds Palpation: soft and tender LLQ; Negative for guarding or rebound tenderness present Extremity normal to inspection Neuro oriented x3 Sensorium / Orientation: alert Psych mental status grossly normal Skin no rashes or lesions noted MDM MDM MDM Narrative Medical decision making narrative: Patient was given morphine and Zofran for pain. Due to elevated blood pressure she was given a dose of labetalol. Lab work, urinalysis, CT abdomen and pelvis with contrast obtained. Lab Data Attestation: I reviewed the patient's lab results. Labs: Laboratory Results - last 24 hr 06/25/21 06/25/21 06/25/21 21:12 21:12 21:45 WBC 10.7 RBC 5.01 Hgb 15.4 H Hct 44.6 MCV 89.0 MCH 30.7 MCHC 34.5 RDW Std Deviation 43.8 RDW Coeff of Geeta 13.3 Plt Count 238 MPV 9.1 Immature Gran % (Auto) 0.300 Neut % (Auto) 70.4 H Lymph % (Auto) 18.4 L [place] % (Auto) 9.0 Eos % (Auto) 1.5 Baso % (Auto) 0.4 Absolute Neuts (auto) 7.5 Absolute Lymphs (auto) 1.96 Nucleated RBC % 0 Sodium 139 Potassium 3.6 Chloride 108 H Carbon Dioxide 23.0 Anion Gap 8 BUN 16 Creatinine 0.75 Estim Creat Clear Calc 41.19 Est GFR (MDRD) Af Amer 98 Est GFR (MDRD) Non-Af 81 BUN/Creatinine Ratio 21.2 H Glucose 112 H Calcium 9.3 Total Bilirubin 0.60 Direct Bilirubin 0.17 AST 25 ALT 34 Alkaline Phosphatase 57 Total Protein 7.1 Albumin 3.5 Globulin 3.6 Lipase 70 L Urine Color Yellow Urine Clarity Sl Cldy Urine pH 5.0 Ur Specific [place] 1.020 Urine Protein Negative Urine Glucose (UA) Normal Urine Ketones Negative Urine Occult Blood 150 H Urine Nitrite Negative Urine Bilirubin Negative Urine Urobilinogen Normal Ur Leukocyte Esterase Negative Urine RBC 5-10 SEEN Urine WBC 0 SEEN Ur Squamous Epith Cells 0-5 SEEN Amorphous Sediment 1+ URATE Urine Bacteria 0 SEEN Urine Mucus 0 SEEN Radiography Diagnostic Testing: Clinical Impression(s) from Imaging Studies Abdomen/Pelvis CT 06/25/21 21:05 IMPRESSION: 1. Left colonic diverticulitis without perforation or abscess. The sigmoid diverticulitis seen on the previous study has resolved. 2. Enlarged fatty infiltrated liver unchanged from the prior study. 3. Small hiatal hernia. 4. No other major interval change. Electronically Signed: Jeison Resendiz DO at 23:04 EST Reading Location ID and State: [address] [place] [address] Tel [phone], Service support , Treatment and Re-Evaluation Comments:: Repeat evaluation patient resting comfortably. Test results discussed with her. She will be treated with a course of Cipro and Flagyl, first dose is given here. She will be written for [place] to help control pain which she has done well with in the past. Return instructions provided. Discharge Plan Triage Chief Complaint: Abd Pain ED Provider: Madalyn Jones Dx/Rx/DC Orders Clinical Impression: Diverticulitis Instructions: ED Diverticulitis Prescriptions: New ciprofloxacin HCl [Cipro] 500 mg tablet 500 mg PO BID Qty: 20 RF: 0 metronidazole 500 mg tablet 500 mg PO Q8H 10 Days Qty: 30 RF: 0 hydrocodone-acetaminophen 5-325 mg tablet 1 tab PO Q6H PRN (Reason: pain) 3 Days Qty: 10 RF: 0 No Action aspirin-dipyridamole 25-200 mg capsule, ER multiphase 12 hr 1 cap PO QHS RF: 0 atenolol 50 MG tablet 50 mg PO DAILY RF: 0 furosemide 20 MG tablet 20 mg PO DAILY RF: 0 lisinopril 10 MG tablet 20 mg PO DAILY RF: 0 cholecalciferol (vitamin D3) 1,000 UNIT tablet 3,000 unit PO DAILY RF: 0 venlafaxine 37.5 MG tablet 37.5 mg PO DAILY RF: 0 tamoxifen 20 MG tablet 20 mg PO QHS RF: 0 tizanidine 2 MG tablet 2 mg PO QHS RF: 0 acetaminophen 650 MG tablet extended release 650 mg PO Q8H PRN PRN (Reason: pain or fever) Qty: 30 RF: 0 ondansetron 4 MG tablet 4 mg PO Q8H PRN PRN (Reason: Nausea) Qty: 14 RF: 0 acetaminophen 650 MG tablet extended release 650 mg PO Q8H PRN PRN (Reason: pain or fever) Qty: 30 RF: 0 ibuprofen 600 MG tablet 600 mg PO Q8H PRN (Reason: pain or fever) Qty: 30 RF: 0 acetaminophen 500 MG tablet 500 mg PO Q8H PRN PRN (Reason: pain or fever) Qty: 30 RF: 0 alprazolam [Xanax] 0.5 mg tablet 0.5 mg PO TID PRN (Reason: anxiety) Qty: 10 RF: 0 Primary Care Provider: Cheyenne Diggs Referrals: Cheyenne Diggs DO [Primary Care Provider] - 1-2 Weeks Disposition Disposition: Home, Self Care
[2021-06-25 21:07] VITALS: BP 175/96; PULSE 94; RESP 25; O2SAT 95
[2021-06-25] MEDS: 0.9% Normal Saline 1,000 ML 150 ML IV (21:16)
[2021-06-25 21:18] LABS: Absolute Lymphocyte Count 1.96 X10^3/uL (0.83-4.51); Absolute Neutrophil Count 7.5 X10^3/uL (2.0-7.7); Basophil# 0.04 X10^3/uL; Basophil% 0.4 % (0-1); Eosinophil# 0.16 X10^3/uL; Eosinophils% 1.5 % (0-5); Hematocrit 44.6 % (37-47); Hemoglobin 15.4 g/dL (12.0-15.0); Lymphocyte # 1.96 X10^3/ul (0.83-4.51); Lymphocyte % 18.4 % (19-41); Mean Corp Hgb Conc 34.5 g/dL (32-36); Mean Corpuscular Hgb 30.7 pg (27.0-32.0); Mean Platelet Vol. 9.1 fl (6.2-12.0); Monocyte# 0.96 X10^3/uL; NRBC Flagged by Analyzer 0 % (0-5); Neutrophil % 70.4 % (47-70); Platelet Count 238 K/mm3 (150-450); RBC Distribution Width CV 13.3 % (11.6-14.6); RBC Distribution Width SD 43.8 fl (35.1-43.9); Red Blood Count 5.01 M/mm3 (4.2-5.4); White Blood Count 10.7 K/mm3 (4.4-11.0)
[2021-06-25 21:33] LABS: AST(SGOT) 25 U/L (15-37); Alanine Aminotransfer ALT/SGPT 34 U/L (13-56); Albumin, Serum 3.5 g/dL (3.2-5.0); Alkaline Phosphatase 57 U/L (45-117); Anion Gap 8 (5-15); BUN 16 mg/dL (7-18); BUN/Creat Ratio 21.2 RATIO (10-20); Bilirubin, Direct 0.17 mg/dL (0.00-0.30); Calcium,Total 9.3 mg/dL (8.5-10.1); Chloride 108 mmol/L (98-107); Creatinine, Serum 0.75 mg/dL (0.55-1.02); EST Glomerular Filtration Rate 81 mL/min (>60); Est Glom Filt Rate - Afr Amer 98 mL/min (>60); Estimated Creatinine Clearance 41.19 ml/min; Globulin 3.6 g/dL (2.2-4.2); Glucose 112 mg/dL (74-106); Lipase 70 U/L (73-393); Potassium 3.6 mmol/L (3.5-5.1); Protein, Total 7.1 g/dL (6.4-8.2); Sodium Level 139 mmol/L (136-145)
[2021-06-25 21:35] VITALS: BP 186/94; PULSE 88; RESP 19; O2SAT 95
[2021-06-25 21:49] LABS: Bacteria 0 SEEN /hpf (None Seen); Mucous, Urine 0 SEEN /hpf (<or=2+); White Blood Cells 0 SEEN /hpf (0-5)
[2021-06-25] MEDS: Morphine 4 MG/ML Syringe IV (22:03)
[2021-06-25] MEDS: Ondansetron 4 MG/2 ML Vial IV (22:03)
[2021-06-25 22:10] LABS: Color, Urine Yellow (Yellow); Glucose, Dipstick Normal (Normal); Ketone-Dipstick Negative (Negative); Leukocyte Esterase-Dipstick Negative /ul (Negative); Nitrite-Dipstick Negative (Negative); Occult Blood-Urine 150 /ul (Negative); Protein-Dipstick Negative (Negative); Urine Bilirubin Dipstick Negative (Negative); Urine Urobilinogen Normal (Normal)
[2021-06-25 22:13] LABS: Urine Clarity Sl Cldy (Clear)
[2021-06-25 22:16] LABS: Amorphous Sediment 1+ URATE; Red Blood Cells-Urine 5-10 SEEN /hpf (0-5); Squamous Epithelial Cells - UA 0-5 SEEN /hpf (5-10)
[2021-06-25] MEDS: Labetalol (Prefilled) 20 MG/4 ML 10 MG IV (22:59)
[2021-06-25 23:01] VITALS: BP 171/101; PULSE 94; RESP 20; O2SAT 96
[2021-06-25] MEDS: Ciprofloxacin 500 MG Tablet PO (23:34)
[2021-06-25] MEDS: metroNIDAZOLE 500 MG Tablet PO (23:34)
[2021-06-25 23:35] VITALS: PULSE 105; RESP 16; O2SAT 96
== END 2021-06-25 23:36 | disposition home or self-care (01) ==
PROVIDERS: Emergency Provider Emergency Medicine; PCP Internal Medicine; Visit Provider Emergency Medicine
DX: K57.32 Diverticulitis of large intestine without perforation or abscess without bleeding (principal); I10 Essential (primary) hypertension; G47.33 Obstructive sleep apnea (adult) (pediatric); E07.9 Disorder of thyroid, unspecified; Z79.899 Other long term (current) drug therapy; Z87.891 Personal history of nicotine dependence; Z79.82 Long term (current) use of aspirin; F32.A Depression, unspecified
CPT/HCPCS: 74177; 80048; 80076; 81001; 83690; 85025; 96361; 96374; 96375; 99284; J7030; Q9967; A4216; J2405

== ENCOUNTER 2022-03-07 09:16 | Emergency (ER) | payer MEDICARE, MEDICAID, SELFPAY ==
[2022-03-07 09:17] VITALS: BP 162/83; PULSE 71; RESP 23; TEMP 37.2; O2SAT 94; BMI 46.1
--- NOTE | 2022-03-07 09:45 | EKG12_ITS ---
Test Reason : HIGH BP Blood Pressure : / mmHG Vent. Rate : 068 BPM Atrial Rate : 068 BPM P-R Int : 178 ms QRS Dur : 084 ms QT Int : 424 ms P-R-T Axes : 029 035 018 degrees QTc Int : 450 ms Normal sinus rhythm Normal ECG Confirmed by PENNY HEREDIA, TATIANA ([id number]), supervising film or videotape editor MARYCHUY TATE ([id number]) on 03/11/2022 11:32:43 AM Referred By: Confirmed By:TATIANA FRANCIS MD
[2022-03-07 10:07] VITALS: BP 149/69; PULSE 69; RESP 18; O2SAT 93
[2022-03-07 10:08] LABS: Absolute Lymphocyte Count 0.96 X10^3/uL (0.83-4.51); Absolute Neutrophil Count 7.5 X10^3/uL (2.0-7.7); Basophil# 0.05 X10^3/uL; Basophil% 0.5 % (0-1); Eosinophil# 0.11 X10^3/uL; Eosinophils% 1.2 % (0-5); Hematocrit 44.8 % (37-47); Hemoglobin 15.7 g/dL (12.0-15.0); Lymphocyte # 0.96 X10^3/ul (0.83-4.51); Lymphocyte % 10.1 % (19-41); Mean Corpuscular Hgb 31.1 pg (27.0-32.0); Mean Corpuscular Volume 88.7 fL (81-99); Mean Platelet Vol. 9.7 fl (6.2-12.0); Monocyte# 0.83 X10^3/uL; Monocyte% 8.7 % (0-10); NRBC Flagged by Analyzer 0 % (0-5); Neutrophil # 7.51 X10^3/uL (2.7-7.7); Neutrophil % 79.1 % (47-70); Platelet Count 228 K/mm3 (150-450); RBC Distribution Width CV 13.4 % (11.6-14.6); RBC Distribution Width SD 43.8 fl (35.1-43.9); Red Blood Count 5.05 M/mm3 (4.2-5.4); White Blood Count 9.5 K/mm3 (4.4-11.0)
--- NOTE | 2022-03-07 10:14 | RAD_ITS ---
STUDY: X-RAY CHEST REASON FOR EXAM: Female, 67 years old. Hypertension TECHNIQUE: PA and lateral views of the chest. COMPARISON: Comparison is made with prior examination dated 02/07/2021. FINDINGS: EKG electrodes are seen. Stable mild increased right infrahilar markings suggestive of scarring. There is no demonstrated pleural abnormality. There is borderline cardiomegaly. Normal mediastinum and gerald. Normal visualized pulmonary arteries. There is atherosclerotic calcification of the aortic arch with tortuosity. There are diffuse degenerative changes of the visualized thoracic spine. Normal visualized ribs, clavicles, and shoulders. There is no demonstrated abnormality of the visualized soft tissue structures of the upper abdomen. RAD/Chest PA and Lateral IMPRESSION: Stable mild increased markings in the right infrahilar region suggestive of scarring. Electronically Signed: Philip Drummond MD at 10:53 EST ,
[2022-03-07 10:30] LABS: Anion Gap 8 (5-15); BUN 11 mg/dL (7-18); BUN/Creat Ratio 15.9 RATIO (10-20); Calcium,Total 9.6 mg/dL (8.5-10.1); Chloride 107 mmol/L (98-107); Creatinine, Serum 0.69 mg/dL (0.55-1.02); EST Glomerular Filtration Rate 90 mL/min (>60); Est Glom Filt Rate - Afr Amer 108 mL/min (>60); Estimated Creatinine Clearance 40.63 ml/min; Glucose 158 mg/dL (74-106); Potassium 3.6 mmol/L (3.5-5.1); Sodium Level 140 mmol/L (136-145); Troponin-I HS 10 pg/mL (3.0-54.0)
[2022-03-07] MEDS: FLU VACC QS2022-23(65YR UP)/PF 240 MCG/0.7 ML SYRINGE IM (10:47)
--- NOTE | 2022-03-07 11:09 | CM.ED ---
Addendum entered by Colette De Leon 03/07/22 18:25: [facility] was unable to provide hospice information in patient's discharge packet prior to her discharge. Colette GODOY Original Note: [facility] Note SW was advised by RN that patient appears anxious and reports a recent of her sister, 3 weeks ago. SW met with patient and patient said I don't need a manager social media. Patient voiced 2x that she does not want a manager social media. [facility] update RN. SW included hospice bereavement services information with patient's discharge paperwork. Colette GODOY
[2022-03-07 11:52] VITALS: BP 135/86; PULSE 67; RESP 20; O2SAT 93
[2022-03-07] MEDS: hydrOXYzine PAM 25 MG Capsule PO (11:52)
--- NOTE | 2022-03-07 11:56 | EX.ED.DYSGE1 ---
HPI History of Present Illness Chief Complaint: Hypertension Informant: patient Onset/Context/Timing Onset: Today Context: Sudden Onset Timing: Waxes and wanes Quality: Heat Location: Chest Worsened by: Nothing Relieved by: Relaxing Narrative Narrative: Patient presents with elevated blood pressures that began today. Patient states she went to her primary care physician's office today to get a flu shot. Patient states that when she got there her blood pressure was elevated. Patient states that it feels like there is a heat in her chest. Patient states it has been waxing and waning. Patient states she has a history of anxiety and states it may be related to that as well. Patient states that her symptoms are better whenever she is able to relax. Patient states nothing makes them worse. Patient denies any nausea or vomiting. PFSH [facility] Medical History Depression Diverticulitis Hypertension LUCIA (obstructive sleep apnea) Rheumatoid arthritis Thyroid disorder Home Medications atenolol 50 mg tablet 50 mg PO DAILY BP 02/13/13 [History Last Taken 08/11/17] furosemide 20 mg tablet 20 mg PO DAILY WATER PILL 02/13/13 [History Last Taken 06/02/13] lisinopril 10 mg tablet 20 mg PO BID BP 02/13/13 [History Last Taken 04/14/16 07:00] cholecalciferol (vitamin D3) 25 mcg (1,000 unit) tablet 3,000 unit PO DAILY SUPPLEMENT 02/10/15 [History Last Taken Unknown] venlafaxine 37.5 mg tablet 37.5 mg PO DAILY ANTIDEPRESSANT 08/04/17 [History Last Taken Unknown] acetaminophen 650 mg tablet,extended release 650 mg PO Q8H PRN PRN pain or fever ##30 03/17/20 [Rx Last Taken Unknown] hydrocodone-acetaminophen 5-325mg 5mg-325mg 1 tab PO Q6H PRN pain 3 days #10 tabs 06/25/21 [Rx Last Taken Unknown] amlodipine 5 mg tablet 5 mg PO DAILY 03/07/22 [History Last Taken Unknown] aspirin 81 mg tablet 81 mg PO DAILY 03/07/22 [History Last Taken Unknown] fluticasone propionate 50 mcg/actuation nasal spray,suspension (Flonase Allergy Relief) 2 spray intranasal DAILY 03/07/22 [History Last Taken Unknown] loratadine 10 mg tablet 10 mg PO DAILY PRN allergies 03/07/22 [History Last Taken Unknown] melatonin 3 mg tablet 3 mg PO QHS 03/07/22 [History Last Taken Unknown] rosuvastatin 20 mg tablet 20 mg PO DAILY 03/07/22 [History Last Taken Unknown] tirzepatide 2.5 mg/0.5 mL subcutaneous pen injector (Mounjaro) 2.5 mg subcut QWEEK 03/07/22 [History Last Taken Unknown] trazodone 100 mg tablet 100 mg PO QHS 03/07/22 [History Last Taken Unknown] Allergy/AdvReac Type Severity Reaction Status Date / Time celecoxib [From Celebrex] Allergy Hives Verified 03/07/22 09:21 diphenhydramine Allergy Hives Verified 03/07/22 09:21 [From Aleve PM] gabapentin [From Neurontin] Allergy Other Verified 03/07/22 09:21 hyaluronic acid Allergy Hives Verified 03/07/22 09:21 [From Euflexxa] lidocaine Allergy Rash Verified 03/07/22 09:21 naproxen [From Aleve PM] Allergy Hives Verified 03/07/22 09:21 pregabalin [From Lyrica] Allergy Hives Verified 03/07/22 09:21 quetiapine [From Seroquel] Allergy Other Verified 03/07/22 09:21 ropinirole [From Requip] Allergy Other Verified 03/07/22 09:21 benzoyl peroxide AdvReac Rash Verified 03/07/22 09:21 citalopram AdvReac Other Verified 03/07/22 09:21 etanercept [From Enbrel] AdvReac Other Verified 03/07/22 09:21 hydrochlorothiazide AdvReac Other Verified 03/07/22 09:21 NSAIDS (Non-Steroidal AdvReac Rash Verified 03/07/22 09:21 Anti-Inflamma prednisone AdvReac Other Verified 03/07/22 09:21 rotigotine [From Neupro] AdvReac Other Verified 03/07/22 09:21 ANTIDEPRESENTS AdvReac Other Uncoded 03/07/22 09:21 Family History Mother Heart disease Hypertension Diabetes Sister Heart disease Father Hypertension Surgical History h/o breast cancer History of bilateral knee replacement History of elbow replacement History of lumpectomy Social History Smoking Status: Light Smoker (<10/day) Tobacco: How many years used: 44 alcohol intake: current alcohol intake frequency: holidays/special occasions only Alcohol type: beer ROS ROS ED Constitutional Constitutional ED: Denies chills or fever(s) Eyes Eyes: Denies blurry vision or change in vision ENT ENT ED: Denies rhinorrhea or sore throat Cardiovascular Cardiovascular: Denies chest pain or palpitations Respiratory/Chest Respiratory/Chest: Reports dyspnea; Denies cough Gastrointestinal Gastrointestinal: Denies nausea or vomiting Genitourinary Genitourinary ED: Denies dysuria or hematuria Musculoskeletal Musculoskeletal: Denies back pain or neck pain Integumentary Reports rash; Denies abscess Neurologic Neurologic: Denies headache(s) or weakness Psychiatric Psychiatric: Reports anxiety; Denies depression, suicidal ideation or suicidal thoughts Allergic/Immunologic Allergic/Immunologic ED: Denies mouth swelling or urticaria EXAM Physical Exam Const Vital Signs: 03/07/22 09:17 03/07/22 09:27 03/07/22 10:07 Temperature 99.0 F Temperature Source Temporal Pulse Rate 71 69 Respiratory Rate 23 H 18 Respiratory Pattern Normal Blood Pressure 162/83 H 149/69 H Blood Pressure Mean 109 95 Pulse Ox 94 93 Oxygen Delivery Method Room Air Room Air 03/07/22 11:52 Temperature Temperature Source Pulse Rate 67 Respiratory Rate 20 H Respiratory Pattern Blood Pressure 135/86 H Blood Pressure Mean 102 Pulse Ox 93 Oxygen Delivery Method Room Air Positive well nourished and well developed General Appearance ED: well developed and NAD HEENT Reports moist mucous membranes Neck supple and no JVD Resp normal respiratory effort and clear to auscultation bilaterally Cardio regular rate, regular rhythm and no murmurs GI normal to inspection, nondistended, normoactive bowel sounds and non-tender Palpation: soft Extremity normal to inspection General Extremety ED: Negative for edema or tenderness General Extremity: Negative for edema Neuro oriented x3, CN's II-XII intact bilaterally and no sensory deficits noted Sensorium / Orientation: alert Motor Exam: strength 5/5 throughout Psych mental status grossly normal Skin no rashes or lesions noted MDM MDM MDM Narrative Medical decision making narrative: EKG was obtained. On my interpretation, it showed a normal sinus rhythm with a rate of 68. CO interval, QRS interval, and QTc intervals were all normal. [place] was normal. There are no acute ST or T wave changes. PA and lateral chest x-ray was obtained. There are 2 views. On my interpretation, lung murray are clear. There is normal cardiac silhouette. Bony thorax is normal. There is no acute process noted. Radiologist also interpreted the x-ray and agrees. CBC was within normal limits. Basic metabolic profile was within normal limits. High-sensitivity troponin was normal. Patient was starting to feel anxious. Patient was given a dose of hydroxyzine here. Patient also requested to have her flu shot given. This was ordered. Patient was advised of her findings. Patient was instructed to follow-up with her primary care physician in 5 to 7 days. Patient understood and was agreeable with the plan. All questions were answered. Lab Data Attestation: I reviewed the patient's lab results. Labs: Laboratory Results - last 24 hr 03/07/22 03/07/22 09:20 09:20 WBC 9.5 RBC 5.05 Hgb 15.7 H Hct 44.8 MCV 88.7 MCH 31.1 MCHC 35.0 RDW Std Deviation 43.8 RDW Coeff of Geeta 13.4 Plt Count 228 MPV 9.7 Immature Gran % (Auto) 0.400 Neut % (Auto) 79.1 H Lymph % (Auto) 10.1 L Perkins % (Auto) 8.7 Eos % (Auto) 1.2 Baso % (Auto) 0.5 Absolute Neuts (auto) 7.5 Absolute Lymphs (auto) 0.96 Nucleated RBC % 0 Sodium 140 Potassium 3.6 Chloride 107 Carbon Dioxide 25.0 Anion Gap 8 BUN 11 Creatinine 0.69 Estim Creat Clear Calc 40.63 Est GFR (MDRD) Af Amer 108 Est GFR (MDRD) Non-Af 90 BUN/Creatinine Ratio 15.9 Glucose 158 H Calcium 9.6 Troponin I High Sens 10 Radiography Chest X-Ray - ED: 2 View, Read by ED Physician, Read by Radiologist and No Acute Disease Diagnostic Testing: Clinical Impression(s) from Imaging Studies Chest X-Ray 03/07/22 10:14 IMPRESSION: Stable mild increased markings in the right infrahilar region suggestive of scarring. Electronically Signed: Philip Drummond MD at 10:53 EST , EKG Initial EKG: Attestation: I personally reviewed and interpreted this EKG as follows: Interpretation: Sinus Rhythm (68) and No Acute Injury Pattern Prior EKG tracings: available for review Prior: Unchanged (02/07/2021) Discharge Plan Triage Chief Complaint: Hypertension ED Provider: Alan Benton Dx/Rx/DC Orders Clinical Impression: Transient elevated blood pressure, Anxiety Instructions: ED Hypertension, To Be Confirmed Prescriptions: No Action atenolol 50 MG tablet 50 mg PO DAILY furosemide 20 MG tablet 20 mg PO DAILY lisinopril 10 MG tablet 20 mg PO BID cholecalciferol (vitamin D3) 1,000 UNIT tablet 3,000 unit PO DAILY venlafaxine 37.5 MG tablet 37.5 mg PO DAILY acetaminophen 650 MG tablet extended release 650 mg PO Q8H PRN PRN (Reason: pain or fever) Qty: 30 0RF hydrocodone-acetaminophen 5-325 mg tablet 1 tab PO Q6H PRN (Reason: pain) 3 Days Qty: 10 0RF aspirin 81 mg Tablet 81 mg PO DAILY melatonin 3 mg Tablet 3 mg PO QHS amlodipine 5 mg Tablet 5 mg PO DAILY trazodone 100 mg Tablet 100 mg PO QHS fluticasone propionate [Flonase Allergy Relief] 50 mcg/actuation [place],Suspension 2 spray INTRANASAL DAILY Rx Instructions: administer into each nostril loratadine 10 mg Tablet 10 mg PO DAILY PRN (Reason: allergies) rosuvastatin 20 mg Tablet 20 mg PO DAILY Mounjaro 2.5 mg/0.5 mL Pen Injector 2.5 mg SUBCUT QWEEK Primary Care Provider: Cheyenne Diggs Referrals: Cheyenne Diggs DO [Primary Care Provider] - 5-7 Days Disposition Disposition: Home, Self Care
[2022-03-07 12:48] VITALS: BP 168/79; PULSE 64; RESP 16; O2SAT 94
== END 2022-03-07 12:49 | disposition home or self-care (01) ==
PROVIDERS: Emergency Provider Emergency Medicine; PCP Internal Medicine; Visit Provider Emergency Medicine
DX: I10 Essential (primary) hypertension (principal); F41.9 Anxiety disorder, unspecified; R06.00 Dyspnea, unspecified; F17.200 Nicotine dependence, unspecified, uncomplicated; Z23 Encounter for immunization
CPT/HCPCS: 71046; 80048; 84484; 85025; 93005; 96372; 99285; 90662; A4216

== ENCOUNTER 2022-09-03 09:20 | Emergency (ER) | payer MEDICARE, MEDICAID, SELFPAY ==
[2022-09-03 09:21] VITALS: BP 205/100; PULSE 94; RESP 16; TEMP 36.3; O2SAT 99; BMI 39.6
--- NOTE | 2022-09-03 09:35 | EX.ED.DYSGE1 ---
HPI History of Present Illness Chief Complaint: Hypertension Informant: patient Onset/Context/Timing Onset: Days Context: Gradual Onset Timing: Intermittent Narrative Narrative: 67-year-old female history of chronic pain, restless leg, prior breast cancer and chronic hypertension for which she is treated with lisinopril, atenolol, Lasix and amlodipine. States she started on sleeping medication. Quviviq, several days ago and has noticed her blood pressures been running high. She denies any headache, chest pain or shortness of breath. She has not been ill. She denies other complaints. Prior similar symptoms: Yes Recent Illness/Hospitalization: No PFSH [facility] Medical History Depression Diverticulitis Hypertension LUCIA (obstructive sleep apnea) Rheumatoid arthritis Thyroid disorder Home Medications atenolol 50 mg tablet 50 mg PO DAILY BP 02/13/13 [History Last Taken 08/11/17] furosemide 20 mg tablet 20 mg PO DAILY WATER PILL 02/13/13 [History Last Taken 06/02/13] lisinopril 10 mg tablet 20 mg PO BID BP 02/13/13 [History Last Taken 04/14/16 07:00] cholecalciferol (vitamin D3) 25 mcg (1,000 unit) tablet 3,000 unit PO DAILY SUPPLEMENT 02/10/15 [History Last Taken Unknown] venlafaxine 37.5 mg tablet 37.5 mg PO DAILY ANTIDEPRESSANT 08/04/17 [History Last Taken Unknown] acetaminophen 650 mg tablet,extended release 650 mg PO Q8H PRN PRN pain or fever ##30 03/17/20 [Rx Last Taken Unknown] hydrocodone-acetaminophen 5-325mg 5mg-325mg 1 tab PO Q6H PRN pain 3 days #10 tabs 06/25/21 [Rx Last Taken Unknown] amlodipine 5 mg tablet 5 mg PO DAILY 03/07/22 [History Last Taken Unknown] aspirin 81 mg tablet 81 mg PO DAILY 03/07/22 [History Last Taken Unknown] fluticasone propionate 50 mcg/actuation nasal spray,suspension (Flonase Allergy Relief) 2 spray intranasal DAILY 03/07/22 [History Last Taken Unknown] loratadine 10 mg tablet 10 mg PO DAILY PRN allergies 03/07/22 [History Last Taken Unknown] melatonin 3 mg tablet 3 mg PO QHS 03/07/22 [History Last Taken Unknown] rosuvastatin 20 mg tablet 20 mg PO DAILY 03/07/22 [History Last Taken Unknown] tirzepatide 2.5 mg/0.5 mL subcutaneous pen injector (Mounjaro) 2.5 mg subcut QWEEK 03/07/22 [History Last Taken Unknown] trazodone 100 mg tablet 100 mg PO QHS 03/07/22 [History Last Taken Unknown] Allergy/AdvReac Type Severity Reaction Status Date / Time celecoxib [From Celebrex] Allergy Hives Verified 09/03/22 09:23 diphenhydramine Allergy Hives Verified 09/03/22 09:23 [From Aleve PM] gabapentin [From Neurontin] Allergy Other Verified 09/03/22 09:23 hyaluronic acid Allergy Hives Verified 09/03/22 09:23 [From Euflexxa] lidocaine Allergy Rash Verified 09/03/22 09:23 naproxen [From Aleve PM] Allergy Hives Verified 09/03/22 09:23 pregabalin [From Lyrica] Allergy Hives Verified 09/03/22 09:23 quetiapine [From Seroquel] Allergy Other Verified 09/03/22 09:23 ropinirole [From Requip] Allergy Other Verified 09/03/22 09:23 benzoyl peroxide AdvReac Rash Verified 09/03/22 09:23 citalopram AdvReac Other Verified 09/03/22 09:23 etanercept [From Enbrel] AdvReac Other Verified 09/03/22 09:23 hydrochlorothiazide AdvReac Other Verified 09/03/22 09:23 NSAIDS (Non-Steroidal AdvReac Rash Verified 09/03/22 09:23 Anti-Inflamma Phenylpiperazine AdvReac NEEDS Verified 09/03/22 09:23 Antidepressant FOLLOW-UP prednisone AdvReac Other Verified 09/03/22 09:23 rotigotine [From Neupro] AdvReac Other Verified 09/03/22 09:23 Tetracyclic Antidepressants AdvReac NEEDS Verified 09/03/22 09:23 FOLLOW-UP Tricyclic Antidepressants AdvReac NEEDS Verified 09/03/22 09:23 and Tricy FOLLOW-UP Family History Mother Heart disease Hypertension Diabetes Sister Heart disease Father Hypertension Surgical History h/o breast cancer History of bilateral knee replacement History of elbow replacement History of lumpectomy Social History Smoking Status: Former smoker quit date: 04/27/17 Tobacco: How many years used: 44 alcohol intake: current alcohol intake frequency: holidays/special occasions only Alcohol type: beer ROS ROS ED ROS Narrative Denies recent illness. Review of Systems ROS Unobtainable: Denies due to encephalopathy Constitutional Constitutional ED: Denies chills or fever(s) Eyes Eyes: Denies blurry vision ENT ENT ED: Denies ear pain Cardiovascular Cardiovascular: Denies chest pain Respiratory/Chest Respiratory/Chest: Denies cough or dyspnea Gastrointestinal Gastrointestinal: Denies abdominal pain Genitourinary Genitourinary ED: Denies dysuria Musculoskeletal Musculoskeletal: Denies arthralgias Integumentary Denies abscess Neurologic Neurologic: Denies headache(s) Psychiatric Psychiatric: Denies anxiety Endocrine Endocrinology: Denies cold intolerance Hematologic/Lymphatic Hematologic/Lymphatic: Reports none Allergic/Immunologic Allergic/Immunologic ED: Denies mouth swelling or tongue swelling EXAM Physical Exam Narrative Exam Narrative: Well-appearing 67-year-old female. Vital signs are stable initial blood pressure was 205/100. She does not look septic toxic she is in no distress. She has no complaints. Appears comfortable. H EENT exam pupils round reactive to light. Her left eye chronically deviates medially. No facial droop. Normal speech. Lungs are clear. Heart regular rhythm rate about 90 no murmur. Chest wall nontender. Abdomen soft nontender. Moving all 4 extremities. Calves are nontender without edema. Neurologically she is awake and alert with no focal motor deficits. Const Vital Signs: 09/03/22 09:21 09/03/22 09:34 Temperature 97.3 F L Temperature Source Temporal Pulse Rate 94 Respiratory Rate 16 Respiratory Effort Normal Non-Labored Respiratory Pattern Normal Blood Pressure 205/100 H Blood Pressure Mean 135 Pulse Ox 99 Oxygen Delivery Method Room Air Positive well nourished and well developed; Negative for cachectic, contractures or unkempt General Appearance ED: well developed and NAD; Negative for unkempt, cachectic, contractures, cyanotic, diaphoretic or pallor Nutritional Appearance: Negative for cachectic HEENT Reports moist mucous membranes; Denies dry mucous membranes Negative for trauma or tenderness Mouth ED: No dry mucous membranes Mouth: No dry mucous membranes Eyes PERRL and EOMs intact bilaterally General Eye ED: Negative for pale conjunctiva or scleral icterus Neck no lymphadenopathy, supple and no JVD General: Negative for tenderness Lymph Lymphatic: Negative for other Chest Wall inspection of chest normal and palpation of chest normal Chest: Negative for other Resp normal respiratory effort and clear to auscultation bilaterally Effort and Inspection: Negative for retractions Auscultation: Negative for rales, rhonchi or wheezes Cardio regular rate, regular rhythm, S1 normal heart sound, S2 normal heart sound and no murmurs GI normal to inspection, nondistended, normoactive bowel sounds, non-tender, non-distended and no masses Inspection: Negative for abdominal distention Auscultation: normoactive bowel sounds Palpation: soft; Negative for tender or guarding Back/Spine no CVA tenderness General Back: Negative for CVA tenderness Cervical Spine: Negative for cervical spine tenderness Thoracic Spine / Upper Back: Negative for thoracic spinal tenderness Lumbar Spine / Lower Back: Negative for lumbar spinal tenderness Extremity normal to inspection General Extremety ED: Negative for edema or tenderness General Extremity: Negative for edema Neuro oriented x3 Neuro Narrative: Left eye deviated medially. Chronic. Sensorium / Orientation: alert; Negative for orientation impaired, lethargic or stuporous Motor Exam: strength 5/5 throughout Psych mental status grossly normal Appearance: Negative for unkempt Attitude: No agitated Mood & Affect: Negative for depressed, anxious or tearful Skin no rashes or lesions noted, no wounds and skin turgor normal General Skin Exam: elasticity normal; Negative for jaundice or pallor Lesions: No lesion noted Rashes: No rashes noted Trauma: Negative for abrasion Wounds: Negative for wounds noted MDM MDM MDM Narrative Medical decision making narrative: 67-year-old female recently started a new sleeping medication and has noticed her chronic hypertension has been elevated. She has no complaints. She will be given her afternoon dose of Lasix early. And will reevaluate her blood pressure. Her exam is normal. She had labs about 5 months ago and her kidney function at that time was normal. Repeat exam patient doing well at 10:45 AM. No complaints. Current blood pressure is 158/82. Exam unchanged. She is comfortable being discharged home. History & Record Review Discussion w/independent historian: Patient Discharge Plan Triage Chief Complaint: Hypertension ED Provider: Bjorn Owens Dx/Rx/DC Orders Clinical Impression: Chronic hypertension, Elevated blood pressure reading Instructions: ED Hypertension, Established Prescriptions: No Action atenolol 50 MG tablet 50 mg PO DAILY furosemide 20 MG tablet 20 mg PO DAILY lisinopril 10 MG tablet 20 mg PO BID cholecalciferol (vitamin D3) 1,000 UNIT tablet 3,000 unit PO DAILY venlafaxine 37.5 MG tablet 37.5 mg PO DAILY acetaminophen 650 MG tablet extended release 650 mg PO Q8H PRN PRN (Reason: pain or fever) Qty: 30 0RF hydrocodone-acetaminophen 5-325 mg tablet 1 tab PO Q6H PRN (Reason: pain) 3 Days Qty: 10 0RF aspirin 81 mg Tablet 81 mg PO DAILY melatonin 3 mg Tablet 3 mg PO QHS amlodipine 5 mg Tablet 5 mg PO DAILY trazodone 100 mg Tablet 100 mg PO QHS fluticasone propionate [Flonase Allergy Relief] 50 mcg/actuation [place],Suspension 2 spray INTRANASAL DAILY Rx Instructions: administer into each nostril loratadine 10 mg Tablet 10 mg PO DAILY PRN (Reason: allergies) rosuvastatin 20 mg Tablet 20 mg PO DAILY Mounjaro 2.5 mg/0.5 mL Pen Injector 2.5 mg SUBCUT QWEEK Primary Care Provider: Cheyenne Diggs Referrals: Cheyenne Diggs, [Primary Care Provider] - 3-5 Days if not improving Activity Restrictions/Additional Instructions: To your occasions as prescribed. We gave you your Lasix you do not need to take your noon dose of your Lasix. Follow-up with your primary care physician if your blood pressure readings are not around normal in the next several days. Disposition Disposition: Home, Self Care
[2022-09-03 10:00] VITALS: BP 178/85
[2022-09-03] MEDS: Furosemide 20 MG Tablet PO (10:15)
[2022-09-03 10:53] VITALS: BP 159/82; PULSE 77; RESP 14; O2SAT 99
== END 2022-09-03 10:55 | disposition home or self-care (01) ==
PROVIDERS: Emergency Provider Emergency Medicine; PCP Internal Medicine; Visit Provider Emergency Medicine
DX: I10 Essential (primary) hypertension (principal); Z87.891 Personal history of nicotine dependence; Z79.899 Other long term (current) drug therapy
CPT/HCPCS: 99282

== ENCOUNTER → 2023-05-08 | Outpatient (CLI) | payer MEDICARE, MEDICAID, SELFPAY ==
[2023-05-08 15:35] LABS: Absolute Lymphocyte Count 1.42 X10^3/uL (0.83-4.51); Absolute Neutrophil Count 4.5 X10^3/uL (2.0-7.7); Basophil# 0.06 X10^3/uL; Basophil% 0.9 % (0-1); Eosinophils% 1.5 % (0-5); Hematocrit 50.8 % (37-47); Lymphocyte # 1.42 X10^3/ul (0.83-4.51); Mean Corp Hgb Conc 33.5 g/dL (32-36); Mean Corpuscular Hgb 30.2 pg (27.0-32.0); Mean Corpuscular Volume 90.4 fL (81-99); Mean Platelet Vol. 9.8 fl (6.2-12.0); Monocyte# 0.61 X10^3/uL; NRBC Flagged by Analyzer 0 % (0-5); Neutrophil # 4.53 X10^3/uL (2.7-7.7); Neutrophil % 67.2 % (47-70); Platelet Count 282 K/mm3 (150-450); RBC Distribution Width CV 13.4 % (11.6-14.6); RBC Distribution Width SD 44.4 fl (35.1-43.9); Red Blood Count 5.62 M/mm3 (4.2-5.4); White Blood Count 6.8 K/mm3 (4.4-11.0)
[2023-05-08 16:00] LABS: Hemoglobin A1c 5.9 % (3.8-5.6)
[2023-05-08 16:07] LABS: Creatinine, Urine (random) < 13.00 mg/dL (NO RANGE EST.); Microalbumin,Random Urine 34.3 mg/L (NO RANGE EST.)
[2023-05-08 16:14] LABS: ALB/GLOB Ratio 1.1 RATIO (0.9-2.4); AST(SGOT) 35 U/L (15-37); Alanine Aminotransfer ALT/SGPT 49 U/L (13-56); Albumin, Serum 4.2 g/dL (3.2-5.0); Alkaline Phosphatase 72 U/L (45-117); Anion Gap 9 (5-15); BUN 15 mg/dL (7-18); BUN/Creat Ratio 20.9 RATIO (10-20); Calcium,Total 9.3 mg/dL (8.5-10.1); Chloride 109 mmol/L (98-107); Cholesterol 141 mg/dL (200); Creatinine, Serum 0.72 mg/dL (0.55-1.02); EST Glomerular Filtration Rate 86 mL/min (>60); Est Glom Filt Rate - Afr Amer 104 mL/min (>60); Globulin 3.7 g/dL (2.2-4.2); Glucose 115 mg/dL (74-106); High Density Lipoprotein 44 mg/dL; Potassium 3.7 mmol/L (3.5-5.1); Protein, Total 7.9 g/dL (6.4-8.2); Sodium Level 141 mmol/L (136-145); Triglycerides 154 mg/dL; Very Low Density Lipoprotein 31 mg/dL (5-40)
== END | disposition home or self-care (01) ==
LOC: BIMLAB 11:45
PROVIDERS: PCP Internal Medicine; Referring Provider Internal Medicine; Visit Provider Internal Medicine
DX: E78.5 Hyperlipidemia, unspecified (principal); E11.9 Type 2 diabetes mellitus without complications
CPT/HCPCS: 36415; 80053; 80061; 82043; 82570; 83036; 85025

== ENCOUNTER 2023-06-11 15:32 | Emergency (ER) | payer MEDICARE, MEDICAID, SELFPAY ==
[2023-06-11 15:33] VITALS: BP 170/118; PULSE 87; RESP 18; TEMP 36.4; O2SAT 94; BMI 43.6
[2023-06-11 16:02] LABS: Bedside Glucose 106 mg/dL (74-106)
--- NOTE | 2023-06-11 16:09 | EDS_ITS ---
HPI History of Present Illness Chief Complaint: General Illness Informant: patient Onset/Context/Timing Onset: Today Context: Sudden Onset Timing: Continuous Quality: Sweaty, lightheaded Location: Diffuse Worsened by: Nothing Relieved by: Laying down Narrative Narrative: Patient presents with lightheadedness and diaphoresis that began today. Patient states it began rather suddenly. Patient states it began approxione and 1/2 hours prior to arrival. Patient states she took an oral glucose pill because when she gets sweaty she feels like her blood sugar drops. Patient states it gets better when she is able to lay down. Patient admits to some pain over her chest. Patient admits to some shortness of breath. [facility] Medical History Breast cancer Depression Diverticulitis Goiter Health care maintenance Hypertension Insomnia LUCIA (obstructive sleep apnea) Rheumatoid arthritis Thyroid disorder Type 2 diabetes mellitus Weakness of both lower extremities Home Medications atenolol 50 mg tablet 50 mg PO DAILY BP 02/13/13 [History Last Taken 08/11/17] furosemide 20 mg tablet 20 mg PO DAILY WATER PILL 02/13/13 [History Last Taken 06/02/13] lisinopril 10 mg tablet 20 mg PO BID BP 02/13/13 [History Last Taken 04/14/16 07:00] venlafaxine 37.5 mg tablet 37.5 mg PO DAILY ANTIDEPRESSANT 08/04/17 [History Last Taken Unknown] acetaminophen 650 mg tablet,extended release 650 mg PO Q8H PRN PRN pain or fever ##30 03/17/20 [Rx Last Taken Unknown] amlodipine 5 mg tablet 5 mg PO DAILY 03/07/22 [History Last Taken Unknown] aspirin 81 mg tablet 81 mg PO DAILY 03/07/22 [History Last Taken Unknown] loratadine 10 mg tablet 10 mg PO DAILY PRN allergies 03/07/22 [History Last Taken Unknown] rosuvastatin 20 mg tablet 20 mg PO DAILY 03/07/22 [History Last Taken Unknown] tirzepatide 2.5 mg/0.5 mL subcutaneous pen injector (Mounjaro) 2.5 mg subcut QWEEK 03/07/22 [History Last Taken Unknown] magnesium glycinate 100 mg tablet 200 mg (2 x 100 mg) PO QHS #180 tabs 05/08/23 [Rx Last Taken Unknown] tizanidine 2 mg tablet 2 mg PO QHS PRN muscle spasticity #90 tabs 05/08/23 [Rx Last Taken Unknown] tizanidine 4 mg tablet 4 mg PO QHS PRN muscle spasticity #90 tabs 05/08/23 [Rx Last Taken Unknown] cholecalciferol (vitamin D3) 25 mcg (1,000 unit) tablet 3,000 unit PO DAILY SUPPLEMENT #90 tabs 05/15/23 [Rx Last Taken Unknown] zolpidem 5 mg tablet 5 mg PO QHS PRN insomnia #30 tabs 06/03/23 [Rx Last Taken Unknown] Allergy/AdvReac Type Severity Reaction Status Date / Time celecoxib [From Celebrex] Allergy Hives Verified 06/11/23 15:33 diphenhydramine Allergy Hives Verified 06/11/23 15:33 [From Aleve PM] gabapentin [From Neurontin] Allergy Other Verified 06/11/23 15:33 hyaluronic acid Allergy Hives Verified 06/11/23 15:33 [From Euflexxa] lidocaine Allergy Rash Verified 06/11/23 15:33 naproxen [From Aleve PM] Allergy Hives Verified 06/11/23 15:33 pregabalin [From Lyrica] Allergy Hives Verified 06/11/23 15:33 quetiapine [From Seroquel] Allergy Other Verified 06/11/23 15:33 ropinirole [From Requip] Allergy Other Verified 06/11/23 15:33 daridorexant [From Quviviq] AdvReac Severe PT UNABLE Verified 06/11/23 15:33 TO RESPOND-NEEDS F/U benzoyl peroxide AdvReac Rash Verified 06/11/23 15:33 citalopram AdvReac Other Verified 06/11/23 15:33 etanercept [From Enbrel] AdvReac Other Verified 06/11/23 15:33 hydrochlorothiazide AdvReac Other Verified 06/11/23 15:33 NSAIDS (Non-Steroidal AdvReac Rash Verified 06/11/23 15:33 Anti-Inflamma Phenylpiperazine AdvReac NEEDS Verified 06/11/23 15:33 Antidepressant FOLLOW-UP prednisone AdvReac Other Verified 06/11/23 15:33 rotigotine [From Neupro] AdvReac Other Verified 06/11/23 15:33 Tetracyclic Antidepressants AdvReac NEEDS Verified 06/11/23 15:33 FOLLOW-UP Tricyclic Antidepressants AdvReac NEEDS Verified 06/11/23 15:33 and Tricy FOLLOW-UP Family History Mother Heart disease Hypertension Diabetes Sister Heart disease Father Hypertension Bleeding disorder blood clots Brother Cancer Surgical History h/o breast cancer History of bilateral knee replacement History of elbow replacement History of lumpectomy Social History Smoking Status: Former smoker quit date: 04/27/17 Tobacco: How many years used: 44 alcohol intake: former substance use type: does not use what type of physical activity do you participate in: walking ROS ROS ED Constitutional Constitutional ED: Denies chills or fever(s) Eyes Eyes: Denies blurry vision or change in vision ENT ENT ED: Denies rhinorrhea or sore throat Cardiovascular Cardiovascular: Reports chest pain; Denies palpitations Respiratory/Chest Respiratory/Chest: Reports dyspnea; Denies cough Gastrointestinal Gastrointestinal: Denies nausea or vomiting Genitourinary Genitourinary ED: Denies dysuria or hematuria Musculoskeletal Musculoskeletal: Denies back pain or neck pain Integumentary Denies abscess or rash Neurologic Neurologic: Denies headache(s) or weakness Allergic/Immunologic Allergic/Immunologic ED: Denies mouth swelling or urticaria EXAM Physical Exam Const Vital Signs: 06/11/23 15:33 06/11/23 16:15 06/11/23 18:02 Temperature 97.6 F L Temperature Source Temporal Pulse Rate 87 92 Respiratory Rate 18 23 H Respiratory Effort Normal Respiratory Pattern Normal Blood Pressure 170/118 H 190/105 H Blood Pressure Mean 135 133 Pulse Ox 94 92 Oxygen Delivery Method Room Air Room Air Positive well nourished, well developed and obese General Appearance ED: well developed and NAD Nutritional Appearance: obese HEENT Reports moist mucous membranes Neck supple and no JVD Resp normal respiratory effort and clear to auscultation bilaterally GI non-tender and non-distended Palpation: soft Neuro oriented x3, CN's II-XII intact bilaterally and no sensory deficits noted Sensorium / Orientation: alert Motor Exam: strength 5/5 throughout Psych mental status grossly normal MDM MDM MDM Narrative Medical decision making narrative: Differential diagnosis includes cardiac dysrhythmia, cardiac ischemia, pneumonia, pneumothorax, hypoglycemia, electrolyte abnormality, and urinary tract infection. EKG will be obtained to assess for cardiac dysrhythmia and cardiac ischemia. Chest x-ray will be obtained to assess for pneumonia and pneumothorax. CBC will be obtained to assess for leukocytosis and anemia. Basic metabolic profile will be obtained to assess for electrolyte abnormality and renal function. High-sensitivity troponin will be obtained to assess for cardiac ischemia. Lab Data Attestation: I reviewed the patient's lab results. Lab results narrative: CBC was reviewed. Hemoglobin is slightly increased at 17.3 and hematocrit was 50.4. Basic metabolic profile was reviewed and was within normal limits. High- sensitivity troponin was reviewed and was normal. Urinalysis was reviewed. There is no evidence of urinary tract infection or hematuria. COVID-19 PCR was reviewed and was negative. Influenza PCR was reviewed and was negative for influenza A and influenza B. RSV PCR was reviewed and was negative for RSV. Labs: Laboratory Results - last 24 hr 06/11/23 06/11/23 06/11/23 15:37 16:06 16:45 WBC 8.4 RBC 5.72 H Hgb 17.3 H Hct 50.4 H MCV 88.1 MCH 30.2 MCHC 34.3 RDW Std Deviation 42.6 RDW Coeff of Geeta 13.2 Plt Count 275 MPV 9.7 Immature Gran % (Auto) 0.500 Neut % (Auto) 69.1 Lymph % (Auto) 17.6 L [place] % (Auto) 9.9 Eos % (Auto) 2.3 Baso % (Auto) 0.6 Absolute Neuts (auto) 5.8 Absolute Lymphs (auto) 1.47 Nucleated RBC % 0 Sodium 139 Potassium 4.2 Chloride 110 H Carbon Dioxide 22.0 Anion Gap 7 BUN 14 Creatinine 0.70 Estim Creat Clear Calc 73.96 Est GFR (MDRD) Af Amer 106 Est GFR (MDRD) Non-Af 88 BUN/Creatinine Ratio 19.9 Glucose 101 Calcium 9.8 Troponin I High Sens 9 Urine Color Yellow Urine Clarity Clear Urine pH 6.5 Ur Specific [place] 1.015 Urine Protein Negative Urine Glucose (UA) Normal Urine Ketones Negative Urine Occult Blood 50 H Urine Nitrite Negative Urine Bilirubin Negative Urine Urobilinogen Normal Ur Leukocyte Esterase 25 H Urine RBC 0 SEEN Urine WBC 0-5 SEEN Ur Squamous Epith Cells 0 SEEN Urine Bacteria 0 SEEN Urine Mucus 0 SEEN POC Glucose 106 06/11/23 06/11/23 17:26 18:30 WBC RBC Hgb Hct MCV MCH MCHC RDW Std Deviation RDW Coeff of [place] Plt Count MPV Immature Gran % (Auto) Neut % (Auto) Lymph % (Auto) [place] % (Auto) Eos % (Auto) Baso % (Auto) Absolute Neuts (auto) Absolute Lymphs (auto) Nucleated RBC % Sodium Potassium Chloride Carbon Dioxide Anion Gap BUN Creatinine Estim Creat Clear Calc Est GFR (MDRD) Af Amer Est GFR (MDRD) Non-Af BUN/Creatinine Ratio Glucose Calcium Troponin I High Sens Urine Color Urine Clarity Urine pH Ur Specific [place] Urine Protein Urine Glucose (UA) Urine Ketones Urine Occult Blood Urine Nitrite Urine Bilirubin Urine Urobilinogen Ur Leukocyte Esterase Urine RBC Urine WBC Ur Squamous Epith Cells Urine Bacteria Urine Mucus POC Glucose 94 100 Radiography Chest X-Ray - ED: 2 View, Read by ED Physician, Read by Radiologist and No Acute Disease Diagnostic Testing: Clinical Impression(s) from Imaging Studies Chest X-Ray 06/11/23 17:00 IMPRESSION: ASHD. Mild elevation of right hemidiaphragm and basilar atelectasis. Electronically Signed: Rubio Arango MD at 17:35 EST Reading Location ID and State: [address] [place] [address] Tel , Service support , PA and lateral chest x-ray was obtained. There are 2 views. On my independent interpretation, lung murray are clear. There is normal cardiac silhouette. Bony thorax is normal. There is no acute process noted. Radiologist also interpreted the x-ray and agrees. EKG Initial EKG: Attestation: I personally reviewed and interpreted this EKG as follows: Interpretation: Sinus Rhythm (86) and No Acute Injury Pattern Comments: EKG was obtained. On my independent interpretation, it showed a normal sinus rhythm with a rate of 86. IN interval, QRS interval, and QTc intervals were all normal. [place] was normal. There are no acute ST or T wave changes. Prior EKG tracings: available for review Prior: Unchanged (03/07/2022) Treatment and Re-Evaluation :: Patient was given a dose of Tylenol here. Patient was advised of her findings. Patient was feeling better on reevaluation. Patient was instructed to follow-up with her primary care physician in 5 to 7 days for further evaluation. Patient understood and was agreeable with the plan. All questions were answered. Discharge Plan Triage Chief Complaint: General Illness ED Provider: Alan Benton Dx/Rx/DC Orders Clinical Impression: Lightheadedness, Diabetes Instructions: ED Dizziness, Uncertain Cause Prescriptions: No Action magnesium glycinate 100 mg tablet 200 mg PO QHS Qty: 180 1RF tizanidine 4 mg tablet 4 mg PO QHS PRN (Reason: muscle spasticity) Qty: 90 3RF tizanidine 2 mg tablet 2 mg PO QHS PRN (Reason: muscle spasticity) Qty: 90 3RF Rx Instructions: Take as needed if 4 mg is ineffective atenolol 50 MG tablet 50 mg PO DAILY furosemide 20 MG tablet 20 mg PO DAILY lisinopril 10 MG tablet 20 mg PO BID venlafaxine 37.5 MG tablet 37.5 mg PO DAILY acetaminophen 650 MG tablet extended release 650 mg PO Q8H PRN PRN (Reason: pain or fever) Qty: 30 0RF aspirin 81 mg Tablet 81 mg PO DAILY amlodipine 5 mg Tablet 5 mg PO DAILY loratadine 10 mg Tablet 10 mg PO DAILY PRN (Reason: allergies) rosuvastatin 20 mg Tablet 20 mg PO DAILY Mounjaro 2.5 mg/0.5 mL Pen Injector 2.5 mg SUBCUT QWEEK cholecalciferol (vitamin D3) 25 mcg (1,000 unit) tablet 3,000 unit PO DAILY Qty: 90 2RF zolpidem 5 mg tablet 5 mg PO QHS PRN (Reason: insomnia) Qty: 30 0RF Primary Care Provider: Gita Soria Referrals: Gita Soria MD [Primary Care Provider] - 3-5 Days Disposition Disposition: Home, Self Care
--- NOTE | 2023-06-11 16:41 | EKG12_ITS ---
Test Reason : GENERAL/HTN Blood Pressure : / mmHG Vent. Rate : 086 BPM Atrial Rate : 086 BPM P-R Int : 170 ms QRS Dur : 086 ms QT Int : 382 ms P-R-T Axes : 028 010 009 degrees QTc Int : 457 ms Normal sinus rhythm Normal ECG Confirmed by Brett Adkins ([id number]), film and video editor MARYCHUY TATE ([id number]) on 06/12/2023 9:49:18 AM Referred By: Confirmed By:Brett Adkins
--- NOTE | 2023-06-11 17:00 | RAD_ITS ---
STUDY: X-RAY CHEST REASON FOR EXAM: Female, 68 years old. Chest pain TECHNIQUE: PA and lateral COMPARISON: None. FINDINGS: Elevated right hemidiaphragm and mild basilar atelectasis. There is no demonstrated pleural abnormality. Normal size heart. Normal mediastinum and gerald. Normal visualized pulmonary arteries. Tortuous mildly calcified aortic arch and descending thoracic aorta. Dorsal spine demonstrates degenerative changes Normal visualized ribs, clavicles, and shoulders. There is no demonstrated abnormality of the visualized soft tissue structures of the upper abdomen. RAD/Chest PA and Lateral IMPRESSION: ASHD. Mild elevation of right hemidiaphragm and basilar atelectasis. Electronically Signed: Rubio Arango MD at 17:35 EST ,
[2023-06-11 17:03] LABS: Bacteria 0 SEEN /hpf (None Seen); Mucous, Urine 0 SEEN /hpf (<or=2+); Red Blood Cells-Urine 0 SEEN /hpf (0-5); Squamous Epithelial Cells - UA 0 SEEN /hpf (5-10)
[2023-06-11 17:08] LABS: Absolute Lymphocyte Count 1.47 X10^3/uL (0.83-4.51); Absolute Neutrophil Count 5.8 X10^3/uL (2.0-7.7); Basophil# 0.05 X10^3/uL; Basophil% 0.6 % (0-1); Eosinophil# 0.19 X10^3/uL; Eosinophils% 2.3 % (0-5); Hematocrit 50.4 % (37-47); Hemoglobin 17.3 g/dL (12.0-15.0); Lymphocyte # 1.47 X10^3/ul (0.83-4.51); Lymphocyte % 17.6 % (19-41); Mean Corp Hgb Conc 34.3 g/dL (32-36); Mean Corpuscular Hgb 30.2 pg (27.0-32.0); Mean Corpuscular Volume 88.1 fL (81-99); Mean Platelet Vol. 9.7 fl (6.2-12.0); Monocyte# 0.83 X10^3/uL; Monocyte% 9.9 % (0-10); NRBC Flagged by Analyzer 0 % (0-5); Neutrophil # 5.77 X10^3/uL (2.7-7.7); Neutrophil % 69.1 % (47-70); Platelet Count 275 K/mm3 (150-450); RBC Distribution Width CV 13.2 % (11.6-14.6); RBC Distribution Width SD 42.6 fl (35.1-43.9); Red Blood Count 5.72 M/mm3 (4.2-5.4); White Blood Count 8.4 K/mm3 (4.4-11.0)
[2023-06-11 17:18] LABS: Color, Urine Yellow (Yellow); Glucose, Dipstick Normal (Normal); Ketone-Dipstick Negative (Negative); Leukocyte Esterase-Dipstick 25 /ul (Negative); Nitrite-Dipstick Negative (Negative); Occult Blood-Urine 50 /ul (Negative); Protein-Dipstick Negative (Negative); Specific Gravity, Urine 1.015 (1.002-1.030); Urine Bilirubin Dipstick Negative (Negative); Urine Clarity Clear (Clear); Urine Urobilinogen Normal (Normal); Urine pH 6.5 (5.0 - 8.0)
[2023-06-11 17:25] LABS: White Blood Cells 0-5 SEEN /hpf (0-5)
[2023-06-11 17:34] LABS: Anion Gap 7 (5-15); BUN 14 mg/dL (7-18); BUN/Creat Ratio 19.9 RATIO (10-20); Calcium,Total 9.8 mg/dL (8.5-10.1); Chloride 110 mmol/L (98-107); EST Glomerular Filtration Rate 88 mL/min (>60); Est Glom Filt Rate - Afr Amer 106 mL/min (>60); Estimated Creatinine Clearance 73.96 ml/min; Glucose 101 mg/dL (74-106); Potassium 4.2 mmol/L (3.5-5.1); Sodium Level 139 mmol/L (136-145); Troponin-I HS 9 pg/mL (3.0-54.0)
[2023-06-11 17:44] LABS: Bedside Glucose 94 mg/dL (74-106)
[2023-06-11 18:02] VITALS: BP 190/105; PULSE 92; RESP 23; O2SAT 92
[2023-06-11] MEDS: Acetaminophen 500 MG Tablet 1000 MG PO (18:25)
[2023-06-11 18:48] LABS: Bedside Glucose 100 mg/dL (74-106)
[2023-06-11 19:05] VITALS: BP 175/93; PULSE 79; RESP 20; TEMP 36.3; O2SAT 94
[2023-06-11] MEDS: Lisinopril 20 MG Tablet PO (19:26)
== END 2023-06-11 19:30 | disposition home or self-care (01) ==
PROVIDERS: Emergency Provider Emergency Medicine; PCP Internal Medicine; Visit Provider Emergency Medicine
DX: R42 Dizziness and giddiness (principal); E11.9 Type 2 diabetes mellitus without complications; R06.02 Shortness of breath; Z87.891 Personal history of nicotine dependence; Z79.84 Long term (current) use of oral hypoglycemic drugs; R07.9 Chest pain, unspecified; I10 Essential (primary) hypertension; E66.9 Obesity, unspecified; I25.10 Atherosclerotic heart disease of native coronary artery without angina pectoris
CPT/HCPCS: 71046; 80048; 81001; 82962; 84484; 85025; 87631; 93005; 99284; A4216

== ENCOUNTER → 2023-06-11 | Outpatient (CLI) | payer MEDICARE, MEDICAID, SELFPAY ==
--- NOTE | 2023-06-11 14:55 | BD_ITS ---
STUDY: DUAL ENERGY X-RAY ABSORPTIOMETRY / DXA REASON FOR EXAM: Female, 68 years old. Post Menopausal TECHNIQUE: Bone Mineral Density (BMD) measurements of lumbar spine and bilateral hips were obtained. COMPARISON: Comparison is made with prior study dated October 18, 2020. FINDINGS: Lumbar Spine (L1-L4): g/cm2 (1.132) / T-score (0.8) / Z-score (2.8) Findings are suggestive of normal bone density with a low fracture risk. Left Femur Total: g/cm2 (1.099) / T-score (1.3) / Z-score (2.8) Left Femoral Neck: g/cm2 (0.854) / T-score (0.0) / Z-score (1.8) Right Femur Total: g/cm2 (1.059) / T-score (1.0) / Z-score (2.4) Right Femoral Neck: g/cm2 (0.851) / T-score (0.0) / Z-score (1.8) The T-Scores on the most recent prior examination were: Lumbar Spine (L1-L4): There has been improvement of bone density since the previous examination. Left Femur Total: which represents a worsening of 4.9%. Right Femur Total: which represents a worsening of 7.4%. BD/Dexa Bone Density Study IMPRESSION: The patient is considered normal as outlined below according to World Moises Organization (WHO) criteria with a low fracture risk. There has been worsening of bone density since the previous examination. Reference Information: The T-score is the number of standard deviations above or below the standard which is normal for young adults at their peak bone mineral density. The World Health Organization (WHO) interprets the T-scores as follows: Above -1 Normal bone density Between -1 and -2.5 Osteopenia Equal to / or below -2.5 Osteoporosis As a practical clinical guideline, osteopenia may be graded as follows: Mild -1 through -1.5 Moderate -1.6 through -2.0 Severe -2.1 through -2.4 The Z-score is the number of standard deviations above or below age-matched controls. A Z-score of less than -1.5 would be considered abnormal. References: 1. NIH Osteoporosis and Related Bone Diseases www osteo.org 2. International Society for Clinical Densitometry www iscd.org 3. National Osteoporosis Foundation www nof.org Electronically Signed: Philip Drummond MD at 13:25 EST ,
== END | disposition home or self-care (01) ==
LOC: OPBI 14:52
PROVIDERS: PCP Internal Medicine; Referring Provider Internal Medicine; Visit Provider Internal Medicine
DX: Z12.31 Encounter for screening mammogram for malignant neoplasm of breast (principal); Z78.0 Asymptomatic menopausal state
CPT/HCPCS: 77080

== ENCOUNTER → 2023-06-16 | Outpatient (CLI) | payer MEDICARE, MEDICAID, SELFPAY ==
--- NOTE | 2023-06-16 11:50 | BI_ITS ---
MAMMOGRAPHY - BILATERAL SCREENING REASON FOR EXAM: Female, 68 years old. Routine annual screening examination. PERTINENT HISTORY: Personal history of breast cancer. Prior left lumpectomy with radiation therapy. TECHNIQUE: Digital bilateral breast tc (3D mammographic acquisition) in the CC and MLO projections. 2-D mediolateral oblique (MLO) and craniocaudad (CC) views of both breasts were obtained. CAD: Full Field Digital Mammography with Computer Added Detection was performed. COMPARISON: Comparison is made with prior outside examination dated April 29, 2022. FINDINGS: Breast Composition: There are scattered areas of fibroglandular density. There are no dominant masses or suspicious calcifications. The patient is status post lumpectomy in the upper central portion of the left breast with resultant postoperative changes and scarring. Stable deformity of the left breast. No other significant abnormalities are identified. There has been no significant change since the prior study. BI/SCRN MAMM (CAD)W/TC BILAT IMPRESSION: Stable bilateral screening mammogram. Yearly follow-up mammogram recommended. (A) ASSESSMENT CATEGORY: BIRADS Category 2: Benign. A letter regarding these results will be sent to the patient by the facility within 30 days. Approximately 10% of breast cancers are not detected by mammography. A normal mammogram should not delay biopsy of a clinically suspicious abnormality. [id number] Electronically Signed: Philip Drummond MD at 13:16 EST ,
== END | disposition home or self-care (01) ==
LOC: OPBI 11:50
PROVIDERS: PCP Internal Medicine; Referring Provider Internal Medicine; Visit Provider Internal Medicine
DX: Z12.31 Encounter for screening mammogram for malignant neoplasm of breast (principal); Z85.3 Personal history of malignant neoplasm of breast
CPT/HCPCS: 77063; 77067

== ENCOUNTER → 2023-11-11 | Outpatient (CLI) | payer MEDICARE, MEDICAID, SELFPAY ==
[2023-11-11 12:37] LABS: Absolute Neutrophil Count 4.6 X10^3/uL (2.0-7.7); Basophil# 0.07 X10^3/uL; Eosinophil# 0.14 X10^3/uL; Hematocrit 48.2 % (37-47); Hemoglobin 16.5 g/dL (12.0-15.0); Lymphocyte % 22.8 % (19-41); Mean Corp Hgb Conc 34.2 g/dL (32-36); Mean Corpuscular Hgb 30.1 pg (27.0-32.0); Mean Platelet Vol. 9.6 fl (6.2-12.0); Monocyte# 0.58 X10^3/uL; Monocyte% 8.3 % (0-10); NRBC Flagged by Analyzer 0 % (0-5); Neutrophil # 4.61 X10^3/uL (2.7-7.7); Neutrophil % 65.5 % (47-70); Platelet Count 267 K/mm3 (150-450); RBC Distribution Width CV 13.7 % (11.6-14.6); RBC Distribution Width SD 44.1 fl (35.1-43.9); Red Blood Count 5.48 M/mm3 (4.2-5.4)
[2023-11-11 13:14] LABS: AST(SGOT) 46 U/L (15-37); Alanine Aminotransfer ALT/SGPT 62 U/L (13-56); Albumin, Serum 3.8 g/dL (3.2-5.0); Alkaline Phosphatase 74 U/L (45-117); Anion Gap 8 (5-15); BUN 14 mg/dL (7-18); BUN/Creat Ratio 24.8 RATIO (10-20); Calcium,Total 9.1 mg/dL (8.5-10.1); Chloride 108 mmol/L (98-107); Creatinine, Serum 0.56 mg/dL (0.55-1.02); EST Glomerular Filtration Rate 113 mL/min (>60); Est Glom Filt Rate - Afr Amer 136 mL/min (>60); Globulin 3.7 g/dL (2.2-4.2); Glucose 101 mg/dL (74-106); Potassium 3.9 mmol/L (3.5-5.1); Protein, Total 7.5 g/dL (6.4-8.2); Sodium Level 139 mmol/L (136-145); T4 Free Direct 0.93 ng/dL (0.76-1.46); Thyroid Stim Hormone (TSH) 2.03 uIU/mL (0.358-3.74)
[2023-11-11 13:25] LABS: Hemoglobin A1c 5.8 % (3.8-5.6)
== END | disposition home or self-care (01) ==
LOC: BIMLAB 11:51
PROVIDERS: PCP Internal Medicine; Referring Provider Internal Medicine; Visit Provider Internal Medicine
DX: I10 Essential (primary) hypertension (principal); E11.9 Type 2 diabetes mellitus without complications; E78.5 Hyperlipidemia, unspecified; G47.33 Obstructive sleep apnea (adult) (pediatric)
CPT/HCPCS: 36415; 80053; 83036; 84439; 84443; 85025

== ENCOUNTER → 2024-06-24 | Outpatient (CLI) | payer MEDICARE, MEDICAID, SELFPAY ==
[2024-06-24 12:43] LABS: ALB/GLOB Ratio 1.5 RATIO (0.9-2.4); AST(SGOT) 28 U/L (<=31); Alanine Aminotransfer ALT/SGPT 32 U/L (<=34); Albumin, Serum 4.1 g/dL (3.4-4.8); Alkaline Phosphatase 63 U/L (35-104); Anion Gap 12 (5-15); BUN 17 mg/dL (4-19); BUN/Creat Ratio 28.5 RATIO (10-20); Calcium 9.2 mg/dL (7.6-11.0); Carbon Dioxide 20.6 mmol/L (22.0-29.0); Chloride 105 mmol/L (96-108); Cholesterol 123 mg/dL (<=200); EST Glomerular Filtration Rate 97 (>60); Globulin 2.8 g/dL (2.2-4.2); Glucose 126 mg/dL (70-99); High Density Lipoprotein 39 mg/dL; Low Density Lipoprotein Calc. 60 mg/dL; Protein, Total 6.9 g/dL (5.9-8.4); Sodium Level 138 mmol/L (133-145); Total Bilirubin 1.04 mg/dL (0.00-1.30); Triglycerides 122 mg/dL; Very Low Density Lipoprotein 24 mg/dL (5-40); cholesterol:hdl ratio screen 3.17
[2024-06-24 13:49] LABS: Absolute Lymphocyte Count 1.67 X10^3/uL (0.83-4.51); Absolute Neutrophil Count 2.7 X10^3/uL (2.0-7.7); Basophil# 0.06 X10^3/uL; Basophil% 1.2 % (0-1); Eosinophil# 0.19 X10^3/uL; Eosinophils% 3.7 % (0-5); Hematocrit 48.2 % (37-47); Lymphocyte # 1.67 X10^3/ul (0.83-4.51); Lymphocyte % 32.6 % (19-41); Mean Corp Hgb Conc 33.2 g/dL (32-36); Mean Corpuscular Hgb 30.1 pg (27.0-32.0); Mean Corpuscular Volume 90.8 fL (81-99); Mean Platelet Vol. 9.6 fl (6.2-12.0); Monocyte# 0.52 X10^3/uL; Monocyte% 10.1 % (0-10); NRBC Flagged by Analyzer 0 % (0-5); Neutrophil # 2.67 X10^3/uL (2.7-7.7); Platelet Count 230 K/mm3 (150-450); RBC Distribution Width CV 13.8 % (11.6-14.6); RBC Distribution Width SD 46.2 fl (35.1-43.9); Red Blood Count 5.31 M/mm3 (4.2-5.4); White Blood Count 5.1 K/mm3 (4.4-11.0)
[2024-06-24 14:22] LABS: Hemoglobin A1c 6.7 % (<=5.6)
== END | disposition home or self-care (01) ==
LOC: BIMLAB 08:10
PROVIDERS: PCP Internal Medicine; Referring Provider Internal Medicine; Visit Provider Internal Medicine
DX: E78.5 Hyperlipidemia, unspecified (principal); E11.9 Type 2 diabetes mellitus without complications; I10 Essential (primary) hypertension
CPT/HCPCS: 36415; 80053; 80061; 83036; 85025

== ENCOUNTER → 2024-06-27 | Outpatient (CLI) | payer MEDICARE, MEDICAID, SELFPAY ==
[2024-06-27 13:26] LABS: Microalbumin,Random Urine < 12.0 mg/L (NO RANGE EST.); Microalbumin:Creatinine Ratio UNABLE TO CALCULATE mg/g CRE
== END | disposition home or self-care (01) ==
LOC: BIMLAB 11:18
PROVIDERS: PCP Internal Medicine; Visit Provider Internal Medicine
DX: E11.9 Type 2 diabetes mellitus without complications (principal)
CPT/HCPCS: 82043; 82570

== ENCOUNTER → 2024-07-07 | Outpatient (CLI) | payer MEDICARE, MEDICAID, SELFPAY ==
--- NOTE | 2024-07-07 10:30 | BI_ITS ---
PROCEDURE: SCRN MAMM (CAD)W/TC BILAT REASON FOR EXAM: F, Age 69 y/o , BREAST CANCER SCREENING. Personal history of breast cancer with prior left lumpectomy and radiation treatment. TECHNIQUE: Bilateral screening digital breast tomosynthesis with 2D and 3D images. Computer aided detection. COMPARISON: Prior exam(s) dating back to June 16, 2023.. FINDINGS: There are scattered areas of fibroglandular density. Once again, the patient is status post lumpectomy in the deep upper central portion of the left breast with resultant deformity of the right breast and postoperative scarring and dystrophic calcification at the operative site. This is unchanged. Stable small fat containing bilateral axillary lymph nodes. No suspicious masses, areas of developing architectural distortion, or suspicious calcifications. BI/SCRN MAMM (CAD)W/TC BILAT IMPRESSION: BI-RADS 2: BENIGN. RECOMMEND ANNUAL MAMMOGRAPHIC SCREENING. Follow-up code: Routine Follow-up The patient will be notified of the results by letter. Reading Location: [facility]
== END | disposition home or self-care (01) ==
LOC: OPBI 10:13
PROVIDERS: PCP Internal Medicine; Referring Provider Internal Medicine; Visit Provider Internal Medicine
DX: Z12.31 Encounter for screening mammogram for malignant neoplasm of breast (principal); Z85.3 Personal history of malignant neoplasm of breast
CPT/HCPCS: 77063; 77067

== ENCOUNTER → 2024-12-09 | Outpatient (CLI) | payer MEDICARE, MEDICAID, SELFPAY ==
[2024-12-09 10:53] LABS: Anion Gap 15 (5-15); BUN 19 mg/dL (4-19); BUN/Creat Ratio 26.2 RATIO (10-20); Calcium,Total 9.7 mg/dL (7.6-11.0); Carbon Dioxide 20.3 mmol/L (21.0-32.0); Chloride 103 mmol/L (98-108); Cholesterol 139 mg/dL (<=200); Glucose 133 mg/dL (70-99); Low Density Lipoprotein Calc. 69 mg/dL; Potassium 4.0 mmol/L (3.3-5.1); Triglycerides 135 mg/dL; Very Low Density Lipoprotein 27 mg/dL (5-40); cholesterol:hdl ratio screen 3.24
== END | disposition home or self-care (01) ==
LOC: MTLAB 08:10
PROVIDERS: PCP Internal Medicine; Referring Provider Internal Medicine; Visit Provider Internal Medicine
DX: I10 Essential (primary) hypertension (principal); E11.9 Type 2 diabetes mellitus without complications; E78.5 Hyperlipidemia, unspecified
CPT/HCPCS: 36415; 80048; 80061; 83036

== ENCOUNTER 2025-01-20 23:41 | Emergency (ER) | payer MEDICARE, MEDICAID, SELFPAY ==
--- OUTSIDE RECORDS SUMMARY | 2024-11-24 15:46 | XMS RPT_ITS ---
Author Name Auto Generated Organization OHIP Care Team Providers Care Mobility Architect Name Role Phone MARTA SOOD Primary Care Unavailable MARTA SOOD Primary Care Unavailable ALYSON WALKER Attending Unavailable PROBLEMS DATE TYPE CONDITION / CODE ATTENDING STATUS MITRA RCE 11/24/2024 Active Burning with uri nation / R30.0(ICD-10) ALYSON WALKER Active [facility] PROCEDURES No Procedure Records Found RESULTS BACTERIA UR CULT Observed: 11/24/2024 4:30 PM Status: F Source: [facility] ORGANISM ID: [id number] -<50,000 CFU/ml Normal urogenital sakshi Performed By: #### [id number] ### # [facility] CLIA [id number] [address] [place] [address] OF [facility] PROGRESS Observed: 11/24/2024 4:16 PM Status: COMPLETED Source: [facility] HNO ID: [id number] Author: ALYSON WALKER APRN.RESIDENT DOCTOR Service: ? Author Type: Nurse Practitioner Type: Progress Notes Filed: 11/24/2024 18:24 Note Text: [facility] [place] Subjective HPI HPI Yi Friedman is a 69 year old female who presents today for CC of urinary burning, frequency, back pain. This started 2 days ago. Has tried nothing for relief. Symptoms are worsened by nothing. Denies hx of uti. Denies uri s/s. Patient not known to [facility], denies renal/hepatic disease. .Patient presents with: UTI: Burning, low back pain x2 days, low fever PAST MEDICAL HISTORY Diagnosis Date Allergic rhinitis, cause unspecified controlled Benign neoplasm of colon Essential hypertension, benign 1982 Generalized anxiety disorder Hyperlipidemia Hypertension Major depressive disorder, recurrent episode, unspecified Migraine, unspecified, without mention of intractable migraine without mention of status migrainosus in her 30;s, no longer a problem Mitral valve disorders MVP, last echo 2012 LUCIA (obstructive sleep apnea) DME [employer] for AutoPAP Other and unspecified hyperlipidemia Periodic limb movement disorder Psoriasis and similar disorders Dr. Almeida Rectocele Rosacea 2001 Dr. Almeida Snoring Thyroiditis, unspecified 1988 was hyperthyroid for 1 yr, treated with PTU, has been off meds ever since with normal labs per pt PAST SURGICAL HISTORY Procedure Laterality Date ARTHROSCOPY KNEE DIAGNOSTIC W/WO SYNOVIAL BX SPX 1999 Arthroscopy, knee left knee [facility] ARTHROSCOPY KNEE DIAGNOSTIC W/WO SYNOVIAL BX SPX 2000 Arthroscopy, knee right knee [facility] ARTHRP KNE CONDYLEANDPLATU MEDIALANDLAT COMPARTMENTS Bilateral 08/11/2017 BX BREAST W/DEVICE 1ST LESION STEREOTACTIC GUID Left 02/04/16 DCIS COLONOSCOPY FLX DX W/COLLJ SPEC WHEN PFRMD 08/04/2018 Colonoscopy COLSC FLX W/RMVL OF TUMOR POLYP LESION SNARE TQ 06/22/2008 polyps cecum and prox transverse MASTECTOMY, PARTIAL Left 04/14/2016 for DCIS PAST SURGICAL HISTORY OF 2006 2 surgeries to fix fracture of left radial head ALLERGIES Aleve Pm [Naproxen-Diphenhydramine], Benzoyl Peroxide, Celebrex [Celecoxib], Citalopram, Enbrel [Etanercept], Euflexxa [Sodium Hyaluronate (Viscosup)], Gabapentin, Hydrochlorothiazide, Lidocaine, Prednisone, Requip [Ropinirole], and Seroquel [Quetiapine Fumarate] MEDICATIONS SKYRIZI 150 mg/mL injection VITAMIN D 25 mcg (1,000 unit) tab tablet venlafaxine ER (EFFEXOR XR) 37.5 mg 24 hr capsule Take by mouth. JARDIANCE 10 mg tablet zolpidem (AMBIEN) 5 mg tablet senna (SENNA) 8.6 mg tab Take 8.6 mg by mouth daily at bedtime. tiZANidine (ZANAFLEX) 2 mg tablet TAKE 1 TABLET BY MOUTH AT BEDTIME *CAN REPEAT DOSE 4 HOURS LATER NEEDED rosuvastatin (CRESTOR) 20 mg tablet Take 20 mg by mouth once daily. loratadine 10 mg cap Take by mouth. aspirin, enteric coated (ASPIRIN, ENTERIC COATED) 81 mg EC tablet Take 81 mg by mouth once daily. lisinopril (ZESTRIL, PRINIVIL) 20 mg tablet Take 20 mg by mouth twice daily. cholecalciferol, vitamin D3, (VITAMIN D3) 4,000 unit cap Take 3 capsules by mouth once daily. amLODIPine (NORVASC) 5 mg tablet Take 5 mg by mouth once daily. furosemide (LASIX) 20 mg tablet Take 1 tablet by mouth once daily. atenolol (TENORMIN) 50 mg tablet Take 1 tablet by mouth once daily. tamoxifen (NOLVADEX) 20 mg tablet Take 1 tablet (20 mg) by mouth once daily. (Patient not taking: Reported on 11/24/2024) doxylamine (UNISOM, DOXYLAMINE,) 25 mg tab Take 25 mg by mouth at bedtime as needed. (Patient not taking: Reported on 05/23/2024) CPAP Change AutoPAP Settings 5 - [id number] G47.33 LUCIA CPAP Supplies for Airfit P30i size small. Send cushions (size sm), headgear, tubing (heated tubing JAMES), filters, Lifetime supplies. LUCIA G47.33 FAMILY HISTORY Problem Relation Age of Onset Diabetes Mother of ESRD age 66 when she decided to stop dialysis Hypertension Mother Ischemic Heart Disease Mother CAD age late 50's, had CABG Hypertension Father of AAA(?) age 73 No Known Problems Sister other (Lung Cancer) Brother at age 63 from lung cancer Cancer Maternal Grandmother kidney No Known Problems Daughter Ischemic Heart Disease Sister CABG age 30 Social History Tobacco Use Smoking status: Former Current packs/day: 0.00 Types: Cigarettes Quit date: 06/11/2018 Years since quittin.4 Smokeless tobacco: Never Tobacco comments: Pt smoked on AND off x 30 years. Vaping Use Vaping status: Never Used Substance Use Topics Alcohol use: Not Currently Drug use: No Review of Systems Constitutional: Negative for fever. Cardiovascular: Negative for chest pain. Gastrointestinal: Negative for abdominal pain, constipation, diarrhea, nausea and vomiting. Genitourinary: Positive for dysuria, frequency and urgency. Negative for flank pain. Musculoskeletal: Positive for back pain. Objective BP 170/113 Pulse 83 Temp 37.6 ?C (99.6 ?F) Resp 18 Wt 109 kg (240 lb 4.8 oz) SpO2 94% BMI 44.93 kg/m? Physical Exam Constitutional: General: She is not in acute distress. Appearance: Normal appearance. She is not toxic-appearing. Cardiovascular: Rate and Rhythm: Normal rate and regular rhythm. Heart sounds: Normal heart sounds. Pulmonary: Effort: Pulmonary effort is normal. Breath sounds: Normal breath sounds. Abdominal: General: Bowel sounds are normal. Palpations: Abdomen is soft. Tenderness: There is no abdominal tenderness. There is no right CVA tenderness or left CVA tenderness. Skin: General: Skin is warm and dry. {ASSESSMENT/PLAN: 1. Burning with urination - ICD9: 788.1, ICD10: R30.0 acute - UA positive for najma esterase, hematuria, and proteinuria - Send urine for culture - Begin treatment with Macrobid 100 mg BID for 7 days - Patient education for prevention given - UA DIP, URINE (POC) - BACTERIAL CULTURE, URINE - NITROFURANTOIN MONOHYDRATE AND MACROCRYSTAL 100 MG ORAL CAP Alyson Walker APRN.CNP History and Record Review External record(s) reviewed: prior outpatient record. Disposition The patient was discharged. Procedures CNOV Observed: 11/24/2024 4:00 PM Status: COMPLETED Source: [facility] Office Visit ([facility]) YI FRIEDMAN ([id number]) 1955 F Date Time Provider Department 11/24/24 4:00 PM ALYSON WALKER During your visit today, we recorded the following information about you: Temperature Pulse Respiration Blood pressure 99.6 degrees 83/minute 18/minute 170/113 Weight 109 kg Alyson Walker APRN.CNP 11/24/2024 6:24 PM Signed [facility] Subjective HPI HPI Yi Friedman is a 69 year old female who presents today for CC of urinary burning, frequency, back pain. This started 2 days ago. Has tried nothing for relief. Symptoms are worsened by nothing. Denies hx of uti. Denies uri s/s. Patient not known to [facility], denies renal/hepatic disease. .Patient presents with: UTI: Burning, low back pain x2 days, low fever PAST MEDICAL HISTORY Diagnosis Date Allergic rhinitis, cause unspecified controlled Benign neoplasm of colon Essential hypertension, benign 1981 Generalized anxiety disorder Hyperlipidemia Hypertension Major depressive disorder, recurrent episode, unspecified Migraine, unspecified, without mention of intractable migraine without mention of status migrainosus in her 30;s, no longer a problem Mitral valve disorders MVP, last echo 2011 LUCIA (obstructive sleep apnea) DME [employer] for AutoPAP Other and unspecified hyperlipidemia Periodic limb movement disorder Psoriasis and similar disorders Dr. Almeida Rectocele Rosacea 2001 Dr. Almeida Snoring Thyroiditis, unspecified 1988 was hyperthyroid for 1 yr, treated with PTU, has been off meds ever since with normal labs per pt PAST SURGICAL HISTORY Procedure Laterality Date ARTHROSCOPY KNEE DIAGNOSTIC W/WO SYNOVIAL BX SPX 1999 Arthroscopy, knee left knee [facility] ARTHROSCOPY KNEE DIAGNOSTIC W/WO SYNOVIAL BX SPX 2000 Arthroscopy, knee right knee [facility] ARTHRP KNE CONDYLEANDPLATU MEDIALANDLAT COMPARTMENTS Bilateral 08/11/2017 BX BREAST W/DEVICE 1ST LESION STEREOTACTIC GUID Left 02/04/16 DCIS COLONOSCOPY FLX DX W/COLLJ SPEC WHEN PFRMD 08/04/2018 Colonoscopy COLSC FLX W/RMVL OF TUMOR POLYP LESION SNARE TQ 06/22/2008 polyps cecum and prox transverse MASTECTOMY, PARTIAL Left 04/14/2016 for DCIS PAST SURGICAL HISTORY OF 2006 2 surgeries to fix fracture of left radial head ALLERGIES Aleve Pm [Naproxen-Diphenhydramine], Benzoyl Peroxide, Celebrex [Celecoxib], Citalopram, Enbrel [Etanercept], Euflexxa [Sodium Hyaluronate (Viscosup)], Gabapentin, Hydrochlorothiazide, Lidocaine, Prednisone, Requip [Ropinirole], and Seroquel [Quetiapine Fumarate] MEDICATIONS SKYRIZI 150 mg/mL injection VITAMIN D 25 mcg (1,000 unit) tab tablet venlafaxine ER (EFFEXOR XR) 37.5 mg 24 hr capsule Take by mouth. JARDIANCE 10 mg tablet zolpidem (AMBIEN) 5 mg tablet senna (SENNA) 8.6 mg tab Take 8.6 mg by mouth daily at bedtime. tiZANidine (ZANAFLEX) 2 mg tablet TAKE 1 TABLET BY MOUTH AT BEDTIME *CAN REPEAT DOSE 4 HOURS LATER NEEDED rosuvastatin (CRESTOR) 20 mg tablet Take 20 mg by mouth once daily. loratadine 10 mg cap Take by mouth. aspirin, enteric coated (ASPIRIN, ENTERIC COATED) 81 mg EC tablet Take 81 mg by mouth once daily. lisinopril (ZESTRIL, PRINIVIL) 20 mg tablet Take 20 mg by mouth twice daily. cholecalciferol, vitamin D3, (VITAMIN D3) 4,000 unit cap Take 3 capsules by mouth once daily. amLODIPine (NORVASC) 5 mg tablet Take 5 mg by mouth once daily. furosemide (LASIX) 20 mg tablet Take 1 tablet by mouth once daily. atenolol (TENORMIN) 50 mg tablet Take 1 tablet by mouth once daily. tamoxifen (NOLVADEX) 20 mg tablet Take 1 tablet (20 mg) by mouth once daily. (Patient not taking: Reported on 11/24/2024) doxylamine (UNISOM, DOXYLAMINE,) 25 mg tab Take 25 mg by mouth at bedtime as needed. (Patient not taking: Reported on 05/23/2024) CPAP Change AutoPAP Settings 5 - [id number] G47.33 LUCIA CPAP Supplies for Airfit P30i size small. Send cushions (size sm), headgear, tubing (heated tubing JAMES), filters, Lif[employer] supplies. LUCIA G47.33 FAMILY HISTORY Problem Relation Age of Onset Diabetes Mother of ESRD age 66 when she decided to stop dialysis Hypertension Mother Ischemic Heart Disease Mother CAD age late 50's, had CABG Hypertension Father of AAA(?) age 73 No Known Problems Sister other (Lung Cancer) Brother at age 63 from lung cancer Cancer Maternal Grandmother kidney No Known Problems Daughter Ischemic Heart Disease Sister CABG age 30 Social History Tobacco Use Smoking status: Former Current packs/day: 0.00 Types: Cigarettes Quit date: 06/11/2018 Years since quittin.4 Smokeless tobacco: Never Tobacco comments: Pt smoked on AND off x 30 years. Vaping Use Vaping status: Never Used Substance Use Topics Alcohol use: Not Currently Drug use: No Review of Systems Constitutional: Negative for fever. Cardiovascular: Negative for chest pain. Gastrointestinal: Negative for abdominal pain, constipation, diarrhea, nausea and vomiting. Genitourinary: Positive for dysuria, frequency and urgency. Negative for flank pain. Musculoskeletal: Positive for back pain. Objective BP 170/113 Pulse 83 Temp 37.6 ?C (99.6 ?F) Resp 18 Wt 109 kg (240 lb 4.8 oz) SpO2 94% BMI 44.93 kg/m? Physical Exam Constitutional: General: She is not in acute distress. Appearance: Normal appearance. She is not toxic-appearing. Cardiovascular: Rate and Rhythm: Normal rate and regular rhythm. Heart sounds: Normal heart sounds. Pulmonary: Effort: Pulmonary effort is normal. Breath sounds: Normal breath sounds. Abdominal: General: Bowel sounds are normal. Palpations: Abdomen is soft. Tenderness: There is no abdominal tenderness. There is no right CVA tenderness or left CVA tenderness. Skin: General: Skin is warm and dry. {ASSESSMENT/PLAN: 1. Burning with urination - ICD9: 788.1, ICD10: R30.0 acute - UA positive for najma esterase, hematuria, and proteinuria - Send urine for culture - Begin treatment with Macrobid 100 mg BID for 7 days - Patient education for prevention given - UA DIP, URINE (POC) - BACTERIAL CULTURE, URINE - NITROFURANTOIN MONOHYDRATE AND MACROCRYSTAL 100 MG ORAL CAP Alyson Walker APRN.CNP History and Record Review External record(s) reviewed: prior outpatient record. Disposition The patient was discharged. Procedures Alyson Walker APRN.CNP 11/24/2024 6:23 PM Signed Patient Education for Female Urinary Tract Infections Possible complications: Pyelonehritis Renal abscess Expected course/prognosis: * symptoms resolve within 2-3 days after starting treatment in almost all patients * one-fourth of women with simple UTI experience a second UTI within 6 months, and half at some time during lifetime. * patients with multiple recurrent UTI and no underlying urinary tract abnormality may receive long-term prophylactic antibioitic treatment. Trimethoprim-sulfamethoxazole and nitrofurantoin common used. * women with frequent or intercourse-related UTI should empty bladder immediately before and following intercourse and consider postcoital antibiotic treament Instructions: * Maintain good hydration * Avoid sexual intercourse when symptoms present *Take antibiotic as directed * Return if symptoms not resolved or markedly improved within 48 hours * Return if fever, chills, or flank pain develop * If taking prophylactic antiobiotics, take at bedtime * Take showers instead of tub baths * Avoid feminine hygiene sprays and scented douches * Wipe urethra from front to back Allergies As of Date: 11/24/2024 Noted Allergy Reaction MICHELLE MEYER (NAPROXEN-DIPHENHYDRAMIN*07/12/2015 2 - Rash Comments: Rash, High Anxiety BENZOYL PEROXIDE 02/21/2009 2 - Rash CELEBREX (CELECOXIB) 11/07/2015 2 - Rash Comments: Flushing, mood swings, anxiety increase CITALOPRAM 08/13/2010 1 - Mental Status Change Comments: Drowsiness, severe even on 10 mg ENBREL (ETANERCEPT) 08/05/2010 2 - Rash Comments: made psoriasis worse EUFLEXXA (SODIUM HYALURONATE (VIS*02/19/2017 14 - Other: See Comments Comments: Elevated WBC's, CRP GABAPENTIN 07/17/2015 14 - Other: See Comments Comments: Patient states has redness of skin and horrible anxiety with this medication. HYDROCHLOROTHIAZIDE 08/12/2007 5 - Intolerance Comments: was in hospital with severe hypokalemia LIDOCAINE 12/25/2015 9 - Itching Comments: Lidocaine Patches PREDNISONE 02/05/2011 1 - Mental Status Change REQUIP (ROPINIROLE) 07/12/2015 4 - Hives SEROQUEL (QUETIAPINE FUMARATE) 07/27/2013 2 - Rash Date Reviewed: 11/24/2024 Reviewed by: Lauryn Hooker MA - Fully Assessed Reason for Visit: UTI [116] Cmt: Burning, low back pain x2 days, low fever Primary Visit Diagnosis:Burning with urination [R30.0] Order(s):UA DIP, URINE (POC) [[id number]] Order #: [id number]. #:[id number] BACTERIAL CULTURE, URINE [SQURCUL] Order #: [id number]. #:[id number] nitrofurantoin monohydrate and macrocrystal (MACROBID) 100 mg capsuleTake 1 capsule by mouth two times a day for 7 days.Disp: 14 capsuleRfl: 0 Prescriptions as of 11/24/2024 - SKYRIZI 150 mg/mL injection - VITAMIN D 25 mcg (1,000 unit) tab tablet - venlafaxine ER (EFFEXOR XR) 37.5 mg 24 hr capsule Take by mouth. - nitrofurantoin monohydrate and macrocrystal (MACROBID) 100 mg capsule Take 1 capsule by mouth two times a day for 7 days. - JARDIANCE 10 mg tablet - zolpidem (AMBIEN) 5 mg tablet - tamoxifen (NOLVADEX) 20 mg tablet Take 1 tablet (20 mg) by mouth once daily. - doxylamine (UNISOM, DOXYLAMINE,) 25 mg tab Take 25 mg by mouth at bedtime as needed. - senna (SENNA) 8.6 mg tab Take 8.6 mg by mouth daily at bedtime. - tiZANidine (ZANAFLEX) 2 mg tablet TAKE 1 TABLET BY MOUTH AT BEDTIME *CAN REPEAT DOSE 4 HOURS LATER NEEDED - CPAP Change AutoPAP Settings 5 - [id number] G47.33 LUCIA - CPAP Supplies for Airfit P30i size small. Send cushions (size sm), headgear, tubing (heated tubing JAMES), filters, Lifetime supplies. LUCIA G47.33 - rosuvastatin (CRESTOR) 20 mg tablet Take 20 mg by mouth once daily. - loratadine 10 mg cap Take by mouth. - aspirin, enteric coated (ASPIRIN, ENTERIC COATED) 81 mg EC tablet Take 81 mg by mouth once daily. - lisinopril (ZESTRIL, PRINIVIL) 20 mg tablet Take 20 mg by mouth twice daily. - cholecalciferol, vitamin D3, (VITAMIN D3) 4,000 unit cap Take 3 capsules by mouth once daily. - amLODIPine (NORVASC) 5 mg tablet Take 5 mg by mouth once daily. - furosemide (LASIX) 20 mg tablet Take 1 tablet by mouth once daily. - atenolol (TENORMIN) 50 mg tablet Take 1 tablet by mouth once daily. 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] 08/12/2007 07/16/2011 Class: Chronic Benign neoplasm of colon [D12.6] 06/22/2008 07/16/2011 Blood in Stool [K92.1] 06/22/2008 01/10/2009 Actinic keratosis [L57.0] 10/09/2008 Neoplasm of uncertain behavior of skin [D48.5] 10/09/2008 07/16/2011 Other psoriasis [L40.8] 10/09/2008 Other chronic dermatitis due to solar radiation*10/09/2008 07/16/2011 Benign neoplasm of skin of trunk, except scrotu*10/13/2008 07/16/2011 Open Wnd Site [T14.8XXA] 11/15/2008 01/10/2009 Routine general medical examination at a [facility]*01/10/2009 07/16/2011 Class: Chronic Hepatitis B [B19.10] 06/21/2009 04/13/2014 Vitamin D deficiency [E55.9] 09/28/2009 Capsulitis [M77.9] 01/21/2011 07/16/2011 Cervical high risk human papillomavirus (HPV) D*07/16/2012 Obesity (BMI 30.0-34.9) [E66.811] 04/05/2013 Allergic rhinitis [J30.9] 04/05/2013 Fatigue [R53.83] 04/05/2013 04/13/2014 Polyp of colon [K63.5] 04/13/2014 Chronic pain syndrome [G89.4] 11/07/2015 Restless legs syndrome (RLS) [G25.81] 11/07/2015 DCIS (ductal carcinoma in situ) of breast [D05.*06/04/2016 Ductal carcinoma in situ (DCIS) of left breast *12/17/2017 Psoriasis of vulva [L40.9] 03/03/2018 Rectocele [N81.6] 03/03/2018 LUCIA (obstructive sleep apnea) [G47.33] 12/30/2018 Other instructions from your clinician: Patient Education for Female Urinary Tract Infections Possible complications: Pyelonehritis Renal abscess Expected course/prognosis: * symptoms resolve within 2-3 days after starting treatment in almost all patients * one-fourth of women with simple UTI experience a second UTI within 6 months, and half at some time during lifetime. * patients with multiple recurrent UTI and no underlying urinary tract abnormality may receive long-term prophylactic antibioitic treatment. Trimethoprim-sulfamethoxazole and nitrofurantoin common used. * women with frequent or intercourse-related UTI should empty bladder immediately before and following intercourse and consider postcoital antibiotic treament Instructions: * Maintain good hydration * Avoid sexual intercourse when symptoms present *Take antibiotic as directed * Return if symptoms not resolved or markedly improved within 48 hours * Return if fever, chills, or flank pain develop * If taking prophylactic antiobiotics, take at bedtime * Take showers instead of tub baths * Avoid feminine hygiene sprays and scented douches * Wipe urethra from front to back Prescriptions ordered this encounter Disp Refills Start End NITROFURANTOIN MONOHYDRATE AND MACROCR* 14 c* 0 11/24/2024 12/01/2024 Route: PO Sig: Take 1 capsule by mouth two times a day for 7 days. Encounter Status:Closed by ALYSON WALKER on 11/24/24 JOSS Observed: 05/24/2024 12:00 AM Status: COMPLETED Source: [facility] Telephone (INT[facility]) YI FRIEDMAN ([id number]) 1955 F Date Time Provider Department 05/24/24 MARTA SOOD INTMWS During your visit today, we recorded the following information about you: Samrad Garcia, RN 05/24/2024 9:43 AM Signed Patient phoned for results of covid test and given negative results below with verbalized understanding. Component Ref Range AND Units 1 d ago SARS-CoV-2 (Agent of COVID-19) RNA See comment Not detected Influenza A RNA Not Detected Not detected Influenza B RNA Not Detected Not detected Respiratory syncytial virus (RSV) RNA Not Detected Not detected Allergies As of Date: 05/24/2024 Noted Allergy Reaction ALEVE PM (NAPROXEN-DIPHENHYDRAMIN*07/12/2015 2 - Rash Comments: Rash, High Anxiety BENZOYL PEROXIDE 02/21/2009 2 - Rash CELEBREX (CELECOXIB) 11/07/2015 2 - Rash Comments: Flushing, mood swings, anxiety increase CITALOPRAM 08/13/2010 1 - Mental Status Change Comments: Drowsiness, severe even on 10 mg ENBREL (ETANERCEPT) 08/05/2010 2 - Rash Comments: made psoriasis worse EUFLEXXA (SODIUM HYALURONATE (VIS*02/19/2017 14 - Other: See Comments Comments: Elevated WBC's, CRP GABAPENTIN 07/17/2015 14 - Other: See Comments Comments: Patient states has redness of skin and horrible anxiety with this medication. HYDROCHLOROTHIAZIDE 08/12/2007 5 - Intolerance Comments: was in hospital with severe hypokalemia LIDOCAINE 12/25/2015 9 - Itching Comments: Lidocaine Patches PREDNISONE 02/05/2011 1 - Mental Status Change REQUIP (ROPINIROLE) 07/12/2015 4 - Hives SEROQUEL (QUETIAPINE FUMARATE) 07/27/2013 2 - Rash Date Reviewed: 05/23/2024 Reviewed by: Jazmin Garcia MA - Fully Assessed Reason for Visit: Results [95] Prescriptions as of 05/24/2024 - JARDIANCE 10 mg tablet - zolpidem (AMBIEN) 5 mg tablet - tamoxifen (NOLVADEX) 20 mg tablet Take 1 tablet (20 mg) by mouth once daily. - doxylamine (UNISOM, DOXYLAMINE,) 25 mg tab Take 25 mg by mouth at bedtime as needed. - senna (SENNA) 8.6 mg tab Take 8.6 mg by mouth daily at bedtime. - tiZANidine (ZANAFLEX) 2 mg tablet TAKE 1 TABLET BY MOUTH AT BEDTIME *CAN REPEAT DOSE 4 HOURS LATER NEEDED - CPAP Change AutoPAP Settings 5 - [id number] G47.33 LUCIA - CPAP Supplies for Airfit P30i size small. Send cushions (size sm), headgear, tubing (heated tubing JAMES), filters, Lifetime supplies. LUCIA G47.33 - rosuvastatin (CRESTOR) 20 mg tablet Take 20 mg by mouth once daily. - loratadine 10 mg cap Take by mouth. - aspirin, enteric coated (ASPIRIN, ENTERIC COATED) 81 mg EC tablet Take 81 mg by mouth once daily. - lisinopril (ZESTRIL, PRINIVIL) 20 mg tablet Take 20 mg by mouth twice daily. - cholecalciferol, vitamin D3, (VITAMIN D3) 4,000 unit cap Take 3 capsules by mouth once daily. - amLODIPine (NORVASC) 5 mg tablet Take 5 mg by mouth once daily. - furosemide (LASIX) 20 mg tablet Take 1 tablet by mouth once daily. - atenolol (TENORMIN) 50 mg tablet Take 1 tablet by mouth once daily. 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] 08/12/2007 07/16/2011 Class: Chronic Benign neoplasm of colon [D12.6] 06/22/2008 07/16/2011 Blood in Stool [K92.1] 06/22/2008 01/10/2009 Actinic keratosis [L57.0] 10/09/2008 Neoplasm of uncertain behavior of skin [D48.5] 10/09/2008 07/16/2011 Other psoriasis [L40.8] 10/09/2008 Other chronic dermatitis due to solar radiation*10/09/2008 07/16/2011 Benign neoplasm of skin of trunk, except scrotu*10/13/2008 07/16/2011 Open Wnd Site [T14.8XXA] 11/15/2008 01/10/2009 Routine general medical examination at [facility]*01/10/2009 07/16/2011 Class: Chronic Hepatitis B [B19.10] 06/21/2009 04/13/2014 Vitamin D deficiency [E55.9] 09/28/2009 Capsulitis [M77.9] 01/21/2011 07/16/2011 Cervical high risk human papillomavirus (HPV) D*07/16/2012 Obesity (BMI 30.0-34.9) [E66.811] 04/05/2013 Allergic rhinitis [J30.9] 04/05/2013 Fatigue [R53.83] 04/05/2013 04/13/2014 Polyp of colon [K63.5] 04/13/2014 Chronic pain syndrome [G89.4] 11/07/2015 Restless legs syndrome (RLS) [G25.81] 11/07/2015 DCIS (ductal carcinoma in situ) of breast [D05.*06/04/2016 Ductal carcinoma in situ (DCIS) of left breast *12/17/2017 Psoriasis of vulva [L40.9] 03/03/2018 Rectocele [N81.6] 03/03/2018 LUCIA (obstructive sleep apnea) [G47.33] 12/30/2018 Encounter Status:Closed by Sarmad GARCIA on 05/24/24 COVID AND INFLUENZA A/B AND RSV PCR, ROUTINE Observed: 05/23/2024 11:48 AM Status: F Source: [facility] SARS-COV-2 (AGENT OF COVID-1 9) RNA: Not detectedINFLUENZA A RNA: Not detectedINFLUENZA B RNA: Not detectedRESPIRATORY SYNCYTIAL VIRUS (RSV) RNA: Not detected Performed By: #### CVFLRS ## ## [facility] CLIA [id number] [address] [place] [address] OF [facility] PROGRESS Observed: 05/23/2024 11:12 AM Status: COMPLETED Source: [facility] HNO ID: [id number] Author: DOV AVENDANO PA Service: ? Author Type: Physician Farm Instructor Type: Progress Notes Filed: 05/23/2024 11:32 Note Text: This note was created using NoteWriter. Subjective Yi Friedman is a 69 year old female. HPI 69-year-old female presents for cough, congestion, sore throat, body aches x 1 day. Patient states yesterday she got up and felt sick. She has nasal congestion, mild cough, sore throat. She has some bodyaches, low-grade fever here. She denies any chest pain or shortness of breath. No vomiting or diarrhea. Still able to eat and drink. She took Tylenol yesterday. Has also tried Zyrtec for symptoms without much improvement. She does live in assisted living, so has had sick contacts. No other complaint. PAST MEDICAL HISTORY Diagnosis Date Allergic rhinitis, cause unspecified controlled Benign neoplasm of colon Essential hypertension, benign 1981 Generalized anxiety disorder Hyperlipidemia Hypertension Major depressive disorder, recurrent episode, unspecified Migraine, unspecified, without mention of intractable migraine without mention of status migrainosus in her 30;s, no longer a problem Mitral valve disorders MVP, last echo 2011 LUCIA (obstructive sleep apnea) DME [employer] for AutoPAP Other and unspecified hyperlipidemia Periodic limb movement disorder Psoriasis and similar disorders Dr. Almeida Rectocele Rosacea 2001 Dr. Almeida Snoring Thyroiditis, unspecified 1988 was hyperthyroid for 1 yr, treated with PTU, has been off meds ever since with normal labs per pt PAST SURGICAL HISTORY Procedure Laterality Date ARTHROSCOPY KNEE DIAGNOSTIC W/WO SYNOVIAL BX SPX 1999 Arthroscopy, knee left knee [facility] ARTHROSCOPY KNEE DIAGNOSTIC W/WO SYNOVIAL BX SPX 2000 Arthroscopy, knee right knee H ARTHRP KNE CONDYLEANDPLATU MEDIALANDLAT COMPARTMENTS Bilateral 08/11/2017 BX BREAST W/DEVICE 1ST LESION STEREOTACTIC GUID Left 02/04/16 DCIS COLONOSCOPY FLX DX W/COLLJ SPEC WHEN PFRMD 08/04/2018 Colonoscopy COLSC FLX W/RMVL OF TUMOR POLYP LESION SNARE TQ 06/22/2008 polyps cecum and prox transverse MASTECTOMY, PARTIAL Left 04/14/2016 for DCIS PAST SURGICAL HISTORY OF 2006 2 surgeries to fix fracture of left radial head ALLERGIES Aleve Pm [Naproxen-Diphenhydramine], Benzoyl Peroxide, Celebrex [Celecoxib], Citalopram, Enbrel [Etanercept], Euflexxa [Sodium Hyaluronate (Viscosup)], Gabapentin, Hydrochlorothiazide, Lidocaine, Prednisone, Requip [Ropinirole], and Seroquel [Quetiapine Fumarate] MEDICATIONS JARDIANCE 10 mg tablet zolpidem (AMBIEN) 5 mg tablet senna (SENNA) 8.6 mg tab Take 8.6 mg by mouth daily at bedtime. tiZANidine (ZANAFLEX) 2 mg tablet TAKE 1 TABLET BY MOUTH AT BEDTIME *CAN REPEAT DOSE 4 HOURS LATER NEEDED (Patient taking differently: Take 2 mg by mouth. TAKE 2 TABLET BY MOUTH AT BEDTIME *CAN REPEAT DOSE 4 HOURS LATER NEEDED) CPAP Change AutoPAP Settings 5 - [id number] G47.33 LUCIA CPAP Supplies for Airfit P30i size small. Send cushions (size sm), headgear, tubing (heated tubing JAMES), filters, Lifetime supplies. LUCIA G47.33 rosuvastatin (CRESTOR) 20 mg tablet Take 20 mg by mouth once daily. loratadine 10 mg cap Take by mouth. aspirin, enteric coated (ASPIRIN, ENTERIC COATED) 81 mg EC tablet Take 81 mg by mouth once daily. lisinopril (ZESTRIL, PRINIVIL) 20 mg tablet Take 20 mg by mouth twice daily. cholecalciferol, vitamin D3, (VITAMIN D3) 4,000 unit cap Take 3 capsules by mouth once daily. amLODIPine (NORVASC) 5 mg tablet Take 5 mg by mouth once daily. furosemide (LASIX) 20 mg tablet Take 1 tablet by mouth once daily. atenolol (TENORMIN) 50 mg tablet Take 1 tablet by mouth once daily. tamoxifen (NOLVADEX) 20 mg tablet Take 1 tablet (20 mg) by mouth once daily. (Patient not taking: Reported on 05/23/2024) doxylamine (UNISOM, DOXYLAMINE,) 25 mg tab Take 25 mg by mouth at bedtime as needed. (Patient not taking: Reported on 05/23/2024) FAMILY HISTORY Problem Relation Age of Onset Diabetes Mother of ESRD age 66 when she decided to stop dialysis Hypertension Mother Ischemic Heart Disease Mother CAD age late 50's, had CABG Hypertension Father of AAA(?) age 73 No Known Problems Sister other (Lung Cancer) Brother at age 63 from lung cancer Cancer Maternal Grandmother kidney No Known Problems Daughter Ischemic Heart Disease Sister CABG age 30 Social History Tobacco Use Smoking status: Former Current packs/day: 0.00 Types: Cigarettes Quit date: 06/11/2018 Years since quittin.9 Smokeless tobacco: Never Tobacco comments: Pt smoked on AND off x 30 years. Vaping Use Vaping status: Never Used Substance Use Topics Alcohol use: Not Currently Drug use: No Review of Systems Constitutional: Positive for fever. Negative for chills. HENT: Positive for congestion and sore throat. Negative for ear pain. Respiratory: Positive for cough. Negative for shortness of breath. Cardiovascular: Negative for chest pain. Gastrointestinal: Negative for diarrhea and vomiting. Objective BP 160/104 Pulse 87 Temp 37.6 ?C (99.7 ?F) Resp 20 Wt 106 kg (233 lb 11 oz) SpO2 95% BMI 43.70 kg/m? Physical Exam Vitals and nursing note reviewed. Constitutional: General: She is not in acute distress. Appearance: Normal appearance. She is not toxic-appearing. HENT: Right Ear: Tympanic membrane and ear canal normal. Left Ear: Tympanic membrane and ear canal normal. Nose: Nose normal. No congestion. Mouth/Throat: Mouth: Mucous membranes are moist. Pharynx: Posterior oropharyngeal erythema present. Eyes: Conjunctiva/sclera: Conjunctivae normal. Cardiovascular: Rate and Rhythm: Normal rate and regular rhythm. Pulmonary: Effort: Pulmonary effort is normal. Breath sounds: Normal breath sounds. No wheezing, rhonchi or rales. Skin: General: Skin is warm and dry. Neurological: Mental Status: She is alert. Assessment and Plan ASSESSMENT/PLAN: 1. URI, acute - ICD9: 465.9, ICD10: J06.9 - Discussed viral etiology and rationale for treatment. - Symptomatic treatment with prn analgesia - Supportive care with fluids and rest - INFLUENZA AANDB MOLECULAR (POC)-negative - COVID AND INFLUENZA A/B AND RSV PCR, ROUTINE -Discussed Paxlovid, patient declines if COVID-positive. Discussed supportive treatment at home. Diagnosis and treatment plan were discussed and questions were answered to the patient's satisfaction. Pt acknowledged understanding of concepts and follow up plan. Specific signs and symptoms that would indicate the need for higher level of care were discussed in detail warranting prompt ER evaluation. JEWEL Miles CNOV Observed: 05/23/2024 11:00 AM Status: COMPLETED Source: [facility] Office Visit (WSTR) YI FRIEDMAN ([id number]) 1955 F Date Time Provider Department 05/23/24 11:00 AM DOV AVENDANOWSTR During your visit today, we recorded the following information about you: Temperature Pulse Respiration Blood pressure 99.7 degrees 87/minute 20/minute 160/104 Weight 106 kg Dov Avendano PA 05/23/2024 11:32 AM Signed This note was created using NoteWriter. Subjective Yi Friedman is a 69 year old female. HPI 69-year-old female presents for cough, congestion, sore throat, body aches x 1 day. Patient states yesterday she got up and felt sick. She has nasal congestion, mild cough, sore throat. She has some bodyaches, low-grade fever here. She denies any chest pain or shortness of breath. No vomiting or diarrhea. Still able to eat and drink. She took Tylenol yesterday. Has also tried Zyrtec for symptoms without much improvement. She does live in assisted living, so has had sick contacts. No other complaint. PAST MEDICAL HISTORY Diagnosis Date Allergic rhinitis, cause unspecified controlled Benign neoplasm of colon Essential hypertension, benign 1981 Generalized anxiety disorder Hyperlipidemia Hypertension Major depressive disorder, recurrent episode, unspecified Migraine, unspecified, without mention of intractable migraine without mention of status migrainosus in her 30;s, no longer a problem Mitral valve disorders MVP, last echo 2011 LUCIA (obstructive sleep apnea) DME [employer] for AutoPAP Other and unspecified hyperlipidemia Periodic limb movement disorder Psoriasis and similar disorders Dr. Almeida Rectocele Rosacea 2001 Dr. Almeida Snoring Thyroiditis, unspecified 1988 was hyperthyroid for 1 yr, treated with PTU, has been off meds ever since with normal labs per pt PAST SURGICAL HISTORY Procedure Laterality Date ARTHROSCOPY KNEE DIAGNOSTIC W/WO SYNOVIAL BX SPX 1999 Arthroscopy, knee left knee [facility] ARTHROSCOPY KNEE DIAGNOSTIC W/WO SYNOVIAL BX SPX 2000 Arthroscopy, knee right knee [facility] ARTHRP KNE CONDYLEANDPLATU MEDIALANDLAT COMPARTMENTS Bilateral 08/11/2017 BX BREAST W/DEVICE 1ST LESION STEREOTACTIC GUID Left 02/04/16 DCIS COLONOSCOPY FLX DX W/COLLJ SPEC WHEN PFRMD 08/04/2018 Colonoscopy COLSC FLX W/RMVL OF TUMOR POLYP LESION SNARE TQ 06/22/2008 polyps cecum and prox transverse MASTECTOMY, PARTIAL Left 04/14/2016 for DCIS PAST SURGICAL HISTORY OF 2006 2 surgeries to fix fracture of left radial head ALLERGIES Aleve Pm [Naproxen-Diphenhydramine], Benzoyl Peroxide, Celebrex [Celecoxib], Citalopram, Enbrel [Etanercept], Euflexxa [Sodium Hyaluronate (Viscosup)], Gabapentin, Hydrochlorothiazide, Lidocaine, Prednisone, Requip [Ropinirole], and Seroquel [Quetiapine Fumarate] MEDICATIONS JARDIANCE 10 mg tablet zolpidem (AMBIEN) 5 mg tablet senna (SENNA) 8.6 mg tab Take 8.6 mg by mouth daily at bedtime. tiZANidine (ZANAFLEX) 2 mg tablet TAKE 1 TABLET BY MOUTH AT BEDTIME *CAN REPEAT DOSE 4 HOURS LATER NEEDED (Patient taking differently: Take 2 mg by mouth. TAKE 2 TABLET BY MOUTH AT BEDTIME *CAN REPEAT DOSE 4 HOURS LATER NEEDED) CPAP Change AutoPAP Settings 5 - [id number] G47.33 LUCIA CPAP Supplies for Airfit P30i size small. Send cushions (size sm), headgear, tubing (heated tubing JAMES), filters, Lif[employer] supplies. LUCIA G47.33 rosuvastatin (CRESTOR) 20 mg tablet Take 20 mg by mouth once daily. loratadine 10 mg cap Take by mouth. aspirin, enteric coated (ASPIRIN, ENTERIC COATED) 81 mg EC tablet Take 81 mg by mouth once daily. lisinopril (ZESTRIL, PRINIVIL) 20 mg tablet Take 20 mg by mouth twice daily. cholecalciferol, vitamin D3, (VITAMIN D3) 4,000 unit cap Take 3 capsules by mouth once daily. amLODIPine (NORVASC) 5 mg tablet Take 5 mg by mouth once daily. furosemide (LASIX) 20 mg tablet Take 1 tablet by mouth once daily. atenolol (TENORMIN) 50 mg tablet Take 1 tablet by mouth once daily. tamoxifen (NOLVADEX) 20 mg tablet Take 1 tablet (20 mg) by mouth once daily. (Patient not taking: Reported on 05/23/2024) doxylamine (UNISOM, DOXYLAMINE,) 25 mg tab Take 25 mg by mouth at bedtime as needed. (Patient not taking: Reported on 05/23/2024) FAMILY HISTORY Problem Relation Age of Onset Diabetes Mother of ESRD age 66 when she decided to stop dialysis Hypertension Mother Ischemic Heart Disease Mother CAD age late 50's, had CABG Hypertension Father of AAA(?) age 73 No Known Problems Sister other (Lung Cancer) Brother at age 63 from lung cancer Cancer Maternal Grandmother kidney No Known Problems Daughter Ischemic Heart Disease Sister CABG age 30 Social History Tobacco Use Smoking status: Former Current packs/day: 0.00 Types: Cigarettes Quit date: 06/11/2018 Years since quittin.9 Smokeless tobacco: Never Tobacco comments: Pt smoked on AND off x 30 years. Vaping Use Vaping status: Never Used Substance Use Topics Alcohol use: Not Currently Drug use: No Review of Systems Constitutional: Positive for fever. Negative for chills. HENT: Positive for congestion and sore throat. Negative for ear pain. Respiratory: Positive for cough. Negative for shortness of breath. Cardiovascular: Negative for chest pain. Gastrointestinal: Negative for diarrhea and vomiting. Objective BP 160/104 Pulse 87 Temp 37.6 ?C (99.7 ?F) Resp 20 Wt 106 kg (233 lb 11 oz) SpO2 95% BMI 43.70 kg/m? Physical Exam Vitals and nursing note reviewed. Constitutional: General: She is not in acute distress. Appearance: Normal appearance. She is not toxic-appearing. HENT: Right Ear: Tympanic membrane and ear canal normal. Left Ear: Tympanic membrane and ear canal normal. Nose: Nose normal. No congestion. Mouth/Throat: Mouth: Mucous membranes are moist. Pharynx: Posterior oropharyngeal erythema present. Eyes: Conjunctiva/sclera: Conjunctivae normal. Cardiovascular: Rate and Rhythm: Normal rate and regular rhythm. Pulmonary: Effort: Pulmonary effort is normal. Breath sounds: Normal breath sounds. No wheezing, rhonchi or rales. Skin: General: Skin is warm and dry. Neurological: Mental Status: She is alert. Assessment and Plan ASSESSMENT/PLAN: 1. URI, acute - ICD9: 465.9, ICD10: J06.9 - Discussed viral etiology and rationale for treatment. - Symptomatic treatment with prn analgesia - Supportive care with fluids and rest - INFLUENZA AANDB MOLECULAR (POC)-negative - COVID AND INFLUENZA A/B AND RSV PCR, ROUTINE -Discussed Paxlovid, patient declines if COVID-positive. Discussed supportive treatment at home. Diagnosis and treatment plan were discussed and questions were answered to the patient's satisfaction. Pt acknowledged understanding of concepts and follow up plan. Specific signs and symptoms that would indicate the need for higher level of care were discussed in detail warranting prompt ER evaluation. JEWEL Miles Allergies As of Date: 05/23/2024 Noted Allergy Reaction ALEVE PM (NAPROXEN-DIPHENHYDRAMIN*07/12/2015 2 - Rash Comments: Rash, High Anxiety BENZOYL PEROXIDE 02/21/2009 2 - Rash CELEBREX (CELECOXIB) 11/07/2015 2 - Rash Comments: Flushing, mood swings, anxiety increase CITALOPRAM 08/13/2010 1 - Mental Status Change Comments: Drowsiness, severe even on 10 mg ENBREL (ETANERCEPT) 08/05/2010 2 - Rash Comments: made psoriasis worse EUFLEXXA (SODIUM HYALURONATE (VIS*02/19/2017 14 - Other: See Comments Comments: Elevated WBC's, CRP GABAPENTIN 07/17/2015 14 - Other: See Comments Comments: Patient states has redness of skin and horrible anxiety with this medication. HYDROCHLOROTHIAZIDE 08/12/2007 5 - Intolerance Comments: was in hospital with severe hypokalemia LIDOCAINE 12/25/2015 9 - Itching Comments: Lidocaine Patches PREDNISONE 02/05/2011 1 - Mental Status Change REQUIP (ROPINIROLE) 07/12/2015 4 - Hives SEROQUEL (QUETIAPINE FUMARATE) 07/27/2013 2 - Rash Date Reviewed: 05/23/2024 Reviewed by: Jazmin Garcia MA - Fully Assessed Reason for Visit: Cough [28] Cmt: Sore throat, body aches, congestion x 1 day Primary Visit Diagnosis:URI, acute [J06.9] Order(s):INFLUENZA AANDB MOLECULAR (POC) [6315025] Order #: [id number]. #:[id number] COVID AND INFLUENZA A/B AND RSV PCR, ROUTINE [SQCVFLRS] Order #: [id number]. #:[id number] Prescriptions as of 05/23/2024 - JARDIANCE 10 mg tablet - zolpidem (AMBIEN) 5 mg tablet - tamoxifen (NOLVADEX) 20 mg tablet Take 1 tablet (20 mg) by mouth once daily. - doxylamine (UNISOM, DOXYLAMINE,) 25 mg tab Take 25 mg by mouth at bedtime as needed. - senna (SENNA) 8.6 mg tab Take 8.6 mg by mouth daily at bedtime. - tiZANidine (ZANAFLEX) 2 mg tablet TAKE 1 TABLET BY MOUTH AT BEDTIME *CAN REPEAT DOSE 4 HOURS LATER NEEDED - CPAP Change AutoPAP Settings 5 - [id number] G47.33 LUCIA - CPAP Supplies for Airfit P30i size small. Send cushions (size sm), headgear, tubing (heated tubing JAMES), filters, Lif[employer] supplies. LUCIA G47.33 - rosuvastatin (CRESTOR) 20 mg tablet Take 20 mg by mouth once daily. - loratadine 10 mg cap Take by mouth. - aspirin, enteric coated (ASPIRIN, ENTERIC COATED) 81 mg EC tablet Take 81 mg by mouth once daily. - lisinopril (ZESTRIL, PRINIVIL) 20 mg tablet Take 20 mg by mouth twice daily. - cholecalciferol, vitamin D3, (VITAMIN D3) 4,000 unit cap Take 3 capsules by mouth once daily. - amLODIPine (NORVASC) 5 mg tablet Take 5 mg by mouth once daily. - furosemide (LASIX) 20 mg tablet Take 1 tablet by mouth once daily. - atenolol (TENORMIN) 50 mg tablet Take 1 tablet by mouth once daily. 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 - [facility] [Z01.419] 08/12/2007 07/16/2011 Class: Chronic Benign neoplasm of colon [D12.6] 06/22/2008 07/16/2011 Blood in Stool [K92.1] 06/22/2008 01/10/2009 Actinic keratosis [L57.0] 10/09/2008 Neoplasm of uncertain behavior of skin [D48.5] 10/09/2008 07/16/2011 Other psoriasis [L40.8] 10/09/2008 Other chronic dermatitis due to solar radiation*10/09/2008 07/16/2011 Benign neoplasm of skin of trunk, except scrotu*10/13/2008 07/16/2011 Open Wnd Site [T14.8XXA] 11/15/2008 01/10/2009 Routine general medical examination at a [facility]*01/10/2009 07/16/2011 Class: Chronic Hepatitis B [B19.10] 06/21/2009 04/13/2014 Vitamin D deficiency [E55.9] 09/28/2009 Capsulitis [M77.9] 01/21/2011 07/16/2011 Cervical high risk human papillomavirus (HPV) D*07/16/2012 Obesity (BMI 30.0-34.9) [E66.811] 04/05/2013 Allergic rhinitis [J30.9] 04/05/2013 Fatigue [R53.83] 04/05/2013 04/13/2014 Polyp of colon [K63.5] 04/13/2014 Chronic pain syndrome [G89.4] 11/07/2015 Restless legs syndrome (RLS) [G25.81] 11/07/2015 DCIS (ductal carcinoma in situ) of breast [D05.*06/04/2016 Ductal carcinoma in situ (DCIS) of left breast *12/17/2017 Psoriasis of vulva [L40.9] 03/03/2018 Rectocele [N81.6] 03/03/2018 LUCIA (obstructive sleep apnea) [G47.33] 12/30/2018 Encounter Status:Closed by DOV AVENDANO on 05/23/24 ALLERGIES DATE TYPE / CODE NAME / CODE REACTION SEVERITY SOURCE 02/19/2017 DRUG/261751 003(SNOMED CT) SODIUM HYALURONATE (VISCOSUP) OTHER: SEE C [facility] 12/25/2015 DRUG INGREDI/419 498936(SNOM ED CT) LIDOCAINE ITCHING [facility] 11/07/2015 DRUG INGREDI/419 887701(SNOM ED CT) CELECOXIB RASH [facility] 07/17/2015 DRUG INGREDI/419 427750(SNOM ED CT) GABAPENTIN OTHER: SEE [facility] 07/12/2015 DRUG/063570 003(SNOMED CT) NAPROXEN[facility]HYDRAMINE [facility] DRUG INGREDI/419 682284(SNOM ED CT) ROPINIROLE HIVES [facility] 07/27/2013 DRUG INGREDI/419 539230(SNOM ED CT) QUETIAPINE FUMARATE RASH [facility] 02/05/2011 DRUG INGREDI/419 019427(SNOM ED CT) PREDNISONE Mental Chg [facility] 08/13/2010 DRUG INGREDI/419 603157(SNOM ED CT) CITALOPRAM Mental Chg [facility] 08/05/2010 DRUG INGREDI/419 251248(SNOM ED CT) ETANERCEPT RASH [facility] 02/21/2009 DRUG INGREDI/419 185485(SNOM ED CT) BENZOYL PEROXIDE RASH [facility] 08/12/2007 DRUG INGREDI/419 756675(SNOM ED CT) HYDROCHLOROTHIAZIDE INTOLERANCE [facility] ENCOUNTERS ADMIT/DISCHARGE ACCOUNT NUMBER ADMITTING ENCOUNTER CLASS LOC ATION SOURCE 11/24/2024/ 5 [id number] [facility] 05/23/2024/ 5 [id number] [facility] ENCOUNTER GUARANTOR PAYER SUBSCRIBER SOURCE 11/24/2024 Primary Insuranc e:[facility] MEDICAREPolicy Number: [id number] Date:2992-16-50Oqhw Name:Yash PALACIOS: [id number] [employer] [address] [place] [id number] [place] [address] 11/24/2024 Secondary Insurance:[facility] MEDICAIDPolicy Number: [id number] Date:9492-97-89Lxxk Name:Brii LIGHTKrys: [id number] [place] [address] [facility] 05/23/2024 Primary Insuranc e:[facility] MEDICAREPolicy Number: [id number] Date:3932-30-61Ecvt Name:Yash LIGHTKrys: [id number] [place] [id number] [place] [address] 05/23/2024 Secondary Insurance:[facility] MEDICAIDPolicy Number: [id number] Date:4344-00-29Ucza Name:Brii PALACIOS: [id number] [address] [facility] [address] [place] [id number] [facility]
--- NOTE | 2025-01-20 00:06 | RAD_ITS ---
PROCEDURE: CHEST 1 VIEW (PORTABLE) 01/21/2025 REASON FOR EXAM: PALPITATIONS TECHNIQUE: Frontal view of the chest. COMPARISON: None. FINDINGS: Mild bilateral basilar atelectatic pulmonary changes. There is no demonstrated pleural abnormality. Enlarged cardiac silhouette. Normal mediastinum and gerald. Normal visualized pulmonary arteries. Atheromatous plaques of the visualized aortic arch and descending thoracic aorta. Diffuse spondylosis of the visualized thoracic spine. Normal visualized ribs, clavicles. Degenerative joint disease. There is no demonstrated abnormality of the visualized soft tissue structures of the upper abdomen. RAD/Chest 1 View (Portable) IMPRESSION: Mild bilateral basilar atelectatic pulmonary changes. Reading Location: [facility]
[2025-01-20 23:42] VITALS: BP 184/108; PULSE 67; RESP 26; TEMP 36.6; O2SAT 96; BMI 44.9
--- NOTE | 2025-01-20 23:47 | EDS_ITS ---
HPI History of Present Illness Chief Complaint: Palpitations [facility] Medical History Osteoarthritis Need for antibiotic prophylaxis for dental procedure Insomnia Health care maintenance Type 2 diabetes mellitus Weakness of both lower extremities Goiter Breast cancer Thyroid disorder Rheumatoid arthritis Diverticulitis Depression LUCIA (obstructive sleep apnea) Hypertension Home Medications Medication Instructions Recorded Last Taken Type acetaminophen 650 mg 650 mg PO Q8H PRN PRN pain o r 03/17/20 Unknown Rx tablet,extended release fever ##30 diclofenac sodium 1 % topical gel 2 g topical QHS #100 grams 08/10/23 Unknown Rx (Voltaren Arthritis Pain) furosemide 20 mg tablet 20 mg PO DAILY WATER PILL #9 0 tabs 03/14/24 Unknown Rx magnesium glycinate 100 mg (as 200 mg (2 x 100 mg) PO QHS #180 03/14/24 Unknown Rx glycinate) tablet tabs tizanidine 4 mg tablet 4 mg PO QHS PRN muscle spast icity 04/11/24 Unknown Rx #90 tabs venlafaxine 37.5 mg 37.5 mg PO DAILY #90 caps Unknown Rx capsule,extended release 24 hr aspirin 81 mg tablet,delayed 81 mg PO QDAY #90 tabs Unknown Rx release (Enteric Coated Aspirin) sennosides 8.6 mg-docusate sodium 1 tab-cap PO TID #90 tabs 10/24/24 Unknown Rx 50 mg tablet (Senna Plus) rosuvastatin 20 mg tablet 20 mg PO DAILY #90 tabs 10/26 12/19 Unknown Rx atenolol 50 mg tablet 50 mg PO BID BP 3 months #18 0 tabs 12/14/24 Unknown Rx risankizumab-rzaa 150 mg/mL 150 mg subcut QMONTH 12/14 Unknown History subcutaneous pen injector (Skyrizi) semaglutide 0.25 mg or 0.5 mg (2 0.25 mg (0.368 mL) anderson bcut QWEEK #3 12/14/24 Unknown Rx mg/3 mL) subcutaneous pen injector mL (Ozempic) cholecalciferol (vitamin D3) 25 3,000 unit PO DAILY ANDERSON PPLEMENT #90 12/19/24 Unknown Rx mcg (1,000 unit) tablet tabs blood sugar diagnostic (OneTouch #100 ea 09/16/25 Unkn own Rx Ultra Test strips) lisinopril 20 mg tablet 20 mg PO BID #180 tabs 01/16 Unknown Rx zolpidem 5 mg tablet 5 mg PO QHS insomnia #30 tab s 01/18/25 Unknown Rx Allergy/AdvReac Type Severity Reaction Status Date / Time celecoxib (From Celebrex) Allergy Hives Verified 01/20/25 23:46 gabapentin (From Neurontin) Allergy Other Verified 01/20/25 23:46 hyaluronic acid (From Allergy Hives Verified 01/20/25 23:46 Euflexxa) lidocaine Allergy Rash Verified 01/20/25 23:46 naproxen (From Aleve PM) Allergy Hives Verified 01/20/25 23:46 pregabalin (From Lyrica) Allergy Hives Verified 01/20/25 23:46 quetiapine (From Seroquel) Allergy Other Verified 01/20/25 23:46 ropinirole (From Requip) Allergy Other Verified 01/20/25 23:46 daridorexant (From Quviviq) AdvReac Severe PT UNABLE Verified 01/20/25 23:46 TO RESPOND-NEEDS F/U benzoyl peroxide AdvReac Rash Verified 01/20/25 23:46 citalopram AdvReac Other Verified 01/20/25 23:46 diphenhydramine (From Aleve AdvReac restless Verified 01/20/25 23:46 PM) legs etanercept (From Enbrel) AdvReac Other Verified 01/20/25 23:46 hydrochlorothiazide AdvReac Other Verified 01/20/25 23:46 NSAIDS (Non-Steroidal AdvReac Rash Verified 01/20/25 23:46 Anti-Inflamma Phenylpiperazine AdvReac NEEDS Verified 01/20/25 23:46 Antidepressant FOLLOW-UP prednisone AdvReac Other Verified 01/20/25 23:46 rotigotine (From Neupro) AdvReac Other Verified 01/20/25 23:46 Tetracyclic Antidepressants AdvReac NEEDS Verified 01/20/25 23:46 FOLLOW-UP Tricyclic Antidepressants AdvReac NEEDS Verified 01/20/25 23:46 and Tricy FOLLOW-UP Family History Mother Heart disease Hypertension Diabetes Sister Heart disease Father Hypertension Bleeding disorder blood clots Brother Cancer Surgical History History of lumpectomy History of elbow replacement History of bilateral knee replacement h/o breast cancer Social History Smoking Status: Former smoker quit date: 04/27/17 Tobacco: How many years used: 44 alcohol intake: former substance use type: does not use what type of physical activity do you participate in: walking EXAM Physical Exam Const Vital Signs: 01/20/25 23:42 Temperature 98 F Temperature Source Oral Pulse Rate 67 Respiratory Rate 26 H Blood Pressure 184/108 H Blood Pressure Mean 133 Pulse Ox 96 Oxygen Delivery Method Room Air MDM MDM MDM Narrative Medical decision making narrative: HISTORY OF PRESENT ILLNESS: Chief complaint: Palpitation 69-year-old female history of type 2 diabetes, obesity, tobacco use, LUCIA, restl ess leg syndrome, anxiety, hypertension, hyperlipidemia, presents with palpitations and a "rushing" sensation left chest. She states this began earlier tonight when she noted her blood pressure was elevated. No she has been compliant with home blood pressure medication. Denies any shortness of breath associated. Denies any leg swelling. Denies any syncope. The patient denies recent surgery in the last 4 weeks or immobilization in the last 3 days, denies previous diagnosis of DVT or PE, hemoptysis, unilateral leg swelling or malignancy with treatment the last 6 months or palliative. No estrogen use noted. Patient denies sudden onset of pain, no tearing sensation, no migratory symptoms, no new numbness, weakness or loss of sensation. Patient denies family history or personal history of Connective tissue disorders (Marfan's Syndrome, Mikhail Danlos etc) REVIEW OF SYSTEMS: Pertinent positives: Chest discomfort, palpitations Pertinent negatives: As per HPI PHYSICAL EXAM: Nursing triage notes reviewed, Vital signs reviewed Constitutional: please see mdm HENT: MMM Eyes: Pupils equal round and reactive to light, Extraocular muscles intact Neck: No stridor, no JVD, full neck ROM Lungs: Clear to auscultation, No wheezing or rales. No increased work of breathing, no conversational dyspnea, no accessory muscle use, no nasal flaring. No respiratory distress noted Heart: Regular rate and rhythm, No murmurs, No rubs and No gallops, 2+ distal pulses (radial, femoral, posterior tibial) in all extremities Abdomen: Soft, there is no tenderness, rigidity, rebound or guarding, no obvious peritoneal signs, no palpable pulsatile abdominal masses, no auscultated abdominal bruit : No CVAT Extremities: No edema Neuro: No new focal neurological deficits, cranial nerves II through XII intact, 5/5 strength in all present extremities. Intact sensation to light touch in all present extremities, 2+ reflexes bilateral patella tendons. Skin: No rash or lesions noted MEDICAL DECISION MAKING: Chief Complaint: please see [facility] External records reviewed: Reviewed prior cardiovascular test Factors affecting care: As per [facility] Social determinants of health: none History obtained from others: EMS Consults: none [facility] Narrative: The patient was initially hemodynamically stable, afebrile and nontoxic- appearing. Exam without focal cardiopulmonary abnormalities. Exam without stigmata of VTE or CHF I considered the following differential diagnosis: Arrhythmia, anemia, electrolyte disturbance, pneumonia I obtained a broad lab and imaging workup to further determine if the patient was suffering from a life-threatening etiology. ALL IMAGES (IF OBTAINED) HAVE BEEN PERSONALLY REVIEWED AND INTERPRETED BY MYSELF. Initial EKG with normal sinus rhythm rate 68, normal axis, no intervals, no STEMI I have personally reviewed the patient's chest x-ray. Chest x-ray is unremarkable for pulmonary edema, pneumothorax, pneumonia or focal cardiopulmonary abnormality. High-sensitivity troponin is negative, no evidence of myocardial ischemia x2 CBC with no leukocytosis, noted hemoconcentration but no anemia, no thrombocytopenia BMP without evidence of significant electrolyte abnormalities, no anion gap, no acute kidney injury. LFTs On reevaluation patient blood pressure improved to 129/84 without intervention. The synthesis of the patient's history, physical exam, labs emergency has no acute life or limb radiology. Of note patient blood pressure was elevated here in the emergency department. There is no sign of endorgan damage as result of this however patient will need close PCP follow-up for blood Pressure medication titration. Discussed tricked return precautions The patient and/or family, caregivers express understanding. The patient and/or family, caregivers agrees with the plan. Shared decision making: I will have a discussion with the patient and or visitors regarding risk/benefits of further testing or admission. They will be made aware of of the risk/benefits inherent in this decision they will be given the opportunity to voice understanding. Total critical care time today provided was at least 0 minutes. This excludes separately billable procedures. Critical care time (if documented) is secondary to the patient having high probability of clinically significant/life threatening deterioration in the patient's condition which required my urgent intervention. Impression: 1. Palpitations 2. Elevated blood pressure 3. History of hypertension Dispo: Discharge home This note was generated with [employer] dictation software. It may contain incorrect words, spelling, and punctuation that were not noted in review of the chart prior to signing. Discharge Plan Triage Chief Complaint: Palpitations ED Provider: Satnam Michel Dx/Rx/DC Orders Prescriptions: No Action diclofenac sodium [Voltaren Arthritis Pain] 1 % gel 2 g topical QHS Qty: 100 3RF empagliflozin 25 mg tablet 25 mg PO QAM Qty: 90 1RF Skyrizi 150 mg/mL pen injector subcut Patient Comments: [NO ORIGINAL SIG] atenolol 50 mg tablet 50 mg PO BID 90 Days Qty: 180 1RF Ozempic 0.25 mg or 0.5 mg (2 mg/3 mL) pen injector 0.25 mg subcut QWEEK Qty: 3 1RF Rx Instructions: for 4 weeks acetaminophen 650 MG tablet extended release 650 mg PO Q8H PRN PRN (Reason: pain or fever) Qty: 30 0RF loratadine 10 mg Tablet 10 mg PO DAILY PRN (Reason: allergies) furosemide 20 mg tablet 20 mg PO DAILY Qty: 90 3RF magnesium glycinate 100 mg tablet 200 mg PO QHS Qty: 180 1RF tizanidine 4 mg tablet 4 mg PO QHS PRN (Reason: muscle spasticity) Qty: 90 3RF venlafaxine 37.5 mg capsule,extended release 24hr 37.5 mg PO DAILY Qty: 90 3RF aspirin [Enteric Coated Aspirin] 81 mg tablet,delayed release (DR/EC) 81 mg PO QDAY Qty: 90 1RF sennosides-docusate sodium [Senna Plus] 8.6-50 mg tablet 1 tab-cap PO TID Qty: 90 3RF rosuvastatin 20 mg tablet 20 mg PO DAILY Qty: 90 1RF cholecalciferol (vitamin D3) 25 mcg (1,000 unit) tablet 3,000 unit PO DAILY Qty: 90 2RF tizanidine 2 mg tablet 2 mg PO QHS PRN (Reason: muscle spasticity) Qty: 90 3RF Rx Instructions: Take as needed if 4 mg is ineffective (DME) OneTouch Ultra Test Strip See Rx Instructions .Route Qty: 100 3RF Rx Instructions: As directed; Use one test strip every day to check blood sugar for Diabetes II (E11.9) lisinopril 20 mg tablet 20 mg PO BID Qty: 180 1RF zolpidem 5 mg tablet 5 mg PO QHS Qty: 30 0RF Primary Care Provider: Gita Soria Referrals: Gita Soria MD [Primary Care Provider, Internal Medicine] Print Language: [place] Leonean
--- NOTE | 2025-01-20 23:48 | EKG12_ITS ---
Test Reason : PALPS Blood Pressure : */* mmHG Vent. Rate : 68 BPM Atrial Rate : 68 BPM P-R Int : 184 ms QRS Dur : 84 ms QT Int : 420 ms P-R-T Axes : 16 19 15 degrees QTcB Int : 446 ms Sinus rhythm with Premature atrial complexes Otherwise normal ECG Confirmed by TALIA HAYS ([id number]), features editor LINDA CASTANEDA ([id number]) on 01/23/2025 8:44:51 AM Referred By: Confirmed By: TALIA HAYS
[2025-01-21 00:19] LABS: Hematocrit 47.7 % (37-47); Hemoglobin 16.6 g/dL (12.0-15.0); Immature Granulocytes Count 0.020 X10^3/uL (0.0-0.0); Mean Corp Hgb Conc 34.8 g/dL (32-36); Mean Corpuscular Volume 87.8 fL (81-99); Mean Platelet Vol. 9.3 fl (6.2-12.0); NRBC Flagged by Analyzer 0 % (0-5); Platelet Count 229 K/mm3 (150-450); RBC Distribution Width CV 13.2 % (11.6-14.6); RBC Distribution Width SD 42.5 fl (35.1-43.9); Red Blood Count 5.43 M/mm3 (4.2-5.4); White Blood Count 7.5 K/mm3 (4.4-11.0)
[2025-01-21 00:45] VITALS: BP 186/92; PULSE 77; RESP 18; O2SAT 95
[2025-01-21 01:00] VITALS: BP 174/76; PULSE 69; RESP 19; O2SAT 96
[2025-01-21 01:17] LABS: AST(SGOT) 42 U/L (<=31); Alanine Aminotransfer ALT/SGPT 57 U/L (<=34); Albumin, Serum 4.3 g/dL (3.4-4.8); Alkaline Phosphatase 56 U/L (35-104); Anion Gap 13 (5-15); BUN 15 mg/dL (4-19); BUN/Creat Ratio 28.7 RATIO (10-20); Calcium,Total 9.5 mg/dL (7.6-11.0); Carbon Dioxide 21.6 mmol/L (21.0-32.0); Chloride 103 mmol/L (98-108); Estimated Creatinine Clearance 74.21 ml/min (50-250); Globulin 2.7 g/dL (2.2-4.2); Glucose 120 mg/dL (70-99); Potassium 3.8 mmol/L (3.3-5.1); Troponin T High Sensitivity 12 ng/L (<=14)
[2025-01-21 02:00] VITALS: BP 186/93; PULSE 72; RESP 18; O2SAT 96
[2025-01-21 02:30] LABS: Troponin T High Sens 2 HR 11 ng/L (<=14)
[2025-01-21 03:00] VITALS: BP 129/84; PULSE 70; RESP 19; O2SAT 96
[2025-01-21 04:02] VITALS: BP 146/86; PULSE 76
[2025-01-21] MEDS: Nitroglycerin SL (ED/IMG/CATH) 0.4 MG TABLET SL (04:02)
[2025-01-21 04:15] VITALS: BP 146/86; PULSE 86; RESP 16; TEMP 36.6; O2SAT 98
== END 2025-01-21 05:03 | disposition home or self-care (01) ==
PROVIDERS: Emergency Provider Emergency Medicine; PCP Internal Medicine; Visit Provider Emergency Medicine
DX: R00.2 Palpitations (principal); E11.9 Type 2 diabetes mellitus without complications; I10 Essential (primary) hypertension; Z87.891 Personal history of nicotine dependence; F41.9 Anxiety disorder, unspecified; E78.5 Hyperlipidemia, unspecified; E66.9 Obesity, unspecified; Z79.899 Other long term (current) drug therapy
CPT/HCPCS: 71045; 80053; 84484; 85025; 93005; 99285; A4216